=== PATIENT | female | born 1965 | race African-American/Black ===

== ENCOUNTER 2018-05-29 01:41 | Inpatient (IN) | payer MEDICARE ==
[2018-05-29] VITALS (77 sets, daily range): BP systolic 89–191; BP diastolic 50–151
[~2018-05-29] VITALS: Ht 172.7 cm; Wt 137.9 kg
[2018-05-29] MEDS ORDERED: SODIUM CHLORIDE 0.9% 1000ML 1,000 ML IV STA (01:56)
[2018-05-29] MEDS ORDERED: ACETAMINOPHEN 1000 MG/100 ML IV STA (01:56)
[2018-05-29 02:40] LABS: BASOPHILS % 0.2 % (0.0-1.0); HEMATOCRIT 35.4 % (34.2-44.1); HEMOGLOBIN 11.8 g/dL (12.0-16.0); LYMPHOCYTES # (AUTO) 0.6 (1.0-3.2); LYMPHOCYTES % 5.8 % (18.0-39.1); MEAN CORPUSCULAR HEMOGLOBIN 29.4 pg (28-32); MEAN CORPUSCULAR HGB CONC 33.3 g/dL (31-35); MEAN CORPUSCULAR VOLUME 88.1 fL (81-99); MONOCYTES # (AUTO) 0.7 (0.2-0.8); MONOCYTES % 6.6 % (4.4-11.3); NEUTROPHILS # (AUTO) 9.6 (2.1-6.9); NEUTROPHILS % 86.9 % (38.7-80.0); PLATELET COUNT 83 x10e3/uL (140-360); RED BLOOD COUNT 4.02 x10e6/uL (3.6-5.1); RED CELL DISTRIBUTION WIDTH 15.9 % (11.7-14.4)
[2018-05-29 02:45] LABS: INR 1.12; PROTHROMBIN TIME 15.4 seconds (11.9-14.5)
[2018-05-29 02:55] LABS: ALBUMIN 3.9 g/dL (3.5-5.0); ALBUMIN/GLOBULIN RATIO 0.8 (0.8-2.0); CALCIUM 10.7 mg/dL (8.4-10.2); CREATININE, SERUM 2.42 mg/dL (0.57-1.11); MAGNESIUM 1.7 MG/DL (1.3-2.1)
[2018-05-29 03:14] LABS: CREATINE KINASE MB 1.7 ng/mL (0-5.0); THYROID STIMULATING HORMONE 0.374 uIU/mL (0.350-4.940)
[2018-05-29] MEDS ORDERED: CEFEPIME HCL 2 GM VIAL IV STA (03:30)
[2018-05-29] MEDS ORDERED: VANCOMYCIN 1GM/NS 250 ML 250 ML IV STA (03:30)
[2018-05-29 04:18] LABS: CLARITY,URINE CLEAR (CLEAR); COLOR,URINE YELLOW (YELLOW)
[2018-05-29 04:19] LABS: BACTERIA,URINE RARE /HPF; BILIRUBIN,URINE NEGATIVE (NEGATIVE); EPITHELIAL CELLS,URINE RARE /LPF; KETONES,URINE NEGATIVE (NEGATIVE); LEUKOCYTE ESTERASE ,URINE NEGATIVE (NEGATIVE); NITRITE,URINE NEGATIVE (NEGATIVE); PREGNANCY TEST, URINE NEGATIVE (NEGATIVE); PROTEIN,URINE DIPSTICK NEGATIVE (NEGATIVE); RBC,URINE 0-5 /HPF (0-5); URINE UROBILINOGEN 0.2 mg/dL (0.2 - 1); WBC,URINE (MAN) 0-5 /HPF (0-5)
[2018-05-29 04:23] LABS: INFLUENZAE A&B ANTIGEN (RAPID) NEGATIVE (NEGATIVE); STREPTOCOCCUS GRP A ANTIGEN NEGATIVE (NEGATIVE)
--- NOTE | 2018-05-29 05:00 | Diagnostic Imaging Report ---
EXAMINATION: Head CT without contrast. HISTORY:Altered mental status and fever. COMPARISON:None. TECHNIQUE: Multidetector axial images were obtained from the foramen magnum to the vertex without contrast. The images were reconstructed using brain and bone algorithms. Thin section brain images were reformatted into coronal and sagittal planes. Dose modulation, iterative reconstruction, and/or weight based adjustment of the mA/kV was utilized to reduce the radiation dose to as low as reasonably achievable. Intravenous contrast: None IMAGE QUALITY: Suboptimal evaluation due to motion-related artifacts and metallic streak artifact secondary to an overlying external material in the frontal scalp. FINDINGS: Skull/scalp: No lytic or blastic. lesions. No surgical changes. Parenchyma: Suboptimal evaluation due to motion and metallic streak artifacts, despite the limitation no gross acute intracranial hemorrhage, mass or acute major vascular territorial infarct. Nonspecific bilateral frontoparietal patchy white matter hypodensity are likely related to small vessel ischemic changes. Focal hypodensity in left lentiform nucleus represents old lacunar infarct or prominent perivascular space. Arteries: No density suggestive of thrombosis. Dural sinuses: No abnormal density suggestive of thrombosis. Ventricles: No hydrocephalus or displacement. Extra-axial spaces: No abnormal density. Brain volume: Mild generalized cerebral volume loss. Craniocervical junction: No mass, Chiari malformation, or basilar invagination. Sella: No mass. Paranasal/mastoid sinuses: Imaged portions unremarkable. IMPRESSION: 1. Suboptimal evaluation due to motion and metallic streak artifacts, despite the limitation no gross acute intracranial abnormality. 2. Mild supratentorial white matter microvascular ischemic changes. 3. Mild generalized cerebral volume loss. Signed by: Dr. Kathy Mcdonough M.D. on 05/29/2018 4:57 AM
--- NOTE | 2018-05-29 05:08 | Diagnostic Imaging Report ---
EXAM: CHEST SINGLE (PORTABLE), AP 1 view INDICATION: Altered mental status, fever COMPARISON: None FINDINGS: LINES/TUBES: None LUNGS: No consolidations or edema. PLEURA: No effusions or pneumothorax. HEART AND MEDIASTINUM: Normal for technique BONES AND SOFT TISSUES: No acute findings. IMPRESSION: No acute thoracic abnormality. Signed by: Dr. Ymaila Prieto M.D. on 05/29/2018 5:05 AM
[2018-05-29 05:39] LABS: AMPHETAMINES SCREEN,URINE NEGATIVE (NEGATIVE); BENZODIAZEPINES SCREEN,URINE NEGATIVE (NEGATIVE); PHENCYCLIDINE SCREEN,URINE NEGATIVE (NEGATIVE)
[2018-05-29] MEDS ORDERED: ONDANSETRON HCL INJ 2 MG/ML VIAL IV PRN ×2 (05:45→12:00)
[2018-05-29] MEDS ORDERED: DEXTROSE 50% SYRINGE 50 ML IV PRN (05:45)
[2018-05-29] MEDS ORDERED: ACETAMINOPHEN 1000 MG/100 ML IV PRN (05:45)
[2018-05-29 05:50] LABS: ACETAMINOPHEN < 3 ug/mL (10-30); SALICYLATE < 5.0 mg/dL (0-30)
--- NOTE | 2018-05-29 06:08 | Diagnostic Imaging Report ---
EXAM: CT ABDOMEN AND PELVIS without IV CONTRAST INDICATION: History of cirrhosis, altered mental status and fever COMPARISON: None TECHNIQUE: The abdomen and pelvis were scanned using a multidetector helical scanner. Coronal and sagittal reformations were obtained. Dose modulation, iterative reconstruction, and/or weight based adjustment of the mA/kV was utilized to reduce the radiation dose to as low as reasonably achievable. Routine protocol performed. IV Contrast: None Oral Contrast: None CTDIvol has been reviewed. It is below the limits set by the Radiation Protocol Committee (RPC). FINDINGS: LOWER THORAX: Bibasilar atelectasis. LIVER: Cirrhotic liver morphology. BILIARY: Cholecystectomy without ductal dilation. SPLEEN: Splenomegaly. PANCREAS: No masses ADRENALS: No nodules RIGHT KIDNEY: No nephroureterolithiasis or hydronephrosis. LEFT KIDNEY: No nephroureterolithiasis or hydronephrosis. GI TRACT: No wall thickening or obstruction. Normal appendix. VESSELS: Recanalization of the periumbilical vein. PERITONEUM/RETROPERITONEUM: No free air or fluid LYMPH NODES: Mildly prominent inguinal lymph nodes. REPRODUCTIVE ORGANS: Small uterine fibroid. BLADDER: Decompressed by John catheter. SOFT TISSUES: Incidental atrophy of the left psoas muscle. Bilateral flank edema. BONES: No suspicious bone lesions. Chronic compression fracture with a cemented L2 vertebral body. IMPRESSION: No CT findings to explain patient's fever. Cirrhosis with portal hypertension. No ascites. Signed by: Dr. Yamila Prieto M.D. on 05/29/2018 6:04 AM
[2018-05-29] MEDS ORDERED: SODIUM CHLORIDE 0.9% 1000ML 1,000 ML ONE ×2 (07:07→09:51)
[2018-05-29] MEDS ORDERED: SODIUM CHLORIDE 0.9% 1000ML 1,000 ML IV SCH (07:15)
[2018-05-29] MEDS: INSULIN REGULAR, HUMAN 100 UNIT/1 ML 3ML VIAL SQ SCH ×3 (07:30→16:30)
[2018-05-29] MEDS: PANTOPRAZOLE 40 MG 10ML VIAL IV SCH (09:01)
[2018-05-29] MEDS ORDERED: SODIUM CHLORIDE 0.9% 1000ML 1,000 ML IV ONE (10:15)
[2018-05-29] MEDS: SODIUM CHLORIDE 0.9% 1000ML 1,000 ML IV SCH (13:25)
[2018-05-29] MEDS ORDERED: VANCOMYCIN HCL 1 GM in SODIUM CHLORIDE 0.9% 250ML 250 ML IV SCH (14:00)
[2018-05-29] MEDS ORDERED: CEFTRIAXONE SOD 1 GM VIAL IV SCH (14:00)
[2018-05-29] MEDS ORDERED: AMPICILLIN SOD 2 GM/NS 100ML 100 ML IV SCH ×3 (14:00→20:00)
--- NOTE | 2018-05-29 14:14 | History and Physical ---
CHIEF COMPLAINT: Fever, altered mental status, transfer from [facility]. HPI: This is a 52-year-old female. Currently, she is altered and confused. I am unable to obtain full information except from the ER note, nursing staff, and the information from [facility], who comes in from [facility] due to underlying fever of 104 and metabolic encephalopathy. Currently, the patient according to the records was there for further rehabilitation. 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 She also has a history of liver cirrhosis of unknown etiology. She takes methadone for chronic pain as well as clonazepam. According to the records, patient had a recent fall at [facility], but imaging studies seem to find just an acute fracture of the proximal medial aspect of the first distal phalanx. Her ankle actually was found to be negative. She had a hip x-ray, was found to be negative. Knee x-ray was found to be negative as well. There is also some note that states that when she was in the Medical Center, the record show she has underlying CKD stage 3 with chronic back pain, who presented there due to worsening lower extremity swelling. She was found to have chronic bilateral lower extremity swelling with no resolve. She also has a history of MDR UTI in the past. Patient was then transferred to [facility] for further rehabilitation. Patient was seen and evaluated at bedside in the ICU, currently able to arouse, but she is not able to tell us any information. She is very lethargic and sleeping on examination but arousable. REVIEW OF SYSTEMS: Unable to obtain. Patient has altered mental status. ALLERGIES: NO KNOWN DRUG ALLERGIES. HOME MEDICATIONS 1. Methadone 10 mg daily. 2. Melatonin 3 mg at bedtime for sleep. 3. Tizanidine 4 mg q.6 hours. 4. Lactulose, she takes 20 g daily. 5. Topiramate 25 mg three tabs by mouth at bedtime. 6. Gabapentin 300 mg t.i.d. 7. Hydroxyzine 50 mg q.24 hours as needed for itching. 8. Folic acid 1 mg daily. 9. Dieterich 10/325 mg every 6 hours as needed for pain. PAST MEDICAL HISTORY: Recorded is major depression disorder. She has Guillain-[place], has polyneuropathy, asthma, chronic urinary tract infection, chronic pain syndrome, and alcoholic cirrhosis, unknown etiology. PAST SURGICAL HISTORY: Unknown. FAMILY HISTORY: Unknown. SOCIAL HISTORY: Unknown. VITAL SIGNS: Temperature is 101.1 last recorded, but she came in with a temp of 104.1 as a T-max, pulse rate is 133, respiratory rate is 22, her last blood pressure was 21/67 on the monitor, 100% on 3 liters nasal cannula. LAB FINDINGS: Show white count is 11, hemoglobin is 11.8, hematocrit is 35, and platelets of 83. Coagulation; PT 15.4, INR 1.1, and PTT 33. Chemistry; sodium 141, potassium is 4, chloride is 103, bicarb 22, anion gap of 20, BUN is 41, creatinine is 2.4, calcium is 10.7, magnesium 1.7, total bilirubin is 2, AST 72, ALT 24, mono level 64, CK 1343, troponin is 0.024, BNP 487, albumin is 3.9, TSH 0.3. Urinalysis was negative. Toxicology screen; urine drug screen just positive for opiates, influenza negative, and group B Strep negative. MICROBIOLOGY: Blood and urine cultures including throat cultures are pending. Chest x-ray was negative. CT brain shows no acute findings according to the reports. CT abdomen and pelvis just show cirrhosis with portal hypertension. No ascites. PHYSICAL EXAM GENERAL: She is arousable on exam, but does not make sense with word. HEENT: Head is normocephalic and atraumatic. Eyes: Pupils are equal, round, and reactive to light bilaterally. Extraocular movements are intact bilaterally. No evidence of any meningismus or any evidence of any meningeal signs. NECK: Supple. Good range of motion. THROAT: No evidence of any erythema or exudates in the posterior pharynx. Has poor dentition. PULMONARY: Clear to auscultation bilaterally. No wheezing, rales, or rhonchi. No crackles appreciated. CARDIOVASCULAR: Positive S1 and S2. No murmurs, rubs, or gallops appreciated. ABDOMEN: Soft, nondistended, and nontender to palpation. Bowel sounds present. MUSCULOSKELETAL: Unable to assess. She is altered. NEUROLOGIC: Unable to assess. She is altered. SKIN: Intact. Warm to touch. Good cap refill. PSYCHIATRIC: Currently unable to assess. EXTREMITIES: No edema. Good range of motion throughout. IMPRESSION 1. Sepsis with underlying fever of unknown etiology with leukocytosis. 2. Metabolic encephalopathy, likely multifactorial from polysubstance abuse as well as sedating medications and also underlying infection from sepsis. 3. Acute kidney injury, on chronic kidney disease stage 3. 4. Rhabdomyolysis. 5. Liver cirrhosis of unknown etiology. 6. Prophylaxis. 7. Fluids, electrolytes, nutrients. 8. Physical therapy and occupational therapy evaluation. 9. Right distal phalanx fracture due to recent fall. PLAN: At this time, patient's CT brain was found to be negative. I am concerned that the patient may have another source of infection and may need an LP, but I will actually have ID consulted and further evaluate to see if an LP is needed. Her encephalopathy could be multifactorial. She is currently in acute kidney injury and she was taking gabapentin, methadone, Dieterich, tizanidine, as well as hydroxyzine which are all sedating medications, which could be the cause in her case, but the fevers unexplanatory. Her chest x-ray was negative. Her UA was negative. Her CBC; her white count was slightly elevated. She will be on continuous IV antibiotics with vancomycin and cefepime. I am going to get a.m. labs, BMP, CBC, as well as a lactic acid. Like I said she may need an LP, but I will have ID evaluate further if indicated. In relation to her acute kidney injury, she will continue on IV fluids. She was also found to be in rhabdo, which she will be on continuous IV fluids. Continue with lactulose for her ammonia level. I will hold Lovenox for now in the event she needs an LP and put her on SCDs. She was also found to have right distal phalanx fracture on imaging at [facility], but those fractures usually heal on their own and would just put like a splint. In relation to her diet, she is not alert enough to eat at this moment. When she wakes up, we will consider her to do a speech therapy eval and consider diet. We will hold off of NG tube for now. Otherwise, we will continue with same plan of care. I discussed the case with the nursing staff. I spent more than 45 minutes of critical care time on this case reviewing the entire chart, discussing overall plan of care with the patient and nursing staff. Job#: [id number] ALEK
[2018-05-29] MEDS ORDERED: ACYCLOVIR SODIUM INJ 500 MG in SODIUM CHLORIDE 0.9% 100 ML 100 ML IV SCH ×2 (14:30→18:30)
[2018-05-29] MEDS ORDERED: LIDOCAINE HCL 2% LOCAL 20 ML VIAL ONE (15:05)
[2018-05-29] MEDS ORDERED: CEFEPIME HCL 2 GM VIAL IV SCH (16:00)
[2018-05-29] MEDS ORDERED: VANCOMYCIN 1GM/NS 250 ML 250 ML IV SCH (17:00)
--- NOTE | 2018-05-29 17:09 | Consultation ---
DATE OF CONSULTATION: May 29, 2018 REASON FOR CONSULTATION: Concern about infection. HISTORY OF PRESENT ILLNESS: This is a patient who is currently in [facility] Emergency Room. She comes to us from the [facility] skilled care facility. 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 The patient apparently has history of recurrent cellulitis of her legs, morbidly obese patient who has history of alcoholism, neuropathy, chronic diastolic congestive heart failure, liver cirrhosis, chronic kidney disease, closed compression fracture of L2, Guillain-[place] syndrome before, and obesity. She has been getting progressively worse recently neurologically in the last few days, transferred here. According to nurse, she was able to talk to her earlier today and she was complaining of pain all over. Currently, the patient is sleeping and I tried to arouse her. PAST MEDICAL HISTORY: The patient has history of alcoholism, neuropathy, congestive heart failure, liver cirrhosis, chronic kidney disease, obesity, Guillain-[place], obstructive sleep apnea, peptic ulcer disease, and seizure disorder. PAST SURGICAL HISTORY: Cholecystectomy, endometrial ablation, hand ligament reconstructive surgery, kyphoplasty, nerve block lumbar sympathetic procedure before by pain management, nerve block, endoscopic biopsy before. ALLERGIES: NKA. SOCIAL HISTORY: There is no smoking, drug abuse, or alcohol abuse. FAMILY HISTORY: Noncontributory. REVIEW OF SYSTEMS: Cannot not be obtained. Patient apparently has for some time, but more so recently, so she was transferred here. PHYSICAL EXAMINATION VITAL SIGNS: She is currently afebrile, temperature 100.8, T-max 101.6, heart rate of 134. HEENT: She is normocephalic. NECK: Supple. CHEST: Few crackles. HEART: S1, S2. No S3, S4, or murmur. ABDOMEN: Soft. Bowel sounds present. No tenderness. EXTREMITIES: No edema. LABS: Her white count is 11, hemoglobin 11.8, and her platelet of 83. Sodium 141, potassium 4.0, creatinine of 2.42, lactic acid of 13.7. AST 72 and AL 24. Chest x-ray showed no acute finding. CT of the brain showed substandard study because of artifact, suboptimal evaluation. CT abdomen and pelvis, no acute abnormality. MEDICATIONS: She is currently on Protonix, , insulin, rifaximin, vancomycin, and cefepime. PHYSICAL EXAMINATION GENERAL: She is lethargic. VITAL SIGNS: Stable. Afebrile. HEENT: She does not appear icteric. NECK: Supple. CHEST: Clear bilateral. HEART: S1, S2. No murmur. ABDOMEN: Soft. Bowel sounds present. No tenderness. EXTREMITIES: No edema. SKIN: No rash. IMPRESSION 1. Sepsis, source is unclear, concern about meningitis/encephalitis. 2. Liver disease and cirrhosis. 3. Chronic kidney disease. 4. Obesity. PLAN: I would recommend to put her on Rocephin 2 gram q.12, vancomycin, acyclovir, and ampicillin. Obtain spinal fluid. Await blood cultures. Await urine cultures. Supportive care. Further recommendations to follow. Job#: [id number] AAMIR
[2018-05-29 17:10] LABS: APPEARANCE,CSF CLEAR (CLEAR); COLOR,CSF COLORLESS (COLORLESS); TUBE NUMBER 1
[2018-05-29 17:11] LABS: WHITE BLOOD CELL,CSF 4 cells/uL (0-5)
[2018-05-29 17:33] LABS: TOTAL PROTEIN,CSF 41.9 mg/dL (15-40)
--- NOTE | 2018-05-29 18:24 | Diagnostic Imaging Report ---
EXAMINATION: CHEST SINGLE (PORTABLE) INDICATION: \S\VERIFY PLACEMENT OF RIGHT CENTRAL VENOUS CATHETER COMPARISON: None FINDINGS: AP view TUBES and LINES: Right IJ central line with tip likely in the low SVC. LUNGS: Lungs are well inflated. There are bibasilar atelectasis. There is mild prominence of the central pulmonary vasculature, consistent with pulmonary venous congestion. PLEURA: No pleural effusion or pneumothorax. HEART AND MEDIASTINUM: Cardiac size is mildly enlarged. BONES AND SOFT TISSUES: No acute osseous lesion. Soft tissues are unremarkable. UPPER ABDOMEN: No free air under the diaphragm. IMPRESSION: 1. Right IJ line with tip likely in the low SVC. 2. However, patient is mildly rotated exam. Signed by: Dr. Zuhair Heaton M.D. on 05/29/2018 6:21 PM
[2018-05-29 18:36] LABS: BASOPHILS % 0.2 % (0.0-1.0); EOSINOPHILS % 0.1 % (0.0-6.0); HEMATOCRIT 32.7 % (34.2-44.1); HEMOGLOBIN 10.7 g/dL (12.0-16.0); LYMPHOCYTES % 11.1 % (18.0-39.1); MEAN CORPUSCULAR HEMOGLOBIN 29.6 pg (28-32); MEAN CORPUSCULAR HGB CONC 32.7 g/dL (31-35); MEAN CORPUSCULAR VOLUME 90.3 fL (81-99); MONOCYTES # (AUTO) 0.7 (0.2-0.8); MONOCYTES % 7.9 % (4.4-11.3); NEUTROPHILS # (AUTO) 7.5 (2.1-6.9); NEUTROPHILS % 80.1 % (38.7-80.0); PLATELET COUNT 72 x10e3/uL (140-360); RED BLOOD COUNT 3.62 x10e6/uL (3.6-5.1); RED CELL DISTRIBUTION WIDTH 16.1 % (11.7-14.4)
[2018-05-29 18:47] LABS: ANION GAP 15.6 mmol/L (8-16); CALCIUM 9.6 mg/dL (8.4-10.2); CREATININE, SERUM 1.82 mg/dL (0.57-1.11); POTASSIUM 3.6 mmol/L (3.5-5.1)
[2018-05-29] MEDS: CEFTRIAXONE SOD 1 GM VIAL IV SCH (18:48)
[2018-05-29] MEDS: RIFAXIMIN 550 MG TABLET PO SCH (18:48)
[2018-05-29] MEDS: LACTULOSE SYRUP 20 GM/30 ML UDC PO SCH (18:48)
[2018-05-29 19:19] LABS: CREATINE KINASE MB 2.7 ng/mL (0-5.0)
[2018-05-29] MEDS ORDERED: SODIUM CHLORIDE 0.9% IV SCH ×3 (21:00)
[2018-05-29] MEDS ORDERED: VANCOMYCIN HCL IV SCH ×3 (21:00)
[2018-05-29] MEDS: VANCOMYCIN 1GM/NS 250 ML 250 ML IV SCH (21:02)
[2018-05-30] VITALS (57 sets, daily range): BP systolic 126–204; BP diastolic 65–161
[2018-05-30] MEDS: SODIUM CHLORIDE 0.9% 1000ML 1,000 ML IV SCH ×4 (01:30→20:47)
[2018-05-30 04:44] LABS: BASOPHILS % 0.2 % (0.0-1.0); EOSINOPHILS % 0.5 % (0.0-6.0); HEMATOCRIT 30.3 % (34.2-44.1); HEMOGLOBIN 9.9 g/dL (12.0-16.0); LYMPHOCYTES % 12.1 % (18.0-39.1); MEAN CORPUSCULAR HEMOGLOBIN 29.4 pg (28-32); MEAN CORPUSCULAR HGB CONC 32.7 g/dL (31-35); MEAN CORPUSCULAR VOLUME 89.9 fL (81-99); MONOCYTES % 11.6 % (4.4-11.3); NEUTROPHILS # (AUTO) 6.4 (2.1-6.9); NEUTROPHILS % 75.1 % (38.7-80.0); PLATELET COUNT 71 x10e3/uL (140-360); RED BLOOD COUNT 3.37 x10e6/uL (3.6-5.1); RED CELL DISTRIBUTION WIDTH 16.2 % (11.7-14.4)
[2018-05-30 05:07] LABS: ALBUMIN 2.9 g/dL (3.5-5.0); ALBUMIN/GLOBULIN RATIO 0.7 (0.8-2.0); ANION GAP 15.5 mmol/L (8-16); CALCIUM 9.5 mg/dL (8.4-10.2); CHOL/HDL RATIO 3.4 (3.0-3.6); CREATININE, SERUM 1.71 mg/dL (0.57-1.11); POTASSIUM 3.5 mmol/L (3.5-5.1)
[2018-05-30] MEDS: INSULIN REGULAR, HUMAN 100 UNIT/1 ML 3ML VIAL SQ SCH ×4 (05:47→17:25)
[2018-05-30] MEDS: CEFTRIAXONE SOD 1 GM VIAL IV SCH ×2 (05:56→17:23)
[2018-05-30] MEDS: RIFAXIMIN 550 MG TABLET PO SCH ×2 (09:45→17:12)
[2018-05-30] MEDS: LACTULOSE SYRUP 20 GM/30 ML UDC PO SCH ×2 (09:45→17:12)
[2018-05-30] MEDS: PANTOPRAZOLE 40 MG 10ML VIAL IV SCH (09:45)
[2018-05-30] MEDS: METOPROLOL TARTRATE 50 MG TAB PO SCH ×2 (10:29→17:12)
[2018-05-30] MEDS: FUROSEMIDE INJ 10 MG/ML 4 ML VIAL IV SCH ×2 (10:30→17:12)
--- NOTE | 2018-05-30 10:47 | Progress Note ---
DATE: May 30, 2018 INTERNAL MEDICINE PROGRESS NOTE SUBJECTIVE: The patient is much more alert today on exam. She had an LP yesterday, which was found to be unremarkable. She is afebrile and normotensive. She is much more alert compared to yesterday. She was able to tell me the year and where she is located but unable to tell me who the President is. Discussed the case with the nursing staff. VITAL SIGNS: Temperature is 100. Her pulse is 126. Respiratory rate is 20. Blood pressure is 160/103. Her pulse ox is 98% on room air. LAB FINDINGS: White count 8.2, hemoglobin 9.9, hematocrit 30.3, platelets 71. Chemistry: Sodium 144, potassium 3.5, chloride 111, bicarb 21, anion gap 15, BUN 27, creatinine 1.7, glucose 110, calcium 9.5. Total bilirubin is 1.4, AST 42, ALT 17. CK is 387. LDL is 62. TSH was normal. CSF showed 4 WBCs, 195 RBCs, seems to be very clear, total protein 42, glucose 80. Influenza negative. Group-B strep negative. Several serologies have been ordered, still pending. Blood cultures no growth to date. Throat culture is negative. Urine culture is negative. CSF cultures are pending. Fungal CSF cultures are pending. PHYSICAL EXAMINATION GENERAL: Not in acute distress. Alert and oriented times 2. Cooperative on examination. HEENT: Head is normocephalic and atraumatic. Eyes: Pupils are equal, round, and reactive to light bilaterally. Extraocular movements are intact bilaterally. NECK: Supple. Good range of motion. THROAT: No evidence of any erythema or exudates in the posterior pharynx. Has poor dentition. PULMONARY: Clear to auscultation bilaterally. No wheezing, no rales, no rhonchi. No crackles appreciated. CARDIOVASCULAR: Positive S1 and S2. No murmurs, rubs, or gallops appreciated. ABDOMEN: Soft, nondistended, and nontender to palpation. Bowel sounds present. MUSCULOSKELETAL: Strength is 5/5 throughout. No evidence of any muscle deficit on examination. No weakness is appreciated. NEUROLOGIC: Cranial nerves II through XII grossly intact. No evidence of any neurologic deficit on exam. SKIN: Intact. Warm to touch. Good cap refill. PSYCHIATRIC: Currently cooperative on exam. EXTREMITIES: Positive for edema. Good range of motion throughout. IMPRESSION 1. Sepsis with underlying fever of unknown etiology with leukocytosis. 2. Metabolic encephalopathy, likely multifactorial from polysubstance abuse as well as sedating medications, status post lumbar puncture performed. 3. Acute kidney injury on chronic kidney disease, stage 3. 4. Rhabdomyolysis, improving. 5. Liver cirrhosis of unknown etiology. 6. Prophylaxis. 7. Fluids, electrolytes, nutrients. 8. Physical therapy and occupational therapy. 9. Right distal phalanx fracture due to recent fall. PLAN: At this time, the patient is alert and oriented times 2, much improved compared to yesterday. Will need to discuss with the family and see what the patient's true baseline is. If she does not improve, will have to consider getting a neurology consultation and get an MRI of her brain. I discussed this with the nurse. She did have an LP yesterday, which was found to be normal. She is still on broad-spectrum IV antibiotics, which ID is following. So far, her blood cultures and urine cultures are found to be negative. We are going to continue to monitor closely. ID is following that. Her creatinine improved. We will continue with IV fluids and encourage oral hydration and feeds. Her CK improved as well. We are going to continue to work with PT and OT. The patient is tolerating diet well with no issues. Her heart rate is elevated, and I will add her on some metoprolol. Get a.m. labs and chest x-ray and start her on some Lasix due to lower extremity edema. Otherwise, I have discussed her overall plan of care with the nursing staff. She is currently still in the ICU. I spent more than 35 minutes of critical care time on this case. Job#: [id number]
[2018-05-30] MEDS ORDERED: CLONAZEPAM1 MG PO (11:03)
[2018-05-30] MEDS ORDERED: lidoderm patch 5% TOP (11:03)
[2018-05-30] MEDS ORDERED: METHADONE HCL10 MG PO (11:06)
[2018-05-30] MEDS ORDERED: MELATONIN3 MG PO (11:08)
[2018-05-30] MEDS ORDERED: MENTHOL 4% TOP (11:08)
[2018-05-30] MEDS ORDERED: VITAMIN B-121000 MCG PO (11:18)
[2018-05-30] MEDS ORDERED: FOLIC ACID1 MG PO (11:18)
[2018-05-30] MEDS ORDERED: HYDROXYZINE HCL25 MG PO (11:18)
[2018-05-30] MEDS ORDERED: LACTULOSE20 GM/30 M PO (11:18)
[2018-05-30] MEDS ORDERED: GABAPENTIN400 MG PO (11:18)
[2018-05-30] MEDS ORDERED: TIZANIDINE HCL4 MG PO (11:18)
[2018-05-30] MEDS ORDERED: TOPIRAMATE25 MG PO (11:18)
[2018-05-30] MEDS ORDERED: PEPCID20 MG PO (11:18)
[2018-05-30] MEDS ORDERED: FUROSEMIDE40 MG PO (11:18)
[2018-05-30] MEDS ORDERED: POTASSIUM CHLO10 ME1 PO (11:18)
[2018-05-30] MEDS ORDERED: PROAIR HFA INH8.5 GM INH (11:20)
[2018-05-30] MEDS ORDERED: NORCO 10-325 T1 EACH PO (11:20)
[2018-05-30] MEDS ORDERED: HYDROMORPHONE 1MG/1ML INJ IV PRN (17:45)
[2018-05-30] MEDS: HYDROMORPHONE 2MG/ML 2 MG/ML ML IV PRN ×2 (18:05→23:20)
[2018-05-30] MEDS: METHADONE HCL 10 MG TAB PO SCH ×2 (18:44→21:00)
[2018-05-30] MEDS: VANCOMYCIN 1GM/NS 250 ML 250 ML IV SCH (20:47)
[2018-05-31] VITALS (59 sets, daily range): BP systolic 73–176; BP diastolic 41–121
[2018-05-31] MEDS: FUROSEMIDE INJ 10 MG/ML 4 ML VIAL IV SCH (02:36)
[2018-05-31] MEDS: HYDROMORPHONE 2MG/ML 2 MG/ML ML IV PRN (03:27)
[2018-05-31 04:36] LABS: BASOPHILS % 0.3 % (0.0-1.0); EOSINOPHILS # (AUTO) 0.4 (0.0-0.4); EOSINOPHILS % 4.6 % (0.0-6.0); HEMATOCRIT 34.2 % (34.2-44.1); LYMPHOCYTES # (AUTO) 1.3 (1.0-3.2); LYMPHOCYTES % 14.2 % (18.0-39.1); MEAN CORPUSCULAR HEMOGLOBIN 28.9 pg (28-32); MEAN CORPUSCULAR HGB CONC 32.2 g/dL (31-35); MONOCYTES # (AUTO) 1.1 (0.2-0.8); MONOCYTES % 11.1 % (4.4-11.3); NEUTROPHILS # (AUTO) 6.6 (2.1-6.9); NEUTROPHILS % 69.4 % (38.7-80.0); PLATELET COUNT 88 x10e3/uL (140-360); RED CELL DISTRIBUTION WIDTH 16.1 % (11.7-14.4)
[2018-05-31 05:06] LABS: ANION GAP 16.3 mmol/L (8-16); CALCIUM 10.1 mg/dL (8.4-10.2); CREATININE, SERUM 1.58 mg/dL (0.57-1.11); POTASSIUM 3.3 mmol/L (3.5-5.1)
[2018-05-31] MEDS: INSULIN REGULAR, HUMAN 100 UNIT/1 ML 3ML VIAL SQ SCH ×5 (06:00→21:50)
[2018-05-31] MEDS: CEFTRIAXONE SOD 1 GM VIAL IV SCH ×2 (06:01→17:47)
--- NOTE | 2018-05-31 06:43 | Diagnostic Imaging Report ---
EXAMINATION: CHEST SINGLE (PORTABLE) INDICATION: Shortness of breath COMPARISON: None FINDINGS: TUBES and LINES: Right IJ central line catheter is visualized with tip overlying the SVC. LUNGS: Lungs are not well inflated. Lungs are clear. There is mild prominence of the central pulmonary vasculature, consistent with pulmonary venous congestion. PLEURA: No pleural effusion or pneumothorax. HEART AND MEDIASTINUM: The cardiomediastinal silhouette is unremarkable. BONES AND SOFT TISSUES: No acute osseous lesion. Soft tissues are unremarkable. UPPER ABDOMEN: No free air under the diaphragm. IMPRESSION: No acute thoracic abnormality. Signed by: Dr. Joshua Rodrigez M.D. on 05/31/2018 6:39 AM
[2018-05-31] MEDS: METHADONE HCL 10 MG TAB PO SCH (08:30)
[2018-05-31] MEDS ORDERED: TIZANIDINE HCL 4 MG TAB PO PRN (08:45)
[2018-05-31] MEDS: LACTULOSE SYRUP 20 GM/30 ML UDC PO SCH ×2 (09:02→16:25)
[2018-05-31] MEDS: PANTOPRAZOLE 40 MG 10ML VIAL IV SCH (09:02)
[2018-05-31] MEDS: RIFAXIMIN 550 MG TABLET PO SCH ×2 (09:05→17:47)
[2018-05-31] MEDS: METOPROLOL TARTRATE 50 MG TAB PO SCH ×2 (09:05→16:25)
[2018-05-31] MEDS ORDERED: POTASSIUM CHLORIDE 20 MEQ TAB CR PO NR (10:00)
[2018-05-31] MEDS ORDERED: POTASSIUM CHLORIDE 20 MEQ TAB CR PO STA (10:34)
--- NOTE | 2018-05-31 11:51 | Progress Note ---
DATE: May 31, 2018 INTERNAL MEDICINE PROGRESS NOTE SUBJECTIVE: The patient is much more alert on examination today. She is improving daily, but there is some confusion occasionally, according to the nurse. Still, we have been waiting on family, and no family has called for us to verify her baseline. Case management was consulted, and methadone was discontinued. OBJECTIVE VITAL SIGNS: Temperature is 99.3, pulse 89, respiratory rate 18, blood pressure 166/91. She is 100% on 2 L nasal cannula. LAB FINDINGS: White count 9.4, hemoglobin 11, hematocrit 34, platelets 88. Coagulation: PT 15.4, INR 1.1, PTT 33. Chemistry: Sodium 143, potassium 3.3, chloride 106, bicarb 23, anion gap 16, BUN 21, creatinine 1.58, glucose 149. Urinalysis is negative. CSF fluid was negative. There are several serologies pending. MICROBIOLOGY: Blood culture is negative. Throat culture is negative. Urine culture is negative. CSF preliminary is no growth to date. IMAGING STUDIES: Chest x-ray shows no acute thoracic abnormality. Venous Doppler has been ordered to rule out DVT. PHYSICAL EXAMINATION GENERAL: Not in acute distress. Alert and oriented times 2. Cooperative on examination. HEENT: Head is normocephalic and atraumatic. Eyes: Pupils are equal, round, and reactive to light bilaterally. Extraocular movements are intact bilaterally. NECK: Supple. Good range of motion. THROAT: No evidence of any erythema or exudates in the posterior pharynx. Has poor dentition. PULMONARY: Clear to auscultation bilaterally. No wheezing, no rales, no rhonchi. No crackles appreciated. CARDIOVASCULAR: Positive S1 and S2. No murmurs, rubs, or gallops appreciated. ABDOMEN: Soft, nondistended, and nontender to palpation. Bowel sounds present. MUSCULOSKELETAL: Strength is 5/5 throughout. No evidence of any musculoskeletal deficit on examination. No weakness is appreciated. NEUROLOGIC: Cranial nerves II through XII grossly intact. No evidence of any neurologic deficit on exam. SKIN: Intact. Warm to touch. Good cap refill. PSYCHIATRIC: She is alert and awake. She is oriented times 2. EXTREMITIES: No edema. Good range of motion throughout. IMPRESSION 1. Sepsis with underlying fever of unknown etiology with leukocytosis. 2. Metabolic encephalopathy, likely multifactorial from polysubstance abuse as well as sedating medications, status post lumbar puncture performed which was negative. 3. Acute kidney injury on chronic kidney disease, stage 3. 4. Rhabdomyolysis, improving. 5. Liver cirrhosis of unknown etiology. 6. Prophylaxis. 7. Fluids, electrolytes, nutrients. 8. Medically debilitated requiring physical therapy and occupational therapy. 9. Right distal phalanx fracture due to recent fall. PLAN: At this time, all of her cultures have been found to be negative. She is still on IV antibiotics, and ID is following. Several viral panels are pending, which are sent out, and we are waiting on those results. She has been afebrile, and the white count has improved. In terms of her encephalopathy, she is more alert today. The nurses state she is episodically confused. If she continues to be more confused, I am going to get an MRI of her brain to rule out any other etiology. May need neurology consultation if no improvement. It is likely felt to be multifactorial from polysubstance abuse and pain medications. Acute kidney injury is resolving. In relation to her thrombocytopenia, hematology is consulted. In relation to her chronic pain, pain management was consulted, and methadone was discontinued. Currently, she is pain-free. We are going to allow pain management to manage her pain situation. She is going to continue working with PT and OT. She is very weak and will need a halfway facility consult for further rehabilitation. She is still in the ICU. Otherwise, her vital signs are stable. I spent more than 35 minutes of critical care time on this case. Job#: [id number]
--- NOTE | 2018-05-31 16:36 | Diagnostic Imaging Report ---
Radiographs of the right foot - 3 views HISTORY: Pain COMPARISON: None available. FINDINGS: Bones: Healing fracture deformity of the distal first toe. Osseous alignment is within normal limits. Joints: Scattered degenerative changes. Small inferior calcaneal bone spur. Soft tissues: Soft tissue swelling IMPRESSION: Scattered degenerative change. Soft tissue swelling. Healing fracture deformity of the distal first toe. Signed by: Dr. Alexx Jacques M.D. on 05/31/2018 4:32 PM
[2018-05-31] MEDS: TIZANIDINE HCL 4 MG TAB PO PRN (22:18)
[2018-05-31] MEDS: HYDROCODONE/APAP 10MG-325MG TAB PO PRN (22:18)
[2018-06-01 04:24] VITALS: BP 119/69
[2018-06-01 05:02] LABS: BASOPHILS % 0.3 % (0.0-1.0); EOSINOPHILS # (AUTO) 0.5 (0.0-0.4); EOSINOPHILS % 5.2 % (0.0-6.0); HEMATOCRIT 31.1 % (34.2-44.1); HEMOGLOBIN 10.1 g/dL (12.0-16.0); LYMPHOCYTES % 22.5 % (18.0-39.1); MEAN CORPUSCULAR HEMOGLOBIN 28.9 pg (28-32); MEAN CORPUSCULAR HGB CONC 32.5 g/dL (31-35); MEAN CORPUSCULAR VOLUME 89.1 fL (81-99); MONOCYTES # (AUTO) 1.1 (0.2-0.8); MONOCYTES % 12.2 % (4.4-11.3); NEUTROPHILS # (AUTO) 5.2 (2.1-6.9); PLATELET COUNT 89 x10e3/uL (140-360); RED BLOOD COUNT 3.49 x10e6/uL (3.6-5.1); RED CELL DISTRIBUTION WIDTH 15.7 % (11.7-14.4)
[2018-06-01 05:23] LABS: ANION GAP 12.7 mmol/L (8-16); CALCIUM 7.9 mg/dL (8.4-10.2); CREATININE, SERUM 1.33 mg/dL (0.57-1.11)
[2018-06-01 05:34] LABS: POTASSIUM 2.7 mmol/L (3.5-5.1)
[2018-06-01] MEDS: CEFTRIAXONE SOD 1 GM VIAL IV SCH ×2 (05:56→17:50)
[2018-06-01] MEDS: HYDROCODONE/APAP 10MG-325MG TAB PO PRN ×3 (05:56→21:38)
[2018-06-01] MEDS: INSULIN REGULAR, HUMAN 100 UNIT/1 ML 3ML VIAL SQ SCH ×4 (06:00→21:37)
[2018-06-01] MEDS ORDERED: POTASSIUM CHLORIDE 20 MEQ TAB CR PO STA (06:06)
[2018-06-01] MEDS: POTASSIUM CHLORIDE 20 MEQ TAB CR PO SCH ×2 (06:29→11:36)
--- NOTE | 2018-06-01 07:31 | Diagnostic Imaging Report ---
Examination: CT guided left L4-L5 lumbar puncture [employer] Sheep Farmer: Elizabeth Brennan MD Anesthesia: Local Medications: 1% lidocaine and bicarbonate. Exposure/ DAP: Total exam dose length product: 4076 mGy-cm; Multiple CT sequences were required secondary to patient movement and body habitus Procedure: Due to inability to use fluoroscopy room on the day of the procedure for technical issues, CT was used to perform the procedure. Informed consent was obtained from the healthcare proxy following delineation of the risks, benefits, and alternatives to the procedure. Patient was then taken to the CT suite and placed prone on the table. Preliminary imaging of the lumbosacral spine was performed. The patient's back was marked, prepped and draped in the usual sterile fashion. After administration of local anesthesia, a 22 gauge x 20 cm Chiba spinal needle was advanced via a left of midline approach into the L4-L5 subarachnoid utilizing CT guidance. Given difficulty with patient mobility, she was not repositioned into the lateral decubitus position. The pressure measurement could not be obtained, presumably secondary to the length of the Chiba needle and lack of lateral decubitus positioning. Approximately 10 cc of clear, colorless cerebrospinal fluid was removed and sent for analysis. The needle was removed and sterile bandage was applied. The patient tolerated the procedure well. Impression: CT guided L4-L5 lumbar puncture with successful removal of cerebrospinal fluid as above. Signed by: Dr. Elizabeth Brennan MD on 06/01/2018 7:28 AM
[2018-06-01 07:38] VITALS: BP 131/66
[2018-06-01 08:00] VITALS: BP 119/69
[2018-06-01] MEDS: LACTULOSE SYRUP 20 GM/30 ML UDC PO SCH ×2 (08:48→16:13)
[2018-06-01] MEDS: RIFAXIMIN 550 MG TABLET PO SCH ×2 (08:48→16:13)
[2018-06-01] MEDS: PANTOPRAZOLE 40 MG 10ML VIAL IV SCH (08:48)
[2018-06-01] MEDS: TIZANIDINE HCL 4 MG TAB PO PRN ×2 (09:00→21:51)
[2018-06-01] MEDS: METOPROLOL TARTRATE 50 MG TAB PO SCH ×2 (09:10→16:13)
[2018-06-01 11:06] VITALS: BP 115/55
[2018-06-01] MEDS: FUROSEMIDE INJ 10 MG/ML 4 ML VIAL IV SCH ×2 (11:36→21:37)
--- NOTE | 2018-06-01 12:46 | Progress Note ---
DATE: June 01, 2018 INTERNAL MEDICINE PROGRESS NOTE SUBJECTIVE: Patient is much more alert and oriented on examination. They are working on [facility] [place]. She is otherwise tolerating diet well. She is working with physical therapy as well. OBJECTIVE VITAL SIGNS: She is afebrile, temperature is 97.9, pulse is 87, respiratory rate is 20, blood pressure 131/66. Pulse ox 97% on 2 L nasal cannula. LAB FINDINGS: Show white count 8.8, hemoglobin 10.1, hematocrit is 31, platelets of 89. Coagulation: PT 15, INR 1.1, PTT 33. Chemistry: Sodium 141, potassium is 2.7, chloride is 111, bicarb is 20, anion gap is 12, BUN is 21, creatinine is 1.3, glucose is 96, calcium is 7.9. Ammonia level is 41. Urinalysis is negative. Her vanc trough is 14.6. Her serologies are all pending for multiple viral panels. MICROBIOLOGY: Blood cultures were negative. Throat cultures showed gram-negative bacilli, seems to be normal cuca. Urine culture is negative. CSF cultures were negative. Fungal CSF was pending. IMAGING STUDIES: I got a chest x-ray on 05/31/2018, it shows no acute thoracic abnormality. Foot x-ray shows scattered degenerative change, soft tissue swelling, healing fracture deformity of the distal first toe. PHYSICAL EXAMINATION GENERAL: Not in acute distress. Alert and oriented times 3 today. Cooperative on exam. HEENT: Head is normocephalic and atraumatic. Eyes: Pupils are equal, round, and reactive to light bilaterally. Extraocular movements are intact bilaterally. NECK: Supple. Good range of motion. THROAT: No evidence of any erythema or exudates in the posterior pharynx. Has poor dentition. PULMONARY: Clear to auscultation bilaterally. No wheezing, no rales, no rhonchi. No crackles appreciated. CARDIOVASCULAR: Positive S1 and S2. No murmurs, rubs, or gallops appreciated. ABDOMEN: Soft, nondistended, and nontender to palpation. Bowel sounds present. MUSCULOSKELETAL: Strength is 5/5 throughout. No evidence of any musculoskeletal deficit on examination. No weakness is appreciated. NEUROLOGIC: Cranial nerves II through XII grossly intact. No evidence of any neurologic deficit on exam. SKIN: Intact. Warm to touch. Good cap refill. PSYCHIATRIC: Normal affect and mood. EXTREMITIES: No edema. Good range of motion throughout. IMPRESSION 1. Sepsis due to underlying fever with unknown etiology with leukocytosis-resolved, pending viral panel. 2. Metabolic encephalopathy, likely multifactorial from polysubstance abuse as well as sedating medications, status post lumbar puncture which was negative. 3. Acute kidney injury on chronic kidney disease stage 3. 4. Rhabdomyolysis, resolved. 5. Liver cirrhosis of unknown etiology. 6. Prophylaxis. 7. Fluids, electrolytes, nutrients. 8. Medically debilitated requiring physical therapy and occupational therapy. 9. Right big toe distal phalanx fracture. PLAN: At this time, she is afebrile, white count normal. She is still on IV antibiotics. ID is following. We are still pending viral panels on this patient. In terms of her encephalopathy, it has improved tremendously. She is doing much better. For acute kidney injury, she is at baseline creatinine. No further workup needed. Her ammonia levels have been normal range. At this time, I am going to defer on an MRI of the brain because she is much more alert, awake, and talking on examination with no issues. There is no concern as well. She is going to continue work with PT and OT. Her labs have been stable. We are now working on [facility] to [place]. Otherwise, in relation to her thrombocytopenia, hematology is following. Pain management was also consulted for underlying pain issues. Job#: [id number]
[2018-06-01 15:31] VITALS: BP 127/91
[2018-06-01 20:00] VITALS: BP 126/72
[2018-06-02] VITALS (7 sets, daily range): BP systolic 103–152; BP diastolic 56–80
[2018-06-02] MEDS: HYDROCODONE/APAP 10MG-325MG TAB PO PRN ×3 (05:00→22:51)
[2018-06-02] MEDS: INSULIN REGULAR, HUMAN 100 UNIT/1 ML 3ML VIAL SQ SCH ×3 (06:00→16:31)
[2018-06-02 06:11] LABS: BASOPHILS # (AUTO) 0.1 (0.0-0.1); BASOPHILS % 0.5 % (0.0-1.0); EOSINOPHILS # (AUTO) 0.4 (0.0-0.4); EOSINOPHILS % 3.4 % (0.0-6.0); HEMATOCRIT 32.6 % (34.2-44.1); HEMOGLOBIN 10.9 g/dL (12.0-16.0); LYMPHOCYTES # (AUTO) 2.4 (1.0-3.2); LYMPHOCYTES % 22.6 % (18.0-39.1); MEAN CORPUSCULAR HEMOGLOBIN 29.3 pg (28-32); MEAN CORPUSCULAR HGB CONC 33.4 g/dL (31-35); MEAN CORPUSCULAR VOLUME 87.6 fL (81-99); MONOCYTES # (AUTO) 1.1 (0.2-0.8); NEUTROPHILS # (AUTO) 6.7 (2.1-6.9); NEUTROPHILS % 61.9 % (38.7-80.0); PLATELET COUNT 121 x10e3/uL (140-360); RED BLOOD COUNT 3.72 x10e6/uL (3.6-5.1); RED CELL DISTRIBUTION WIDTH 15.5 % (11.7-14.4)
[2018-06-02 06:19] LABS: ANION GAP 16.5 mmol/L (8-16); CALCIUM 10.1 mg/dL (8.4-10.2); CREATININE, SERUM 1.68 mg/dL (0.57-1.11); POTASSIUM 3.5 mmol/L (3.5-5.1)
[2018-06-02] MEDS: CEFTRIAXONE SOD 1 GM VIAL IV SCH (06:21)
[2018-06-02] MEDS: TIZANIDINE HCL 4 MG TAB PO PRN ×3 (06:22→22:52)
[2018-06-02] MEDS: LACTULOSE SYRUP 20 GM/30 ML UDC PO SCH ×2 (09:00→17:00)
[2018-06-02] MEDS: PANTOPRAZOLE 40 MG 10ML VIAL IV SCH (09:15)
[2018-06-02] MEDS: FUROSEMIDE INJ 10 MG/ML 4 ML VIAL IV SCH ×2 (09:15→20:21)
[2018-06-02] MEDS: METOPROLOL TARTRATE 50 MG TAB PO SCH ×2 (09:15→18:06)
[2018-06-02] MEDS: RIFAXIMIN 550 MG TABLET PO SCH ×2 (09:20→18:06)
--- NOTE | 2018-06-02 13:02 | Diagnostic Imaging Report ---
Procedure: Right internal jugular central venous catheter placement with ultrasound guidance chief operator reformer: Dr. Elizabeth Brennan Pre-operative diagnosis: Requiring central venous access Post-operative diagnosis: Status post central venous access Conscious Sedation: None The patient's heart rate and pulse oximetry were continuously monitored by the ICU nurse. Additional Medications: Lidocaine 1% for local anesthesia Fluoroscopy time: 0 Dose-area Product: 0 mGycm2. Frontal Air Kerma: 0 Contrast used: 0 Estimated blood loss: Minimal Specimens: None Implants: 7 Moroccan 16 cm triple-lumen central venous catheter DISCUSSION: Informed consent was obtained from the patient's healthcare proxy and documented in the medical record. The patient was placed in the supine position. Preliminary sonographic evaluation of the right neck confirmed a patent and compressible right internal jugular vein. The neck was then prepped and draped in a standard sterile fashion. Subsequently, 1% lidocaine was infiltrated into the skin and subcutaneous tissues for local anesthesia. Then under continuous sonographic guidance a micropuncture needle was advanced into the right internal jugular vein. A permanent sonographic image was stored in the medical record. An .018'' wire was placed and upsized to an .035'' Amplatz wire using micropuncture sheath. The .035'' wire was advanced centrally with continuous cardiac rhythm monitoring. The micropuncture sheath was removed. The tract was dilated. Then, a 7 Moroccan, 16 cm triple-lumen central venous catheter was advanced over the wire. The wire was then removed. Each lumen was tested and showed adequate bidirectional flow. The catheter was secured to the skin with Monocryl, flushed with sterile saline, and covered by a sterile dressing. The patient tolerated the procedure well without immediate duplication. FINDINGS: Patent right internal jugular vein. IMPRESSION: Placement of a 7 Moroccan 16 cm triple-lumen central venous catheter by a right internal jugular approach under sonographic guidance. A postprocedure chest radiograph will be obtained to confirm line positioning prior to use. Signed by: Dr. Elizabeth Brennan MD on 06/01/2018 7:28 AM
--- NOTE | 2018-06-02 16:41 | Progress Note ---
DATE: June 02, 2018 SUBJECTIVE: Patient is doing well, alert and oriented x3 on examination. She is working with physical therapy. She has finally agreed to senior care facility to [facility]. VITAL SIGNS: Temperature is 97.4, pulse 67, respiratory rate 18, blood pressure 103/56, pulse ox 97%. She is on room air. LAB FINDINGS: White count 10.7, hemoglobin 10.9, hematocrit 33, platelets 121. Coagulation: None. Chemistry: Sodium 138, potassium 3.5, chloride 102, bicarb 23, anion gap 16, BUN 26, creatinine 1.68, glucose 105, calcium 10.1. Urinalysis: None. Serology: The West Nile Virus was negative. Flu was negative. Group B strep was negative. There are still several other tests that are pending. MICROBIOLOGY: ESBL proteus in the throat culture. Blood cultures were negative. Urine culture was negative. CSF Gram stain was preliminary negative. IMAGING STUDIES: None. PHYSICAL EXAMINATION GENERAL: Not in acute distress. Alert and oriented times 3. Cooperative on examination. HEENT: Head is normocephalic and atraumatic. Eyes: Pupils are equal and reactive to light bilaterally. Extraocular movements are intact bilaterally. NECK: Supple. Good range of motion. THROAT: No evidence of any erythema or exudates in the posterior pharynx. Has poor dentition. PULMONARY: Clear to auscultation bilaterally. No wheezing, no rales, no rhonchi. No crackles appreciated. CARDIOVASCULAR: Positive S1 and S2. No murmurs, rubs, or gallops appreciated. ABDOMEN: Soft, nondistended, and nontender to palpation. Bowel sounds present. MUSCULOSKELETAL: Strength is 5/5 throughout. No evidence of any musculoskeletal deficit on examination. No weakness is appreciated. NEUROLOGIC: Cranial nerves II through XII are grossly intact. No evidence of any neurologic deficit on exam. SKIN: Intact. Warm to touch. Good cap refill. PSYCHIATRIC: Normal affect and mood. EXTREMITIES: No edema. Good range of motion throughout. IMPRESSION 1. Sepsis with underlying fever with unknown etiology with leukocytosis--resolved. 2. Metabolic encephalopathy, likely multifactorial from polysubstance abuse as well as sedating medications, status post lumbar puncture which was negative--resolved. 3. Acute kidney injury on chronic kidney disease, stage 3, at baseline. 4. Rhabdomyolysis, resolved. 5. Liver cirrhosis of unknown etiology. 6. Prophylaxis. 7. Fluids, electrolytes, nutrients. 8. Medically debilitated requiring physical therapy and occupational therapy. 9. Right big toe distal phalanx fracture. PLAN: At this time, the white count is normal and afebrile. All of her cultures were negative, except for throat culture with ESBL. She is now off of antibiotics per ID recommendations. She has been cleared by ID standpoint. Acute kidney injury now is back to baseline. She is alert and oriented x3, back to normal baseline. There is no need for further workup. PT and OT are still working with her. We are now waiting for placement to senior care facility. Once accepted, she will be discharged. Job#: [id number]
[2018-06-02] MEDS ORDERED: ENOXAPARIN SOD INJ 40 MG/0.4 ML SYR SC SCH (17:00)
[2018-06-03] VITALS: BP 123/63
[2018-06-03 04:00] VITALS: BP 126/71
[2018-06-03] MEDS: HYDROCODONE/APAP 10MG-325MG TAB PO PRN ×2 (05:27→13:00)
[2018-06-03] MEDS: TIZANIDINE HCL 4 MG TAB PO PRN ×2 (05:27→13:00)
[2018-06-03 08:17] VITALS: BP 99/57
[2018-06-03] MEDS: FUROSEMIDE INJ 10 MG/ML 4 ML VIAL IV SCH (09:00)
[2018-06-03] MEDS: PANTOPRAZOLE 40 MG 10ML VIAL IV SCH (09:00)
[2018-06-03] MEDS: METOPROLOL TARTRATE 50 MG TAB PO SCH (09:00)
[2018-06-03] MEDS: LACTULOSE SYRUP 20 GM/30 ML UDC PO SCH (09:00)
[2018-06-03] MEDS: RIFAXIMIN 550 MG TABLET PO SCH (10:06)
[2018-06-03 12:09] VITALS: BP 120/69
[2018-06-03 14:19] VITALS: BP 120/69
[2018-06-03] MEDS ORDERED: TYLENOL WITH C1 EACH PO (16:06)
--- NOTE | 2018-06-03 16:50 | Discharge Summary ---
FINAL DISCHARGE DIAGNOSES 1. Sepsis with underlying fever with leukocytosis--resolved. 2. Metabolic encephalopathy, likely due to multifactorial from polysubstance abuse, from sedating medications, status post lumbar puncture found to be negative. 3. Acute kidney injury on chronic kidney disease, stage 3. 4. Rhabdomyolysis. 5. Liver cirrhosis of unknown etiology. 6. Medically debilitated. 7. Right big toe distal phalanx fracture. CONSULTANTS: Infectious disease, hematology-oncology and pain management. VITAL SIGNS: Temperature is 97.4, pulse 70, respiratory rate 18, blood pressure 120/69, O2 sat 96% on room air. LAB FINDINGS: White count 10.7, hemoglobin 10.9, hematocrit 33, platelets 121. Coagulation: PT 15.4, INR 1.1, PTT 33. Chemistry: Sodium 138, potassium 3.5, chloride 102, bicarb 23, anion gap 16, BUN 26, creatinine 1.68. Glucose 105. Lactic acid was normal. Calcium was 10.1. LFTs: Total bilirubin was 1.4. AST is 42. ALT 17. Ammonia level was 41, found to be normal. Troponins were negative. Albumin was 2.9. LDL was 62. TSH was 0.374. Lactase is 18. Urinalysis was negative. Urine drug screen positive for opioids, negative acetaminophen, negative for salicylate. CSF was found to be clear and negative. Serologies: Group B strep was negative. Influenza was negative. West Nile was negative. Blastomycosis, coccidiomycosis, histoplasmosis, and aspergillus are all pending, and she needs to follow up with ID as an outpatient in 2 weeks for final results. MICROBIOLOGY: Throat cultures showed Proteus mirabilis ESBL, but discussed with ID, and no further workup or antibiotics needed. Blood cultures were negative. Urine cultures negative. CSF cultures were found to be negative. CSF for fungal infection was found to be negative. IMAGING STUDIES: CT brain: Suboptimal evaluation due to motion and metallic artifacts. Despite this, no acute intracranial abnormality seen. CT abdomen and pelvis: No CT findings to explain the patient's fever, otherwise negative findings. There were cirrhosis and portal hypertension. No ascites seen. Chest x-ray was found to be negative. Foot x-ray showed some scattered degenerative changes, soft-tissue swelling, healing fracture deformity of the distal 1st toe. HOSPITAL COURSE: This is a 52-year-old female with multiple comorbidities, who comes in from [facility] due to underlying metabolic encephalopathy and fever of unknown etiology. Patient was admitted and was sent to the ICU for further management and care. The patient was treated initially for underlying sepsis and was found to be hypotensive initially and had a fever. She also had evidence of leukocytosis. Blood and urine cultures were all collected and found to be negative. Patient also had an LP due to some encephalopathy and was found to be negative as well. Patient was on broad spectrum IV antibiotics. ID was consulted. LP was performed and found to have a negative CSF. The patient still has a viral panel pending, which she needs to follow up with ID. At this time per ID, the patient does not need any antibiotics upon discharge. In relation to her encephalopathy, it was presumed to be from underlying multifactorial from polysubstance abuse, from methadone, gabapentin, and several other sedating medications that she was taking at the group home facility. Pain management was consulted, and a lot of medications were discontinued. The patient's encephalopathy all resolved. On discharge, she was alert and oriented x3 with no complaints. She was back to normal baseline. She was found have acute kidney injury on admission and found to improve with IV fluids. She was also found to have rhabdomyolysis as well, which improved with IV fluids. Patient also has a history of liver cirrhosis of unknown etiology with an ammonia level found to be normal. Patient was also found to have a right big toe distal phalanx fracture that was diagnosed at [facility] after having a fall at that facility. Patient is medically debilitated and really and truly needs a group home facility, but the patient and the family refuse. She will now be discharged with home health with home PT and OT. On discharge, she was back to normal baseline with no other complaints. Patient will be discharged on no antibiotics per ID recommendations. On the day of discharge, the patient's vital signs were stable. Labs were reviewed and stable. The patient was seen and evaluated and examined thoroughly on the day of discharge with no other complaints. Patient verbalized an understanding and agrees to the plan of care to follow up accordingly as an outpatient with the primary care physician in 1 week and ID in 2 weeks' time. MEDICATIONS: See med reconciliation form. DISPOSITION: Home. CONDITION: Stable. DIET: Heart healthy. In the event of any worsening symptoms, the patient was advised to come back to the ED for further evaluation. This discharge summary took greater than 35 minutes. HERMINIA AGARWAL MD Job#: [id number]
[2018-06-03 16:51] VITALS: BP 124/73
--- OUTSIDE RECORDS SUMMARY | 2018-06-14 08:44 | XMS REPORT ---
[facility] Address Unknown Phone Unavailable Care Team Providers Care Ironworker Apprentice Name Role Phone Anika AGARWAL Unavailable Unavailable MARIA L CORLEY Unavailable Unavailable MIREYA HINES Unavailable Unavailable SALIMA BAUER Unavailable Unavailable JEAN BENNETT Unavailable Unavailable JEAN MEDRANO Unavailable Unavailable MURRAY MCKEON Unavailable Unavailable AC CARRILLO Unavailable Unavailable GARRICK PUCKETT Unavailable Unavailable SHIVANI ELENA Unavailable Unavailable Evy HINTON Unavailable Unavailable Problems This patient has no known problems. Allergies, Adverse Reactions, Alerts This patient has no known allergies or adverse reactions. Medications This patient has no known medications. Results Test Description Test Time Test Comments Text Results Atomic Results Result Comments IR CONSULT 2018-06-01 07:21:00 [facility] [address] [address] Patient Name: HARITHA BARGER MR #: [id number] : 1965 Age/Sex: 52/F Req #: [id number] Adm Physician: HERMINIA AGARWAL MD Ordered by: KE SUGGS MD Report #: [id number] Location: [facility] Room/Bed: [place] [address] Procedure: [id number] DX/IR CONSULT Exam Date: Exam Time: REPORT STATUS: Signed Procedure: Right internal jugular central venous catheter placement with ultrasound guidance charger operator helper: Dr. Jesse Everett Pre- operative diagnosis: Requiring central venous access Post-operative diagnosis: Status post central venous access Conscious Sedation: None The patient's heart rate and pulse oximetry were continuously monitored by the ICU nurse. Additional Medications: Lidocaine 1% for local anesthesia Fluoroscopy time: 0 Dose-area Product: 0 mGycm2. Frontal Air Kerma: 0 Contrast used: 0 Estimated blood loss: Minimal Specimens: None Implants: 7 Sudanese 16 cm triple-lumen central venous catheter DISCUSSION: Informed consent was obtained from the patient's healthcare proxy and documented in the medical record. The patient was placed in the supine position. Preliminary sonographic evaluation of the right neck confirmed a patent and compressible right internal jugular vein. The neck was then prepped and draped in a standard sterile fashion. Subsequently, 1% lidocaine was infiltrated into the skin and subcutaneous tissues for local anesthesia. Then under continuous sonographic guidance a micropuncture needle was advanced into the right international tax manager al jugular vein. A permanent sonographic image was stored in the medical record. An .018'' wire was placed and upsized to an .035'' Amplatz wire using micropuncture sheath. The .035'' wire was advanced centrally with continuous cardiac rhythm monitoring. The micropuncture sheath was removed. The tract was dilated. Then, a 7 Sudanese, 16 cm triple-lumen central venous catheter was advanced over the wire. The wire was then removed. Each lumen was tested and showed adequate bidirectional flow. The catheter was secured to the skin with Monocryl, flushed with sterile saline, and covered by a sterile dressing. The patient tolerated the procedure well without immediate duplication. FINDINGS: Patent right internal jugular vein. IMPRESSION: Placement of a 7 Sudanese 16 cm triple-lumen central venous catheter by a right internal jugular approach under sonographic guidance. A postprocedure chest radiograph will be obtained to confirm line positioning prior to use. Signed by: Dr. Jesse Everett MD on 06/01/2018 7:28 AM Dictated By: JESSE EVERETT MD 7 Transcribed By: ALYSSA on 06/01/18727 COPY TO: KE SUGGS MD IR CONSULT 2018-06-01 07:21:00 [address] [address] Patient Name: HARITHA BARGER MR #: [id number] : 1965 Age/Sex: 52/F Re #: [id number] [facility] Physician: HERMINIA AGARWAL MD Ordered by: KE SUGGS MD Report #: [id number] Location: [facility] Room/Bed: [place] [address] Procedure: [id number] DX/IR CONSULT Exam Date: Exam Time: REPORT STATUS: Signed Examination: CT guided left L4-L5 lumbar puncture [employer] Developer: Jesse Everett MD Anesthesia: Local Medications: 1% lidocaine and bicarbonate. Exposure/ DAP: Total exam dose length product: 4076 mGy- cm; Multiple CT sequences were required secondary to patient movement and body habitus Procedure: Due to inability to use fluoroscopy room on the day of the procedure for technical issues, CT was used to perform the procedure. Informed consent was obtained from the healthcare proxy following delineation of the risks, benefits, and alternatives to the procedure. Patient was then taken to the CT suite and placed prone on the table. Preliminary imaging of the lumbosacral spine was performed. The patient's back was marked, prepped and draped in the usual sterile fashion. After administration of local anesthesia, a 22 gauge x 20 cm Chiba spinal needle was advanced via a left of midline approach into the L4-L5 subarachnoid utilizing CT guidance. Given difficulty with patient mobility, she was not repositioned into the lateral decubitus position. The pressure measurement could not be obtained, presumably secondary to the length of the Chiba needle and lack of lateral decubitus positioning. Approximately 10 cc of clear, colorless cerebrospinal fluid was removed and sent for analysis. The needle was removed and sterile bandage was applied. The patient tolerated the procedure well. Impression: CT guided L4-L5 lumbar puncture with successful removal of cerebrospinal fluid as above. Signed by: Dr. Jesse Everett MD on 06/01/2018 7:28 AM Dictated By: JESSE EVERETT MD 7 Transcribed By: ALYSSA on 06/01/18727 COPY TO: KE SUGGS MD CT GUIDED BIOPSY/ASPIR/INJ/JADE 2018-06-01 07:21:00 [address] [address] Patient Name: HARITHA BARGER MR #: [id number] : 1965 Age/Sex: 52/F Req #: [id number] Adm Physician: HERMINIA AGARWAL MD Ordered by: KE SUGGS MD Report #: [id number] Location: [facility] Room/Bed: [place] [address] Procedure: [id number] CT/CT GUIDED BIOPSY/ASPIR/INJ/JADE Exam Date: 05/29/18 Exam Time: 1530 REPORT STATUS: Signed Examination: CT guided left L4-L5 lumbar puncture [employer] Developer: Jesse Everett MD Anesthesia: Local Medications: 1% lidocaine and bicarbonate. Exposure/ DAP: Total exam dose length product: 4076 mGy-cm; Multiple CT sequences were required secondary to patient movement and body habitus Procedure: Due to inability to use fluoroscopy room on the day of the procedure for technical issues, CT was used to perform the procedure. Informed consent was obtained from the healthcare proxy following delineation of the risks, benefits, and alternatives to the procedure. Patient was then taken to the CT suite and placed prone on the table. Preliminary imaging of the lumbosacral spine was performed. The patient's back was marked, prepped and draped in the usual sterile fashion. After administration of local anesthesia, a 22 gauge x 20 cm Chiba spinal needle was advanced via a left of midline approach into the L4-L5 subarachnoid utilizing CT guidance. Given difficulty with patient mobility, she was not repositioned into the lateral decubitus position. The pressure measurement could not be obtained, presumably secondary to the length of the Chiba needle and lack of lateral decubitus positioning. Approximately 10 cc of clear, colorless cerebrospinal fluid was removed and sent for analysis. The needle was removed and sterile bandage was applied. The patient tolerated the procedure well. Impression: CT guided L4-L5 lumbar puncture with successful removal of cerebrospinal fluid as above. Signed by: Dr. Jesse Everett MD on 06/01/2018 7:28 AM Dictated By: JESSE EVERETT MD 7 Transcribed By: ALYSSA on 06/01/18727 COPY TO: KE SUGGS MD US GUIDANCE FOR VASCULAR ACCES 2018-06-01 07:21:00 [address] [place] [address] Patient Name: HARITHA BARGER MR #: [id number] : 1965 Age/Sex: 52/F Req #: [id number] Adm Physician: HERMINIA AGARWAL MD Ordered by: HERMINIA AGARWAL MD Report #: [id number] Location: [facility] Room/Bed: [place] [address] Procedure: US/US GUIDANCE FOR VASCULAR ACCES Exam Date: 05/29/18 Exam Time: 1719 REPORT STATUS: Signed Procedure: Right internal jugular central venous catheter placement with ultrasound guidance charger operator helper: Dr. Jesse Everett Pre-operative diagnosis: Requiring central venous access Post-operative diagnosis: Status post central venous access Conscious Sedation: None The patient's heart rate and pulse oximetry were continuously monitored by the ICU nurse. Additional Medications: Lidocaine 1% for local anesthesia Fluoroscopy time: 0 Dose-area Product: 0 mGycm2. Frontal Air Kerma: 0 Contrast used: 0 Estimated blood loss: Minimal Specimens: None Implants: 7 Sudanese 16 cm triple-lumen central venous catheter DISCUSSION: Informed consent was obtained from the patient's healthcare proxy and documented in the medical record. The patient was placed in the supine position. Preliminary sonographic evaluation of the right neck confirmed a patent and compressible right internal jugular vein. The neck was then prepped and draped in a standard sterile fashion. Subsequently, 1% lidocaine was infiltrated into the skin and subcutaneous tissues for local anesthesia. Then under continuous sonographic guidance a micropuncture needle was advanced into the right internal jugular vein. A permanent sonographic image was stored in the medical record. An .018'' wire was placed and upsized to an .035'' Amplatz wire using micropuncture sheath. The .035'' wire was advanced centrally with continuous cardiac rhythm monitoring. The micropuncture sheath was removed. The tract was dilated. Then, a 7 Sudanese, 16 cm triple-lumen central venous catheter was advanced over the wire. The wire was then removed. Each lumen was tested and showed adequate bidirectional flow. The catheter was secured to the skin with Monocryl, flushed with sterile saline, and covered by a sterile dressing. The patient tolerated the procedure well without immediate duplication. FINDINGS: Patent right internal jugular vein. IMPRESSION: Placement of a 7 Sudanese 16 cm triple-lumen central venous catheter by a right internal jugular approach under sonographic guidance. A postprocedure chest radiograph will be obtained to confirm line positioning prior to use. Signed by: Dr. Jesse Everett MD on 06/01/2018 7:28 AM Dictated By: JESSE EVERETT MD 7 Transcribed By: ALYSSA on 06/01/18727 COPY TO: HERMINIA AGARWAL MD RIGHT COMPLETE 2018-05-31 16:30:00 [address] [address] Patient Name: HARITHA BARGER MR #: [id number] : 1965 Age/Sex: 52/F Req #: [id number] Adm Physician: HERMINIA AGARWAL MD Ordered by: HERMINIA AGARWAL MD Report #: [id number] Location: ICU Room/Bed: ICU 196 Procedure: [id number] DX/FOOT RIGHT COMPLETE Exam Date: 05/31/18 Exam Time: 1610 REPORT STATUS: Signed Radiographs of the right foot - 3 views HISTORY: Pain COMPARISON: None available. FINDINGS: Bones: Healing fracture deformity of the distal first toe. Osseous alignment is within normal limits. Joints: Scattered degenerative changes. Small inferior calcaneal bone spur. Soft tissues: Soft tissue swelling IMPRESSION: Scattered degenerative change. Soft tissue swel ling. Healing fracture deformity of the distal first toe. Signed by: Dr. Shai Jacques M.D. on 05/31/2018 4:32 PM Dictated By: SHAI JACQUSE MD, MD 31 Transcribed By: ALYSSA on 05/31/181631 COPY TO: HERMINIA AGARWAL MD [facility] SINGLE (PORTABLE) 2018-05-31 06:39:00 [address] [address] Patient Name: HARITHA BARGER MR #: [id number] : 1965 Age/Sex: 52/F Req #: [id number] Adm Physician: HERMINIA AGARWAL MD Ordered by: HERMINIA AGARWAL MD Report #: [id number] Location: ICU Room/Bed: ICU 196 Procedure: [id number] DX/CHEST SINGLE (PORTABLE) Exam Date: 05/31/18 Exam Time: 0535 REPORT STATUS: Signed EXAMINATION: CHEST SINGLE (PORTABLE) INDICATION: Shortness of breath COMPARISON: None FINDINGS: TUBES and LINES: Right IJ central line catheter is visualized with tip overlying the SVC. LUNGS: Lungs are not well inflated. Lungs are clear. There is mild prominence of the central pulmonary vasculature, consistent with pulmonary venous congestion. PLEURA: No pleural effusion or pneumothorax. HEART AND MEDIASTINUM: The cardiomediastinal silhouette is unremarkable. BONES AND SOFT TISSUES: No acute osseous lesion. Soft tissues are unremarkable. UPPER ABDOMEN: No free air under the diaphragm. IMPRESSION: No acute thoracic abnormality. Signed by: Dr. aMrtha Rodrigez M.D. on 05/31/2018 6:39 AM Dictated By: MARTHA HARDING MD 8 Transcribed By: ALYSSA on 05/31/18638 COPY TO: HERMINIA AGARWAL MD CHEST SINGLE (PORTABLE) 2018-05-29 18:20:00 [address] [place] [address] Patient Name: HARITHA BARGER MR #: [id number] : 1965 Age/Sex: 52/F Req #: [id number] Adm Physician: HERMINIA AGARWAL MD Ordered by: JESSE EVERETT MD Report #: [id number] Location: ICU Room/Bed: ICU [facility] Procedure: DX/CHEST SINGLE (PORTABLE) Exam Date: Exam Time: REPORT STATUS: Signed EXAMINATION: CHEST SINGLE (PORTABLE) INDICATION: S VERIFY PLACEMENT OF RIGHT CENTRAL VENOUS CATHETER COMPARISON: None FINDINGS: AP view TUBES and LINES: Right IJ central line with tip likely in the low SVC. LUNGS: Lungs are well inflated. There are bibasilar atelectasis. There is mild prominence of the central pulmonary vasculature, consistent with pulmonary venous congestion. PLEURA: No pleural effusion or pneumothorax. HEART AND MEDIASTINUM: Cardiac size is mildly enlarged. BONES AND SOFT TISSUES: No acute osseous lesion. Soft tissues are unremarkable. UPPER ABDOMEN: No free air under the diaphragm. IMPRESSION: 1. Right IJ line with tip likely in the low SVC. 2. However, patient is mildly rotated exam. Signed by: Dr. Zuhair Lee M.D. on 05/29/2018 6:21 PM Dictated By: ZUHAIR LEE MD 20 Transcribed By: ALYSSA on 05/29/181820 COPY TO: JESSE EVERETT MD CT ABDOMEN/PELVIS WO 2018-05-29 05:52:00 [address] [place] [address] Patient Name: HARITHA BARGER MR #: [id number] : 1965 Age/Sex: 52/F Req #: [id number] Adm Physician: HERMINIA AGARWAL MD Ordered by: JEMAL STRAUSS MD Report #: [id number] Location: [facility] Room/Bed: [address] [address] Procedure: CT/CT ABDOMEN/PELVIS WO Exam Date: 05/29/18 Exam Time: 0540 REPORT STATUS: Signed EXAM: CT ABDOMEN AND PELVIS without IV CONTRAST INDICATION: History of cirrhosis, altered mental status and fever COMPARISON: None TECHNIQUE: The abdomen and pelvis were scanned using a multidetector helical scanner. Coronal and sagittal reformations were obtained. Dose modulation, iterative reconstruction, and/or weight based adjustment of the mA/kV was utilized to reduce the radiation dose to as low as reasonably achievable. Routine protocol performed. IV Contrast: None Oral Contrast: None CTDIvol has been reviewed. It is below the limits set by the Radiation Protocol Committee (RPC). FINDINGS: LOWER THORAX: Bibasilar atelectasis. LIVER: Cirrhotic liver morphology. BILIARY: Cholecystectomy without ductal dilation. SPLEEN: Splenomegaly. PANCREAS: No masses ADRENALS: No nodules RIGHT KIDNEY: No nephroureterolithiasis or hydronephrosis. LEFT KIDNEY: No nephroureterolithiasis or hydronephrosis. GI TRACT: No wall thickening or obstruction. Normal appendix. VESSELS: Recanalization of the periumbilical vein. PERITONEUM/RETROPERITONEUM: No free air or fluid LYMPH NODES: Mildly prominent inguinal lymph nodes. REPRODUCTIVE ORGANS: Small uterine fibroid. BLADDER: Decompressed by John catheter. SOFT TISSUES: Incidental atrophy of the left psoas muscle. Bilateral flank edema. BONES: No suspicious bone lesions. Chronic compression fracture with a cemented L2 vertebral body. IMPRESSION: No CT findings to explain patient's fever. Cirrhosis with portal hypertension. No ascites. Signed by: Dr. Sivan Prieto M.D. on 05/29/2018 6:04 AM Dictated By: SIVAN PRIETO MD 3 Transcribed By: ALYSSA on 05/29/18603 COPY TO: JEMAL STRAUSS MD CHEST SINGLE (PORTABLE) 2018-05-29 05:04:00 [address] [place] [address] Patient Name: HARITHA BARGER MR #: [id number] : 1965 Age/Sex: 52/F Req #: [id number] Adm Physician: Ordered by: JEMAL STRAUSS MD Report #: [id number] Location: ER Room/Bed: Procedure: DX/CHEST SINGLE (PORTABLE) Exam Date: 05/29/18 Exam Time: 414 REPORT STATUS: Signed EXAM: CHEST SINGLE (PORTABLE), AP 1 view INDICATION: Altered mental status, fever COMPARISON: None FINDINGS: LINES/TUBES: None LUNGS: No consolidations or edema. PLEURA: No effusions or pneumothorax. HEART AND MEDIASTINUM: Normal for technique BONES AND SOFT TISSUES: No acute findings. IMPRESSION: No acute thoracic abnormality. Signed by: Dr. Sivan Prieto M.D. on 05/29/2018 5:05 AM Dictated By: SIVAN PRIETO MD Transcribed By: ALYSSA on 05/29/18504 COPY TO: JEMAL STRAUSS MD CT BRAIN WO 2018-05-29 04:53:00 [address] [place] [address] Patient Name: HARITHA BARGER MR #: [id number] : 1965 Age/Sex: 52/F Req #: [id number] Adm Physician: Ordered by: JEMAL STRAUSS MD Report #: [id number] Location: ER Room/Bed: Procedure: CT/CT BRAIN WO Exam Date: 05/29/18 Exam Time: 0407 REPORT STATUS: Signed EXAMINATION: Head CT without contrast. HISTORY:Altered mental status and fever. COMPARISON:None. TECHNIQUE: Multidetector axial images were obtained from the foramen magnum to the vertex without contrast. The images were reconstructed using brain and bone algorithms. Thin section brain images were reformatted into coronal and sagittal planes. Dose modulation, iterative reconstruction, and/or weight based adjustment of the mA/kV was utilized to reduce the radiation dose to as low as reasonably achievable. Intravenous contrast: None IMAGE QUALITY: Suboptimal evaluation due to motion-related artifacts and metallic streak artifact secondary to an overlying external material in the frontal scalp. FINDINGS: Skull/scalp: No lytic or blastic. lesions. No surgical changes. Parenchyma: Suboptimal evaluation due to motion and metallic streak artifacts, despite the limitation no gross acute intracranial hemorrhage, mass or acute major vascular territorial infarct. Nonspecific bilateral frontoparietal patchy white matter hypodensity are likely related to small vessel ischemic changes. Focal hypodensity in left lentiform nucleus represents old lacunar infarct or prominent perivascular space. Arteries: No density suggestive of thrombosis. Dural sinuses: No abnormal density suggestive of thrombosis. Ventricles: No hydrocephalus or displacement. Extra- axial spaces: No abnormal density. Brain volume: Mild generalized cerebral volume loss. Craniocervical junction: No mass, Chiari malformation, or basilar invagination. Sella: No mass. Paranasal/mastoid sinuses: Imaged portions unremarkable. IMPRESSION: 1. Suboptimal evaluation due to motion and metallic streak artifacts, despite the limitation no gross acute intracranial abnormality. 2. Mild supratentorial white matter microvascular ischemic changes. 3. Mild generalized cerebral volume loss. Signed by: Dr. Kathy Mcdonough M.D. on 05/29/2018 4:57 AM Dictated By: KATHY MCDONOUGH MD 6 Transcribed By: ALYSSA on 05/29/18456 COPY TO: JEMAL STRAUSS MD AMMONIA 2018-05-04 08:45:00 AMMONIA (BEAKER) (test fuic=914) 41 mol/L [id number] 07:40:00* Test Item Value Reference Range Comments PHOSPHORUS (BEAKER) (test juvs=190) 3.6 mg/dL 2.3-4.7 [id number] 07:40:00* Test Item Value Reference Range Comments MAGNESIUM (BEAKER) (test csiz=349) 1.9 mg/dL 1.6-2.6 BASIC METABOLIC [id number] 07:40:00* Test Item Value Reference Range Comments SODIUM (BEAKER) (test yyqu=403) 136 meq/L 136-145 POTASSIUM (BEAKER) (test lyhu=548) 4.3 meq/L 3.5-5.1 CHLORIDE (BEAKER) (test kzvq=735) 103 meq/L 98-107 CO2 (BEAKER) (test sofp=075) 24 meq/L 22-29 BLOOD UREA NITROGEN (BEAKER) (test mchc=951) 25 mg/dL 7-21 CREATININE (BEAKER) (test leoe=435) 2.13 mg/dL 0.57-1.25 GLUCOSE RANDOM (BEAKER) (test fpsg=118) 153 mg/dL 70-105 CALCIUM (BEAKER) (test iavl=433) 10.0 mg/dL 8.4-10.2 EGFR (BEAKER) (test ylvt=6163) 30 mL/min/1.73 sq m ESTIMATED GFR IS NOT ACCURATE CREATININE CLEARANCE IN PREDICTING GLOMERULAR FILTRATION RATE. ESTIMATED GFR IS NOT APPLICABLE FOR DIALYSIS PATIENTS. HEPATIC FUNCTION [id number] 07:40:00* Test Item Value Reference Range Comments TOTAL PROTEIN (BEAKER) (test jmfl=900) 8.2 gm/dL 6.0-8.3 ALBUMIN (BEAKER) (test eqvh=9817) 4.0 g/dL 3.5-5.0 BILIRUBIN TOTAL (BEAKER) (test tgyr=876) 0.8 mg/dL 0.2-1.2 BILIRUBIN DIRECT (BEAKER) (test cjqs=232) 0.4 mg/dL 0.1-0.5 ALKALINE PHOSPHATASE (BEAKER) (test xqhj=453) 177 U/L 40-150 AST (SGOT) (BEAKER) (test ymvy=616) 21 U/L 5-34 ALT (SGPT) (BEAKER) (test aepo=818) 10 U/L 6-55 [id number] 09:41:00* Test Item Value Reference Range Comments MAGNESIUM (BEAKER) (test dlme=542) 1.8 mg/dL 1.6-2.6 Specimen slightly hemolyzed [id number] 09:41:00* Test Item Value Reference Range Comments PHOSPHORUS (BEAKER) (test ehpz=655) 3.3 mg/dL 2.3-4.7 Specimen slightly hemolyzed HEPATIC FUNCTION [id number] 09:41:00* Test Item Value Reference Range Comments TOTAL PROTEIN (BEAKER) (test yzvf=365) 7.5 gm/dL 6.0-8.3 Specimen slightly hemolyzed ALBUMIN (BEAKER) (test mmdy=4599) 3.7 g/dL 3.5-5.0 Specimen slightly hemolyzed BILIRUBIN TOTAL (BEAKER) (test jpif=100) 1.1 mg/dL 0.2-1.2 Specimen slightly hemolyzed BILIRUBIN DIRECT (BEAKER) (test aqxr=789) 0.4 mg/dL 0.1-0.5 Specimen slightly hemolyzed ALKALINE PHOSPHATASE (BEAKER) (test stpf=726) 159 U/L 40-150 AST (SGOT) (BEAKER) (test njvw=777) 20 U/L 5-34 Specimen slightly hemolyzed ALT (SGPT) (BEAKER) (test rmhz=536) 9 U/L 6-55 Specimen slightly hemolyzed BASIC METABOLIC [id number] 09:41:00* Test Item Value Reference Range Comments SODIUM (BEAKER) (test setv=070) 135 meq/L 136-145 POTASSIUM (BEAKER) (test trfx=294) 4.1 meq/L 3.5-5.1 Specimen slightly hemolyzed CHLORIDE (BEAKER) (test ssii=903) 105 meq/L 98-107 CO2 (BEAKER) (test dgvi=634) 20 meq/L 22-29 BLOOD UREA NITROGEN (BEAKER) (test hvmm=509) 24 mg/dL 7-21 CREATININE (BEAKER) (test zrlz=195) 2.20 mg/dL 0.57-1.25 Specimen slightly hemolyzed GLUCOSE RANDOM (BEAKER) (test qtnd=981) 197 mg/dL 70-105 CALCIUM (BEAKER) (test vdrm=911) 9.2 mg/dL 8.4-10.2 EGFR (BEAKER) (test ifwf=7014) 29 mL/min/1.73 sq m ESTIMATED GFR IS NOT ACCURATE CREATININE CLEARANCE IN PREDICTING GLOMERULAR FILTRATION RATE. ESTIMATED GFR IS NOT APPLICABLE FOR DIALYSIS PATIENTS. CBC W/PLT COUNT & AUTO [id number] 09:12:00* Test Item Value Reference Range Comments WHITE BLOOD CELL COUNT (BEAKER) (test lqit=651) 5.7 K/ L 3.5-10.5 RED BLOOD CELL COUNT (BEAKER) (test hmjq=263) 3.90 M/ L 3.93-5.22 HEMOGLOBIN (BEAKER) (test qwgr=063) 11.5 GM/DL 11.2-15.7 HEMATOCRIT (BEAKER) (test jmhf=517) 36.0 % 34.1-44.9 MEAN CORPUSCULAR VOLUME (BEAKER) (test pkfr=974) 92.3 fL 79.4-94.8 MEAN CORPUSCULAR HEMOGLOBIN (BEAKER) (test ksjl=228) 29.5 pg 25.6-32.2 MEAN CORPUSCULAR HEMOGLOBIN CONC (BEAKER) (test ytuc=987) 31.9 GM/DL 32.2-35.5 RED CELL DISTRIBUTION WIDTH (BEAKER) (test dqkm=675) 19.9 % 11.7-14.4 PLATELET COUNT (BEAKER) (test mbtx=049) 118 K/CU MM 150-450 MEAN PLATELET VOLUME (BEAKER) (test uwoa=414) 11.6 fL 9.4-12.3 NUCLEATED RED BLOOD CELLS (BEAKER) (test rsyl=189) 0 /100 WBC 0-0 NEUTROPHILS RELATIVE PERCENT (BEAKER) (test ulsu=066) 57 % LYMPHOCYTES RELATIVE PERCENT (BEAKER) (test xzgb=356) 31 % MONOCYTES RELATIVE PERCENT (BEAKER) (test wyil=172) 9 % EOSINOPHILS RELATIVE PERCENT (BEAKER) (test fjct=093) 2 % BASOPHILS RELATIVE PERCENT (BEAKER) (test ghoz=524) 1 % NEUTROPHILS ABSOLUTE COUNT (BEAKER) (test rpls=865) 3.23 K/ L 1.56-6.13 LYMPHOCYTES ABSOLUTE COUNT (BEAKER) (test kekd=066) 1.74 K/ L 1.18-3.74 MONOCYTES ABSOLUTE COUNT (BEAKER) (test ywys=404) 0.49 K/ L 0.24-0.36 EOSINOPHILS ABSOLUTE COUNT (BEAKER) (test iztd=781) 0.13 K/ L 0.04-0.36 BASOPHILS ABSOLUTE COUNT (BEAKER) (test uetw=986) 0.04 K/ L 0.01-0.08 IMMATURE GRANULOCYTES-RELATIVE PERCENT (BEAKER) (test pobl=8214) 1 % 0-1 POCT-GLUCOSE [id number] 13:55:00* Test Item Value Reference Range Comments POC-GLUCOSE METER (BEAKER) (test amwh=1881) 145 mg/dL 70-110 TESTED AT [facility] [address] [facility] [address] CBC W/PLT COUNT & AUTO [id number] 09:54:00* Test Item Value Reference Range Comments WHITE BLOOD CELL COUNT (BEAKER) (test rkof=787) 5.5 K/ L 3.5-10.5 RED BLOOD CELL COUNT (BEAKER) (test mufb=197) 3.98 M/ L 3.93-5.22 HEMOGLOBIN (BEAKER) (test jmxy=082) 11.8 GM/DL 11.2-15.7 HEMATOCRIT (BEAKER) (test jrcy=973) 36.4 % 34.1-44.9 MEAN CORPUSCULAR VOLUME (BEAKER) (test bmcj=470) 91.5 fL 79.4-94.8 MEAN CORPUSCULAR HEMOGLOBIN (BEAKER) (test iexz=776) 29.6 pg 25.6-32.2 MEAN CORPUSCULAR HEMOGLOBIN CONC (BEAKER) (test vfhd=933) 32.4 GM/DL 32.2-35.5 RED CELL DISTRIBUTION WIDTH (BEAKER) (test taaj=127) 19.5 % 11.7-14.4 PLATELET COUNT (BEAKER) (test akbx=513) 109 K/CU MM 150-450 MEAN PLATELET VOLUME (BEAKER) (test afae=224) 12.1 fL 9.4-12.3 NUCLEATED RED BLOOD CELLS (BEAKER) (test ldrp=977) 0 /100 WBC 0-0 NEUTROPHILS RELATIVE PERCENT (BEAKER) (test gvcj=181) 56 % LYMPHOCYTES RELATIVE PERCENT (BEAKER) (test knsb=407) 30 % MONOCYTES RELATIVE PERCENT (BEAKER) (test lqvm=983) 10 % EOSINOPHILS RELATIVE PERCENT (BEAKER) (test kbwa=631) 3 % BASOPHILS RELATIVE PERCENT (BEAKER) (test isga=440) 1 % NEUTROPHILS ABSOLUTE COUNT (BEAKER) (test geaj=125) 3.03 K/ L 1.56-6.13 LYMPHOCYTES ABSOLUTE COUNT (BEAKER) (test modd=978) 1.66 K/ L 1.18-3.74 MONOCYTES ABSOLUTE COUNT (BEAKER) (test tqwh=676) 0.52 K/ L 0.24-0.36 EOSINOPHILS ABSOLUTE COUNT (BEAKER) (test ggec=609) 0.18 K/ L 0.04-0.36 BASOPHILS ABSOLUTE COUNT (BEAKER) (test aimv=716) 0.05 K/ L 0.01-0.08 IMMATURE GRANULOCYTES-RELATIVE PERCENT (BEAKER) (test pcdu=6569) 1 % 0-1 URINALYSIS W/ REFLEX URINE [id number] 08:57:00* Test Item Value Reference Range Comments COLOR (BEAKER) (test hqps=371) Yellow CLARITY (BEAKER) (test ugov=907) Cloudy SPECIFIC GRAVITY UA (BEAKER) (test xhth=683) 1.010 1.001-1.035 PH UA (BEAKER) (test ldpd=246) 5.5 5.0-8.0 PROTEIN UA (BEAKER) (test lthe=426) 30 mg/dL Negative GLUCOSE UA (BEAKER) (test prwv=328) Negative Negative KETONES UA (BEAKER) (test xmbu=381) Negative Negative BILIRUBIN UA (BEAKER) (test yltu=161) Negative Negative BLOOD UA (BEAKER) (test dvky=922) Moderate Negative NITRITE UA (BEAKER) (test dmcd=108) Negative Negative LEUKOCYTE ESTERASE UA (BEAKER) (test twzj=528) Large Negative UROBILINOGEN UA (BEAKER) (test idzg=968) 0.2 mg/dL 0.2-1.0 RBC UA (BEAKER) (test octc=806) 34 /HPF WBC UA (BEAKER) (test guek=011) 446 /HPF SQUAMOUS EPITHELIAL (BEAKER) (test puvq=110) 3 /HPF SOURCE(BEAKER) (test gisv=6911) CBC W/PLT COUNT & AUTO [id number] 07:16:00* Test Item Value Reference Range Comments WHITE BLOOD CELL COUNT (BEAKER) (test frvx=248) 5.2 K/ L 3.5-10.5 SPECIMEN CLOTTEDThis is a corrected result. Previous result was 5.2 K/ L on 05/02/2018 at 0650 CDT RED BLOOD CELL COUNT (BEAKER) (test cmvn=040) 4.25 M/ L 3.93-5.22 CLOTTED SPECIMENThis is a corrected result. Previous result was 4.25 M/ L on 05/02/2018 at 0650 CDT HEMOGLOBIN (BEAKER) (test kftz=570) 12.6 GM/DL 11.2-15.7 CLOTTED SPECIMENThis is a corrected result. Previous result was 12.6 GM/DL on 05/02/2018 at 0650 CDT HEMATOCRIT (BEAKER) (test nyoi=043) 40.9 % 34.1-44.9 CLOTTED SPECIMENThis is a corrected result. Previous result was 40.9 % on 05/02/2018 at 0650 CDT MEAN CORPUSCULAR VOLUME (BEAKER) (test kkpp=493) 96.2 fL 79.4-94.8 CLOTTED SPECIMENThis is a corrected result. Previous result was 96.2 fL on 05/02/2018 at 0650 CDT MEAN CORPUSCULAR HEMOGLOBIN (BEAKER) (test woik=061) 29.6 pg 25.6-32.2 CLOTTED SPECIMENThis is a corrected result. Previous result was 29.6 pg on 05/02/2018 at 0650 CDT MEAN CORPUSCULAR HEMOGLOBIN CONC (BEAKER) (test bckd=343) 30.8 GM/DL 32.2-35.5 CLOTTED SPECIMENThis is a corrected result. Previous result was 30.8 GM/DL on 05/02/2018 at 0650 CDT RED CELL DISTRIBUTION WIDTH (BEAKER) (test sbbj=770) 19.9 % 11.7-14.4 CLOTTED SPECIMENThis is a corrected result. Previous result was 19.9 % on 05/02/2018 at 0650 CDT PLATELET COUNT (BEAKER) (test iyju=507) 64 K/CU MM 150-450 CLOTTED SPECIMENThis is a corrected result. Previous result was 64 K/CU MM on 05/02/2018 at 0650 CDT MEAN PLATELET VOLUME (BEAKER) (test shzu=115) 12.4 fL 9.4-12.3 CLOTTED SPECIMENThis is a corrected result. Previous result was 12.4 fL on 05/02/2018 at 0650 CDT NUCLEATED RED BLOOD CELLS (BEAKER) (test wlcy=207) 0 /100 WBC 0-0 This is a corrected result. Previous result was 0 /100 WBC on 05/02/2018 at 0650 CDT NEUTROPHILS RELATIVE PERCENT (BEAKER) (test wdkd=227) 53 % CLOTTED SPECIMENThis is a corrected result. Previous result was 53 % on 05/02/2018 at 0650 CDT LYMPHOCYTES RELATIVE PERCENT (BEAKER) (test bosr=781) 34 % CLOTTED SPECIMENThis is a corrected result. Previous result was 34 % on 05/02/2018 at 0650 CDT MONOCYTES RELATIVE PERCENT (BEAKER) (test pmfx=568) 8 % CLOTTED SPECIMENThis is a corrected result. Previous result was 8 % on 05/02/2018 at 0650 CDT EOSINOPHILS RELATIVE PERCENT (BEAKER) (test hyun=145) 3 % CLOTTED SPECIMENThis is a corrected result. Previous result was 3 % on 05/02/2018 at 0650 CDT BASOPHILS RELATIVE PERCENT (BEAKER) (test plir=369) 1 % CLOTTED SPECIMENThis is a corrected result. Previous result was 1 % on 05/02/2018 at 0650 CDT NEUTROPHILS ABSOLUTE COUNT (BEAKER) (test tcda=659) 2.78 K/ L 1.56-6.13 CLOTTED SPECIMENThis is a corrected result. Previous result was 2.78 K/ L on 05/02/2018 at 0650 CDT LYMPHOCYTES ABSOLUTE COUNT (BEAKER) (test vmxz=635) 1.79 K/ L 1.18-3.74 CLOTTED SPECIMENThis is a corrected result. Previous result was 1.79 K/ L on 05/02/2018 at 0650 CDT MONOCYTES ABSOLUTE COUNT (BEAKER) (test yllt=955) 0.42 K/ L 0.24-0.36 CLOTTED SPECIMENThis is a corrected result. Previous result was 0.42 K/ L on 05/02/2018 at 0650 CDT EOSINOPHILS ABSOLUTE COUNT (BEAKER) (test uebr=482) 0.17 K/ L 0.04-0.36 CLOTTED SPECIMENThis is a corrected result. Previous result was 0.17 K/ L on 05/02/2018 at 0650 CDT BASOPHILS ABSOLUTE COUNT (BEAKER) (test rwye=984) 0.05 K/ L 0.01-0.08 CLOTTED SPECIMENThis is a corrected result. Previous result was 0.05 K/ L on 05/02/2018 at 0650 CDT IMMATURE GRANULOCYTES-RELATIVE PERCENT (BEAKER) (test fayv=9409) 1 % 0-1 CLOTTED SPECIMENThis is a corrected result. Previous result was 1 % on 05/02/2018 at 0650 CDT [id number] 06:58:00* Test Item Value Reference Range Comments MAGNESIUM (BEAKER) (test sbdi=313) 1.8 mg/dL 1.6-2.6 Specimen slightly hemolyzed [id number] 06:58:00* Test Item Value Reference Range Comments PHOSPHORUS (BEAKER) (test pdry=126) 3.2 mg/dL 2.3-4.7 Specimen slightly hemolyzed BASIC METABOLIC [id number] 06:58:00* Test Item Value Reference Range Comments SODIUM (BEAKER) (test njcz=727) 138 meq/L 136-145 POTASSIUM (BEAKER) (test auxs=650) 4.4 meq/L 3.5-5.1 Specimen slightly hemolyzed CHLORIDE (BEAKER) (test tktd=308) 105 meq/L 98-107 CO2 (BEAKER) (test bnfx=007) 18 meq/L 22-29 BLOOD UREA NITROGEN (BEAKER) (test xvph=754) 19 mg/dL 7-21 CREATININE (BEAKER) (test dptd=394) 1.77 mg/dL 0.57-1.25 Specimen slightly hemolyzed GLUCOSE RANDOM (BEAKER) (test frtk=127) 131 mg/dL 70-105 CALCIUM (BEAKER) (test cbwt=995) 9.4 mg/dL 8.4-10.2 EGFR (BEAKER) (test bdjt=9138) 37 mL/min/1.73 sq m ESTIMATED GFR IS NOT ACCURATE CREATININE CLEARANCE IN PREDICTING GLOMERULAR FILTRATION RATE. ESTIMATED GFR IS NOT APPLICABLE FOR DIALYSIS PATIENTS. HEPATIC FUNCTION [id number] 06:58:00* Test Item Value Reference Range Comments TOTAL PROTEIN (BEAKER) (test dbhj=939) 8.3 gm/dL 6.0-8.3 Specimen slightly hemolyzed ALBUMIN (BEAKER) (test wede=6420) 4.0 g/dL 3.5-5.0 Specimen slightly hemolyzed BILIRUBIN TOTAL (BEAKER) (test jawh=688) 1.5 mg/dL 0.2-1.2 Specimen slightly hemolyzed BILIRUBIN DIRECT (BEAKER) (test owmd=810) 0.5 mg/dL 0.1-0.5 Specimen slightly hemolyzed ALKALINE PHOSPHATASE (BEAKER) (test ugmr=760) 181 U/L 40-150 AST (SGOT) (BEAKER) (test ysve=127) 22 U/L 5-34 Specimen slightly hemolyzed ALT (SGPT) (BEAKER) (test zmsk=295) 9 U/L 6-55 Specimen slightly hemolyzed PROTHROMBIN [id number] 06:30:00* Test Item Value Reference Range Comments PROTIME (BEAKER) (test cxpt=187) 15.3 seconds 11.7-14.7 INR (BEAKER) (test ebba=326) 1.2 <=5.9 RECOMMENDED COUMADIN/WARFARIN INR THERAPY RANGESSTANDARD DOSE: 2.0 - 3.0 Inclu ping: PROPHYLAXIS for venous thrombosis, systemic embolization; TREATMENT for joie ous thrombosis and/or pulmonary embolus.HIGH RISK: Target INR is 2.5-3.5 for pat ients with mechanical heart valves.URINALYSIS [id number] 14:43:00* Test Item Value Reference Range Comments RBC UA (BEAKER) (test kvkq=985) 0 /HPF WBC UA (BEAKER) (test cmhp=518) 554 /HPF SQUAMOUS EPITHELIAL (BEAKER) (test uzoj=488) 7 /HPF URINALYSIS WITH MICROSCOPIC IF [id number] 12:44:00* Test Item Value Reference Range Comments COLOR (BEAKER) (test neav=410) Yellow CLARITY (BEAKER) (test ztew=242) Hazy SPECIFIC GRAVITY UA (BEAKER) (test cuhb=879) 1.012 1.001-1.035 PH UA (BEAKER) (test mhjc=802) 6.0 5.0-8.0 PROTEIN UA (BEAKER) (test vqob=416) 20 mg/dL Negative GLUCOSE UA (BEAKER) (test lmkt=699) Negative Negative KETONES UA (BEAKER) (test wmvv=977) Negative Negative BILIRUBIN UA (BEAKER) (test tuec=908) Negative Negative BLOOD UA (BEAKER) (test dwlt=086) Trace Negative NITRITE UA (BEAKER) (test hoxj=510) Positive Negative LEUKOCYTE ESTERASE UA (BEAKER) (test ijmm=520) Large Negative UROBILINOGEN UA (BEAKER) (test ibqa=502) 2.0 mg/dL 0.2-1.0 SOURCE(BEAKER) (test kpue=4260) RAD, SPINE, LUMBAR, COMPLETE (MIN 4 VIEWS)2018-05-01 09:42:00Reason for exam:-> back painShould this be performed at the bedside?->NoFINAL REPORT LUMBAR SPINE 4 VIEWS HISTORY: Low back pain COMPARISON: Sagittal reformatted images from a CT abdomen and pelvis of 12/15/2017 FINDINGS: AP, lateral, and bilateral oblique views of the lumbar spine were obtained. There is a mild to moderate chronic L2 compression fracture which has been previously treated with kyphoplasty. This is without appreciable change. No new lumbar compression fractures are visualized. There is mild disc space narrowing at L1- L2. No other disc space narrowing is visualized. Small anterior endplate osteophytes at L3-L4. No spondylolysis or spondylolisthesis are visualized. I MPRESSION: 1. Mild to moderate chronic L2 compression fracture which has been pr eviously treated with kyphoplasty. 2. No evidence of a new lumbar compression fr acture. Signed: Anthony Hillman MDReport Verified Date/Time: 05/01/2018 09:42:37 R eading Location: [address] Reading Room Electronically sig sylvia by: ANTHONY HILLMAN MD on 05/01/2018 09:42 AM BASIC METABOLIC [id number] 09:26:00* Test Item Value Reference Range Comments SODIUM (BEAKER) (test agsb=297) 135 meq/L 136-145 POTASSIUM (BEAKER) (test nypx=604) 4.2 meq/L 3.5-5.1 CHLORIDE (BEAKER) (test aeio=569) 106 meq/L 98-107 CO2 (BEAKER) (test vslp=154) 21 meq/L 22-29 BLOOD UREA NITROGEN (BEAKER) (test hguf=003) 13 mg/dL 7-21 CREATININE (BEAKER) (test uoox=538) 1.71 mg/dL 0.57-1.25 GLUCOSE RANDOM (BEAKER) (test vvmp=211) 190 mg/dL 70-105 CALCIUM (BEAKER) (test weng=799) 8.9 mg/dL 8.4-10.2 EGFR (BEAKER) (test ikvi=8439) 38 mL/min/1.73 sq m ESTIMATED GFR IS NOT ACCURATE CREATININE CLEARANCE IN PREDICTING GLOMERULAR FILTRATION RATE. ESTIMATED GFR IS NOT APPLICABLE FOR DIALYSIS PATIENTS. [id number] 09:07:00* Test Item Value Reference Range Comments PROTIME (BEAKER) (test eass=757) 15.5 seconds 11.7-14.7 INR (BEAKER) (test oeyc=046) 1.2 <=5.9 PARTIAL THROMBOPLASTIN TIME (BEAKER) (test rrnv=045) 26.5 seconds 22.5-36.0 RECOMMENDED COUMADIN/WARFARIN INR THERAPY RANGESSTANDARD DOSE: 2.0 - 3.0 Inclu ping: PROPHYLAXIS for venous thrombosis, systemic embolization; TREATMENT for joie ous thrombosis and/or pulmonary embolus.HIGH RISK: Target INR is 2.5-3.5 for pat ients with mechanical heart valves.CBC W/PLT COUNT & AUTO [id number] 08:59:00* Test Item Value Reference Range Comments WHITE BLOOD CELL COUNT (BEAKER) (test eogv=530) 6.4 K/ L 3.5-10.5 RED BLOOD CELL COUNT (BEAKER) (test xxun=136) 4.06 M/ L 3.93-5.22 HEMOGLOBIN (BEAKER) (test upgq=920) 11.9 GM/DL 11.2-15.7 HEMATOCRIT (BEAKER) (test abwo=325) 38.0 % 34.1-44.9 MEAN CORPUSCULAR VOLUME (BEAKER) (test mxzw=986) 93.6 fL 79.4-94.8 MEAN CORPUSCULAR HEMOGLOBIN (BEAKER) (test cmxg=370) 29.3 pg 25.6-32.2 MEAN CORPUSCULAR HEMOGLOBIN CONC (BEAKER) (test qnrm=130) 31.3 GM/DL 32.2-35.5 RED CELL DISTRIBUTION WIDTH (BEAKER) (test qwsk=145) 19.5 % 11.7-14.4 PLATELET COUNT (BEAKER) (test ptnl=041) 109 K/CU MM 150-450 MEAN PLATELET VOLUME (BEAKER) (test dcsa=876) 11.5 fL 9.4-12.3 NUCLEATED RED BLOOD CELLS (BEAKER) (test moxe=113) 0 /100 WBC 0-0 NEUTROPHILS RELATIVE PERCENT (BEAKER) (test mpyi=916) 51 % LYMPHOCYTES RELATIVE PERCENT (BEAKER) (test gqti=406) 35 % MONOCYTES RELATIVE PERCENT (BEAKER) (test bmvs=763) 10 % EOSINOPHILS RELATIVE PERCENT (BEAKER) (test mvss=158) 2 % BASOPHILS RELATIVE PERCENT (BEAKER) (test hodg=905) 1 % NEUTROPHILS ABSOLUTE COUNT (BEAKER) (test mcpt=811) 3.30 K/ L 1.56-6.13 LYMPHOCYTES ABSOLUTE COUNT (BEAKER) (test eelp=094) 2.22 K/ L 1.18-3.74 MONOCYTES ABSOLUTE COUNT (BEAKER) (test yxcv=871) 0.67 K/ L 0.24-0.36 EOSINOPHILS ABSOLUTE COUNT (BEAKER) (test dyug=626) 0.15 K/ L 0.04-0.36 BASOPHILS ABSOLUTE COUNT (BEAKER) (test zllh=949) 0.06 K/ L 0.01-0.08 IMMATURE GRANULOCYTES-RELATIVE PERCENT (BEAKER) (test sdxn=7554) 1 % 0-1 BLOOD [id number] 12:00:00* Test Item Value Reference Range Comments CULTURE (BEAKER) (test slfg=0947) No growth in 5 days BLOOD [id number] 12:00:00* Test Item Value Reference Range Comments CULTURE (BEAKER) (test akfx=3427) No growth in 5 days CALCIUM, [id number] 06:56:00* Test Item Value Reference Range Comments CALCIUM IONIZED (BEAKER) (test txet=175) 0.94 mmol/L 1.12-1.27 PH, BLOOD (BEAKER) (test mnej=9467) 7.32 CBC W/PLT COUNT & AUTO [id number] 06:52:00* Test Item Value Reference Range Comments WHITE BLOOD CELL COUNT (BEAKER) (test kdkr=937) 4.5 K/ L 3.5-10.5 RED BLOOD CELL COUNT (BEAKER) (test avlw=357) 3.75 M/ L 3.93-5.22 HEMOGLOBIN (BEAKER) (test lkrz=250) 10.0 GM/DL 11.2-15.7 HEMATOCRIT (BEAKER) (test krbf=563) 34.9 % 34.1-44.9 MEAN CORPUSCULAR VOLUME (BEAKER) (test sqos=164) 93.1 fL 79.4-94.8 DISCORDANT HGB RESULT COMPARED TO PREVIOUS RESULT; CLINICAL CORRELATION REQUIRED. MEAN CORPUSCULAR HEMOGLOBIN (BEAKER) (test czlx=844) 26.7 pg 25.6-32.2 MEAN CORPUSCULAR HEMOGLOBIN CONC (BEAKER) (test mgxb=655) 28.7 GM/DL 32.2-35.5 RED CELL DISTRIBUTION WIDTH (BEAKER) (test rach=284) 18.2 % 11.7-14.4 PLATELET COUNT (BEAKER) (test evsl=076) 123 K/CU MM 150-450 MEAN PLATELET VOLUME (BEAKER) (test cjws=372) 13.0 fL 9.4-12.3 NUCLEATED RED BLOOD CELLS (BEAKER) (test mfyt=937) 0 /100 WBC 0-0 NEUTROPHILS RELATIVE PERCENT (BEAKER) (test ueun=469) 37 % LYMPHOCYTES RELATIVE PERCENT (BEAKER) (test vcil=198) 46 % MONOCYTES RELATIVE PERCENT (BEAKER) (test znke=832) 7 % EOSINOPHILS RELATIVE PERCENT (BEAKER) (test syvu=082) 3 % BASOPHILS RELATIVE PERCENT (BEAKER) (test gknz=474) 1 % NEUTROPHILS ABSOLUTE COUNT (BEAKER) (test pkyn=129) 1.68 K/ L 1.56-6.13 LYMPHOCYTES ABSOLUTE COUNT (BEAKER) (test xrdb=587) 2.07 K/ L 1.18-3.74 MONOCYTES ABSOLUTE COUNT (BEAKER) (test gxex=738) 0.33 K/ L 0.24-0.36 EOSINOPHILS ABSOLUTE COUNT (BEAKER) (test jepc=508) 0.15 K/ L 0.04-0.36 BASOPHILS ABSOLUTE COUNT (BEAKER) (test aiox=850) 0.06 K/ L 0.01-0.08 IMMATURE GRANULOCYTES-RELATIVE PERCENT (BEAKER) (test bnfu=6530) 5 % 0-1 [id number] 06:40:00* Test Item Value Reference Range Comments PHOSPHORUS (BEAKER) (test gpyq=723) 3.9 mg/dL 2.3-4.7 [id number] 06:40:00* Test Item Value Reference Range Comments MAGNESIUM (BEAKER) (test wuop=152) 2.2 mg/dL 1.6-2.6 BASIC METABOLIC [id number] 06:40:00* Test Item Value Reference Range Comments SODIUM (BEAKER) (test imfd=036) 136 meq/L 136-145 POTASSIUM (BEAKER) (test zvtp=009) 4.9 meq/L 3.5-5.1 CHLORIDE (BEAKER) (test ixlm=342) 110 meq/L 98-107 CO2 (BEAKER) (test ydqr=528) 16 meq/L 22-29 BLOOD UREA NITROGEN (BEAKER) (test vhfl=082) 33 mg/dL 7-21 CREATININE (BEAKER) (test lvwq=967) 1.97 mg/dL 0.57-1.25 GLUCOSE RANDOM (BEAKER) (test rskg=928) 107 mg/dL 70-105 CALCIUM (BEAKER) (test tlgy=359) 9.5 mg/dL 8.4-10.2 EGFR (BEAKER) (test ukmg=2498) 33 mL/min/1.73 sq m ESTIMATED GFR IS NOT ACCURATE CREATININE CLEARANCE IN PREDICTING GLOMERULAR FILTRATION RATE. ESTIMATED GFR IS NOT APPLICABLE FOR DIALYSIS PATIENTS. HEPATIC FUNCTION [id number] 06:40:00* Test Item Value Reference Range Comments TOTAL PROTEIN (BEAKER) (test oxfu=730) 7.5 gm/dL 6.0-8.3 ALBUMIN (BEAKER) (test xzes=8344) 3.8 g/dL 3.5-5.0 BILIRUBIN TOTAL (BEAKER) (test yqik=364) 0.4 mg/dL 0.2-1.2 BILIRUBIN DIRECT (BEAKER) (test mhsi=092) 0.2 mg/dL 0.1-0.5 ALKALINE PHOSPHATASE (BEAKER) (test ertu=285) 94 U/L 40-150 AST (SGOT) (BEAKER) (test cmcj=566) 19 U/L 5-34 ALT (SGPT) (BEAKER) (test zhrh=222) 10 U/L 6-55 VANCOMYCIN LEVEL, [id number] 07:07:00* Test Item Value Reference Range Comments VANCOMYCIN RANDOM (BEAKER) (test uuvh=763) 23.0 ug/mL Reference Range: No NormalsVANCOMYCIN LEVEL, [id number] 07:07:00* Test Item Value Reference Range Comments VANCOMYCIN TROUGH (BEAKER) (test cytl=975) 23.4 ug/mL 10.0-20.0 BASIC METABOLIC [id number] 06:56:00* Test Item Value Reference Range Comments SODIUM (BEAKER) (test xfhy=764) 137 meq/L 136-145 POTASSIUM (BEAKER) (test faic=578) 5.0 meq/L 3.5-5.1 CHLORIDE (BEAKER) (test kozx=996) 108 meq/L 98-107 CO2 (BEAKER) (test xynj=314) 19 meq/L 22-29 BLOOD UREA NITROGEN (BEAKER) (test avya=917) 29 mg/dL 7-21 CREATININE (BEAKER) (test usmi=900) 2.37 mg/dL 0.57-1.25 GLUCOSE RANDOM (BEAKER) (test vvpl=966) 118 mg/dL 70-105 CALCIUM (BEAKER) (test fqmu=619) 9.8 mg/dL 8.4-10.2 EGFR (BEAKER) (test cyze=0815) 26 mL/min/1.73 sq m ESTIMATED GFR IS NOT ACCURATE CREATININE CLEARANCE IN PREDICTING GLOMERULAR FILTRATION RATE. ESTIMATED GFR IS NOT APPLICABLE FOR DIALYSIS PATIENTS. [id number] 06:54:00* Test Item Value Reference Range Comments MAGNESIUM (BEAKER) (test bypw=112) 2.2 mg/dL 1.6-2.6 HEPATIC FUNCTION [id number] 06:54:00* Test Item Value Reference Range Comments TOTAL PROTEIN (BEAKER) (test hbld=395) 7.9 gm/dL 6.0-8.3 ALBUMIN (BEAKER) (test byml=6585) 3.9 g/dL 3.5-5.0 BILIRUBIN TOTAL (BEAKER) (test jsis=558) 0.5 mg/dL 0.2-1.2 BILIRUBIN DIRECT (BEAKER) (test dadc=393) 0.2 mg/dL 0.1-0.5 ALKALINE PHOSPHATASE (BEAKER) (test jklx=224) 103 U/L 40-150 AST (SGOT) (BEAKER) (test aazi=226) 20 U/L 5-34 ALT (SGPT) (BEAKER) (test lsbb=115) 11 U/L 6-55 PROTHROMBIN [id number] 06:20:00* Test Item Value Reference Range Comments PROTIME (BEAKER) (test yixi=893) 15.6 seconds 11.7-14.7 INR (BEAKER) (test hfnu=597) 1.2 <=5.9 RECOMMENDED COUMADIN/WARFARIN INR THERAPY RANGESSTANDARD DOSE: 2.0 - 3.0 Inclu ping: PROPHYLAXIS for venous thrombosis, systemic embolization; TREATMENT for joie ous thrombosis and/or pulmonary embolus.HIGH RISK: Target INR is 2.5-3.5 for pat ients with mechanical heart valves.CBC W/PLT COUNT & AUTO [id number] 06:08:00* Test Item Value Reference Range Comments WHITE BLOOD CELL COUNT (BEAKER) (test igbr=227) 6.3 K/ L 3.5-10.5 RED BLOOD CELL COUNT (BEAKER) (test dggx=297) 4.23 M/ L 3.93-5.22 HEMOGLOBIN (BEAKER) (test wofo=528) 11.2 GM/DL 11.2-15.7 HEMATOCRIT (BEAKER) (test qcpz=405) 36.5 % 34.1-44.9 MEAN CORPUSCULAR VOLUME (BEAKER) (test okko=896) 86.3 fL 79.4-94.8 MEAN CORPUSCULAR HEMOGLOBIN (BEAKER) (test lnsn=252) 26.5 pg 25.6-32.2 MEAN CORPUSCULAR HEMOGLOBIN CONC (BEAKER) (test gxpw=306) 30.7 GM/DL 32.2-35.5 RED CELL DISTRIBUTION WIDTH (BEAKER) (test dpsp=902) 17.9 % 11.7-14.4 PLATELET COUNT (BEAKER) (test dyfc=440) 153 K/CU MM 150-450 MEAN PLATELET VOLUME (BEAKER) (test mtqg=144) 12.4 fL 9.4-12.3 NUCLEATED RED BLOOD CELLS (BEAKER) (test oerf=671) 0 /100 WBC 0-0 NEUTROPHILS RELATIVE PERCENT (BEAKER) (test wuuk=669) 48 % LYMPHOCYTES RELATIVE PERCENT (BEAKER) (test socf=672) 35 % MONOCYTES RELATIVE PERCENT (BEAKER) (test cilm=274) 7 % EOSINOPHILS RELATIVE PERCENT (BEAKER) (test qmlg=518) 4 % BASOPHILS RELATIVE PERCENT (BEAKER) (test nztz=210) 1 % NEUTROPHILS ABSOLUTE COUNT (BEAKER) (test zpaq=127) 3.05 K/ L 1.56-6.13 LYMPHOCYTES ABSOLUTE COUNT (BEAKER) (test bogq=334) 2.24 K/ L 1.18-3.74 MONOCYTES ABSOLUTE COUNT (BEAKER) (test ivni=062) 0.44 K/ L 0.24-0.36 EOSINOPHILS ABSOLUTE COUNT (BEAKER) (test kawk=093) 0.26 K/ L 0.04-0.36 BASOPHILS ABSOLUTE COUNT (BEAKER) (test nmso=413) 0.05 K/ L 0.01-0.08 IMMATURE GRANULOCYTES-RELATIVE PERCENT (BEAKER) (test pdou=0078) 4 % 0-1 CREATINE KINASE (CK)2018-01-20 23:07:00* Test Item Value Reference Range Comments CREATINE KINASE TOTAL (BEAKER) (test qbue=629) 40 U/L 29-200 SODIUM, RANDOM [id number] 16:31:00* Test Item Value Reference Range Comments SODIUM URINE (BEAKER) (test doyn=516) < meq/L Reference Range: No NormalsCREATININE, RANDOM [id number] 16:27:00* Test Item Value Reference Range Comments CREATININE URINE (BEAKER) (test yndc=892) 168.0 mg/dL Reference Range: No NormalsUREA NITROGEN, RANDOM [id number] 16:27:00* Test Item Value Reference Range Comments UREA NITROGEN URINE (BEAKER) (test ojas=779) 516 mg/dL Reference Range: No NormalsVITAMIN [id number] 05:57:00* Test Item Value Reference Range Comments VITAMIN B12 (BEAKER) (test wtqs=161) 230 pg/mL 213-816 FOLATE, [id number] 05:57:00* Test Item Value Reference Range Comments FOLATE (BEAKER) (test xojn=905) 6.6 ng/mL >=7.0 BASIC METABOLIC [id number] 05:24:00* Test Item Value Reference Range Comments SODIUM (BEAKER) (test fdla=234) 136 meq/L 136-145 POTASSIUM (BEAKER) (test awgq=223) 4.1 meq/L 3.5-5.1 CHLORIDE (BEAKER) (test vgfb=755) 105 meq/L 98-107 CO2 (BEAKER) (test wnrn=155) 23 meq/L 22-29 BLOOD UREA NITROGEN (BEAKER) (test ivzt=839) 26 mg/dL 7-21 CREATININE (BEAKER) (test vwyg=514) 2.44 mg/dL 0.57-1.25 GLUCOSE RANDOM (BEAKER) (test bsdv=731) 120 mg/dL 70-105 CALCIUM (BEAKER) (test wpba=180) 9.5 mg/dL 8.4-10.2 EGFR (BEAKER) (test xpgy=4893) 25 mL/min/1.73 sq m ESTIMATED GFR IS NOT ACCURATE CREATININE CLEARANCE IN PREDICTING GLOMERULAR FILTRATION RATE. ESTIMATED GFR IS NOT APPLICABLE FOR DIALYSIS PATIENTS. [id number] 05:22:00* Test Item Value Reference Range Comments MAGNESIUM (BEAKER) (test ktpw=284) 1.9 mg/dL 1.6-2.6 HEPATIC FUNCTION [id number] 05:22:00* Test Item Value Reference Range Comments TOTAL PROTEIN (BEAKER) (test jfsf=408) 7.3 gm/dL 6.0-8.3 ALBUMIN (BEAKER) (test eykp=7616) 3.7 g/dL 3.5-5.0 BILIRUBIN TOTAL (BEAKER) (test uflu=794) 0.6 mg/dL 0.2-1.2 BILIRUBIN DIRECT (BEAKER) (test cidq=388) 0.3 mg/dL 0.1-0.5 ALKALINE PHOSPHATASE (BEAKER) (test qthq=588) 79 U/L 40-150 AST (SGOT) (BEAKER) (test siqe=104) 19 U/L 5-34 ALT (SGPT) (BEAKER) (test zoeu=486) 9 U/L 6-55 PROTHROMBIN [id number] 05:03:00* Test Item Value Reference Range Comments PROTIME (BEAKER) (test qalz=638) 15.1 seconds 11.7-14.7 INR (BEAKER) (test qdjz=937) 1.2 <=5.9 RECOMMENDED COUMADIN/WARFARIN INR THERAPY RANGESSTANDARD DOSE: 2.0 - 3.0 Inclu ping: PROPHYLAXIS for venous thrombosis, systemic embolization; TREATMENT for joie ous thrombosis and/or pulmonary embolus.HIGH RISK: Target INR is 2.5-3.5 for pat ients with mechanical heart valves.CBC W/PLT COUNT & AUTO [id number] 04:52:00* Test Item Value Reference Range Comments WHITE BLOOD CELL COUNT (BEAKER) (test ulqs=911) 8.0 K/ L 3.5-10.5 RED BLOOD CELL COUNT (BEAKER) (test jsew=219) 3.90 M/ L 3.93-5.22 HEMOGLOBIN (BEAKER) (test rrtn=539) 10.2 GM/DL 11.2-15.7 HEMATOCRIT (BEAKER) (test etmg=438) 32.7 % 34.1-44.9 MEAN CORPUSCULAR VOLUME (BEAKER) (test migi=937) 83.8 fL 79.4-94.8 MEAN CORPUSCULAR HEMOGLOBIN (BEAKER) (test hjff=947) 26.2 pg 25.6-32.2 MEAN CORPUSCULAR HEMOGLOBIN CONC (BEAKER) (test yimd=092) 31.2 GM/DL 32.2-35.5 RED CELL DISTRIBUTION WIDTH (BEAKER) (test dbxr=141) 18.0 % 11.7-14.4 PLATELET COUNT (BEAKER) (test ezvf=303) 150 K/CU MM 150-450 MEAN PLATELET VOLUME (BEAKER) (test fcko=800) 13.6 fL 9.4-12.3 NUCLEATED RED BLOOD CELLS (BEAKER) (test cqup=550) 0 /100 WBC 0-0 NEUTROPHILS RELATIVE PERCENT (BEAKER) (test yayj=542) 52 % LYMPHOCYTES RELATIVE PERCENT (BEAKER) (test xsne=811) 36 % MONOCYTES RELATIVE PERCENT (BEAKER) (test njyn=101) 7 % EOSINOPHILS RELATIVE PERCENT (BEAKER) (test pzci=137) 3 % BASOPHILS RELATIVE PERCENT (BEAKER) (test vhzx=364) 1 % NEUTROPHILS ABSOLUTE COUNT (BEAKER) (test izkr=107) 4.15 K/ L 1.56-6.13 LYMPHOCYTES ABSOLUTE COUNT (BEAKER) (test bszl=776) 2.86 K/ L 1.18-3.74 MONOCYTES ABSOLUTE COUNT (BEAKER) (test iliu=022) 0.53 K/ L 0.24-0.36 EOSINOPHILS ABSOLUTE COUNT (BEAKER) (test dqtn=204) 0.24 K/ L 0.04-0.36 BASOPHILS ABSOLUTE COUNT (BEAKER) (test qhjy=368) 0.05 K/ L 0.01-0.08 IMMATURE GRANULOCYTES-RELATIVE PERCENT (BEAKER) (test auey=2410) 2 % 0-1 URINALYSIS W/ [id number] 02:12:00* Test Item Value Reference Range Comments COLOR (BEAKER) (test vcus=545) Yellow CLARITY (BEAKER) (test nowj=698) Hazy SPECIFIC GRAVITY UA (BEAKER) (test fzsw=799) 1.018 1.001-1.035 PH UA (BEAKER) (test ahbh=114) 5.5 5.0-8.0 PROTEIN UA (BEAKER) (test kmqw=161) 50 mg/dL Negative GLUCOSE UA (BEAKER) (test ezim=882) Negative Negative KETONES UA (BEAKER) (test hlol=631) 10 mg/dL Negative BILIRUBIN UA (BEAKER) (test txyg=071) Negative Negative BLOOD UA (BEAKER) (test etem=182) Negative Negative NITRITE UA (BEAKER) (test xvog=930) Negative Negative LEUKOCYTE ESTERASE UA (BEAKER) (test jvvw=019) Large Negative UROBILINOGEN UA (BEAKER) (test valh=782) 0.2 mg/dL 0.2-1.0 RBC UA (BEAKER) (test hrxk=588) 2 /HPF WBC UA (BEAKER) (test pugu=426) 14 /HPF MUCUS (BEAKER) (test kfjc=0159) Rare SQUAMOUS EPITHELIAL (BEAKER) (test fksg=155) 11 /HPF HYALINE CASTS (BEAKER) (test gwmd=494) 19 /LPF AMORPHOUS CRYSTALS (BEAKER) (test ozdd=0316) Rare SOURCE(BEAKER) (test wehk=2910) Urine, Voided B-TYPE NATRIURETIC FACTOR (BNP)2018-01-19 07:58:00* Test Item Value Reference Range Comments B-TYPE NATRIURETIC PEPTIDE (BEAKER) (test goar=064) 30 pg/mL 0-100 POCT-LACTIC ACID, [id number] 07:54:00* Test Item Value Reference Range Comments POC-LACTIC ACID, VENOUS (BEAKER) (test uugm=9503) 1.8 mmol/L 0.9-1.7 TESTED AT [facility] [address] [facility] [address] BASIC METABOLIC [id number] 07:50:00* Test Item Value Reference Range Comments SODIUM (BEAKER) (test gxfp=725) 138 meq/L 136-145 POTASSIUM (BEAKER) (test rxxy=247) 3.9 meq/L 3.5-5.1 CHLORIDE (BEAKER) (test ksfj=531) 108 meq/L 98-107 CO2 (BEAKER) (test vtsw=519) 19 meq/L 22-29 BLOOD UREA NITROGEN (BEAKER) (test nmhn=187) 20 mg/dL 7-21 CREATININE (BEAKER) (test axhw=615) 1.78 mg/dL 0.57-1.25 GLUCOSE RANDOM (BEAKER) (test tebp=414) 138 mg/dL 70-105 CALCIUM (BEAKER) (test hdtj=168) 10.3 mg/dL 8.4-10.2 EGFR (BEAKER) (test xkhc=1268) 37 mL/min/1.73 sq m ESTIMATED GFR IS NOT ACCURATE CREATININE CLEARANCE IN PREDICTING GLOMERULAR FILTRATION RATE. ESTIMATED GFR IS NOT APPLICABLE FOR DIALYSIS PATIENTS. CBC W/PLT COUNT & AUTO [id number] 07:49:00* Test Item Value Reference Range Comments WHITE BLOOD CELL COUNT (BEAKER) (test vyhw=186) 10.7 K/ L 3.5-10.5 RED BLOOD CELL COUNT (BEAKER) (test pyfq=921) 4.43 M/ L 3.93-5.22 HEMOGLOBIN (BEAKER) (test psmr=838) 11.7 GM/DL 11.2-15.7 HEMATOCRIT (BEAKER) (test ifxf=965) 36.3 % 34.1-44.9 MEAN CORPUSCULAR VOLUME (BEAKER) (test qliy=286) 81.9 fL 79.4-94.8 MEAN CORPUSCULAR HEMOGLOBIN (BEAKER) (test blnv=663) 26.4 pg 25.6-32.2 MEAN CORPUSCULAR HEMOGLOBIN CONC (BEAKER) (test sdqt=618) 32.2 GM/DL 32.2-35.5 RED CELL DISTRIBUTION WIDTH (BEAKER) (test oxqp=746) 17.8 % 11.7-14.4 PLATELET COUNT (BEAKER) (test doxa=076) 128 K/CU MM 150-450 MEAN PLATELET VOLUME (BEAKER) (test zeuf=707) fL 9.4-12.3 Unable to report due to abnormal Platelet population distribution. NUCLEATED RED BLOOD CELLS (BEAKER) (test rzvj=957) 0 /100 WBC 0-0 NEUTROPHILS RELATIVE PERCENT (BEAKER) (test qwqt=193) 63 % LYMPHOCYTES RELATIVE PERCENT (BEAKER) (test gtkt=383) 27 % MONOCYTES RELATIVE PERCENT (BEAKER) (test knzv=372) 7 % EOSINOPHILS RELATIVE PERCENT (BEAKER) (test pufi=286) 2 % BASOPHILS RELATIVE PERCENT (BEAKER) (test vsgu=688) 1 % NEUTROPHILS ABSOLUTE COUNT (BEAKER) (test ydfi=626) 6.70 K/ L 1.56-6.13 LYMPHOCYTES ABSOLUTE COUNT (BEAKER) (test naxc=547) 2.89 K/ L 1.18-3.74 MONOCYTES ABSOLUTE COUNT (BEAKER) (test yqhz=010) 0.70 K/ L 0.24-0.36 EOSINOPHILS ABSOLUTE COUNT (BEAKER) (test fzbh=992) 0.24 K/ L 0.04-0.36 BASOPHILS ABSOLUTE COUNT (BEAKER) (test qjfi=496) 0.05 K/ L 0.01-0.08 IMMATURE GRANULOCYTES-RELATIVE PERCENT (BEAKER) (test sfgg=3194) 1 % 0-1 CBC (HEMOGRAM ONLY)2017-12-20 08:14:00* Test Item Value Reference Range Comments WHITE BLOOD CELL COUNT (BEAKER) (test sfby=515) 5.0 K/ L 3.5-10.5 RED BLOOD CELL COUNT (BEAKER) (test vqpa=194) 3.57 M/ L 3.93-5.22 HEMOGLOBIN (BEAKER) (test yjio=054) 9.8 GM/DL 11.2-15.7 HEMATOCRIT (BEAKER) (test thot=960) 30.2 % 34.1-44.9 MEAN CORPUSCULAR VOLUME (BEAKER) (test gzgt=502) 84.6 fL 79.4-94.8 MEAN CORPUSCULAR HEMOGLOBIN (BEAKER) (test crmo=158) 27.5 pg 25.6-32.2 MEAN CORPUSCULAR HEMOGLOBIN CONC (BEAKER) (test dohq=852) 32.5 GM/DL 32.2-35.5 RED CELL DISTRIBUTION WIDTH (BEAKER) (test ufkn=545) 18.6 % 11.7-14.4 PLATELET COUNT (BEAKER) (test xpbp=822) 104 K/CU MM 150-450 MEAN PLATELET VOLUME (BEAKER) (test zdmm=937) 11.6 fL 9.4-12.3 NUCLEATED RED BLOOD CELLS (BEAKER) (test zeqy=149) 0 /100 WBC 0-0 [id number] 07:38:00* Test Item Value Reference Range Comments MAGNESIUM (BEAKER) (test duah=860) 1.4 mg/dL 1.6-2.6 BASIC METABOLIC [id number] 07:38:00* Test Item Value Reference Range Comments SODIUM (BEAKER) (test dlpw=865) 137 meq/L 136-145 POTASSIUM (BEAKER) (test rale=240) 3.3 meq/L 3.5-5.1 CHLORIDE (BEAKER) (test ixqw=594) 108 meq/L 98-107 CO2 (BEAKER) (test radt=205) 20 meq/L 22-29 BLOOD UREA NITROGEN (BEAKER) (test znep=925) 15 mg/dL 7-21 CREATININE (BEAKER) (test ihcb=267) 1.64 mg/dL 0.57-1.25 GLUCOSE RANDOM (BEAKER) (test hkih=163) 118 mg/dL 70-105 CALCIUM (BEAKER) (test hgzf=710) 9.2 mg/dL 8.4-10.2 EGFR (BEAKER) (test iroo=2846) 40 mL/min/1.73 sq m ESTIMATED GFR IS NOT ACCURATE CREATININE CLEARANCE IN PREDICTING GLOMERULAR FILTRATION RATE. ESTIMATED GFR IS NOT APPLICABLE FOR DIALYSIS PATIENTS. HEPATIC FUNCTION [id number] 07:38:00* Test Item Value Reference Range Comments TOTAL PROTEIN (BEAKER) (test fjmq=823) 6.8 gm/dL 6.0-8.3 ALBUMIN (BEAKER) (test alyo=3213) 3.9 g/dL 3.5-5.0 BILIRUBIN TOTAL (BEAKER) (test ohdb=612) 1.1 mg/dL 0.2-1.2 BILIRUBIN DIRECT (BEAKER) (test riww=950) 0.5 mg/dL 0.1-0.5 ALKALINE PHOSPHATASE (BEAKER) (test dzoz=174) 64 U/L 40-150 AST (SGOT) (BEAKER) (test zjjd=038) 11 U/L 5-34 ALT (SGPT) (BEAKER) (test ofso=416) 7 U/L 6-55 PROTHROMBIN [id number] 06:59:00* Test Item Value Reference Range Comments PROTIME (BEAKER) (test rtwn=830) 16.0 seconds 11.7-14.7 INR (BEAKER) (test bgee=578) 1.3 <=5.9 RECOMMENDED COUMADIN/WARFARIN INR THERAPY RANGESSTANDARD DOSE: 2.0 - 3.0 Inclu ping: PROPHYLAXIS for venous thrombosis, systemic embolization; TREATMENT for joie ous thrombosis and/or pulmonary embolus.HIGH RISK: Target INR is 2.5-3.5 for pat ients with mechanical heart valves.PROTHROMBIN TIME/[id number] 13:21:00* Test Item Value Reference Range Comments PROTIME (BEAKER) (test iucx=827) 16.4 seconds 11.7-14.7 INR (BEAKER) (test dcrp=381) 1.3 <=5.9 RECOMMENDED COUMADIN/WARFARIN INR THERAPY RANGESSTANDARD DOSE: 2.0 - 3.0 Inclu ping: PROPHYLAXIS for venous thrombosis, systemic embolization; TREATMENT for joie ous thrombosis and/or pulmonary embolus.HIGH RISK: Target INR is 2.5-3.5 for pat ients with mechanical heart valves.BASIC METABOLIC [id number] 08:48:00* Test Item Value Reference Range Comments SODIUM (BEAKER) (test mlxt=277) 139 meq/L 136-145 POTASSIUM (BEAKER) (test bope=604) 3.4 meq/L 3.5-5.1 CHLORIDE (BEAKER) (test mhui=343) 108 meq/L 98-107 CO2 (BEAKER) (test mosy=034) 17 meq/L 22-29 BLOOD UREA NITROGEN (BEAKER) (test tzkd=534) 11 mg/dL 7-21 CREATININE (BEAKER) (test hzsa=329) 1.36 mg/dL 0.57-1.25 GLUCOSE RANDOM (BEAKER) (test yxus=928) 126 mg/dL 70-105 CALCIUM (BEAKER) (test rdmh=508) 9.5 mg/dL 8.4-10.2 EGFR (BEAKER) (test emau=0515) 50 mL/min/1.73 sq m ESTIMATED GFR IS NOT ACCURATE CREATININE CLEARANCE IN PREDICTING GLOMERULAR FILTRATION RATE. ESTIMATED GFR IS NOT APPLICABLE FOR DIALYSIS PATIENTS. CBC (HEMOGRAM ONLY)2017-12-19 08:07:00* Test Item Value Reference Range Comments WHITE BLOOD CELL COUNT (BEAKER) (test iimf=486) 6.2 K/ L 3.5-10.5 RED BLOOD CELL COUNT (BEAKER) (test qjlh=059) 3.79 M/ L 3.93-5.22 HEMOGLOBIN (BEAKER) (test qfva=557) 10.4 GM/DL 11.2-15.7 HEMATOCRIT (BEAKER) (test jcrz=602) 32.3 % 34.1-44.9 MEAN CORPUSCULAR VOLUME (BEAKER) (test rpaj=342) 85.2 fL 79.4-94.8 MEAN CORPUSCULAR HEMOGLOBIN (BEAKER) (test jgcs=520) 27.4 pg 25.6-32.2 MEAN CORPUSCULAR HEMOGLOBIN CONC (BEAKER) (test eqsf=643) 32.2 GM/DL 32.2-35.5 RED CELL DISTRIBUTION WIDTH (BEAKER) (test ykof=385) 18.7 % 11.7-14.4 PLATELET COUNT (BEAKER) (test exgy=934) 96 K/CU MM 150-450 MEAN PLATELET VOLUME (BEAKER) (test qcvg=246) 11.4 fL 9.4-12.3 NUCLEATED RED BLOOD CELLS (BEAKER) (test hyru=291) 0 /100 WBC 0-0 TISSUE [id number] 13:03:00Surgical Pathology Report Case: [id number] Authorizing Provider: Aura Burton MD Collected: 12/17/2017 1139 Ordering Location: [address] Received: 12/17/2017 1502 Service Pathologist: Deepa Camp MD Specimens: A) - Duodenum, BX B) - Stomach, Antrum, BX A.DUODENUM, ENDOSCOPIC BIOPSY:- DUODENAL MUCOSA WITH NO PATHOLOGIC ALTERATION- NO PEPTIC DUODENITIS SEEN- NO FEATURES OF CELIAC DISEASE PRESENT- NO GRANULOMAS, DYSPLASIA OR MALIGNANCY NOTEDB.STOMACH, ANTRUM, ENDOSCOPIC BIOPSY:- ANTRAL TYPE GASTRIC MUCOSA WITH MILD REACTIVE GASTROPATHY- NO INTESTINAL METAPLASIA SEEN- NO HELICOBACTER PYLORI-LIKE ORGANISMS SEEN ON WARTHIN-STARRY STAIN- NO DYSPLASIA OR MALIGNANCY NOTED Signing Pathologist Direct Phone Line: [phone] signed by Deepa Camp MD on 12/18/2017 at 1:03 [id number] X 2; [id number] pain A. Duodenum biopsy. B. Stomach antrum biopsy Specimen is received in two containers of formalin both labeled with the patient's information.Specimen A: Labeled "duodenum biopsy" consists of two fragments of gutierrez tissue measuring 0.1 and 0.3 cm, submitted in A1.Specimen B: Labeled "stomach antrum biopsy" consists of a 0.6 cm fragment of gutierrez tissue submitted in B1. CG/ew PERFORMEDThe following special studies were performed on this case and the interpretation is incorporated in the diagnostic report above:[id number] 07:34:00* Test Item Value Reference Range Comments PHOSPHORUS (BEAKER) (test ewaw=335) 3.4 mg/dL 2.3-4.7 [id number] 07:34:00* Test Item Value Reference Range Comments MAGNESIUM (BEAKER) (test zvkn=707) 1.5 mg/dL 1.6-2.6 BASIC METABOLIC [id number] 07:34:00* Test Item Value Reference Range Comments SODIUM (BEAKER) (test syyt=241) 141 meq/L 136-145 POTASSIUM (BEAKER) (test dsad=683) 3.6 meq/L 3.5-5.1 CHLORIDE (BEAKER) (test lfwe=793) 109 meq/L 98-107 CO2 (BEAKER) (test iffk=389) 20 meq/L 22-29 BLOOD UREA NITROGEN (BEAKER) (test koyy=751) 14 mg/dL 7-21 CREATININE (BEAKER) (test jljp=054) 1.85 mg/dL 0.57-1.25 GLUCOSE RANDOM (BEAKER) (test wljs=717) 118 mg/dL 70-105 CALCIUM (BEAKER) (test qsbv=273) 9.3 mg/dL 8.4-10.2 EGFR (BEAKER) (test lzwg=2003) 35 mL/min/1.73 sq m ESTIMATED GFR IS NOT ACCURATE CREATININE CLEARANCE IN PREDICTING GLOMERULAR FILTRATION RATE. ESTIMATED GFR IS NOT APPLICABLE FOR DIALYSIS PATIENTS. HEPATIC FUNCTION [id number] 07:34:00* Test Item Value Reference Range Comments TOTAL PROTEIN (BEAKER) (test prra=219) 7.4 gm/dL 6.0-8.3 ALBUMIN (BEAKER) (test fkxf=2943) 4.1 g/dL 3.5-5.0 BILIRUBIN TOTAL (BEAKER) (test gqej=476) 1.2 mg/dL 0.2-1.2 BILIRUBIN DIRECT (BEAKER) (test wfcc=295) 0.5 mg/dL 0.1-0.5 ALKALINE PHOSPHATASE (BEAKER) (test tluo=811) 75 U/L 40-150 AST (SGOT) (BEAKER) (test avey=736) 16 U/L 5-34 ALT (SGPT) (BEAKER) (test fuzf=872) 8 U/L 6-55 PROTHROMBIN TIME/[id number] 06:10:00* Test Item Value Reference Range Comments PROTIME (BEAKER) (test pfmd=967) 15.8 seconds 11.7-14.7 INR (BEAKER) (test mpvx=113) 1.3 <=5.9 RECOMMENDED COUMADIN/WARFARIN INR THERAPY RANGESSTANDARD DOSE: 2.0 - 3.0 Inclu ping: PROPHYLAXIS for venous thrombosis, systemic embolization; TREATMENT for joie ous thrombosis and/or pulmonary embolus.HIGH RISK: Target INR is 2.5-3.5 for pat ients with mechanical heart valves.CBC (HEMOGRAM ONLY)2017-12-18 05:46:00* Test Item Value Reference Range Comments WHITE BLOOD CELL COUNT (BEAKER) (test jlhf=202) 7.2 K/ L 3.5-10.5 RED BLOOD CELL COUNT (BEAKER) (test acmq=079) 3.85 M/ L 3.93-5.22 HEMOGLOBIN (BEAKER) (test amfk=585) 10.6 GM/DL 11.2-15.7 HEMATOCRIT (BEAKER) (test maly=379) 32.8 % 34.1-44.9 MEAN CORPUSCULAR VOLUME (BEAKER) (test ltrj=780) 85.2 fL 79.4-94.8 MEAN CORPUSCULAR HEMOGLOBIN (BEAKER) (test qseq=855) 27.5 pg 25.6-32.2 MEAN CORPUSCULAR HEMOGLOBIN CONC (BEAKER) (test tarx=273) 32.3 GM/DL 32.2-35.5 RED CELL DISTRIBUTION WIDTH (BEAKER) (test pwle=828) 19.1 % 11.7-14.4 PLATELET COUNT (BEAKER) (test chpl=832) 120 K/CU MM 150-450 MEAN PLATELET VOLUME (BEAKER) (test gdpo=716) 11.9 fL 9.4-12.3 NUCLEATED RED BLOOD CELLS (BEAKER) (test uftn=620) 0 /100 WBC 0-0 URINALYSIS W/ [id number] 03:01:00* Test Item Value Reference Range Comments COLOR (BEAKER) (test dscg=540) Yellow CLARITY (BEAKER) (test lmrh=297) Slightly Hazy SPECIFIC GRAVITY UA (BEAKER) (test watt=312) 1.011 1.001-1.035 PH UA (BEAKER) (test ovfj=827) 5.5 5.0-8.0 PROTEIN UA (BEAKER) (test hqpf=762) 10 mg/dL Negative GLUCOSE UA (BEAKER) (test ixvx=696) Negative Negative KETONES UA (BEAKER) (test kweu=464) Negative Negative BILIRUBIN UA (BEAKER) (test srjr=188) Negative Negative BLOOD UA (BEAKER) (test xahh=906) Negative Negative NITRITE UA (BEAKER) (test lspe=918) Negative Negative LEUKOCYTE ESTERASE UA (BEAKER) (test namt=107) Negative Negative UROBILINOGEN UA (BEAKER) (test cwvq=601) 0.2 mg/dL 0.2-1.0 RBC UA (BEAKER) (test aeav=970) 2 /HPF WBC UA (BEAKER) (test ksdu=617) 2 /HPF BACTERIA (BEAKER) (test qjya=109) Rare SQUAMOUS EPITHELIAL (BEAKER) (test prwg=265) 7 /HPF AMORPHOUS CRYSTALS (BEAKER) (test zyfg=6416) Rare YEAST (BEAKER) (test zcjm=6789) Moderate Budding yeast seen SOURCE(BEAKER) (test ikou=5833) Urine, Voided CREATININE, RANDOM [id number] 02:14:00* Test Item Value Reference Range Comments CREATININE URINE (BEAKER) (test uxfi=806) 119.8 mg/dL Reference Range: No NormalsSODIUM, RANDOM [id number] 02:14:00* Test Item Value Reference Range Comments SODIUM URINE (BEAKER) (test fcuv=670) 74 meq/L Reference Range: No NormalsUREA NITROGEN, RANDOM [id number] 02:14:00* Test Item Value Reference Range Comments UREA NITROGEN URINE (BEAKER) (test fpyo=314) 282 mg/dL Reference Range: No NormalsALPHA FETOPROTEIN (AFP), TUMOR [id number] 07:25:00* Test Item Value Reference Range Comments ALPHA-FETOPROTEIN (BEAKER) (test jqui=3548) 3.2 ng/mL <10.0 [id number] 06:53:00* Test Item Value Reference Range Comments PHOSPHORUS (BEAKER) (test eiku=019) 2.7 mg/dL 2.3-4.7 [id number] 06:53:00* Test Item Value Reference Range Comments MAGNESIUM (BEAKER) (test arzh=938) 1.5 mg/dL 1.6-2.6 BASIC METABOLIC [id number] 06:53:00* Test Item Value Reference Range Comments SODIUM (BEAKER) (test grvw=459) 138 meq/L 136-145 POTASSIUM (BEAKER) (test ttiq=393) 3.6 meq/L 3.5-5.1 CHLORIDE (BEAKER) (test vntf=078) 110 meq/L 98-107 CO2 (BEAKER) (test sttt=214) 16 meq/L 22-29 BLOOD UREA NITROGEN (BEAKER) (test vjll=321) 11 mg/dL 7-21 CREATININE (BEAKER) (test ohug=270) 1.72 mg/dL 0.57-1.25 GLUCOSE RANDOM (BEAKER) (test srns=287) 131 mg/dL 70-105 CALCIUM (BEAKER) (test znoj=058) 8.9 mg/dL 8.4-10.2 EGFR (BEAKER) (test zqru=9642) 38 mL/min/1.73 sq m ESTIMATED GFR IS NOT ACCURATE CREATININE CLEARANCE IN PREDICTING GLOMERULAR FILTRATION RATE. ESTIMATED GFR IS NOT APPLICABLE FOR DIALYSIS PATIENTS. HEPATIC FUNCTION [id number] 06:53:00* Test Item Value Reference Range Comments TOTAL PROTEIN (BEAKER) (test isjx=503) 6.9 gm/dL 6.0-8.3 ALBUMIN (BEAKER) (test rbxf=8003) 3.5 g/dL 3.5-5.0 BILIRUBIN TOTAL (BEAKER) (test vcou=558) 1.4 mg/dL 0.2-1.2 BILIRUBIN DIRECT (BEAKER) (test nbbd=985) 0.6 mg/dL 0.1-0.5 ALKALINE PHOSPHATASE (BEAKER) (test pfhs=540) 80 U/L 40-150 AST (SGOT) (BEAKER) (test wvyb=923) 13 U/L 5-34 ALT (SGPT) (BEAKER) (test vjez=981) 8 U/L 6-55 CBC (HEMOGRAM ONLY)2017-12-17 06:32:00* Test Item Value Reference Range Comments WHITE BLOOD CELL COUNT (BEAKER) (test vwuy=756) 6.5 K/ L 3.5-10.5 RED BLOOD CELL COUNT (BEAKER) (test pdoh=848) 3.84 M/ L 3.93-5.22 HEMOGLOBIN (BEAKER) (test exla=692) 10.4 GM/DL 11.2-15.7 HEMATOCRIT (BEAKER) (test urao=818) 33.2 % 34.1-44.9 MEAN CORPUSCULAR VOLUME (BEAKER) (test vemn=082) 86.5 fL 79.4-94.8 MEAN CORPUSCULAR HEMOGLOBIN (BEAKER) (test iygw=906) 27.1 pg 25.6-32.2 MEAN CORPUSCULAR HEMOGLOBIN CONC (BEAKER) (test cnrj=603) 31.3 GM/DL 32.2-35.5 RED CELL DISTRIBUTION WIDTH (BEAKER) (test qofq=065) 18.9 % 11.7-14.4 PLATELET COUNT (BEAKER) (test uqiu=816) 83 K/CU MM 150-450 MEAN PLATELET VOLUME (BEAKER) (test hyux=649) 13.3 fL 9.4-12.3 NUCLEATED RED BLOOD CELLS (BEAKER) (test naaq=401) 0 /100 WBC 0-0 HEPATIC FUNCTION [id number] 07:31:00* Test Item Value Reference Range Comments TOTAL PROTEIN (BEAKER) (test ucbe=342) 8.5 gm/dL 6.0-8.3 ALBUMIN (BEAKER) (test qbbm=7319) 4.4 g/dL 3.5-5.0 BILIRUBIN TOTAL (BEAKER) (test eemn=040) 1.5 mg/dL 0.2-1.2 BILIRUBIN DIRECT (BEAKER) (test sqke=618) 0.7 mg/dL 0.1-0.5 ALKALINE PHOSPHATASE (BEAKER) (test pxxk=238) 104 U/L 40-150 AST (SGOT) (BEAKER) (test uspy=343) 19 U/L 5-34 ALT (SGPT) (BEAKER) (test qavr=186) 8 U/L 6-55 [id number] 07:25:00* Test Item Value Reference Range Comments PHOSPHORUS (BEAKER) (test gvge=868) 2.6 mg/dL 2.3-4.7 [id number] 07:25:00* Test Item Value Reference Range Comments MAGNESIUM (BEAKER) (test jvxq=376) 1.5 mg/dL 1.6-2.6 BASIC METABOLIC [id number] 07:25:00* Test Item Value Reference Range Comments SODIUM (BEAKER) (test ajgl=547) 138 meq/L 136-145 POTASSIUM (BEAKER) (test zmix=217) 3.4 meq/L 3.5-5.1 CHLORIDE (BEAKER) (test ypxn=781) 107 meq/L 98-107 CO2 (BEAKER) (test muze=501) 18 meq/L 22-29 BLOOD UREA NITROGEN (BEAKER) (test nxhc=713) 11 mg/dL 7-21 CREATININE (BEAKER) (test cmvp=620) 1.43 mg/dL 0.57-1.25 GLUCOSE RANDOM (BEAKER) (test ylnz=532) 151 mg/dL 70-105 CALCIUM (BEAKER) (test dpyr=728) 9.3 mg/dL 8.4-10.2 EGFR (BEAKER) (test jwdy=6000) 47 mL/min/1.73 sq m ESTIMATED GFR IS NOT ACCURATE CREATININE CLEARANCE IN PREDICTING GLOMERULAR FILTRATION RATE. ESTIMATED GFR IS NOT APPLICABLE FOR DIALYSIS PATIENTS. [id number] 07:25:00* Test Item Value Reference Range Comments AMYLASE (SERJIO) (test eekx=592) 53 U/L 25-125 [id number] 07:25:00* Test Item Value Reference Range Comments LIPASE (SERJIO) (test lqxg=624) 19 U/L 8-78 TROPONIN [id number] 07:10:00* Test Item Value Reference Range Comments TROPONIN I (SERJIO) (test ekaa=883) 0.03 ng/mL 0.00-0.03 Troponin I (TnI) levels must be interpreted in the context of the presenting sym ptoms and the clinical findings. Elevated TnI levels indicate myocardial damage, but are not specific for ischemic heart disease. Elevated TnI levels are seen in patients with other cardiac conditions (including myocarditis and congestive h eart failure), and slight TnI elevations occur in patients with other conditions , including sepsis, renal failure, acidosis, acute neurological disease, and per sistent tachyarrhythmia.CT, [id number] 22:46:00Reason for exam:-> ABDOMINAL PAINIs the patient ?->UnknownWhat is the patient's sedation requirement?->No SedationFINAL REPORT EXAM: CT of the abdomen and pelvis, without contrast CLINICAL HISTORY: Abdominal pain. TECHNIQUE: CT of the abdomen and pelvis was performed without the intravenous administration of contrast. This exam was performed according to our departmental dose optimization program which includes automated exposure control, adjustment of the mA and/or kV according to patient's size and/or use of iterative reconstructive technique. COMPARISON: None FINDINGS: Please note study is limited due to lack of intravenous contrast. LOWER CHEST: Small bilateral pleural effusions, left greater than right. Mild left lower lobe compressive subsegmental atelectasis.LIVER: Cirrhotic morphology of the liver.BILE DUCTS: Within normal limits.GALL BLADDER: Status post cholecystecto my.PANCREAS: Within normal limits.SPLEEN: Mild splenomegaly.ADRENALS: Within nor mal limits.KIDNEYS/URETERS: Within normal limits. URINARY BLADDER: Nearly collap sed which limits its evaluation.REPRODUCTIVE ORGANS: Within normal limits. BOWEL /MESENTERY: No bowel obstruction or abnormal wall thickening. Normal appendix.PE RITONEUM/RETROPERITONEUM: No free air, free fluid or fluid collection. VESSELS: Recannulization of the paraumbilical vein in keeping with portal venous hyperten elvin. LYMPH NODES: No abdominal or pelvic lymphadenopathy.SOFT TISSUES: Mild sof t tissue edema. Collateral vessels in the anterior abdominal wall.BONES: Again n oted is a mild compression fracture deformity of the L2 vertebral body status po st vertebroplasty. IMPRESSION: Cirrhosis and evidence of portal venous hyperten elvin. No bowel obstruction or abnormal wall thickening. Small bilateral pleural effusions. Signed: Lashell Black MDReport Verified Date/Time: 12/15/2017 22:46 :26 Reading Location: [address] Transitional Reading Room Electronically s igned by: LASHELL BLACK MD on 12/15/2017 10:46 PM CREATINE KINASE (CK), TOTAL AND [id number] 21:12:00* Test Item Value Reference Range Comments CREATINE KINASE TOTAL (BEAKER) (test cjnx=281) 75 U/L 29-200 CREATINE KINASE-MB (BEAKER) (test ixof=179) 2.0 ng/mL 0.0-6.6 CREATINE KINASE-MB INDEX (BEAKER) (test peuh=946) 2.7 % CK-MB Reference Range:<6.7 Normal6.7-10.0 Borderline>10.0 Abnormal TROPONIN [id number] 21:12:00* Test Item Value Reference Range Comments TROPONIN I (BEAKER) (test wazq=143) 0.02 ng/mL 0.00-0.03 Troponin I (TnI) levels must be interpreted in the context of the presenting sym ptoms and the clinical findings. Elevated TnI levels indicate myocardial damage, but are not specific for ischemic heart disease. Elevated TnI levels are seen in patients with other cardiac conditions (including myocarditis and congestive h eart failure), and slight TnI elevations occur in patients with other conditions , including sepsis, renal failure, acidosis, acute neurological disease, and per sistent tachyarrhythmia.URINALYSIS W/ [id number] 20:56:00* Test Item Value Reference Range Comments COLOR (BEAKER) (test kdtj=525) Yellow CLARITY (BEAKER) (test phbd=446) Hazy SPECIFIC GRAVITY UA (BEAKER) (test ynte=489) 1.011 1.001-1.035 PH UA (BEAKER) (test ecqi=055) 6.0 5.0-8.0 PROTEIN UA (BEAKER) (test wxkn=816) 20 mg/dL Negative GLUCOSE UA (BEAKER) (test kiaw=765) Negative Negative KETONES UA (BEAKER) (test kzzj=314) Negative Negative BILIRUBIN UA (BEAKER) (test oslw=058) Negative Negative BLOOD UA (BEAKER) (test xlyq=572) Negative Negative NITRITE UA (BEAKER) (test ddcs=894) Negative Negative LEUKOCYTE ESTERASE UA (BEAKER) (test xsmv=147) Trace Negative UROBILINOGEN UA (BEAKER) (test nraq=274) 0.2 mg/dL 0.2-1.0 RBC UA (BEAKER) (test dhld=791) < /HPF WBC UA (BEAKER) (test xbym=796) 2 /HPF BACTERIA (BEAKER) (test vapz=980) Occasional SQUAMOUS EPITHELIAL (BEAKER) (test rhyz=885) 10 /HPF SOURCE(BEAKER) (test nbib=8368) Urine, Clean Catch CBC W/PLT COUNT & AUTO [id number] 19:28:00* Test Item Value Reference Range Comments WHITE BLOOD CELL COUNT (BEAKER) (test zovo=669) 7.3 K/ L 3.5-10.5 RED BLOOD CELL COUNT (BEAKER) (test pzlh=133) 4.33 M/ L 3.93-5.22 HEMOGLOBIN (BEAKER) (test xocr=520) 11.7 GM/DL 11.2-15.7 HEMATOCRIT (BEAKER) (test agyu=533) 37.2 % 34.1-44.9 MEAN CORPUSCULAR VOLUME (BEAKER) (test maks=158) 85.9 fL 79.4-94.8 MEAN CORPUSCULAR HEMOGLOBIN (BEAKER) (test brxh=925) 27.0 pg 25.6-32.2 MEAN CORPUSCULAR HEMOGLOBIN CONC (BEAKER) (test aice=566) 31.5 GM/DL 32.2-35.5 RED CELL DISTRIBUTION WIDTH (BEAKER) (test unzh=971) 17.9 % 11.7-14.4 PLATELET COUNT (BEAKER) (test nhqe=909) 94 K/CU MM 150-450 MEAN PLATELET VOLUME (BEAKER) (test mzsr=844) fL 9.4-12.3 Unable to report due to abnormal Platelet population distribution. NUCLEATED RED BLOOD CELLS (BEAKER) (test funy=924) 0 /100 WBC 0-0 NEUTROPHILS RELATIVE PERCENT (BEAKER) (test wkjk=049) 64 % LYMPHOCYTES RELATIVE PERCENT (BEAKER) (test fsro=695) 25 % MONOCYTES RELATIVE PERCENT (BEAKER) (test zrny=372) 7 % EOSINOPHILS RELATIVE PERCENT (BEAKER) (test izsd=807) 3 % BASOPHILS RELATIVE PERCENT (BEAKER) (test ubak=699) 1 % NEUTROPHILS ABSOLUTE COUNT (BEAKER) (test mhtq=144) 4.68 K/ L 1.56-6.13 LYMPHOCYTES ABSOLUTE COUNT (BEAKER) (test racs=784) 1.83 K/ L 1.18-3.74 MONOCYTES ABSOLUTE COUNT (BEAKER) (test lsnc=030) 0.50 K/ L 0.24-0.36 EOSINOPHILS ABSOLUTE COUNT (BEAKER) (test pmky=337) 0.19 K/ L 0.04-0.36 BASOPHILS ABSOLUTE COUNT (BEAKER) (test mdbg=826) 0.04 K/ L 0.01-0.08 IMMATURE GRANULOCYTES-RELATIVE PERCENT (BEAKER) (test plnj=8628) 1 % 0-1 BASIC METABOLIC [id number] 19:25:00* Test Item Value Reference Range Comments SODIUM (BEAKER) (test jevl=906) 141 meq/L 136-145 POTASSIUM (BEAKER) (test wgry=177) 3.5 meq/L 3.5-5.1 CHLORIDE (BEAKER) (test zelx=541) 109 meq/L 98-107 CO2 (BEAKER) (test azzw=542) 20 meq/L 22-29 BLOOD UREA NITROGEN (BEAKER) (test vjnw=305) 9 mg/dL 7-21 CREATININE (BEAKER) (test rkyk=704) 1.41 mg/dL 0.57-1.25 GLUCOSE RANDOM (BEAKER) (test vyuw=471) 125 mg/dL 70-105 CALCIUM (BEAKER) (test dnzd=258) 9.3 mg/dL 8.4-10.2 EGFR (BEAKER) (test fnii=8430) 48 mL/min/1.73 sq m ESTIMATED GFR IS NOT ACCURATE CREATININE CLEARANCE IN PREDICTING GLOMERULAR FILTRATION RATE. ESTIMATED GFR IS NOT APPLICABLE FOR DIALYSIS PATIENTS. [id number] 19:24:00* Test Item Value Reference Range Comments LIPASE (BEAKER) (test wvwe=228) 14 U/L 8-78 HEPATIC FUNCTION [id number] 19:24:00* Test Item Value Reference Range Comments TOTAL PROTEIN (BEAKER) (test kneu=641) 8.0 gm/dL 6.0-8.3 ALBUMIN (BEAKER) (test hauz=9817) 4.1 g/dL 3.5-5.0 BILIRUBIN TOTAL (BEAKER) (test hizg=256) 1.5 mg/dL 0.2-1.2 BILIRUBIN DIRECT (BEAKER) (test ckxd=856) 0.6 mg/dL 0.1-0.5 ALKALINE PHOSPHATASE (BEAKER) (test mtfy=957) 98 U/L 40-150 AST (SGOT) (BEAKER) (test vyrn=483) 22 U/L 5-34 ALT (SGPT) (BEAKER) (test wrch=673) 10 U/L 6-55 B-TYPE NATRIURETIC FACTOR (BNP)2017-12-01 15:25:00* Test Item Value Reference Range Comments B-TYPE NATRIURETIC PEPTIDE (BEAKER) (test kscz=410) 1813 pg/mL 0-100 CREATINE KINASE (CK), TOTAL AND [id number] 15:25:00* Test Item Value Reference Range Comments CREATINE KINASE TOTAL (BEAKER) (test zpqp=358) 65 U/L 29-200 CREATINE KINASE-MB (BEAKER) (test gqbd=074) 2.2 ng/mL 0.0-6.6 CREATINE KINASE-MB INDEX (BEAKER) (test uqpc=949) 3.4 % CK-MB Reference Range:<6.7 Normal6.7-10.0 Borderline>10.0 Abnormal HEPATIC FUNCTION [id number] 15:18:00* Test Item Value Reference Range Comments TOTAL PROTEIN (BEAKER) (test nfyv=490) 7.8 gm/dL 6.0-8.3 ALBUMIN (BEAKER) (test hqto=3503) 3.9 g/dL 3.5-5.0 BILIRUBIN TOTAL (BEAKER) (test bdtf=996) 1.8 mg/dL 0.2-1.2 BILIRUBIN DIRECT (BEAKER) (test uxet=533) 0.6 mg/dL 0.1-0.5 ALKALINE PHOSPHATASE (BEAKER) (test fnly=854) 108 U/L 40-150 AST (SGOT) (BEAKER) (test khaq=001) 20 U/L 5-34 ALT (SGPT) (BEAKER) (test lutf=918) 10 U/L 6-55 BASIC METABOLIC [id number] 15:18:00* Test Item Value Reference Range Comments SODIUM (BEAKER) (test rift=817) 141 meq/L 136-145 POTASSIUM (BEAKER) (test goul=428) 3.8 meq/L 3.5-5.1 CHLORIDE (BEAKER) (test ppdr=401) 108 meq/L 98-107 CO2 (BEAKER) (test rcat=343) 22 meq/L 22-29 BLOOD UREA NITROGEN (BEAKER) (test vdjd=255) 19 mg/dL 7-21 CREATININE (BEAKER) (test tmjg=809) 1.45 mg/dL 0.57-1.25 GLUCOSE RANDOM (BEAKER) (test ball=566) 130 mg/dL 70-105 CALCIUM (BEAKER) (test jddz=455) 9.8 mg/dL 8.4-10.2 EGFR (BEAKER) (test qubt=1924) 46 mL/min/1.73 sq m ESTIMATED GFR IS NOT ACCURATE CREATININE CLEARANCE IN PREDICTING GLOMERULAR FILTRATION RATE. ESTIMATED GFR IS NOT APPLICABLE FOR DIALYSIS PATIENTS. CBC W/PLT COUNT & AUTO [id number] 15:04:00* Test Item Value Reference Range Comments WHITE BLOOD CELL COUNT (BEAKER) (test spjp=244) 5.5 K/ L 3.5-10.5 RED BLOOD CELL COUNT (BEAKER) (test bumz=319) 3.78 M/ L 3.93-5.22 HEMOGLOBIN (BEAKER) (test uqji=955) 10.1 GM/DL 11.2-15.7 HEMATOCRIT (BEAKER) (test jrsq=627) 31.5 % 34.1-44.9 MEAN CORPUSCULAR VOLUME (BEAKER) (test rvqq=115) 83.3 fL 79.4-94.8 MEAN CORPUSCULAR HEMOGLOBIN (BEAKER) (test clux=638) 26.7 pg 25.6-32.2 MEAN CORPUSCULAR HEMOGLOBIN CONC (BEAKER) (test wiib=575) 32.1 GM/DL 32.2-35.5 RED CELL DISTRIBUTION WIDTH (BEAKER) (test xakk=497) 14.6 % 11.7-14.4 PLATELET COUNT (BEAKER) (test gamr=976) 69 K/CU MM 150-450 MEAN PLATELET VOLUME (BEAKER) (test cckf=746) 13.2 fL 9.4-12.3 NUCLEATED RED BLOOD CELLS (BEAKER) (test dlus=489) 0 /100 WBC 0-0 NEUTROPHILS RELATIVE PERCENT (BEAKER) (test ygsm=686) 73 % LYMPHOCYTES RELATIVE PERCENT (BEAKER) (test kyep=513) 20 % MONOCYTES RELATIVE PERCENT (BEAKER) (test iuda=956) 5 % EOSINOPHILS RELATIVE PERCENT (BEAKER) (test eaqo=486) 1 % BASOPHILS RELATIVE PERCENT (BEAKER) (test mqpo=729) 0 % NEUTROPHILS ABSOLUTE COUNT (BEAKER) (test umle=337) 4.01 K/ L 1.56-6.13 LYMPHOCYTES ABSOLUTE COUNT (BEAKER) (test oqab=413) 1.10 K/ L 1.18-3.74 MONOCYTES ABSOLUTE COUNT (BEAKER) (test nsco=459) 0.30 K/ L 0.24-0.36 EOSINOPHILS ABSOLUTE COUNT (BEAKER) (test pxrc=136) 0.05 K/ L 0.04-0.36 BASOPHILS ABSOLUTE COUNT (BEAKER) (test kmla=982) 0.02 K/ L 0.01-0.08 IMMATURE GRANULOCYTES-RELATIVE PERCENT (BEAKER) (test wzys=5952) 1 % 0-1 RAD, CHEST, 1 VIEW, NON [id number] 14:46:00Reason for exam:->CHEST PAINShould this be performed at the bedside?->YesFINAL REPORT INDICATION: CHEST PAIN COMPARISON: November 15, 2017 TECHNIQUE: Chest radiograph, single view, portable technique. FINDINGS / IMPRESSION: There is mild central pulmonary venous congestion without overt edema. Heart shadow mildly enlarged which may be related to portable technique. No consolidation or pneumothorax. Osseous structures unremarkable. Signed: Jass Garcia MDReport Verified Date/Time: 12/01/2017 14:46:52 Reading Location: [facility] Reading Room C METABOLIC [id number] 15:37:00* Test Item Value Reference Range Comments SODIUM (BEAKER) (test posm=527) 141 meq/L 136-145 This is a corrected result. Previous result was 134 meq/L on 11/17/2017 at 0758 CDT POTASSIUM (BEAKER) (test hpsd=129) 3.7 meq/L 3.5-5.1 Specimen slightly hemolyzed CHLORIDE (BEAKER) (test xskz=777) 101 meq/L 98-107 CO2 (BEAKER) (test uxnx=629) 22 meq/L 22-29 BLOOD UREA NITROGEN (BEAKER) (test eecu=596) 40 mg/dL 7-21 CREATININE (BEAKER) (test evmk=384) 1.93 mg/dL 0.57-1.25 Specimen slightly hemolyzed GLUCOSE RANDOM (BEAKER) (test nyvg=371) 126 mg/dL 70-105 CALCIUM (BEAKER) (test pneb=866) 10.5 mg/dL 8.4-10.2 EGFR (BEAKER) (test cedi=4057) 33 mL/min/1.73 sq m ESTIMATED GFR IS NOT ACCURATE CREATININE CLEARANCE IN PREDICTING GLOMERULAR FILTRATION RATE. ESTIMATED GFR IS NOT APPLICABLE FOR DIALYSIS PATIENTS. [id number] 07:58:00* Test Item Value Reference Range Comments MAGNESIUM (BEAKER) (test frwu=039) 2.0 mg/dL 1.6-2.6 Specimen slightly hemolyzed [id number] 07:58:00* Test Item Value Reference Range Comments PHOSPHORUS (BEAKER) (test hmxx=012) 4.0 mg/dL 2.3-4.7 Specimen slightly hemolyzed CALCIUM, [id number] 07:57:00* Test Item Value Reference Range Comments CALCIUM IONIZED (BEAKER) (test daik=594) 1.11 mmol/L 1.12-1.27 PH, BLOOD (BEAKER) (test isch=7478) 7.29 CBC W/PLT COUNT & AUTO [id number] 06:39:00* Test Item Value Reference Range Comments WHITE BLOOD CELL COUNT (BEAKER) (test qbqy=550) 4.4 K/ L 3.5-10.5 RED BLOOD CELL COUNT (BEAKER) (test ivaj=999) 3.78 M/ L 3.93-5.22 HEMOGLOBIN (BEAKER) (test zyol=025) 10.1 GM/DL 11.2-15.7 HEMATOCRIT (BEAKER) (test sima=291) 32.4 % 34.1-44.9 MEAN CORPUSCULAR VOLUME (BEAKER) (test qsna=185) 85.7 fL 79.4-94.8 MEAN CORPUSCULAR HEMOGLOBIN (BEAKER) (test glwt=673) 26.7 pg 25.6-32.2 MEAN CORPUSCULAR HEMOGLOBIN CONC (BEAKER) (test hmkn=540) 31.2 GM/DL 32.2-35.5 RED CELL DISTRIBUTION WIDTH (BEAKER) (test pnhf=329) 15.2 % 11.7-14.4 PLATELET COUNT (BEAKER) (test fidv=840) 77 K/CU MM 150-450 MEAN PLATELET VOLUME (BEAKER) (test rcob=984) 11.8 fL 9.4-12.3 NUCLEATED RED BLOOD CELLS (BEAKER) (test gqrw=723) 0 /100 WBC 0-0 NEUTROPHILS RELATIVE PERCENT (BEAKER) (test ckqa=309) 51 % LYMPHOCYTES RELATIVE PERCENT (BEAKER) (test hbxz=135) 39 % MONOCYTES RELATIVE PERCENT (BEAKER) (test hjol=294) 6 % EOSINOPHILS RELATIVE PERCENT (BEAKER) (test djsq=454) 3 % BASOPHILS RELATIVE PERCENT (BEAKER) (test muqq=055) 1 % NEUTROPHILS ABSOLUTE COUNT (BEAKER) (test rctz=612) 2.22 K/ L 1.56-6.13 LYMPHOCYTES ABSOLUTE COUNT (BEAKER) (test zqdn=155) 1.72 K/ L 1.18-3.74 MONOCYTES ABSOLUTE COUNT (BEAKER) (test mlpw=074) 0.26 K/ L 0.24-0.36 EOSINOPHILS ABSOLUTE COUNT (BEAKER) (test biwk=173) 0.13 K/ L 0.04-0.36 BASOPHILS ABSOLUTE COUNT (BEAKER) (test urwd=360) 0.02 K/ L 0.01-0.08 IMMATURE GRANULOCYTES-RELATIVE PERCENT (BEAKER) (test mcry=5652) 1 % 0-1 COMPREHENSIVE METABOLIC [id number] 12:31:00* Test Item Value Reference Range Comments TOTAL PROTEIN (BEAKER) (test xonj=428) 8.0 gm/dL 6.0-8.3 ALBUMIN (BEAKER) (test qvtz=0502) 4.1 g/dL 3.5-5.0 ALKALINE PHOSPHATASE (BEAKER) (test zwek=959) 81 U/L 40-150 BILIRUBIN TOTAL (BEAKER) (test wdqp=917) 0.7 mg/dL 0.2-1.2 SODIUM (BEAKER) (test ihxl=412) 140 meq/L 136-145 POTASSIUM (BEAKER) (test kkjd=866) 3.2 meq/L 3.5-5.1 CHLORIDE (BEAKER) (test wrur=571) 104 meq/L 98-107 CO2 (BEAKER) (test oxlq=034) 20 meq/L 22-29 BLOOD UREA NITROGEN (BEAKER) (test xlvx=619) 43 mg/dL 7-21 CREATININE (BEAKER) (test nlnl=794) 2.17 mg/dL 0.57-1.25 GLUCOSE RANDOM (BEAKER) (test icwx=467) 106 mg/dL 70-105 CALCIUM (BEAKER) (test zbhm=352) 9.3 mg/dL 8.4-10.2 AST (SGOT) (BEAKER) (test ubld=816) 20 U/L 5-34 ALT (SGPT) (BEAKER) (test tevf=029) 8 U/L 6-55 EGFR (BEAKER) (test vdwm=8725) 29 mL/min/1.73 sq m ESTIMATED GFR IS NOT ACCURATE CREATININE CLEARANCE IN PREDICTING GLOMERULAR FILTRATION RATE. ESTIMATED GFR IS NOT APPLICABLE FOR DIALYSIS PATIENTS. [id number] 12:28:00* Test Item Value Reference Range Comments PHOSPHORUS (BEAKER) (test fiqu=117) 4.5 mg/dL 2.3-4.7 [id number] 12:28:00* Test Item Value Reference Range Comments MAGNESIUM (BEAKER) (test qqsb=204) 1.6 mg/dL 1.6-2.6 CREATINE KINASE (CK)2017-11-16 12:28:00* Test Item Value Reference Range Comments CREATINE KINASE TOTAL (BEAKER) (test msbd=046) 288 U/L 29-200 CALCIUM, [id number] 08:09:00* Test Item Value Reference Range Comments CALCIUM IONIZED (BEAKER) (test cqmo=536) 0.84 mmol/L 1.12-1.27 PH, BLOOD (BEAKER) (test mnnu=2737) 7.28 CBC W/PLT COUNT & AUTO [id number] 07:07:00* Test Item Value Reference Range Comments WHITE BLOOD CELL COUNT (BEAKER) (test moet=327) 4.4 K/ L 3.5-10.5 RED BLOOD CELL COUNT (BEAKER) (test irit=606) 3.83 M/ L 3.93-5.22 HEMOGLOBIN (BEAKER) (test tlgc=791) 10.3 GM/DL 11.2-15.7 HEMATOCRIT (BEAKER) (test bupf=123) 33.0 % 34.1-44.9 MEAN CORPUSCULAR VOLUME (BEAKER) (test pqhq=895) 86.2 fL 79.4-94.8 MEAN CORPUSCULAR HEMOGLOBIN (BEAKER) (test mlwg=203) 26.9 pg 25.6-32.2 MEAN CORPUSCULAR HEMOGLOBIN CONC (BEAKER) (test tqsd=699) 31.2 GM/DL 32.2-35.5 RED CELL DISTRIBUTION WIDTH (BEAKER) (test sdky=039) 15.2 % 11.7-14.4 PLATELET COUNT (BEAKER) (test wuvy=602) 89 K/CU MM 150-450 MEAN PLATELET VOLUME (BEAKER) (test swdq=119) 12.9 fL 9.4-12.3 NUCLEATED RED BLOOD CELLS (BEAKER) (test ioyd=684) 0 /100 WBC 0-0 NEUTROPHILS RELATIVE PERCENT (BEAKER) (test qnsh=055) 44 % LYMPHOCYTES RELATIVE PERCENT (BEAKER) (test yxdk=314) 41 % MONOCYTES RELATIVE PERCENT (BEAKER) (test rxsp=202) 10 % EOSINOPHILS RELATIVE PERCENT (BEAKER) (test reud=078) 3 % BASOPHILS RELATIVE PERCENT (BEAKER) (test nyzh=009) 1 % NEUTROPHILS ABSOLUTE COUNT (BEAKER) (test zmca=946) 1.95 K/ L 1.56-6.13 LYMPHOCYTES ABSOLUTE COUNT (BEAKER) (test jisj=149) 1.79 K/ L 1.18-3.74 MONOCYTES ABSOLUTE COUNT (BEAKER) (test khgc=519) 0.42 K/ L 0.24-0.36 EOSINOPHILS ABSOLUTE COUNT (BEAKER) (test lxcy=917) 0.15 K/ L 0.04-0.36 BASOPHILS ABSOLUTE COUNT (BEAKER) (test gnwn=652) 0.05 K/ L 0.01-0.08 IMMATURE GRANULOCYTES-RELATIVE PERCENT (BEAKER) (test cgat=2245) 1 % 0-1 B-TYPE NATRIURETIC FACTOR (BNP)2017-11-16 06:57:00* Test Item Value Reference Range Comments B-TYPE NATRIURETIC PEPTIDE (BEAKER) (test fmnw=779) 20 pg/mL 0-100 EOSINOPHIL SMEAR, [id number] 22:58:00* Test Item Value Reference Range Comments EOSINOPHIL SMEAR, URINE (BEAKER) (test hwpg=1209) No EOS seen No EOS seen Many bacteria and budding yeast seen on stained smear.CREATININE, RANDOM URINE 2017-11-15 22:15:00* Test Item Value Reference Range Comments CREATININE URINE (BEAKER) (test gkzy=664) 134.6 mg/dL Reference Range: No NormalsPROTEIN, RANDOM [id number] 22:15:00* Test Item Value Reference Range Comments PROTEIN, URINE (BEAKER) (test skkk=1836) 12 mg/dL 0-14 SODIUM, RANDOM [id number] 22:15:00* Test Item Value Reference Range Comments SODIUM URINE (BEAKER) (test czib=731) 38 meq/L Reference Range: No NormalsURINALYSIS W/ [id number] 21:57:00* Test Item Value Reference Range Comments COLOR (BEAKER) (test huyf=496) Yellow CLARITY (BEAKER) (test hoad=423) Hazy SPECIFIC GRAVITY UA (BEAKER) (test uxxa=265) 1.012 1.001-1.035 PH UA (BEAKER) (test ggvm=869) 5.5 5.0-8.0 PROTEIN UA (BEAKER) (test cpxn=675) 10 mg/dL Negative GLUCOSE UA (BEAKER) (test wkfb=296) Negative Negative KETONES UA (BEAKER) (test xvze=479) Trace Negative BILIRUBIN UA (BEAKER) (test xqlj=490) Negative Negative BLOOD UA (BEAKER) (test vghz=013) Negative Negative NITRITE UA (BEAKER) (test rlet=607) Negative Negative LEUKOCYTE ESTERASE UA (BEAKER) (test gljy=223) Moderate Negative UROBILINOGEN UA (BEAKER) (test pxqo=143) 0.2 mg/dL 0.2-1.0 RBC UA (BEAKER) (test tohw=835) 3 /HPF WBC UA (BEAKER) (test mfwi=670) 10 /HPF BACTERIA (BEAKER) (test hgnu=575) Rare SQUAMOUS EPITHELIAL (BEAKER) (test lkii=939) 11 /HPF SOURCE(BEAKER) (test neyk=6635) Urine, Clean Catch RAD, CHEST, 1 VIEW, NON [id number] 21:44:00Reason for exam:->edemaShould this be performed at the bedside?->YesIs the patient ?->NoFINAL REPORT AP view of the chest dated 11/15/2017 CLINICAL INFORMATION: edema Comment: Heart is in upper limits of normal in size. Pulm onary vasculature is unremarkable. Lungs are clear. No pulmonary infiltrate or p leural effusion is present. Impression: No active cardiopulmonary disease. Sig sylvia: Ac More MDReport Verified Date/Time: 11/15/2017 21:44:18 Reading Locat ion: [facility] B1 [id number] Consult Reading Room C METABOLIC [id number] 11:47:00* Test Item Value Reference Range Comments SODIUM (BEAKER) (test pstx=755) 139 meq/L 136-145 POTASSIUM (BEAKER) (test dndn=692) 4.0 meq/L 3.5-5.1 Specimen slightly hemolyzed CHLORIDE (BEAKER) (test udol=097) 103 meq/L 98-107 CO2 (BEAKER) (test fmsl=749) 22 meq/L 22-29 BLOOD UREA NITROGEN (BEAKER) (test dyct=838) 40 mg/dL 7-21 CREATININE (BEAKER) (test zxpu=867) 2.10 mg/dL 0.57-1.25 Specimen slightly hemolyzed GLUCOSE RANDOM (BEAKER) (test ghny=647) 124 mg/dL 70-105 CALCIUM (BEAKER) (test kwrt=042) 9.6 mg/dL 8.4-10.2 EGFR (BEAKER) (test ovna=1984) 30 mL/min/1.73 sq m ESTIMATED GFR IS NOT ACCURATE CREATININE CLEARANCE IN PREDICTING GLOMERULAR FILTRATION RATE. ESTIMATED GFR IS NOT APPLICABLE FOR DIALYSIS PATIENTS. CBC W/PLT COUNT & AUTO [id number] 08:36:00* Test Item Value Reference Range Comments WHITE BLOOD CELL COUNT (BEAKER) (test aeae=506) 5.3 K/ L 3.5-10.5 RED BLOOD CELL COUNT (BEAKER) (test rzpm=551) 3.67 M/ L 3.93-5.22 HEMOGLOBIN (BEAKER) (test ayib=824) 10.0 GM/DL 11.2-15.7 HEMATOCRIT (BEAKER) (test msan=542) 31.2 % 34.1-44.9 MEAN CORPUSCULAR VOLUME (BEAKER) (test xoqe=314) 85.0 fL 79.4-94.8 MEAN CORPUSCULAR HEMOGLOBIN (BEAKER) (test nagq=457) 27.2 pg 25.6-32.2 MEAN CORPUSCULAR HEMOGLOBIN CONC (BEAKER) (test ppzg=718) 32.1 GM/DL 32.2-35.5 RED CELL DISTRIBUTION WIDTH (BEAKER) (test kjaa=622) 15.3 % 11.7-14.4 PLATELET COUNT (BEAKER) (test nkwv=512) 91 K/CU MM 150-450 MEAN PLATELET VOLUME (BEAKER) (test atqp=738) 11.7 fL 9.4-12.3 NUCLEATED RED BLOOD CELLS (BEAKER) (test uhez=940) 0 /100 WBC 0-0 NEUTROPHILS RELATIVE PERCENT (BEAKER) (test lkfp=693) 54 % LYMPHOCYTES RELATIVE PERCENT (BEAKER) (test cezs=998) 35 % MONOCYTES RELATIVE PERCENT (BEAKER) (test uenu=539) 8 % EOSINOPHILS RELATIVE PERCENT (BEAKER) (test bvld=594) 2 % BASOPHILS RELATIVE PERCENT (BEAKER) (test sleq=676) 0 % NEUTROPHILS ABSOLUTE COUNT (BEAKER) (test chqi=796) 2.85 K/ L 1.56-6.13 LYMPHOCYTES ABSOLUTE COUNT (BEAKER) (test zeye=158) 1.84 K/ L 1.18-3.74 MONOCYTES ABSOLUTE COUNT (BEAKER) (test laox=389) 0.44 K/ L 0.24-0.36 EOSINOPHILS ABSOLUTE COUNT (BEAKER) (test aptm=325) 0.13 K/ L 0.04-0.36 BASOPHILS ABSOLUTE COUNT (BEAKER) (test oucu=559) 0.02 K/ L 0.01-0.08 IMMATURE GRANULOCYTES-RELATIVE PERCENT (BEAKER) (test qxku=3744) 1 % 0-1 HEPATIC FUNCTION [id number] 06:41:00* Test Item Value Reference Range Comments TOTAL PROTEIN (BEAKER) (test gjwt=692) 7.3 gm/dL 6.0-8.3 ALBUMIN (BEAKER) (test buyf=5541) 3.8 g/dL 3.5-5.0 BILIRUBIN TOTAL (BEAKER) (test wnye=352) 0.5 mg/dL 0.2-1.2 BILIRUBIN DIRECT (BEAKER) (test wtnn=686) 0.2 mg/dL 0.1-0.5 ALKALINE PHOSPHATASE (BEAKER) (test dyzg=675) 89 U/L 40-150 AST (SGOT) (BEAKER) (test dmoq=962) 14 U/L 5-34 ALT (SGPT) (BEAKER) (test eizv=076) 7 U/L 6-55 BASIC METABOLIC [id number] 06:41:00* Test Item Value Reference Range Comments SODIUM (BEAKER) (test lthy=238) 140 meq/L 136-145 POTASSIUM (BEAKER) (test huwi=470) 3.7 meq/L 3.5-5.1 CHLORIDE (BEAKER) (test kvhc=414) 103 meq/L 98-107 CO2 (BEAKER) (test psjd=062) 25 meq/L 22-29 BLOOD UREA NITROGEN (BEAKER) (test yvlw=039) 36 mg/dL 7-21 CREATININE (BEAKER) (test dazo=427) 2.22 mg/dL 0.57-1.25 GLUCOSE RANDOM (BEAKER) (test hasz=695) 124 mg/dL 70-105 CALCIUM (BEAKER) (test jech=845) 9.5 mg/dL 8.4-10.2 EGFR (BEAKER) (test ovza=5339) 28 mL/min/1.73 sq m ESTIMATED GFR IS NOT ACCURATE CREATININE CLEARANCE IN PREDICTING GLOMERULAR FILTRATION RATE. ESTIMATED GFR IS NOT APPLICABLE FOR DIALYSIS PATIENTS. VANCOMYCIN LEVEL, [id number] 06:24:00* Test Item Value Reference Range Comments VANCOMYCIN RANDOM (BEAKER) (test hdhe=552) 10.9 ug/mL Reference Range: No NormalsCBC W/PLT COUNT & AUTO [id number] 06:00:00* Test Item Value Reference Range Comments WHITE BLOOD CELL COUNT (BEAKER) (test ffvt=366) 4.6 K/ L 3.5-10.5 RED BLOOD CELL COUNT (BEAKER) (test dlvq=064) 3.40 M/ L 3.93-5.22 HEMOGLOBIN (BEAKER) (test iizd=047) 9.1 GM/DL 11.2-15.7 HEMATOCRIT (BEAKER) (test voyp=869) 29.3 % 34.1-44.9 MEAN CORPUSCULAR VOLUME (BEAKER) (test miaz=279) 86.2 fL 79.4-94.8 MEAN CORPUSCULAR HEMOGLOBIN (BEAKER) (test grvu=710) 26.8 pg 25.6-32.2 MEAN CORPUSCULAR HEMOGLOBIN CONC (BEAKER) (test ptfi=209) 31.1 GM/DL 32.2-35.5 RED CELL DISTRIBUTION WIDTH (BEAKER) (test hcov=410) 15.4 % 11.7-14.4 PLATELET COUNT (BEAKER) (test bqmt=504) 93 K/CU MM 150-450 MEAN PLATELET VOLUME (BEAKER) (test euog=611) 12.9 fL 9.4-12.3 NUCLEATED RED BLOOD CELLS (BEAKER) (test tvqs=687) 0 /100 WBC 0-0 NEUTROPHILS RELATIVE PERCENT (BEAKER) (test lppx=630) 48 % LYMPHOCYTES RELATIVE PERCENT (BEAKER) (test bzlz=898) 38 % MONOCYTES RELATIVE PERCENT (BEAKER) (test bzad=754) 11 % EOSINOPHILS RELATIVE PERCENT (BEAKER) (test jgtt=431) 2 % BASOPHILS RELATIVE PERCENT (BEAKER) (test imxv=466) 1 % NEUTROPHILS ABSOLUTE COUNT (BEAKER) (test rhhg=943) 2.23 K/ L 1.56-6.13 LYMPHOCYTES ABSOLUTE COUNT (BEAKER) (test pqhp=924) 1.76 K/ L 1.18-3.74 MONOCYTES ABSOLUTE COUNT (BEAKER) (test lwct=220) 0.49 K/ L 0.24-0.36 EOSINOPHILS ABSOLUTE COUNT (BEAKER) (test hhad=317) 0.10 K/ L 0.04-0.36 BASOPHILS ABSOLUTE COUNT (BEAKER) (test lqxj=702) 0.03 K/ L 0.01-0.08 IMMATURE GRANULOCYTES-RELATIVE PERCENT (BEAKER) (test dtmd=3856) 0 % 0-1 U/S, EXTREMITY (NON-VASCULAR), LEFT, [id number] 18:53:00Reason for exam:- >possible abscess on left lower leg lateralShould this be performed at the bedside?->it can beFINAL REPORT Left lower extremity soft tissue ultrasound Clinical History: Concern for abscess Discussion: Grey- scale and color Doppler evaluation of the left lower extremity is performed. There is moderate skin thickening and soft tissue edema without drainable fluid collection. Impression: No drainable abscess. Findings suggest cellulitis. Signed: Natanael Dior MDReport Verified Date/Time: 11/13/2017 18:53:29 Reading Location: [place] [id number] CT Body Reading Room TIC FUNCTION [id number] 06:35:00 * Test Item Value Reference Range Comments TOTAL PROTEIN (BEAKER) (test eadx=793) 7.4 gm/dL 6.0-8.3 ALBUMIN (BEAKER) (test xjfz=7797) 3.7 g/dL 3.5-5.0 BILIRUBIN TOTAL (BEAKER) (test qkay=437) 0.7 mg/dL 0.2-1.2 BILIRUBIN DIRECT (BEAKER) (test risn=218) 0.3 mg/dL 0.1-0.5 ALKALINE PHOSPHATASE (BEAKER) (test hakj=219) 84 U/L 40-150 AST (SGOT) (BEAKER) (test jkcj=025) 14 U/L 5-34 ALT (SGPT) (BEAKER) (test xweo=004) 7 U/L 6-55 BASIC METABOLIC [id number] 06:35:00* Test Item Value Reference Range Comments SODIUM (BEAKER) (test ksmv=952) 140 meq/L 136-145 POTASSIUM (BEAKER) (test poxk=934) 3.6 meq/L 3.5-5.1 CHLORIDE (BEAKER) (test jqwr=543) 107 meq/L 98-107 CO2 (BEAKER) (test zglt=103) 22 meq/L 22-29 BLOOD UREA NITROGEN (BEAKER) (test uqth=998) 31 mg/dL 7-21 CREATININE (BEAKER) (test rini=974) 1.87 mg/dL 0.57-1.25 GLUCOSE RANDOM (BEAKER) (test zlmq=745) 121 mg/dL 70-105 CALCIUM (BEAKER) (test amdu=849) 9.4 mg/dL 8.4-10.2 EGFR (BEAKER) (test vouc=4219) 35 mL/min/1.73 sq m ESTIMATED GFR IS NOT ACCURATE CREATININE CLEARANCE IN PREDICTING GLOMERULAR FILTRATION RATE. ESTIMATED GFR IS NOT APPLICABLE FOR DIALYSIS PATIENTS. HEPATIC FUNCTION [id number] 14:57:00* Test Item Value Reference Range Comments TOTAL PROTEIN (BEAKER) (test qtts=928) 7.4 gm/dL 6.0-8.3 ALBUMIN (BEAKER) (test ogkj=1684) 3.8 g/dL 3.5-5.0 BILIRUBIN TOTAL (BEAKER) (test mggb=951) 0.7 mg/dL 0.2-1.2 BILIRUBIN DIRECT (BEAKER) (test dmbi=867) 0.3 mg/dL 0.1-0.5 ALKALINE PHOSPHATASE (BEAKER) (test zmav=287) 91 U/L 40-150 AST (SGOT) (BEAKER) (test wmlf=567) 16 U/L 5-34 ALT (SGPT) (BEAKER) (test jzeo=803) 8 U/L 6-55 BASIC METABOLIC [id number] 14:57:00* Test Item Value Reference Range Comments SODIUM (BEAKER) (test qyyo=696) 141 meq/L 136-145 POTASSIUM (BEAKER) (test mwjx=584) 3.6 meq/L 3.5-5.1 CHLORIDE (BEAKER) (test nwjk=417) 108 meq/L 98-107 CO2 (BEAKER) (test dkht=520) 23 meq/L 22-29 BLOOD UREA NITROGEN (BEAKER) (test xixs=563) 24 mg/dL 7-21 CREATININE (BEAKER) (test psmi=112) 1.85 mg/dL 0.57-1.25 GLUCOSE RANDOM (BEAKER) (test arso=975) 101 mg/dL 70-105 CALCIUM (BEAKER) (test enqu=799) 9.6 mg/dL 8.4-10.2 EGFR (BEAKER) (test mftx=2628) 35 mL/min/1.73 sq m ESTIMATED GFR IS NOT ACCURATE CREATININE CLEARANCE IN PREDICTING GLOMERULAR FILTRATION RATE. ESTIMATED GFR IS NOT APPLICABLE FOR DIALYSIS PATIENTS. CBC W/PLT COUNT & AUTO [id number] 14:40:00* Test Item Value Reference Range Comments WHITE BLOOD CELL COUNT (BEAKER) (test purp=082) 4.3 K/ L 3.5-10.5 RED BLOOD CELL COUNT (BEAKER) (test icje=748) 3.64 M/ L 3.93-5.22 HEMOGLOBIN (BEAKER) (test jzwp=217) 9.9 GM/DL 11.2-15.7 HEMATOCRIT (BEAKER) (test groj=289) 31.3 % 34.1-44.9 MEAN CORPUSCULAR VOLUME (BEAKER) (test cgln=457) 86.0 fL 79.4-94.8 MEAN CORPUSCULAR HEMOGLOBIN (BEAKER) (test otqd=728) 27.2 pg 25.6-32.2 MEAN CORPUSCULAR HEMOGLOBIN CONC (BEAKER) (test cgje=643) 31.6 GM/DL 32.2-35.5 RED CELL DISTRIBUTION WIDTH (BEAKER) (test kjjb=766) 15.5 % 11.7-14.4 PLATELET COUNT (BEAKER) (test lzby=398) 94 K/CU MM 150-450 MEAN PLATELET VOLUME (BEAKER) (test bvqk=356) 13.1 fL 9.4-12.3 NUCLEATED RED BLOOD CELLS (BEAKER) (test ysei=843) 0 /100 WBC 0-0 NEUTROPHILS RELATIVE PERCENT (BEAKER) (test jehf=385) 51 % LYMPHOCYTES RELATIVE PERCENT (BEAKER) (test tgzg=420) 37 % MONOCYTES RELATIVE PERCENT (BEAKER) (test cvrr=550) 9 % EOSINOPHILS RELATIVE PERCENT (BEAKER) (test bcls=902) 3 % BASOPHILS RELATIVE PERCENT (BEAKER) (test scwn=776) 1 % NEUTROPHILS ABSOLUTE COUNT (BEAKER) (test cyud=597) 2.15 K/ L 1.56-6.13 LYMPHOCYTES ABSOLUTE COUNT (BEAKER) (test pjtc=478) 1.58 K/ L 1.18-3.74 MONOCYTES ABSOLUTE COUNT (BEAKER) (test qioy=198) 0.37 K/ L 0.24-0.36 EOSINOPHILS ABSOLUTE COUNT (BEAKER) (test vncp=275) 0.12 K/ L 0.04-0.36 BASOPHILS ABSOLUTE COUNT (BEAKER) (test quap=415) 0.02 K/ L 0.01-0.08 IMMATURE GRANULOCYTES-RELATIVE PERCENT (BEAKER) (test pwuz=5890) 0 % 0-1 RAD, CHEST, 1 VIEW, NON [id number] 06:19:00Reason for exam:->sobIs the patient ?->NoShould this be performed at the bedside?->YesFINAL REPORT Chest one view. Clinical history: sob Comparison: Chest radiograph 07/08/2017. Technique: A single frontal view of the chest was obtained. Findings: There is mild enlargement of the cardiac silhouette which may be due to AP technique. There are low lung volumes. There is mild elevation of the right hemidiaphragm. There is no focal pulmonary consolidation, pleural effusion or pneumothorax. Impression: Low lung volumes. Mildly elevated right hemidiaphragm. Signed: Lashell Black MDReport Verified Date/Time: 11/12/19 06:19:31 Reading Location: [address] Reading Room [facility] signed by: LASHELL BLACK MD on 11/11/2017 06:19 AM B-TYPE NATRIURETIC FACTOR (BNP)2017-11-11 03:17:00* Test Item Value Reference Range Comments B-TYPE NATRIURETIC PEPTIDE (BEAKER) (test dflq=826) 414 pg/mL 0-100 CREATINE KINASE (CK), TOTAL AND [id number] 03:16:00* Test Item Value Reference Range Comments CREATINE KINASE TOTAL (BEAKER) (test ysap=942) 74 U/L 29-200 CREATINE KINASE-MB (BEAKER) (test xavn=172) 2.2 ng/mL 0.0-6.6 CREATINE KINASE-MB INDEX (BEAKER) (test hlrz=291) 3.0 % CK-MB Reference Range:<6.7 Normal6.7-10.0 Borderline>10.0 Abnormal TROPONIN [id number] 03:16:00* Test Item Value Reference Range Comments TROPONIN I (BEAKER) (test jiqq=840) < ng/mL 0.00-0.03 Troponin I (TnI) levels must be interpreted in the context of the presenting sym ptoms and the clinical findings. Elevated TnI levels indicate myocardial damage, but are not specific for ischemic heart disease. Elevated TnI levels are seen in patients with other cardiac conditions (including myocarditis and congestive h eart failure), and slight TnI elevations occur in patients with other conditions , including sepsis, renal failure, acidosis, acute neurological disease, and per sistent tachyarrhythmia.BASIC METABOLIC [id number] 20:53:00* Test Item Value Reference Range Comments SODIUM (BEAKER) (test usir=551) 142 meq/L 136-145 POTASSIUM (BEAKER) (test vjzn=698) 3.6 meq/L 3.5-5.1 CHLORIDE (BEAKER) (test khlu=608) 114 meq/L 98-107 CO2 (BEAKER) (test odex=377) 18 meq/L 22-29 BLOOD UREA NITROGEN (BEAKER) (test uebr=213) 20 mg/dL 7-21 CREATININE (BEAKER) (test hagl=980) 1.45 mg/dL 0.57-1.25 GLUCOSE RANDOM (BEAKER) (test kecd=213) 102 mg/dL 70-105 CALCIUM (BEAKER) (test ljtt=126) 9.7 mg/dL 8.4-10.2 EGFR (BEAKER) (test blog=0141) 46 mL/min/1.73 sq m ESTIMATED GFR IS NOT ACCURATE CREATININE CLEARANCE IN PREDICTING GLOMERULAR FILTRATION RATE. ESTIMATED GFR IS NOT APPLICABLE FOR DIALYSIS PATIENTS. CBC W/PLT COUNT & AUTO [id number] 20:38:00* Test Item Value Reference Range Comments WHITE BLOOD CELL COUNT (BEAKER) (test hlac=092) 5.6 K/ L 3.5-10.5 RED BLOOD CELL COUNT (BEAKER) (test fxde=925) 3.70 M/ L 3.93-5.22 HEMOGLOBIN (BEAKER) (test myjk=498) 10.1 GM/DL 11.2-15.7 HEMATOCRIT (BEAKER) (test dlkh=617) 31.9 % 34.1-44.9 MEAN CORPUSCULAR VOLUME (BEAKER) (test vpay=013) 86.2 fL 79.4-94.8 MEAN CORPUSCULAR HEMOGLOBIN (BEAKER) (test yxrk=250) 27.3 pg 25.6-32.2 MEAN CORPUSCULAR HEMOGLOBIN CONC (BEAKER) (test hvor=506) 31.7 GM/DL 32.2-35.5 RED CELL DISTRIBUTION WIDTH (BEAKER) (test kaps=598) 15.3 % 11.7-14.4 PLATELET COUNT (BEAKER) (test skxu=687) 76 K/CU MM 150-450 MEAN PLATELET VOLUME (BEAKER) (test cxcn=329) 12.3 fL 9.4-12.3 NUCLEATED RED BLOOD CELLS (BEAKER) (test obdw=857) 0 /100 WBC 0-0 NEUTROPHILS RELATIVE PERCENT (BEAKER) (test ewdq=455) 59 % LYMPHOCYTES RELATIVE PERCENT (BEAKER) (test lats=162) 30 % MONOCYTES RELATIVE PERCENT (BEAKER) (test ayag=022) 9 % EOSINOPHILS RELATIVE PERCENT (BEAKER) (test emsh=356) 1 % BASOPHILS RELATIVE PERCENT (BEAKER) (test skfr=727) 1 % NEUTROPHILS ABSOLUTE COUNT (BEAKER) (test oonm=928) 3.27 K/ L 1.56-6.13 LYMPHOCYTES ABSOLUTE COUNT (BEAKER) (test kilg=390) 1.68 K/ L 1.18-3.74 MONOCYTES ABSOLUTE COUNT (BEAKER) (test mbbi=142) 0.51 K/ L 0.24-0.36 EOSINOPHILS ABSOLUTE COUNT (BEAKER) (test jyyb=207) 0.06 K/ L 0.04-0.36 BASOPHILS ABSOLUTE COUNT (BEAKER) (test evqr=303) 0.03 K/ L 0.01-0.08 IMMATURE GRANULOCYTES-RELATIVE PERCENT (BEAKER) (test ogur=8782) 1 % 0-1 BLOOD [id number] 17:00:00* Test Item Value Reference Range Comments CULTURE (BEAKER) (test vqpm=5005) No growth in 5 days BLOOD [id number] 17:00:00* Test Item Value Reference Range Comments CULTURE (BEAKER) (test bszv=7061) No growth in 5 days [id number] 05:56:00* Test Item Value Reference Range Comments MAGNESIUM (BEAKER) (test cche=640) 1.6 mg/dL 1.6-2.6 BASIC METABOLIC [id number] 05:56:00* Test Item Value Reference Range Comments SODIUM (BEAKER) (test qfaf=667) 139 meq/L 136-145 POTASSIUM (BEAKER) (test rqtk=243) 3.8 meq/L 3.5-5.1 CHLORIDE (BEAKER) (test uxgn=528) 114 meq/L 98-107 CO2 (BEAKER) (test kjrx=553) 17 meq/L 22-29 BLOOD UREA NITROGEN (BEAKER) (test xkch=710) 19 mg/dL 7-21 CREATININE (BEAKER) (test qmsn=676) 1.52 mg/dL 0.57-1.25 GLUCOSE RANDOM (BEAKER) (test smzm=984) 124 mg/dL 70-105 CALCIUM (BEAKER) (test czgn=250) 9.3 mg/dL 8.4-10.2 EGFR (BEAKER) (test rent=1553) 44 mL/min/1.73 sq m ESTIMATED GFR IS NOT ACCURATE CREATININE CLEARANCE IN PREDICTING GLOMERULAR FILTRATION RATE. ESTIMATED GFR IS NOT APPLICABLE FOR DIALYSIS PATIENTS. CBC W/PLT COUNT & AUTO [id number] 05:13:00* Test Item Value Reference Range Comments WHITE BLOOD CELL COUNT (BEAKER) (test gfcp=594) 7.6 K/ L 3.5-10.5 RED BLOOD CELL COUNT (BEAKER) (test gtgj=302) 3.35 M/ L 3.93-5.22 HEMOGLOBIN (BEAKER) (test nihk=768) 9.5 GM/DL 11.2-15.7 HEMATOCRIT (BEAKER) (test kvvc=194) 30.2 % 34.1-44.9 MEAN CORPUSCULAR VOLUME (BEAKER) (test tjet=138) 90.1 fL 79.4-94.8 MEAN CORPUSCULAR HEMOGLOBIN (BEAKER) (test yric=931) 28.4 pg 25.6-32.2 MEAN CORPUSCULAR HEMOGLOBIN CONC (BEAKER) (test hhqu=535) 31.5 GM/DL 32.2-35.5 RED CELL DISTRIBUTION WIDTH (BEAKER) (test czux=229) 15.8 % 11.7-14.4 PLATELET COUNT (BEAKER) (test azbk=547) 84 K/CU MM 150-450 MEAN PLATELET VOLUME (BEAKER) (test jfwf=736) 12.4 fL 9.4-12.3 NUCLEATED RED BLOOD CELLS (BEAKER) (test sctq=646) 0 /100 WBC 0-0 NEUTROPHILS RELATIVE PERCENT (BEAKER) (test ldiv=612) 56 % LYMPHOCYTES RELATIVE PERCENT (BEAKER) (test tndn=741) 32 % MONOCYTES RELATIVE PERCENT (BEAKER) (test gwxk=670) 7 % EOSINOPHILS RELATIVE PERCENT (BEAKER) (test qsor=387) 2 % BASOPHILS RELATIVE PERCENT (BEAKER) (test coxw=045) 0 % NEUTROPHILS ABSOLUTE COUNT (BEAKER) (test kfun=504) 4.29 K/ L 1.56-6.13 LYMPHOCYTES ABSOLUTE COUNT (BEAKER) (test tanu=720) 2.46 K/ L 1.18-3.74 MONOCYTES ABSOLUTE COUNT (BEAKER) (test tidw=494) 0.50 K/ L 0.24-0.36 EOSINOPHILS ABSOLUTE COUNT (BEAKER) (test kuxz=303) 0.16 K/ L 0.04-0.36 BASOPHILS ABSOLUTE COUNT (BEAKER) (test crst=302) 0.03 K/ L 0.01-0.08 IMMATURE GRANULOCYTES-RELATIVE PERCENT (BEAKER) (test yhjo=3412) 3 % 0-1 [id number] 07:42:00* Test Item Value Reference Range Comments PHOSPHORUS (BEAKER) (test vghz=931) 3.1 mg/dL 2.3-4.7 [id number] 07:42:00* Test Item Value Reference Range Comments MAGNESIUM (BEAKER) (test pawe=309) 1.7 mg/dL 1.6-2.6 BASIC METABOLIC [id number] 07:42:00* Test Item Value Reference Range Comments SODIUM (BEAKER) (test gjmn=892) 142 meq/L 136-145 POTASSIUM (BEAKER) (test sioi=991) 3.9 meq/L 3.5-5.1 CHLORIDE (BEAKER) (test jnuo=723) 115 meq/L 98-107 CO2 (BEAKER) (test pvue=732) 19 meq/L 22-29 BLOOD UREA NITROGEN (BEAKER) (test nfxh=555) 21 mg/dL 7-21 CREATININE (BEAKER) (test peis=854) 1.48 mg/dL 0.57-1.25 GLUCOSE RANDOM (BEAKER) (test gryu=999) 94 mg/dL 70-105 CALCIUM (BEAKER) (test vtvs=790) 9.6 mg/dL 8.4-10.2 EGFR (BEAKER) (test kccf=1341) 45 mL/min/1.73 sq m ESTIMATED GFR IS NOT ACCURATE CREATININE CLEARANCE IN PREDICTING GLOMERULAR FILTRATION RATE. ESTIMATED GFR IS NOT APPLICABLE FOR DIALYSIS PATIENTS. HEPATIC FUNCTION [id number] 07:42:00* Test Item Value Reference Range Comments TOTAL PROTEIN (BEAKER) (test vmxd=593) 7.3 gm/dL 6.0-8.3 ALBUMIN (BEAKER) (test mivc=9057) 3.5 g/dL 3.5-5.0 BILIRUBIN TOTAL (BEAKER) (test olqp=324) 0.8 mg/dL 0.2-1.2 BILIRUBIN DIRECT (BEAKER) (test enhz=665) 0.3 mg/dL 0.1-0.5 ALKALINE PHOSPHATASE (BEAKER) (test dmyn=329) 96 U/L 40-150 AST (SGOT) (BEAKER) (test zchu=310) 61 U/L 5-34 ALT (SGPT) (BEAKER) (test enxk=083) 36 U/L 6-55 CBC W/PLT COUNT & AUTO [id number] 06:23:00* Test Item Value Reference Range Comments WHITE BLOOD CELL COUNT (BEAKER) (test bktp=221) 8.6 K/ L 3.5-10.5 RED BLOOD CELL COUNT (BEAKER) (test hzae=764) 3.76 M/ L 3.93-5.22 HEMOGLOBIN (BEAKER) (test zgco=157) 10.9 GM/DL 11.2-15.7 HEMATOCRIT (BEAKER) (test bnuo=053) 34.3 % 34.1-44.9 MEAN CORPUSCULAR VOLUME (BEAKER) (test yilg=644) 91.2 fL 79.4-94.8 MEAN CORPUSCULAR HEMOGLOBIN (BEAKER) (test ginr=518) 29.0 pg 25.6-32.2 MEAN CORPUSCULAR HEMOGLOBIN CONC (BEAKER) (test qnaq=650) 31.8 GM/DL 32.2-35.5 RED CELL DISTRIBUTION WIDTH (BEAKER) (test fvpb=722) 15.9 % 11.7-14.4 PLATELET COUNT (BEAKER) (test gjtq=732) 84 K/CU MM 150-450 MEAN PLATELET VOLUME (BEAKER) (test ikwl=689) 13.0 fL 9.4-12.3 NUCLEATED RED BLOOD CELLS (BEAKER) (test lcfw=877) 0 /100 WBC 0-0 NEUTROPHILS RELATIVE PERCENT (BEAKER) (test ojrf=609) 58 % LYMPHOCYTES RELATIVE PERCENT (BEAKER) (test sykz=882) 31 % MONOCYTES RELATIVE PERCENT (BEAKER) (test xrvk=450) 7 % EOSINOPHILS RELATIVE PERCENT (BEAKER) (test ztwo=623) 2 % BASOPHILS RELATIVE PERCENT (BEAKER) (test ttwd=360) 1 % NEUTROPHILS ABSOLUTE COUNT (BEAKER) (test gqfd=453) 4.98 K/ L 1.56-6.13 LYMPHOCYTES ABSOLUTE COUNT (BEAKER) (test fidt=705) 2.65 K/ L 1.18-3.74 MONOCYTES ABSOLUTE COUNT (BEAKER) (test rcjq=258) 0.57 K/ L 0.24-0.36 EOSINOPHILS ABSOLUTE COUNT (BEAKER) (test pcrb=644) 0.20 K/ L 0.04-0.36 BASOPHILS ABSOLUTE COUNT (BEAKER) (test rxpg=090) 0.05 K/ L 0.01-0.08 IMMATURE GRANULOCYTES-RELATIVE PERCENT (BEAKER) (test mzrd=5523) 2 % 0-1 PROTHROMBIN [id number] 06:16:00* Test Item Value Reference Range Comments PROTIME (BEAKER) (test hlmj=115) 14.7 seconds 11.7-14.7 INR (BEAKER) (test vwts=437) 1.2 <=5.9 RECOMMENDED COUMADIN/WARFARIN INR THERAPY RANGESSTANDARD DOSE: 2.0 - 3.0 Inclu ping: PROPHYLAXIS for venous thrombosis, systemic embolization; TREATMENT for joie ous thrombosis and/or pulmonary embolus.HIGH RISK: Target INR is 2.5-3.5 for pat ients with mechanical heart valves.EOSINOPHIL SMEAR, [id number] 10:04:00* Test Item Value Reference Range Comments EOSINOPHIL SMEAR, URINE (BEAKER) (test rnrm=1982) No EOS seen No EOS seen URINALYSIS W/ [id number] 09:26:00* Test Item Value Reference Range Comments COLOR (BEAKER) (test tgyv=807) Yellow CLARITY (BEAKER) (test xhcv=431) Clear SPECIFIC GRAVITY UA (BEAKER) (test efgp=807) 1.014 1.001-1.035 PH UA (BEAKER) (test qwve=095) 5.5 5.0-8.0 PROTEIN UA (BEAKER) (test irry=850) 20 mg/dL Negative GLUCOSE UA (BEAKER) (test burx=882) Negative Negative KETONES UA (BEAKER) (test cnto=408) Negative Negative BILIRUBIN UA (BEAKER) (test xyei=976) Negative Negative BLOOD UA (BEAKER) (test ikil=144) Negative Negative NITRITE UA (BEAKER) (test ppfz=296) Negative Negative LEUKOCYTE ESTERASE UA (BEAKER) (test rrwz=026) Trace Negative UROBILINOGEN UA (BEAKER) (test rsel=756) 0.2 mg/dL 0.2-1.0 RBC UA (BEAKER) (test cjno=620) 1 /HPF WBC UA (BEAKER) (test akyk=863) 5 /HPF BACTERIA (BEAKER) (test vnrj=289) Rare MUCUS (BEAKER) (test embi=1146) Rare SQUAMOUS EPITHELIAL (BEAKER) (test ivma=882) 3 /HPF SOURCE(BEAKER) (test olim=9283) Urine, Voided CREATININE, RANDOM [id number] 09:18:00* Test Item Value Reference Range Comments CREATININE URINE (BEAKER) (test qkwn=430) 99.7 mg/dL Reference Range: No NormalsSODIUM, RANDOM [id number] 09:18:00* Test Item Value Reference Range Comments SODIUM URINE (BEAKER) (test onxc=989) 65 meq/L Reference Range: No NormalsPROTEIN, RANDOM [id number] 08:46:00* Test Item Value Reference Range Comments PROTEIN, URINE (BEAKER) (test bkbd=1567) 19 mg/dL 0-14 CALCIUM, [id number] 06:25:00* Test Item Value Reference Range Comments CALCIUM IONIZED (BEAKER) (test hkdu=283) 1.14 mmol/L 1.12-1.27 PH, BLOOD (BEAKER) (test adca=7470) 7.35 [id number] 06:23:00* Test Item Value Reference Range Comments PHOSPHORUS (BEAKER) (test igml=130) 3.5 mg/dL 2.3-4.7 [id number] 06:23:00* Test Item Value Reference Range Comments MAGNESIUM (BEAKER) (test nbjg=701) 1.8 mg/dL 1.6-2.6 BASIC METABOLIC [id number] 06:23:00* Test Item Value Reference Range Comments SODIUM (BEAKER) (test nkkc=133) 142 meq/L 136-145 POTASSIUM (BEAKER) (test zhah=674) 3.7 meq/L 3.5-5.1 CHLORIDE (BEAKER) (test mpia=759) 115 meq/L 98-107 CO2 (BEAKER) (test roxm=812) 17 meq/L 22-29 BLOOD UREA NITROGEN (BEAKER) (test hxok=363) 22 mg/dL 7-21 CREATININE (BEAKER) (test scqb=091) 1.49 mg/dL 0.57-1.25 GLUCOSE RANDOM (BEAKER) (test uzio=020) 119 mg/dL 70-105 CALCIUM (BEAKER) (test zmcr=238) 9.3 mg/dL 8.4-10.2 EGFR (BEAKER) (test cwvc=5535) 45 mL/min/1.73 sq m ESTIMATED GFR IS NOT ACCURATE CREATININE CLEARANCE IN PREDICTING GLOMERULAR FILTRATION RATE. ESTIMATED GFR IS NOT APPLICABLE FOR DIALYSIS PATIENTS. HEPATIC FUNCTION [id number] 06:23:00* Test Item Value Reference Range Comments TOTAL PROTEIN (BEAKER) (test ibyo=825) 6.7 gm/dL 6.0-8.3 ALBUMIN (BEAKER) (test kaxt=2342) 3.3 g/dL 3.5-5.0 BILIRUBIN TOTAL (BEAKER) (test prka=271) 0.8 mg/dL 0.2-1.2 BILIRUBIN DIRECT (BEAKER) (test vifr=103) 0.3 mg/dL 0.1-0.5 ALKALINE PHOSPHATASE (BEAKER) (test cwjn=626) 93 U/L 40-150 AST (SGOT) (BEAKER) (test hhni=967) 79 U/L 5-34 ALT (SGPT) (BEAKER) (test utsd=985) 39 U/L 6-55 PROTHROMBIN [id number] 06:18:00* Test Item Value Reference Range Comments PROTIME (BEAKER) (test jgrd=920) 15.9 seconds 11.7-14.7 INR (BEAKER) (test asrl=869) 1.3 <=5.9 RECOMMENDED COUMADIN/WARFARIN INR THERAPY RANGESSTANDARD DOSE: 2.0 - 3.0 Inclu ping: PROPHYLAXIS for venous thrombosis, systemic embolization; TREATMENT for joie ous thrombosis and/or pulmonary embolus.HIGH RISK: Target INR is 2.5-3.5 for pat ients with mechanical heart valves.B-TYPE NATRIURETIC FACTOR (BNP)2017-07-09 06:12:00* Test Item Value Reference Range Comments B-TYPE NATRIURETIC PEPTIDE (BEAKER) (test mwxa=757) 101 pg/mL 0-100 CBC W/PLT COUNT & AUTO [id number] 05:58:00* Test Item Value Reference Range Comments WHITE BLOOD CELL COUNT (BEAKER) (test puuw=110) 7.3 K/ L 3.5-10.5 RED BLOOD CELL COUNT (BEAKER) (test qfvr=974) 3.45 M/ L 3.93-5.22 HEMOGLOBIN (BEAKER) (test pamh=178) 9.9 GM/DL 11.2-15.7 HEMATOCRIT (BEAKER) (test oepp=047) 30.9 % 34.1-44.9 MEAN CORPUSCULAR VOLUME (BEAKER) (test qwgf=429) 89.6 fL 79.4-94.8 MEAN CORPUSCULAR HEMOGLOBIN (BEAKER) (test bdwu=206) 28.7 pg 25.6-32.2 MEAN CORPUSCULAR HEMOGLOBIN CONC (BEAKER) (test zdoa=255) 32.0 GM/DL 32.2-35.5 RED CELL DISTRIBUTION WIDTH (BEAKER) (test xqig=117) 15.9 % 11.7-14.4 PLATELET COUNT (BEAKER) (test hkwt=468) 80 K/CU MM 150-450 MEAN PLATELET VOLUME (BEAKER) (test avno=223) 13.4 fL 9.4-12.3 NUCLEATED RED BLOOD CELLS (BEAKER) (test tkvb=699) 0 /100 WBC 0-0 NEUTROPHILS RELATIVE PERCENT (BEAKER) (test gllf=947) 59 % LYMPHOCYTES RELATIVE PERCENT (BEAKER) (test duql=565) 30 % MONOCYTES RELATIVE PERCENT (BEAKER) (test iffh=933) 7 % EOSINOPHILS RELATIVE PERCENT (BEAKER) (test cffa=235) 2 % BASOPHILS RELATIVE PERCENT (BEAKER) (test ikud=601) 1 % NEUTROPHILS ABSOLUTE COUNT (BEAKER) (test kagl=694) 4.35 K/ L 1.56-6.13 LYMPHOCYTES ABSOLUTE COUNT (BEAKER) (test xgbt=664) 2.17 K/ L 1.18-3.74 MONOCYTES ABSOLUTE COUNT (BEAKER) (test tjoe=430) 0.53 K/ L 0.24-0.36 EOSINOPHILS ABSOLUTE COUNT (BEAKER) (test ujwj=139) 0.17 K/ L 0.04-0.36 BASOPHILS ABSOLUTE COUNT (BEAKER) (test vsdm=002) 0.04 K/ L 0.01-0.08 IMMATURE GRANULOCYTES-RELATIVE PERCENT (BEAKER) (test vypt=5742) 1 % 0-1 LACTIC ACID, VENOUS, WHOLE [id number] 05:57:00* Test Item Value Reference Range Comments LACTATE BLOOD VENOUS (2) (BEAKER) (test drwn=4446) 1.3 mmol/L 0.5-2.2 Effective 01/01/2016: Units/Reference Range ChangeNew: 0.5-2.2 mmol/L Previous: 5 -20 mg/dLRAD, CHEST, 1 VIEW, NON [id number] 22:08:00Reason for exam:-> akiShould this be performed at the bedside?->YesIs the patient ?->No FINAL REPORT EXAMINATION: AP PORTABLE CHEST RADIOGRAPH CLINICAL INDICATION: Acute kidney insufficiency IMPRESSION: Compared with 017. There is mild perihilar peribronchial cuffing, nonspecific but can be asso ciated with reactive airways disease, aspiration or infection, possibly viral. N ew or more conspicuous thin curvilinear opacities are also noted along the heart borders. The morphology, distribution and mild loss of lung volume favor atelec tasis. Mild edema or an underlying pneumonia are difficult to exclude. The heart is now mildly enlarged. No definite evidence of an acute osseous abnormality or pneumothorax. Dedicated upright PA and lateral chest radiographs could be perfo rmed for further evaluation if warranted. Signed: Jose Alejandro Grimm MDReport Verified Date/Time: 07/08/2017 22:08:22 Reading Location: [address] P M PROTHROMBIN TIME/[id number] 11:41:00* Test Item Value Reference Range Comments PROTIME (BEAKER) (test gpxr=244) 14.2 seconds 11.7-14.7 INR (BEAKER) (test gder=677) 1.1 <=5.9 RECOMMENDED COUMADIN/WARFARIN INR THERAPY RANGESSTANDARD DOSE: 2.0 - 3.0 Inclu ping: PROPHYLAXIS for venous thrombosis, systemic embolization; TREATMENT for joie ous thrombosis and/or pulmonary embolus.HIGH RISK: Target INR is 2.5-3.5 for pat ients with mechanical heart valves.BASIC METABOLIC [id number] 11:35:00* Test Item Value Reference Range Comments SODIUM (BEAKER) (test ioxc=904) 138 meq/L 136-145 POTASSIUM (BEAKER) (test pqzu=868) 5.3 meq/L 3.5-5.1 Specimen moderately hemolyzed CHLORIDE (BEAKER) (test lusr=483) 113 meq/L 98-107 CO2 (BEAKER) (test blei=422) 17 meq/L 22-29 BLOOD UREA NITROGEN (BEAKER) (test edmo=621) 27 mg/dL 7-21 CREATININE (BEAKER) (test ufjz=591) 1.85 mg/dL 0.57-1.25 Specimen moderately hemolyzed GLUCOSE RANDOM (BEAKER) (test bqva=332) 152 mg/dL 70-105 CALCIUM (BEAKER) (test ytco=466) 8.7 mg/dL 8.4-10.2 EGFR (BEAKER) (test radq=8808) 35 mL/min/1.73 sq m ESTIMATED GFR IS NOT ACCURATE CREATININE CLEARANCE IN PREDICTING GLOMERULAR FILTRATION RATE. ESTIMATED GFR IS NOT APPLICABLE FOR DIALYSIS PATIENTS. HEPATIC FUNCTION [id number] 11:35:00* Test Item Value Reference Range Comments TOTAL PROTEIN (BEAKER) (test dozl=842) 7.2 gm/dL 6.0-8.3 Specimen moderately hemolyzed ALBUMIN (BEAKER) (test uiri=4769) 3.3 g/dL 3.5-5.0 Specimen moderately hemolyzed BILIRUBIN TOTAL (BEAKER) (test wvtk=294) 0.7 mg/dL 0.2-1.2 Specimen moderately hemolyzed BILIRUBIN DIRECT (BEAKER) (test pnzr=619) 0.2 mg/dL 0.1-0.5 Specimen moderately hemolyzed ALKALINE PHOSPHATASE (BEAKER) (test qipn=270) 95 U/L 40-150 AST (SGOT) (BEAKER) (test avzh=982) 118 U/L 5-34 Specimen moderately hemolyzed ALT (SGPT) (BEAKER) (test lmjx=976) 41 U/L 6-55 Specimen moderately hemolyzed CBC W/PLT COUNT & AUTO [id number] 11:21:00* Test Item Value Reference Range Comments WHITE BLOOD CELL COUNT (BEAKER) (test qjis=577) 6.4 K/ L 3.5-10.5 RED BLOOD CELL COUNT (BEAKER) (test qhav=504) 3.25 M/ L 3.93-5.22 HEMOGLOBIN (BEAKER) (test swyw=189) 9.5 GM/DL 11.2-15.7 HEMATOCRIT (BEAKER) (test xhdg=488) 29.9 % 34.1-44.9 MEAN CORPUSCULAR VOLUME (BEAKER) (test vvgm=870) 92.0 fL 79.4-94.8 MEAN CORPUSCULAR HEMOGLOBIN (BEAKER) (test uwbq=993) 29.2 pg 25.6-32.2 MEAN CORPUSCULAR HEMOGLOBIN CONC (BEAKER) (test xbln=303) 31.8 GM/DL 32.2-35.5 RED CELL DISTRIBUTION WIDTH (BEAKER) (test bbtc=259) 16.3 % 11.7-14.4 PLATELET COUNT (BEAKER) (test hkwk=207) 75 K/CU MM 150-450 MEAN PLATELET VOLUME (BEAKER) (test njrh=845) 13.8 fL 9.4-12.3 NUCLEATED RED BLOOD CELLS (BEAKER) (test elfo=477) 0 /100 WBC 0-0 NEUTROPHILS RELATIVE PERCENT (BEAKER) (test okpz=964) 60 % LYMPHOCYTES RELATIVE PERCENT (BEAKER) (test ocwy=995) 29 % MONOCYTES RELATIVE PERCENT (BEAKER) (test pjjt=943) 8 % EOSINOPHILS RELATIVE PERCENT (BEAKER) (test qips=523) 2 % BASOPHILS RELATIVE PERCENT (BEAKER) (test cvsv=055) 1 % NEUTROPHILS ABSOLUTE COUNT (BEAKER) (test ekmh=064) 3.81 K/ L 1.56-6.13 LYMPHOCYTES ABSOLUTE COUNT (BEAKER) (test ixyi=447) 1.87 K/ L 1.18-3.74 MONOCYTES ABSOLUTE COUNT (BEAKER) (test rqdn=935) 0.51 K/ L 0.24-0.36 EOSINOPHILS ABSOLUTE COUNT (BEAKER) (test rpdg=027) 0.11 K/ L 0.04-0.36 BASOPHILS ABSOLUTE COUNT (BEAKER) (test hucf=960) 0.04 K/ L 0.01-0.08 IMMATURE GRANULOCYTES-RELATIVE PERCENT (BEAKER) (test wgue=6049) 1 % 0-1 CBC W/PLT COUNT & AUTO [id number] 14:05:00* Test Item Value Reference Range Comments WHITE BLOOD CELL COUNT (BEAKER) (test abfg=970) 11.6 K/ L 3.5-10.5 RED BLOOD CELL COUNT (BEAKER) (test uxar=978) 3.52 M/ L 3.93-5.22 HEMOGLOBIN (BEAKER) (test sdhp=401) 10.1 GM/DL 11.2-15.7 HEMATOCRIT (BEAKER) (test rolt=124) 31.3 % 34.1-44.9 MEAN CORPUSCULAR VOLUME (BEAKER) (test ysxv=916) 88.9 fL 79.4-94.8 MEAN CORPUSCULAR HEMOGLOBIN (BEAKER) (test oagx=717) 28.7 pg 25.6-32.2 MEAN CORPUSCULAR HEMOGLOBIN CONC (BEAKER) (test rxgq=222) 32.3 GM/DL 32.2-35.5 RED CELL DISTRIBUTION WIDTH (BEAKER) (test esja=409) 15.8 % 11.7-14.4 PLATELET COUNT (BEAKER) (test frnu=203) 85 K/CU MM 150-450 MEAN PLATELET VOLUME (BEAKER) (test gwio=826) 13.6 fL 9.4-12.3 NUCLEATED RED BLOOD CELLS (BEAKER) (test dpzx=252) 0 /100 WBC 0-0 NEUTROPHILS RELATIVE PERCENT (BEAKER) (test xhhf=512) 68 % LYMPHOCYTES RELATIVE PERCENT (BEAKER) (test twbw=038) 23 % MONOCYTES RELATIVE PERCENT (BEAKER) (test tajt=620) 7 % EOSINOPHILS RELATIVE PERCENT (BEAKER) (test cwmo=132) 1 % BASOPHILS RELATIVE PERCENT (BEAKER) (test pqbb=409) 0 % NEUTROPHILS ABSOLUTE COUNT (BEAKER) (test ckqr=992) 7.94 K/ L 1.56-6.13 LYMPHOCYTES ABSOLUTE COUNT (BEAKER) (test ufoo=998) 2.68 K/ L 1.18-3.74 MONOCYTES ABSOLUTE COUNT (BEAKER) (test smmc=368) 0.80 K/ L 0.24-0.36 EOSINOPHILS ABSOLUTE COUNT (BEAKER) (test jjfv=598) 0.12 K/ L 0.04-0.36 BASOPHILS ABSOLUTE COUNT (BEAKER) (test zsyr=053) 0.03 K/ L 0.01-0.08 IMMATURE GRANULOCYTES-RELATIVE PERCENT (BEAKER) (test cxmn=5921) 0 % 0-1 [id number] 12:49:00* Test Item Value Reference Range Comments LIPASE (BEAKER) (test wplh=064) 38 U/L 8-78 BASIC METABOLIC [id number] 12:49:00* Test Item Value Reference Range Comments SODIUM (BEAKER) (test brdg=024) 137 meq/L 136-145 POTASSIUM (BEAKER) (test sbzq=907) 4.5 meq/L 3.5-5.1 Specimen slightly hemolyzed CHLORIDE (BEAKER) (test tqkz=326) 113 meq/L 98-107 CO2 (BEAKER) (test muow=022) 15 meq/L 22-29 BLOOD UREA NITROGEN (BEAKER) (test xvuz=935) 30 mg/dL 7-21 CREATININE (BEAKER) (test ybkt=398) 1.83 mg/dL 0.57-1.25 Specimen slightly hemolyzed GLUCOSE RANDOM (BEAKER) (test rmzp=480) 105 mg/dL 70-105 CALCIUM (BEAKER) (test tjud=003) 9.6 mg/dL 8.4-10.2 EGFR (BEAKER) (test jibb=3361) 36 mL/min/1.73 sq m ESTIMATED GFR IS NOT ACCURATE CREATININE CLEARANCE IN PREDICTING GLOMERULAR FILTRATION RATE. ESTIMATED GFR IS NOT APPLICABLE FOR DIALYSIS PATIENTS. HEPATIC FUNCTION [id number] 12:49:00* Test Item Value Reference Range Comments TOTAL PROTEIN (BEAKER) (test iscd=416) 7.5 gm/dL 6.0-8.3 Specimen slightly hemolyzed ALBUMIN (BEAKER) (test kqsh=9935) 3.6 g/dL 3.5-5.0 Specimen slightly hemolyzed BILIRUBIN TOTAL (BEAKER) (test mntb=397) 0.9 mg/dL 0.2-1.2 Specimen slightly hemolyzed BILIRUBIN DIRECT (BEAKER) (test ctqg=734) 0.3 mg/dL 0.1-0.5 Specimen slightly hemolyzed ALKALINE PHOSPHATASE (BEAKER) (test aswu=414) 104 U/L 40-150 AST (SGOT) (BEAKER) (test ukyy=058) 190 U/L 5-34 Specimen slightly hemolyzed ALT (SGPT) (BEAKER) (test uybi=328) 48 U/L 6-55 Specimen slightly hemolyzed POCT-LACTIC ACID, [id number] 12:30:00* Test Item Value Reference Range Comments POC-LACTIC ACID, VENOUS (BEAKER) (test ywyt=0828) 1.3 mmol/L 0.9-1.7 TESTED AT [facility] [address] [facility] [address] BLOOD [id number] 19:00:00* Test Item Value Reference Range Comments CULTURE (BEAKER) (test vfoj=8811) No growth in 5 days [id number] 13:42:00* Test Item Value Reference Range Comments AMMONIA (BEAKER) (test drmd=409) 24 mol/L 18-72 HEPATIC FUNCTION [id number] 07:14:00* Test Item Value Reference Range Comments TOTAL PROTEIN (BEAKER) (test pyqs=577) 6.5 gm/dL 6.0-8.3 ALBUMIN (BEAKER) (test eyjo=5918) 3.4 g/dL 3.5-5.0 BILIRUBIN TOTAL (BEAKER) (test kwgg=712) 0.8 mg/dL 0.2-1.2 BILIRUBIN DIRECT (BEAKER) (test fyxm=662) 0.3 mg/dL 0.1-0.5 ALKALINE PHOSPHATASE (BEAKER) (test dpta=754) 99 U/L 40-150 AST (SGOT) (BEAKER) (test azrm=383) 41 U/L 5-34 ALT (SGPT) (BEAKER) (test ieyk=363) 23 U/L 6-55 BASIC METABOLIC [id number] 07:14:00* Test Item Value Reference Range Comments SODIUM (BEAKER) (test kgcq=288) 142 meq/L 136-145 POTASSIUM (BEAKER) (test velx=576) 3.9 meq/L 3.5-5.1 CHLORIDE (BEAKER) (test xozm=945) 110 meq/L 98-107 CO2 (BEAKER) (test nkke=651) 23 meq/L 22-29 BLOOD UREA NITROGEN (BEAKER) (test bmqq=487) 28 mg/dL 7-21 CREATININE (BEAKER) (test fzte=418) 1.55 mg/dL 0.57-1.25 GLUCOSE RANDOM (BEAKER) (test vuqn=879) 102 mg/dL 70-105 CALCIUM (BEAKER) (test yezz=173) 9.6 mg/dL 8.4-10.2 EGFR (BEAKER) (test wojp=2924) 43 mL/min/1.73 sq m ESTIMATED GFR IS NOT ACCURATE CREATININE CLEARANCE IN PREDICTING GLOMERULAR FILTRATION RATE. ESTIMATED GFR IS NOT APPLICABLE FOR DIALYSIS PATIENTS. CBC W/PLT COUNT & AUTO [id number] 06:33:00* Test Item Value Reference Range Comments WHITE BLOOD CELL COUNT (BEAKER) (test qrrx=708) 8.4 K/ L 3.5-10.5 RED BLOOD CELL COUNT (BEAKER) (test ymrq=268) 3.38 M/ L 3.93-5.22 HEMOGLOBIN (BEAKER) (test cyqb=613) 9.9 GM/DL 11.2-15.7 HEMATOCRIT (BEAKER) (test cyvo=647) 31.1 % 34.1-44.9 MEAN CORPUSCULAR VOLUME (BEAKER) (test leuv=545) 92.0 fL 79.4-94.8 MEAN CORPUSCULAR HEMOGLOBIN (BEAKER) (test hqun=930) 29.3 pg 25.6-32.2 MEAN CORPUSCULAR HEMOGLOBIN CONC (BEAKER) (test gecy=751) 31.8 GM/DL 32.2-35.5 RED CELL DISTRIBUTION WIDTH (BEAKER) (test xkfo=365) 15.5 % 11.7-14.4 PLATELET COUNT (BEAKER) (test coqf=624) 94 K/CU MM 150-450 MEAN PLATELET VOLUME (BEAKER) (test fxkw=680) 10.9 fL 9.4-12.3 NUCLEATED RED BLOOD CELLS (BEAKER) (test lvdl=595) 0 /100 WBC 0-0 NEUTROPHILS RELATIVE PERCENT (BEAKER) (test kuja=605) 48 % LYMPHOCYTES RELATIVE PERCENT (BEAKER) (test bnac=316) 38 % MONOCYTES RELATIVE PERCENT (BEAKER) (test gryh=021) 11 % EOSINOPHILS RELATIVE PERCENT (BEAKER) (test rkwj=126) 2 % BASOPHILS RELATIVE PERCENT (BEAKER) (test nadx=441) 1 % NEUTROPHILS ABSOLUTE COUNT (BEAKER) (test pyqa=305) 4.06 K/ L 1.56-6.13 LYMPHOCYTES ABSOLUTE COUNT (BEAKER) (test pkpf=125) 3.18 K/ L 1.18-3.74 MONOCYTES ABSOLUTE COUNT (BEAKER) (test whrm=404) 0.94 K/ L 0.24-0.36 EOSINOPHILS ABSOLUTE COUNT (BEAKER) (test nwpl=814) 0.13 K/ L 0.04-0.36 BASOPHILS ABSOLUTE COUNT (BEAKER) (test wzor=248) 0.04 K/ L 0.01-0.08 IMMATURE GRANULOCYTES-RELATIVE PERCENT (BEAKER) (test kghf=1968) 0 % 0-1 PROTHROMBIN [id number] 06:31:00* Test Item Value Reference Range Comments PROTIME (BEAKER) (test bmmg=582) 14.7 seconds 11.7-14.7 INR (BEAKER) (test ccse=287) 1.2 <=5.9 RECOMMENDED COUMADIN/WARFARIN INR THERAPY RANGESSTANDARD DOSE: 2.0 - 3.0 Inclu ping: PROPHYLAXIS for venous thrombosis, systemic embolization; TREATMENT for joie ous thrombosis and/or pulmonary embolus.HIGH RISK: Target INR is 2.5-3.5 for pat ients with mechanical heart valves.CBC W/PLT COUNT & AUTO [id number] 07:39:00* Test Item Value Reference Range Comments WHITE BLOOD CELL COUNT (BEAKER) (test buum=681) 7.8 K/ L 3.5-10.5 RED BLOOD CELL COUNT (BEAKER) (test inpj=416) 3.41 M/ L 3.93-5.22 HEMOGLOBIN (BEAKER) (test ogne=509) 10.1 GM/DL 11.2-15.7 HEMATOCRIT (BEAKER) (test dqmd=577) 31.6 % 34.1-44.9 MEAN CORPUSCULAR VOLUME (BEAKER) (test xaii=564) 92.7 fL 79.4-94.8 MEAN CORPUSCULAR HEMOGLOBIN (BEAKER) (test hckb=146) 29.6 pg 25.6-32.2 MEAN CORPUSCULAR HEMOGLOBIN CONC (BEAKER) (test alta=442) 32.0 GM/DL 32.2-35.5 RED CELL DISTRIBUTION WIDTH (BEAKER) (test ygnq=118) 15.6 % 11.7-14.4 PLATELET COUNT (BEAKER) (test tkot=494) 98 K/CU MM 150-450 MEAN PLATELET VOLUME (BEAKER) (test pefa=190) 11.3 fL 9.4-12.3 NUCLEATED RED BLOOD CELLS (BEAKER) (test hxrp=878) 0 /100 WBC 0-0 NEUTROPHILS RELATIVE PERCENT (BEAKER) (test teja=235) 47 % LYMPHOCYTES RELATIVE PERCENT (BEAKER) (test mmvg=026) 40 % MONOCYTES RELATIVE PERCENT (BEAKER) (test dffl=226) 10 % EOSINOPHILS RELATIVE PERCENT (BEAKER) (test mvmi=556) 2 % BASOPHILS RELATIVE PERCENT (BEAKER) (test utcn=809) 1 % NEUTROPHILS ABSOLUTE COUNT (BEAKER) (test lrfk=333) 3.67 K/ L 1.56-6.13 LYMPHOCYTES ABSOLUTE COUNT (BEAKER) (test ovyz=659) 3.09 K/ L 1.18-3.74 MONOCYTES ABSOLUTE COUNT (BEAKER) (test lhmz=516) 0.81 K/ L 0.24-0.36 EOSINOPHILS ABSOLUTE COUNT (BEAKER) (test evob=112) 0.15 K/ L 0.04-0.36 BASOPHILS ABSOLUTE COUNT (BEAKER) (test deub=528) 0.04 K/ L 0.01-0.08 IMMATURE GRANULOCYTES-RELATIVE PERCENT (BEAKER) (test hxvu=6580) 1 % 0-1 COMPREHENSIVE METABOLIC [id number] 07:39:00* Test Item Value Reference Range Comments TOTAL PROTEIN (BEAKER) (test nmcz=009) 6.6 gm/dL 6.0-8.3 ALBUMIN (BEAKER) (test miqj=9323) 3.4 g/dL 3.5-5.0 ALKALINE PHOSPHATASE (BEAKER) (test jylt=169) 105 U/L 40-150 BILIRUBIN TOTAL (BEAKER) (test lnyi=408) 0.7 mg/dL 0.2-1.2 SODIUM (BEAKER) (test fkhk=557) 140 meq/L 136-145 POTASSIUM (BEAKER) (test uewj=397) 4.1 meq/L 3.5-5.1 CHLORIDE (BEAKER) (test sonx=092) 112 meq/L 98-107 CO2 (BEAKER) (test xipa=526) 22 meq/L 22-29 BLOOD UREA NITROGEN (BEAKER) (test lcaj=649) 24 mg/dL 7-21 CREATININE (BEAKER) (test hhtu=686) 1.56 mg/dL 0.57-1.25 GLUCOSE RANDOM (BEAKER) (test dkii=093) 111 mg/dL 70-105 CALCIUM (BEAKER) (test aikv=277) 9.2 mg/dL 8.4-10.2 AST (SGOT) (BEAKER) (test yidg=301) 45 U/L 5-34 ALT (SGPT) (BEAKER) (test dufp=898) 21 U/L 6-55 EGFR (BEAKER) (test gohj=6454) 43 mL/min/1.73 sq m ESTIMATED GFR IS NOT ACCURATE CREATININE CLEARANCE IN PREDICTING GLOMERULAR FILTRATION RATE. ESTIMATED GFR IS NOT APPLICABLE FOR DIALYSIS PATIENTS. [id number] 08:14:00* Test Item Value Reference Range Comments PHOSPHORUS (BEAKER) (test ephi=147) 2.1 mg/dL 2.3-4.7 [id number] 08:14:00* Test Item Value Reference Range Comments MAGNESIUM (BEAKER) (test exms=880) 2.2 mg/dL 1.6-2.6 BASIC METABOLIC [id number] 08:14:00* Test Item Value Reference Range Comments SODIUM (BEAKER) (test qmad=389) 141 meq/L 136-145 POTASSIUM (BEAKER) (test yqvf=034) 4.3 meq/L 3.5-5.1 CHLORIDE (BEAKER) (test xwrv=730) 113 meq/L 98-107 CO2 (BEAKER) (test btqp=467) 22 meq/L 22-29 BLOOD UREA NITROGEN (BEAKER) (test jcck=654) 22 mg/dL 7-21 CREATININE (BEAKER) (test ffot=911) 1.56 mg/dL 0.57-1.25 GLUCOSE RANDOM (BEAKER) (test fyuo=221) 120 mg/dL 70-105 CALCIUM (BEAKER) (test ofif=903) 9.6 mg/dL 8.4-10.2 EGFR (BEAKER) (test jbkj=1960) 43 mL/min/1.73 sq m ESTIMATED GFR IS NOT ACCURATE CREATININE CLEARANCE IN PREDICTING GLOMERULAR FILTRATION RATE. ESTIMATED GFR IS NOT APPLICABLE FOR DIALYSIS PATIENTS. HEPATIC FUNCTION [id number] 08:14:00* Test Item Value Reference Range Comments TOTAL PROTEIN (BEAKER) (test sswa=455) 7.0 gm/dL 6.0-8.3 ALBUMIN (BEAKER) (test mohe=0067) 3.7 g/dL 3.5-5.0 BILIRUBIN TOTAL (BEAKER) (test cccb=325) 0.8 mg/dL 0.2-1.2 BILIRUBIN DIRECT (BEAKER) (test onqj=766) 0.4 mg/dL 0.1-0.5 ALKALINE PHOSPHATASE (BEAKER) (test gcym=978) 97 U/L 40-150 AST (SGOT) (BEAKER) (test ebhy=066) 36 U/L 5-34 ALT (SGPT) (BEAKER) (test rciu=945) 20 U/L 6-55 PROTHROMBIN [id number] 07:24:00* Test Item Value Reference Range Comments PROTIME (BEAKER) (test vykc=710) 15.8 seconds 11.7-14.7 INR (BEAKER) (test lqts=549) 1.3 <=5.9 RECOMMENDED COUMADIN/WARFARIN INR THERAPY RANGESSTANDARD DOSE: 2.0 - 3.0 Inclu ping: PROPHYLAXIS for venous thrombosis, systemic embolization; TREATMENT for joie ous thrombosis and/or pulmonary embolus.HIGH RISK: Target INR is 2.5-3.5 for pat ients with mechanical heart valves.CALCIUM, [id number] 07:15:00* Test Item Value Reference Range Comments CALCIUM IONIZED (BEAKER) (test ayuq=253) 1.16 mmol/L 1.12-1.27 PH, BLOOD (BEAKER) (test iwik=3176) 7.33 CBC W/PLT COUNT & AUTO [id number] 07:15:00* Test Item Value Reference Range Comments WHITE BLOOD CELL COUNT (BEAKER) (test zlrp=000) 9.4 K/ L 3.5-10.5 RED BLOOD CELL COUNT (BEAKER) (test yzlb=900) 3.81 M/ L 3.93-5.22 HEMOGLOBIN (BEAKER) (test pvfx=842) 11.1 GM/DL 11.2-15.7 HEMATOCRIT (BEAKER) (test tqxm=309) 35.0 % 34.1-44.9 MEAN CORPUSCULAR VOLUME (BEAKER) (test fwnq=827) 91.9 fL 79.4-94.8 MEAN CORPUSCULAR HEMOGLOBIN (BEAKER) (test wwmn=020) 29.1 pg 25.6-32.2 MEAN CORPUSCULAR HEMOGLOBIN CONC (BEAKER) (test tktb=450) 31.7 GM/DL 32.2-35.5 RED CELL DISTRIBUTION WIDTH (BEAKER) (test bgot=214) 15.6 % 11.7-14.4 PLATELET COUNT (BEAKER) (test xvyn=374) 116 K/CU MM 150-450 MEAN PLATELET VOLUME (BEAKER) (test pcrz=561) 10.6 fL 9.4-12.3 NUCLEATED RED BLOOD CELLS (BEAKER) (test dved=994) 0 /100 WBC 0-0 NEUTROPHILS RELATIVE PERCENT (BEAKER) (test fcjw=632) 51 % LYMPHOCYTES RELATIVE PERCENT (BEAKER) (test qszt=231) 35 % MONOCYTES RELATIVE PERCENT (BEAKER) (test pwox=542) 11 % EOSINOPHILS RELATIVE PERCENT (BEAKER) (test gscn=658) 2 % BASOPHILS RELATIVE PERCENT (BEAKER) (test gssx=112) 0 % NEUTROPHILS ABSOLUTE COUNT (BEAKER) (test cgow=253) 4.83 K/ L 1.56-6.13 LYMPHOCYTES ABSOLUTE COUNT (BEAKER) (test fmwd=677) 3.31 K/ L 1.18-3.74 MONOCYTES ABSOLUTE COUNT (BEAKER) (test wzja=135) 1.06 K/ L 0.24-0.36 EOSINOPHILS ABSOLUTE COUNT (BEAKER) (test mite=055) 0.14 K/ L 0.04-0.36 BASOPHILS ABSOLUTE COUNT (BEAKER) (test vpue=552) 0.03 K/ L 0.01-0.08 IMMATURE GRANULOCYTES-RELATIVE PERCENT (BEAKER) (test gsph=9748) 1 % 0-1 URINE [id number] 10:10:00* Test Item Value Reference Range Comments CULTURE (BEAKER) (test uebw=2663) ENTEROCOCCUS SPECIES 60-69,000 col/mL Enterococcus species Ampicillin (test code=26) Linezolid (test code=40) Nitrofurantoin (test code=23) Tetracycline (test code=2) Vancomycin (test code=13) <10,000 col/mL gram negative kathi>100,000 col/mL skin [id number] 07:11:00* Test Item Value Reference Range Comments PHOSPHORUS (BEAKER) (test sscx=444) 2.3 mg/dL 2.3-4.7 [id number] 07:11:00* Test Item Value Reference Range Comments MAGNESIUM (BEAKER) (test yojx=341) 1.7 mg/dL 1.6-2.6 BASIC METABOLIC [id number] 07:11:00* Test Item Value Reference Range Comments SODIUM (BEAKER) (test jntp=265) 141 meq/L 136-145 POTASSIUM (BEAKER) (test sslf=677) 3.7 meq/L 3.5-5.1 CHLORIDE (BEAKER) (test mejk=564) 111 meq/L 98-107 CO2 (BEAKER) (test kgio=759) 19 meq/L 22-29 BLOOD UREA NITROGEN (BEAKER) (test kuow=833) 22 mg/dL 7-21 CREATININE (BEAKER) (test pdka=776) 1.87 mg/dL 0.57-1.25 GLUCOSE RANDOM (BEAKER) (test zxss=548) 158 mg/dL 70-105 CALCIUM (BEAKER) (test rtji=877) 8.7 mg/dL 8.4-10.2 EGFR (BEAKER) (test kjfj=1760) 35 mL/min/1.73 sq m ESTIMATED GFR IS NOT ACCURATE CREATININE CLEARANCE IN PREDICTING GLOMERULAR FILTRATION RATE. ESTIMATED GFR IS NOT APPLICABLE FOR DIALYSIS PATIENTS. HEPATIC FUNCTION [id number] 07:11:00* Test Item Value Reference Range Comments TOTAL PROTEIN (BEAKER) (test okos=218) 6.6 gm/dL 6.0-8.3 ALBUMIN (BEAKER) (test nnvf=7697) 3.5 g/dL 3.5-5.0 BILIRUBIN TOTAL (BEAKER) (test eael=655) 0.6 mg/dL 0.2-1.2 BILIRUBIN DIRECT (BEAKER) (test fcql=121) 0.3 mg/dL 0.1-0.5 ALKALINE PHOSPHATASE (BEAKER) (test wsjx=578) 94 U/L 40-150 AST (SGOT) (BEAKER) (test ezme=295) 38 U/L 5-34 ALT (SGPT) (BEAKER) (test tgea=865) 19 U/L 6-55 LACTIC ACID, VENOUS, WHOLE [id number] 06:49:00* Test Item Value Reference Range Comments LACTATE BLOOD VENOUS (2) (BEAKER) (test oksg=1990) 2.1 mmol/L 0.5-2.2 Effective 01/01/2016: Units/Reference Range ChangeNew: 0.5-2.2 mmol/L Previous: 5 -20 mg/dLCBC W/PLT COUNT & AUTO [id number] 06:32:00* Test Item Value Reference Range Comments WHITE BLOOD CELL COUNT (BEAKER) (test arov=123) 8.6 K/ L 3.5-10.5 RED BLOOD CELL COUNT (BEAKER) (test xnsi=412) 3.76 M/ L 3.93-5.22 HEMOGLOBIN (BEAKER) (test fyqu=028) 11.0 GM/DL 11.2-15.7 HEMATOCRIT (BEAKER) (test uwxp=674) 34.6 % 34.1-44.9 MEAN CORPUSCULAR VOLUME (BEAKER) (test foud=347) 92.0 fL 79.4-94.8 MEAN CORPUSCULAR HEMOGLOBIN (BEAKER) (test ssle=216) 29.3 pg 25.6-32.2 MEAN CORPUSCULAR HEMOGLOBIN CONC (BEAKER) (test xdry=638) 31.8 GM/DL 32.2-35.5 RED CELL DISTRIBUTION WIDTH (BEAKER) (test biyy=509) 15.3 % 11.7-14.4 PLATELET COUNT (BEAKER) (test mjng=928) 143 K/CU MM 150-450 MEAN PLATELET VOLUME (BEAKER) (test ngfu=670) 11.2 fL 9.4-12.3 NUCLEATED RED BLOOD CELLS (BEAKER) (test xhxu=353) 0 /100 WBC 0-0 NEUTROPHILS RELATIVE PERCENT (BEAKER) (test klbf=822) 52 % LYMPHOCYTES RELATIVE PERCENT (BEAKER) (test jdfa=770) 35 % MONOCYTES RELATIVE PERCENT (BEAKER) (test mrge=780) 9 % EOSINOPHILS RELATIVE PERCENT (BEAKER) (test zckp=470) 2 % BASOPHILS RELATIVE PERCENT (BEAKER) (test wxmf=451) 1 % NEUTROPHILS ABSOLUTE COUNT (BEAKER) (test pcna=561) 4.51 K/ L 1.56-6.13 LYMPHOCYTES ABSOLUTE COUNT (BEAKER) (test vmcq=614) 3.02 K/ L 1.18-3.74 MONOCYTES ABSOLUTE COUNT (BEAKER) (test psrl=065) 0.79 K/ L 0.24-0.36 EOSINOPHILS ABSOLUTE COUNT (BEAKER) (test wpbw=611) 0.17 K/ L 0.04-0.36 BASOPHILS ABSOLUTE COUNT (BEAKER) (test tueb=087) 0.05 K/ L 0.01-0.08 IMMATURE GRANULOCYTES-RELATIVE PERCENT (BEAKER) (test ilcn=3059) 1 % 0-1 CALCIUM, [id number] 06:30:00* Test Item Value Reference Range Comments CALCIUM IONIZED (BEAKER) (test jxef=691) 1.10 mmol/L 1.12-1.27 PH, BLOOD (BEAKER) (test eavy=3178) 7.27 [id number] 19:58:00* Test Item Value Reference Range Comments SODIUM (BEAKER) (test twen=230) 141 meq/L 136-145 POTASSIUM (BEAKER) (test egbk=674) 3.2 meq/L 3.5-5.1 CHLORIDE (BEAKER) (test puzh=594) 107 meq/L 98-107 CO2 (BEAKER) (test hwtt=918) 22 meq/L 22-29 Call [id number] METABOLIC [id number] 07:47:00* Test Item Value Reference Range Comments SODIUM (BEAKER) (test xdca=572) 141 meq/L 136-145 POTASSIUM (BEAKER) (test fico=626) 2.7 meq/L 3.5-5.1 CHLORIDE (BEAKER) (test aeob=370) 107 meq/L 98-107 CO2 (BEAKER) (test nnqe=508) 23 meq/L 22-29 BLOOD UREA NITROGEN (BEAKER) (test wexv=188) 27 mg/dL 7-21 CREATININE (BEAKER) (test xkkm=395) 2.45 mg/dL 0.57-1.25 GLUCOSE RANDOM (BEAKER) (test dpua=033) 116 mg/dL 70-105 CALCIUM (BEAKER) (test tnkt=456) 9.0 mg/dL 8.4-10.2 EGFR (BEAKER) (test hqjd=5616) 25 mL/min/1.73 sq m ESTIMATED GFR IS NOT ACCURATE CREATININE CLEARANCE IN PREDICTING GLOMERULAR FILTRATION RATE. ESTIMATED GFR IS NOT APPLICABLE FOR DIALYSIS PATIENTS. [id number] 07:37:00* Test Item Value Reference Range Comments PHOSPHORUS (BEAKER) (test mlbv=154) 2.4 mg/dL 2.3-4.7 [id number] 07:37:00* Test Item Value Reference Range Comments MAGNESIUM (BEAKER) (test jyun=117) 1.2 mg/dL 1.6-2.6 HEPATIC FUNCTION [id number] 07:37:00* Test Item Value Reference Range Comments TOTAL PROTEIN (BEAKER) (test zqnq=664) 6.5 gm/dL 6.0-8.3 ALBUMIN (BEAKER) (test evqu=5372) 3.4 g/dL 3.5-5.0 BILIRUBIN TOTAL (BEAKER) (test revp=616) 0.7 mg/dL 0.2-1.2 BILIRUBIN DIRECT (BEAKER) (test drij=946) 0.3 mg/dL 0.1-0.5 ALKALINE PHOSPHATASE (BEAKER) (test qwri=543) 87 U/L 40-150 AST (SGOT) (BEAKER) (test gbje=437) 34 U/L 5-34 ALT (SGPT) (BEAKER) (test lond=253) 18 U/L 6-55 CALCIUM, [id number] 07:10:00* Test Item Value Reference Range Comments CALCIUM IONIZED (BEAKER) (test rqwq=764) 1.03 mmol/L 1.12-1.27 PH, BLOOD (BEAKER) (test oysa=1192) 7.36 CBC W/PLT COUNT & AUTO [id number] 07:03:00* Test Item Value Reference Range Comments WHITE BLOOD CELL COUNT (BEAKER) (test ebfr=270) 7.3 K/ L 3.5-10.5 RED BLOOD CELL COUNT (BEAKER) (test tvxf=338) 3.26 M/ L 3.93-5.22 HEMOGLOBIN (BEAKER) (test trvo=675) 9.6 GM/DL 11.2-15.7 HEMATOCRIT (BEAKER) (test wgpm=119) 30.2 % 34.1-44.9 MEAN CORPUSCULAR VOLUME (BEAKER) (test ubir=992) 92.6 fL 79.4-94.8 MEAN CORPUSCULAR HEMOGLOBIN (BEAKER) (test wijc=665) 29.4 pg 25.6-32.2 MEAN CORPUSCULAR HEMOGLOBIN CONC (BEAKER) (test qjwo=055) 31.8 GM/DL 32.2-35.5 RED CELL DISTRIBUTION WIDTH (BEAKER) (test hhhj=534) 15.0 % 11.7-14.4 PLATELET COUNT (BEAKER) (test vsdh=631) 102 K/CU MM 150-450 MEAN PLATELET VOLUME (BEAKER) (test tnrb=976) 10.4 fL 9.4-12.3 NUCLEATED RED BLOOD CELLS (BEAKER) (test snuu=798) 0 /100 WBC 0-0 NEUTROPHILS RELATIVE PERCENT (BEAKER) (test xvla=218) 64 % LYMPHOCYTES RELATIVE PERCENT (BEAKER) (test ysxo=385) 24 % MONOCYTES RELATIVE PERCENT (BEAKER) (test xnha=858) 9 % EOSINOPHILS RELATIVE PERCENT (BEAKER) (test gmqm=732) 2 % BASOPHILS RELATIVE PERCENT (BEAKER) (test qxgb=253) 0 % NEUTROPHILS ABSOLUTE COUNT (BEAKER) (test mzud=707) 4.71 K/ L 1.56-6.13 LYMPHOCYTES ABSOLUTE COUNT (BEAKER) (test eyxc=233) 1.79 K/ L 1.18-3.74 MONOCYTES ABSOLUTE COUNT (BEAKER) (test ywgi=130) 0.65 K/ L 0.24-0.36 EOSINOPHILS ABSOLUTE COUNT (BEAKER) (test psdl=256) 0.12 K/ L 0.04-0.36 BASOPHILS ABSOLUTE COUNT (BEAKER) (test kshe=995) 0.03 K/ L 0.01-0.08 IMMATURE GRANULOCYTES-RELATIVE PERCENT (BEAKER) (test gwov=8507) 1 % 0-1 URINE [id number] 13:25:00* Test Item Value Reference Range Comments CULTURE (BEAKER) (test trhs=6761) PROTEUS MIRABILIS 30-39,000 col/mL Proteus mirabilisESBL Positive Amikacin (test code=1) Ampicillin + Sulbactam (test code=6) Aztreonam (test code=32) Cefepime (test code=51) Cefoxitin (test code=68) Ceftazidime (test code=27) Ceftriaxone (test code=52) Ertapenem (test code=38) Gentamicin (test code=18) Levofloxacin (test code=22) Meropenem (test code=34) Nitrofurantoin (test code=23) Piperacillin + Tazobactam (test code=29) Tetracycline (test code=2) Tobramycin (test code=25) Trimethoprim + Sulfamethoxazole (test code=47) >100,000 col/mL skin floraCBC W/PLT COUNT & AUTO [id number] 09:40:00 * Test Item Value Reference Range Comments WHITE BLOOD CELL COUNT (BEAKER) (test gpuc=094) 9.3 K/ L 3.5-10.5 RED BLOOD CELL COUNT (BEAKER) (test jrgj=712) 4.02 M/ L 3.93-5.22 HEMOGLOBIN (BEAKER) (test wurr=301) 11.8 GM/DL 11.2-15.7 HEMATOCRIT (BEAKER) (test dwot=886) 36.6 % 34.1-44.9 MEAN CORPUSCULAR VOLUME (BEAKER) (test jzlf=587) 91.0 fL 79.4-94.8 MEAN CORPUSCULAR HEMOGLOBIN (BEAKER) (test cklu=765) 29.4 pg 25.6-32.2 MEAN CORPUSCULAR HEMOGLOBIN CONC (BEAKER) (test suxi=576) 32.2 GM/DL 32.2-35.5 RED CELL DISTRIBUTION WIDTH (BEAKER) (test hukt=453) 15.3 % 11.7-14.4 PLATELET COUNT (BEAKER) (test hual=113) 126 K/CU MM 150-450 MEAN PLATELET VOLUME (BEAKER) (test vzae=955) 11.8 fL 9.4-12.3 NUCLEATED RED BLOOD CELLS (BEAKER) (test ppec=248) 0 /100 WBC 0-0 NEUTROPHILS RELATIVE PERCENT (BEAKER) (test ijzu=724) 49 % LYMPHOCYTES RELATIVE PERCENT (BEAKER) (test xmnd=820) 42 % MONOCYTES RELATIVE PERCENT (BEAKER) (test fris=162) 7 % EOSINOPHILS RELATIVE PERCENT (BEAKER) (test aczw=481) 1 % BASOPHILS RELATIVE PERCENT (BEAKER) (test mmvx=086) 0 % NEUTROPHILS ABSOLUTE COUNT (BEAKER) (test marn=239) 4.54 K/ L 1.56-6.13 LYMPHOCYTES ABSOLUTE COUNT (BEAKER) (test hepl=684) 3.92 K/ L 1.18-3.74 MONOCYTES ABSOLUTE COUNT (BEAKER) (test lhik=882) 0.68 K/ L 0.24-0.36 EOSINOPHILS ABSOLUTE COUNT (BEAKER) (test uwih=857) 0.08 K/ L 0.04-0.36 BASOPHILS ABSOLUTE COUNT (BEAKER) (test lgjs=675) 0.04 K/ L 0.01-0.08 IMMATURE GRANULOCYTES-RELATIVE PERCENT (BEAKER) (test ucvj=0203) 1 % 0-1 (MANUAL DIFFERENTIAL)2017-05-08 09:40:00* Test Item Value Reference Range Comments TOTAL COUNTED (BEAKER) (test onrn=4731) WBC MORPHOLOGY (BEAKER) (test tjuk=550) Normal PLT MORPHOLOGY (BEAKER) (test wccn=703) Normal RBC MORPHOLOGY (BEAKER) (test yuut=992) Normal TSH/FREE T4 IF [id number] 07:11:00* Test Item Value Reference Range Comments THYROID STIMULATING HORMONE (BEAKER) (test njzs=179) 0.38 uIU/mL 0.35-4.94 BASIC METABOLIC [id number] 06:58:00* Test Item Value Reference Range Comments SODIUM (BEAKER) (test bbvg=466) 145 meq/L 136-145 POTASSIUM (BEAKER) (test umvz=259) 3.3 meq/L 3.5-5.1 CHLORIDE (BEAKER) (test rpwg=718) 111 meq/L 98-107 CO2 (BEAKER) (test dhfr=387) 18 meq/L 22-29 BLOOD UREA NITROGEN (BEAKER) (test nlsx=918) 27 mg/dL 7-21 CREATININE (BEAKER) (test apom=864) 2.49 mg/dL 0.57-1.25 GLUCOSE RANDOM (BEAKER) (test kebo=821) 108 mg/dL 70-105 CALCIUM (BEAKER) (test paqu=858) 9.4 mg/dL 8.4-10.2 EGFR (BEAKER) (test djdv=2200) 25 mL/min/1.73 sq m ESTIMATED GFR IS NOT ACCURATE CREATININE CLEARANCE IN PREDICTING GLOMERULAR FILTRATION RATE. ESTIMATED GFR IS NOT APPLICABLE FOR DIALYSIS PATIENTS. [id number] 06:57:00* Test Item Value Reference Range Comments PHOSPHORUS (BEAKER) (test aqbw=083) 3.0 mg/dL 2.3-4.7 [id number] 06:57:00* Test Item Value Reference Range Comments MAGNESIUM (BEAKER) (test rxmx=241) 1.6 mg/dL 1.6-2.6 CREATINE KINASE (CK)2017-05-08 06:57:00* Test Item Value Reference Range Comments CREATINE KINASE TOTAL (BEAKER) (test owhn=393) 73 U/L 29-200 U/S, RENAL, [id number] 06:21:00Reason for exam:->HEADACHEReason for exam:->NAUSEAFINAL REPORT Exam: Renal ultrasound Clinical History: Acute kidney insufficiency Discussion: Compared with 11/11/2016. Sonographic evaluation of the kidneys was performed. The right kidney measures 9 x 5 x 5 cm. The left kidney measures 11 x 5 x 5 cm. No evidence of renal obstruction or nephrolithiasis. The right renal cortex measures 14 mm. The left renal cortex measures 14 mm. The renal cortical echogenicity is normal. Survey images of the bladder were grossly unremarkable. Impression: Unremarkable renal ultrasound. Signed: Jose Alejandro Grimm MDReport Verified Date/Time: 05/08/2017 06:21:54 Reading Location: [address] Reading Room IUM, [id number] 06:15:00* Test Item Value Reference Range Comments CALCIUM IONIZED (BEAKER) (test uycb=286) 1.07 mmol/L 1.12-1.27 PH, BLOOD (BEAKER) (test udvj=4587) 7.24 CREATININE, RANDOM [id number] 02:20:00* Test Item Value Reference Range Comments CREATININE URINE (BEAKER) (test bttj=101) 289.5 mg/dL Reference Range: No NormalsPROTEIN, RANDOM [id number] 02:18:00* Test Item Value Reference Range Comments PROTEIN, URINE (BEAKER) (test thdh=8217) 29 mg/dL 0-14 SODIUM, RANDOM [id number] 02:16:00* Test Item Value Reference Range Comments SODIUM URINE (BEAKER) (test iggs=598) 33 meq/L Reference Range: No NormalsLACTIC ACID, VENOUS, WHOLE [id number] 00:36:00* Test Item Value Reference Range Comments LACTATE BLOOD VENOUS (2) (BEAKER) (test pifa=7450) 3.6 mmol/L 0.5-2.2 result on markedly hemolyzed specimen auto released by [employer] is a corrected result. Previous result was 3.6 mmol/L on 05/07/2017 at 2306 CDT Effective 01/01/2016: Units/Reference Range ChangeNew: 0.5-2.2 mmol/L Previous: 5 -20 mg/dLSpecimen slightly lipemicBASIC METABOLIC [id number] 23:12:00* Test Item Value Reference Range Comments SODIUM (BEAKER) (test qtoh=704) 143 meq/L 136-145 POTASSIUM (BEAKER) (test bctq=016) 3.6 meq/L 3.5-5.1 CHLORIDE (BEAKER) (test sqxl=437) 110 meq/L 98-107 CO2 (BEAKER) (test psou=044) 19 meq/L 22-29 BLOOD UREA NITROGEN (BEAKER) (test avbr=135) 27 mg/dL 7-21 CREATININE (BEAKER) (test kuhi=210) 2.17 mg/dL 0.57-1.25 GLUCOSE RANDOM (BEAKER) (test ouiu=552) 160 mg/dL 70-105 CALCIUM (BEAKER) (test figu=742) 9.4 mg/dL 8.4-10.2 EGFR (BEAKER) (test mrpq=7581) 29 mL/min/1.73 sq m ESTIMATED GFR IS NOT ACCURATE CREATININE CLEARANCE IN PREDICTING GLOMERULAR FILTRATION RATE. ESTIMATED GFR IS NOT APPLICABLE FOR DIALYSIS PATIENTS. [id number] 23:10:00* Test Item Value Reference Range Comments MAGNESIUM (BEAKER) (test hjqf=609) 1.6 mg/dL 1.6-2.6 CALCIUM, [id number] 23:04:00* Test Item Value Reference Range Comments CALCIUM IONIZED (BEAKER) (test xqvr=508) 0.91 mmol/L 1.12-1.27 PH, BLOOD (BEAKER) (test vwao=3905) 7.46 CBC W/PLT COUNT & AUTO [id number] 13:53:00* Test Item Value Reference Range Comments WHITE BLOOD CELL COUNT (BEAKER) (test fkdh=904) 14.2 K/ L 3.5-10.5 RED BLOOD CELL COUNT (BEAKER) (test wfsg=899) 4.75 M/ L 3.93-5.22 HEMOGLOBIN (BEAKER) (test kbao=103) 13.9 GM/DL 11.2-15.7 HEMATOCRIT (BEAKER) (test eoyh=905) 43.1 % 34.1-44.9 MEAN CORPUSCULAR VOLUME (BEAKER) (test bvry=033) 90.7 fL 79.4-94.8 MEAN CORPUSCULAR HEMOGLOBIN (BEAKER) (test mtwz=768) 29.3 pg 25.6-32.2 MEAN CORPUSCULAR HEMOGLOBIN CONC (BEAKER) (test lzza=630) 32.3 GM/DL 32.2-35.5 RED CELL DISTRIBUTION WIDTH (BEAKER) (test ktwz=528) 14.9 % 11.7-14.4 PLATELET COUNT (BEAKER) (test qtxp=084) 205 K/CU MM 150-450 MEAN PLATELET VOLUME (BEAKER) (test selg=700) 11.1 fL 9.4-12.3 NUCLEATED RED BLOOD CELLS (BEAKER) (test otze=044) 0 /100 WBC 0-0 NEUTROPHILS RELATIVE PERCENT (BEAKER) (test thdz=709) 67 % LYMPHOCYTES RELATIVE PERCENT (BEAKER) (test rhvg=566) 25 % MONOCYTES RELATIVE PERCENT (BEAKER) (test elsq=713) 6 % EOSINOPHILS RELATIVE PERCENT (BEAKER) (test txly=146) 0 % BASOPHILS RELATIVE PERCENT (BEAKER) (test zufe=333) 1 % NEUTROPHILS ABSOLUTE COUNT (BEAKER) (test occz=362) 9.55 K/ L 1.56-6.13 LYMPHOCYTES ABSOLUTE COUNT (BEAKER) (test owbr=070) 3.53 K/ L 1.18-3.74 MONOCYTES ABSOLUTE COUNT (BEAKER) (test kogk=235) 0.90 K/ L 0.24-0.36 EOSINOPHILS ABSOLUTE COUNT (BEAKER) (test sbrf=608) 0.01 K/ L 0.04-0.36 BASOPHILS ABSOLUTE COUNT (BEAKER) (test wqud=549) 0.09 K/ L 0.01-0.08 IMMATURE GRANULOCYTES-RELATIVE PERCENT (BEAKER) (test jaqa=6132) 1 % 0-1 CT, BRAIN, WITHOUT [id number] 13:50:00Reason for exam:->HEADACHEReason for exam:->NAUSEAWhat is the patient's sedation requirement?->No SedationIs the patient ?->NoFINAL REPORT CT head without contrast 05/07/2017 1:45 PM CLINICAL HISTORY: HEADACHENAUSEAHA TECHNIQUE: Axial noncontrast CT images through the head were obtained. This examination was performed according to our departmental dose optimization program, which includes automated exposure control, adjustment of the mA and/or kV according to patient size, and/or use of iterated reconstruction technique. COMPARISON: None available FINDINGS: There is no hemorrhage, extra-axial collection, mass, hydrocephalus, or midline shift. There are rare chronic-appearing microvascular changes in the supratentorial white matter. There is generalized parenchymal volume loss. The visualized paranasal sinuses and mastoid air cells are well aerated. The skull is intact. IMPRESSION: No intracranial hemorrhage or mass effect. If concern for acute pathology persists, further evaluation with MRI is recommended. Signed: Jayden Hernandez Verified Date/Time: 05/07/2017 13:50:47 Reading Location: [facility] Radiology Reading Room C METABOLIC [id number] 13:46:00* Test Item Value Reference Range Comments SODIUM (BEAKER) (test zmiw=170) 144 meq/L 136-145 POTASSIUM (BEAKER) (test qcqu=055) 4.1 meq/L 3.5-5.1 Specimen slightly hemolyzed CHLORIDE (BEAKER) (test odlf=472) 111 meq/L 98-107 CO2 (BEAKER) (test qybz=828) 12 meq/L 22-29 BLOOD UREA NITROGEN (BEAKER) (test dtkm=792) 27 mg/dL 7-21 CREATININE (BEAKER) (test qnrp=133) 2.37 mg/dL 0.57-1.25 Specimen slightly hemolyzed GLUCOSE RANDOM (BEAKER) (test qhby=485) 150 mg/dL 70-105 CALCIUM (BEAKER) (test kzfl=985) 10.9 mg/dL 8.4-10.2 EGFR (BEAKER) (test tjvp=6431) 26 mL/min/1.73 sq m ESTIMATED GFR IS NOT ACCURATE CREATININE CLEARANCE IN PREDICTING GLOMERULAR FILTRATION RATE. ESTIMATED GFR IS NOT APPLICABLE FOR DIALYSIS PATIENTS. Specimen slightly [id number] 13:42:00* Test Item Value Reference Range Comments AMYLASE (BEAKER) (test vfrp=047) 142 U/L 25-125 Specimen slightly hemolyzed Specimen slightly ictericHEPATIC FUNCTION [id number] 13:42:00* Test Item Value Reference Range Comments TOTAL PROTEIN (BEAKER) (test imft=368) 8.6 gm/dL 6.0-8.3 Specimen slightly hemolyzed ALBUMIN (BEAKER) (test slbx=6441) 4.3 g/dL 3.5-5.0 Specimen slightly hemolyzed BILIRUBIN TOTAL (BEAKER) (test muve=264) 2.6 mg/dL 0.2-1.2 Specimen slightly hemolyzed BILIRUBIN DIRECT (BEAKER) (test oqsk=239) 0.9 mg/dL 0.1-0.5 Specimen slightly hemolyzed ALKALINE PHOSPHATASE (BEAKER) (test zmeq=473) 115 U/L 40-150 AST (SGOT) (BEAKER) (test lkke=325) 29 U/L 5-34 Specimen slightly hemolyzed ALT (SGPT) (BEAKER) (test lmmu=114) 20 U/L 6-55 Specimen slightly hemolyzed Specimen slightly [id number] 13:42:00* Test Item Value Reference Range Comments LIPASE (BEAKER) (test iibg=130) 18 U/L 8-78 Specimen slightly ictericURINALYSIS W/ [id number] 17:38:00* Test Item Value Reference Range Comments COLOR (BEAKER) (test gqgh=525) Yellow CLARITY (BEAKER) (test zntt=077) Hazy SPECIFIC GRAVITY UA (BEAKER) (test tmlg=356) 1.011 1.001-1.035 PH UA (BEAKER) (test flng=522) 5.5 5.0-8.0 PROTEIN UA (BEAKER) (test rlkh=795) 10 mg/dL Negative GLUCOSE UA (BEAKER) (test nsno=538) Negative Negative KETONES UA (BEAKER) (test zria=915) Negative Negative BILIRUBIN UA (BEAKER) (test mrtt=661) Negative Negative BLOOD UA (BEAKER) (test nnto=441) Negative Negative NITRITE UA (BEAKER) (test hkce=254) Negative Negative LEUKOCYTE ESTERASE UA (BEAKER) (test acph=362) Large Negative UROBILINOGEN UA (BEAKER) (test mxby=202) 0.2 mg/dL 0.2-1.0 RBC UA (BEAKER) (test pjjv=998) 0 /HPF WBC UA (BEAKER) (test saqd=611) 28 /HPF SQUAMOUS EPITHELIAL (BEAKER) (test ujyw=112) 18 /HPF SOURCE(BEAKER) (test koth=1104) Urine, Voided B-TYPE NATRIURETIC FACTOR (BNP)2017-05-06 16:53:00* Test Item Value Reference Range Comments B-TYPE NATRIURETIC PEPTIDE (BEAKER) (test jpfw=949) 447 pg/mL 0-100 BASIC METABOLIC [id number] 16:51:00* Test Item Value Reference Range Comments SODIUM (BEAKER) (test bedd=278) 142 meq/L 136-145 POTASSIUM (BEAKER) (test irkb=054) 3.7 meq/L 3.5-5.1 CHLORIDE (BEAKER) (test nscl=317) 106 meq/L 98-107 CO2 (BEAKER) (test ttxk=546) 21 meq/L 22-29 BLOOD UREA NITROGEN (BEAKER) (test ohmk=950) 23 mg/dL 7-21 CREATININE (BEAKER) (test dhnw=638) 2.23 mg/dL 0.57-1.25 GLUCOSE RANDOM (BEAKER) (test tqyj=347) 113 mg/dL 70-105 CALCIUM (BEAKER) (test kmsy=533) 10.9 mg/dL 8.4-10.2 EGFR (BEAKER) (test vghy=1092) 28 mL/min/1.73 sq m ESTIMATED GFR IS NOT ACCURATE CREATININE CLEARANCE IN PREDICTING GLOMERULAR FILTRATION RATE. ESTIMATED GFR IS NOT APPLICABLE FOR DIALYSIS PATIENTS. [id number] 16:47:00* Test Item Value Reference Range Comments MAGNESIUM (BEAKER) (test hvtw=512) 1.5 mg/dL 1.6-2.6 BLOOD [id number] 00:00:00* Test Item Value Reference Range Comments CULTURE (BEAKER) (test wdam=7006) No growth in 5 days [id number] 06:56:00* Test Item Value Reference Range Comments PROCALCITONIN (BEAKER) (test ibut=8431) 2.40 ng/mL <0.05 SEPSIS RISK (ng/mL)Low: 0.05-0.50Intermediate: 0.51-2.00High: > =[id number] 06:37:00* Test Item Value Reference Range Comments PHOSPHORUS (BEAKER) (test oasv=716) 3.2 mg/dL 2.3-4.7 [id number] 06:37:00* Test Item Value Reference Range Comments MAGNESIUM (BEAKER) (test axtr=525) 1.9 mg/dL 1.6-2.6 BASIC METABOLIC [id number] 06:37:00* Test Item Value Reference Range Comments SODIUM (BEAKER) (test oyhs=689) 142 meq/L 136-145 POTASSIUM (BEAKER) (test gakv=080) 4.1 meq/L 3.5-5.1 CHLORIDE (BEAKER) (test vxhe=196) 110 meq/L 98-107 CO2 (BEAKER) (test mvhb=681) 21 meq/L 22-29 BLOOD UREA NITROGEN (BEAKER) (test kkkg=266) 17 mg/dL 7-21 CREATININE (BEAKER) (test aqjm=439) 1.70 mg/dL 0.57-1.25 GLUCOSE RANDOM (BEAKER) (test dtqa=903) 135 mg/dL 70-105 CALCIUM (BEAKER) (test hgpu=888) 9.7 mg/dL 8.4-10.2 EGFR (BEAKER) (test fxac=3821) 39 mL/min/1.73 sq m ESTIMATED GFR IS NOT ACCURATE CREATININE CLEARANCE IN PREDICTING GLOMERULAR FILTRATION RATE. ESTIMATED GFR IS NOT APPLICABLE FOR DIALYSIS PATIENTS. HEPATIC FUNCTION [id number] 06:37:00* Test Item Value Reference Range Comments TOTAL PROTEIN (BEAKER) (test dpqq=833) 7.5 gm/dL 6.0-8.3 ALBUMIN (BEAKER) (test kesx=3154) 4.0 g/dL 3.5-5.0 BILIRUBIN TOTAL (BEAKER) (test ezqr=233) 0.7 mg/dL 0.2-1.2 BILIRUBIN DIRECT (BEAKER) (test mkgg=937) 0.3 mg/dL 0.1-0.5 ALKALINE PHOSPHATASE (BEAKER) (test qgat=850) 102 U/L 40-150 AST (SGOT) (BEAKER) (test hwbi=176) 27 U/L 5-34 ALT (SGPT) (BEAKER) (test prgx=338) 20 U/L 6-55 CREATINE KINASE (CK)2017-04-20 06:37:00* Test Item Value Reference Range Comments CREATINE KINASE TOTAL (BEAKER) (test mjyd=945) 24 U/L 29-200 ALPHA FETOPROTEIN (AFP), TUMOR [id number] 06:29:00* Test Item Value Reference Range Comments ALPHA-FETOPROTEIN (BEAKER) (test cjib=4160) 3.3 ng/mL <10.0 Effective 07/17/2014: Reference Range ChangeNew: <10.0 Previous: 0.0-8.0CBC W/PLT COUNT & AUTO [id number] 06:01:00* Test Item Value Reference Range Comments WHITE BLOOD CELL COUNT (BEAKER) (test fwal=808) 8.2 K/ L 3.5-10.5 RED BLOOD CELL COUNT (BEAKER) (test ypte=552) 4.09 M/ L 3.93-5.22 HEMOGLOBIN (BEAKER) (test fdko=339) 12.1 GM/DL 11.2-15.7 HEMATOCRIT (BEAKER) (test bkae=362) 36.7 % 34.1-44.9 MEAN CORPUSCULAR VOLUME (BEAKER) (test ekcj=959) 89.7 fL 79.4-94.8 MEAN CORPUSCULAR HEMOGLOBIN (BEAKER) (test ftej=443) 29.6 pg 25.6-32.2 MEAN CORPUSCULAR HEMOGLOBIN CONC (BEAKER) (test pjzw=881) 33.0 GM/DL 32.2-35.5 RED CELL DISTRIBUTION WIDTH (BEAKER) (test fliz=471) 14.7 % 11.7-14.4 PLATELET COUNT (BEAKER) (test foin=500) 108 K/CU MM 150-450 MEAN PLATELET VOLUME (BEAKER) (test cgyi=775) 11.3 fL 9.4-12.3 NUCLEATED RED BLOOD CELLS (BEAKER) (test svlp=851) 0 /100 WBC 0-0 NEUTROPHILS RELATIVE PERCENT (BEAKER) (test xhtv=365) 68 % LYMPHOCYTES RELATIVE PERCENT (BEAKER) (test psov=473) 24 % MONOCYTES RELATIVE PERCENT (BEAKER) (test oitf=872) 5 % EOSINOPHILS RELATIVE PERCENT (BEAKER) (test ibff=784) 2 % BASOPHILS RELATIVE PERCENT (BEAKER) (test faoe=849) 1 % NEUTROPHILS ABSOLUTE COUNT (BEAKER) (test sonq=729) 5.60 K/ L 1.56-6.13 LYMPHOCYTES ABSOLUTE COUNT (BEAKER) (test iorq=634) 1.96 K/ L 1.18-3.74 MONOCYTES ABSOLUTE COUNT (BEAKER) (test erta=146) 0.40 K/ L 0.24-0.36 EOSINOPHILS ABSOLUTE COUNT (BEAKER) (test ugee=635) 0.17 K/ L 0.04-0.36 BASOPHILS ABSOLUTE COUNT (BEAKER) (test tsds=957) 0.04 K/ L 0.01-0.08 IMMATURE GRANULOCYTES-RELATIVE PERCENT (BEAKER) (test xvwk=9767) 1 % 0-1 PROTHROMBIN [id number] 05:57:00* Test Item Value Reference Range Comments PROTIME (BEAKER) (test ywcw=109) 14.4 seconds 11.7-14.7 INR (BEAKER) (test kfvz=277) 1.1 <=5.9 RECOMMENDED COUMADIN/WARFARIN INR THERAPY RANGESSTANDARD DOSE: 2.0 - 3.0 Inclu ping: PROPHYLAXIS for venous thrombosis, systemic embolization; TREATMENT for joie ous thrombosis and/or pulmonary embolus.HIGH RISK: Target INR is 2.5-3.5 for pat ients with mechanical heart valves.BLOOD GAS, [id number] 18:31:00* Test Item Value Reference Range Comments PH ARTERIAL (BEAKER) (test gbdg=251) 7.35 7.35-7.45 PCO2 ARTERIAL (BEAKER) (test peja=271) 41 mmHg 35-45 PO2 ARTERIAL (BEAKER) (test erwe=945) 87 mmHg 80-90 O2 SATURATION ARTERIAL (BEAKER) (test qonn=457) 96.4 % 96.0-97.0 HCO3 ARTERIAL (BEAKER) (test kzsk=381) 22 mmol/L 21-29 BASE EXCESS ARTERIAL (BEAKER) (test xqtj=821) -3.7 mmol/L -2.0-3.0 PATIENT TEMPERATURE (BEAKER) (test uqsr=3505) 36.5 C FIO2 (BEAKER) (test oqib=0492) 21.0 % [id number] 13:51:00* Test Item Value Reference Range Comments AMMONIA (BEAKER) (test rmau=063) 33 mol/L 18-72 HEPATIC FUNCTION [id number] 07:01:00* Test Item Value Reference Range Comments TOTAL PROTEIN (BEAKER) (test vwnn=697) 6.6 gm/dL 6.0-8.3 ALBUMIN (BEAKER) (test zyap=4280) 3.4 g/dL 3.5-5.0 BILIRUBIN TOTAL (BEAKER) (test bhmb=054) 0.8 mg/dL 0.2-1.2 BILIRUBIN DIRECT (BEAKER) (test hstz=614) 0.3 mg/dL 0.1-0.5 ALKALINE PHOSPHATASE (BEAKER) (test pqbe=078) 82 U/L 40-150 AST (SGOT) (BEAKER) (test eozl=887) 19 U/L 5-34 ALT (SGPT) (BEAKER) (test csir=269) 15 U/L 6-55 BASIC METABOLIC [id number] 07:01:00* Test Item Value Reference Range Comments SODIUM (BEAKER) (test ppvg=666) 136 meq/L 136-145 POTASSIUM (BEAKER) (test hnox=062) 4.1 meq/L 3.5-5.1 CHLORIDE (BEAKER) (test cybz=049) 109 meq/L 98-107 CO2 (BEAKER) (test wqrn=783) 19 meq/L 22-29 BLOOD UREA NITROGEN (BEAKER) (test eiwi=314) 16 mg/dL 7-21 CREATININE (BEAKER) (test sytx=450) 1.91 mg/dL 0.57-1.25 GLUCOSE RANDOM (BEAKER) (test mfvb=661) 131 mg/dL 70-105 CALCIUM (BEAKER) (test cwjs=364) 8.9 mg/dL 8.4-10.2 EGFR (BEAKER) (test rpgu=7599) 34 mL/min/1.73 sq m ESTIMATED GFR IS NOT ACCURATE CREATININE CLEARANCE IN PREDICTING GLOMERULAR FILTRATION RATE. ESTIMATED GFR IS NOT APPLICABLE FOR DIALYSIS PATIENTS. PROTHROMBIN TIME/[id number] 06:58:00* Test Item Value Reference Range Comments PROTIME (BEAKER) (test toxh=922) 15.1 seconds 11.7-14.7 INR (BEAKER) (test qatx=068) 1.2 <=5.9 RECOMMENDED COUMADIN/WARFARIN INR THERAPY RANGESSTANDARD DOSE: 2.0 - 3.0 Inclu ping: PROPHYLAXIS for venous thrombosis, systemic embolization; TREATMENT for joie ous thrombosis and/or pulmonary embolus.HIGH RISK: Target INR is 2.5-3.5 for pat ients with mechanical heart valves.CBC W/PLT COUNT & AUTO [id number] 06:41:00* Test Item Value Reference Range Comments WHITE BLOOD CELL COUNT (BEAKER) (test fqfr=727) 8.6 K/ L 3.5-10.5 RED BLOOD CELL COUNT (BEAKER) (test cjzv=242) 3.58 M/ L 3.93-5.22 HEMOGLOBIN (BEAKER) (test vcxc=776) 10.4 GM/DL 11.2-15.7 HEMATOCRIT (BEAKER) (test nazv=704) 32.2 % 34.1-44.9 MEAN CORPUSCULAR VOLUME (BEAKER) (test tvov=984) 89.9 fL 79.4-94.8 MEAN CORPUSCULAR HEMOGLOBIN (BEAKER) (test gkds=784) 29.1 pg 25.6-32.2 MEAN CORPUSCULAR HEMOGLOBIN CONC (BEAKER) (test nyuu=460) 32.3 GM/DL 32.2-35.5 RED CELL DISTRIBUTION WIDTH (BEAKER) (test mrhb=185) 14.6 % 11.7-14.4 PLATELET COUNT (BEAKER) (test nidv=266) 98 K/CU MM 150-450 MEAN PLATELET VOLUME (BEAKER) (test fufv=254) 11.4 fL 9.4-12.3 NUCLEATED RED BLOOD CELLS (BEAKER) (test pwww=436) 0 /100 WBC 0-0 NEUTROPHILS RELATIVE PERCENT (BEAKER) (test vwqe=287) 58 % LYMPHOCYTES RELATIVE PERCENT (BEAKER) (test fuew=978) 31 % MONOCYTES RELATIVE PERCENT (BEAKER) (test gved=733) 8 % EOSINOPHILS RELATIVE PERCENT (BEAKER) (test jggf=667) 2 % BASOPHILS RELATIVE PERCENT (BEAKER) (test glnj=816) 1 % NEUTROPHILS ABSOLUTE COUNT (BEAKER) (test vblt=226) 5.03 K/ L 1.56-6.13 LYMPHOCYTES ABSOLUTE COUNT (BEAKER) (test hgql=798) 2.69 K/ L 1.18-3.74 MONOCYTES ABSOLUTE COUNT (BEAKER) (test yrbr=816) 0.68 K/ L 0.24-0.36 EOSINOPHILS ABSOLUTE COUNT (BEAKER) (test gwes=733) 0.13 K/ L 0.04-0.36 BASOPHILS ABSOLUTE COUNT (BEAKER) (test rhnl=920) 0.04 K/ L 0.01-0.08 IMMATURE GRANULOCYTES-RELATIVE PERCENT (BEAKER) (test jjjm=0123) 1 % 0-1 BASIC METABOLIC [id number] 19:51:00* Test Item Value Reference Range Comments SODIUM (BEAKER) (test glnb=527) 138 meq/L 136-145 POTASSIUM (BEAKER) (test tfyz=071) 4.2 meq/L 3.5-5.1 CHLORIDE (BEAKER) (test fmnh=997) 108 meq/L 98-107 CO2 (BEAKER) (test pklb=145) 19 meq/L 22-29 BLOOD UREA NITROGEN (BEAKER) (test vfht=340) 14 mg/dL 7-21 CREATININE (BEAKER) (test qedq=667) 1.61 mg/dL 0.57-1.25 GLUCOSE RANDOM (BEAKER) (test pgfl=843) 123 mg/dL 70-105 CALCIUM (BEAKER) (test nfie=792) 9.7 mg/dL 8.4-10.2 EGFR (BEAKER) (test yzvp=7115) 41 mL/min/1.73 sq m ESTIMATED GFR IS NOT ACCURATE CREATININE CLEARANCE IN PREDICTING GLOMERULAR FILTRATION RATE. ESTIMATED GFR IS NOT APPLICABLE FOR DIALYSIS PATIENTS. CBC W/PLT COUNT & AUTO [id number] 19:33:00* Test Item Value Reference Range Comments WHITE BLOOD CELL COUNT (BEAKER) (test znse=786) 8.7 K/ L 3.5-10.5 RED BLOOD CELL COUNT (BEAKER) (test pytr=043) 3.94 M/ L 3.93-5.22 HEMOGLOBIN (BEAKER) (test nqct=257) 11.6 GM/DL 11.2-15.7 HEMATOCRIT (BEAKER) (test iypt=269) 35.0 % 34.1-44.9 MEAN CORPUSCULAR VOLUME (BEAKER) (test vdmm=870) 88.8 fL 79.4-94.8 MEAN CORPUSCULAR HEMOGLOBIN (BEAKER) (test xmee=003) 29.4 pg 25.6-32.2 MEAN CORPUSCULAR HEMOGLOBIN CONC (BEAKER) (test iejo=426) 33.1 GM/DL 32.2-35.5 RED CELL DISTRIBUTION WIDTH (BEAKER) (test bwhy=411) 14.5 % 11.7-14.4 PLATELET COUNT (BEAKER) (test nnbw=679) 112 K/CU MM 150-450 MEAN PLATELET VOLUME (BEAKER) (test uivp=349) 11.0 fL 9.4-12.3 NUCLEATED RED BLOOD CELLS (BEAKER) (test niyv=143) 0 /100 WBC 0-0 NEUTROPHILS RELATIVE PERCENT (BEAKER) (test wbdw=276) 61 % LYMPHOCYTES RELATIVE PERCENT (BEAKER) (test bxmh=269) 31 % MONOCYTES RELATIVE PERCENT (BEAKER) (test krbz=378) 5 % EOSINOPHILS RELATIVE PERCENT (BEAKER) (test hksi=318) 2 % BASOPHILS RELATIVE PERCENT (BEAKER) (test keof=620) 0 % NEUTROPHILS ABSOLUTE COUNT (BEAKER) (test vttg=379) 5.29 K/ L 1.56-6.13 LYMPHOCYTES ABSOLUTE COUNT (BEAKER) (test sqzf=753) 2.66 K/ L 1.18-3.74 MONOCYTES ABSOLUTE COUNT (BEAKER) (test ujox=028) 0.45 K/ L 0.24-0.36 EOSINOPHILS ABSOLUTE COUNT (BEAKER) (test iybd=828) 0.19 K/ L 0.04-0.36 BASOPHILS ABSOLUTE COUNT (BEAKER) (test xjja=889) 0.03 K/ L 0.01-0.08 IMMATURE GRANULOCYTES-RELATIVE PERCENT (BEAKER) (test suzm=0101) 0 % 0-1 URINE [id number] 09:27:00* Test Item Value Reference Range Comments CULTURE (BEAKER) (test clvb=6638) PROTEUS MIRABILIS >100,000 col/mL Proteus mirabilisESBL Positive Amikacin (test code=1) Ampicillin + Sulbactam (test code=6) Aztreonam (test code=32) Cefepime (test code=51) Cefoxitin (test code=68) Ceftazidime (test code=27) Ceftriaxone (test code=52) Ertapenem (test code=38) Gentamicin (test code=18) Levofloxacin (test code=22) Meropenem (test code=34) Nitrofurantoin (test code=23) Piperacillin + Tazobactam (test code=29) Tetracycline (test code=2) Tobramycin (test code=25) Trimethoprim + Sulfamethoxazole (test code=47) URINALYSIS W/ [id number] 16:10:00* Test Item Value Reference Range Comments COLOR (BEAKER) (test vsgb=435) Yellow CLARITY (BEAKER) (test alry=924) Hazy SPECIFIC GRAVITY UA (BEAKER) (test akqq=341) 1.010 1.001-1.035 PH UA (BEAKER) (test ndol=532) 7.5 5.0-8.0 PROTEIN UA (BEAKER) (test emlu=356) 10 mg/dL Negative GLUCOSE UA (BEAKER) (test hong=329) Negative Negative KETONES UA (BEAKER) (test bfdp=402) Negative Negative BILIRUBIN UA (BEAKER) (test xkwt=059) Negative Negative BLOOD UA (BEAKER) (test zuyw=705) Negative Negative NITRITE UA (BEAKER) (test cdki=595) Positive Negative LEUKOCYTE ESTERASE UA (BEAKER) (test ziav=135) Large Negative UROBILINOGEN UA (BEAKER) (test zvwx=259) 0.2 mg/dL 0.2-1.0 RBC UA (BEAKER) (test qrit=031) 0 /HPF WBC UA (BEAKER) (test smam=866) 30 /HPF BACTERIA (BEAKER) (test yxnp=783) Moderate SQUAMOUS EPITHELIAL (BEAKER) (test vlrg=768) 5 /HPF SOURCE(BEAKER) (test hikr=5162) Urine, Voided CREATINE KINASE (CK), TOTAL AND [id number] 16:10:00* Test Item Value Reference Range Comments CREATINE KINASE TOTAL (BEAKER) (test qpny=647) 22 U/L 29-200 CREATINE KINASE-MB (BEAKER) (test yyox=157) 0.8 ng/mL 0.0-6.6 CREATINE KINASE-MB INDEX (BEAKER) (test umye=135) 3.6 % Effective 07/17/2014: CK-MB Reference Range ChangeNew: 0.0-6.6 Previous: 0.0- 4.9CK-MB Reference Range:<6.7 Normal6.7-10.0 Borderline>10.0 Abnormal TROPONIN [id number] 16:10:00* Test Item Value Reference Range Comments TROPONIN I (BEAKER) (test ifay=434) < ng/mL 0.00-0.03 Effective 07/17/2014: Reference Range ChangeNew: 0.00-0.03 Previous 0.00-0.15T roponin I (TnI) levels must be interpreted in the context of the presenting symp toms and the clinical findings. Elevated TnI levels indicate myocardial damage, but are not specific for ischemic heart disease. Elevated TnI levels are seen in patients with other cardiac conditions (including myocarditis and congestive he art failure), and slight TnI elevations occur in patients with other conditions, including sepsis, renal failure, acidosis, acute neurological disease, and pers istent tachyarrhythmia.BASIC METABOLIC [id number] 16:00:00* Test Item Value Reference Range Comments SODIUM (BEAKER) (test infm=998) 141 meq/L 136-145 POTASSIUM (BEAKER) (test gpvb=571) 4.3 meq/L 3.5-5.1 Specimen slightly hemolyzed CHLORIDE (BEAKER) (test kusl=829) 110 meq/L 98-107 CO2 (BEAKER) (test dpub=988) 16 meq/L 22-29 BLOOD UREA NITROGEN (BEAKER) (test rldj=304) 16 mg/dL 7-21 CREATININE (BEAKER) (test kdbz=084) 1.72 mg/dL 0.57-1.25 Specimen slightly hemolyzed GLUCOSE RANDOM (BEAKER) (test vmcm=557) 122 mg/dL 70-105 CALCIUM (BEAKER) (test spjd=869) 10.1 mg/dL 8.4-10.2 EGFR (BEAKER) (test rakh=0811) 38 mL/min/1.73 sq m ESTIMATED GFR IS NOT ACCURATE CREATININE CLEARANCE IN PREDICTING GLOMERULAR FILTRATION RATE. ESTIMATED GFR IS NOT APPLICABLE FOR DIALYSIS PATIENTS. Specimen slightly vciagloP-[id number] 15:36:00* Test Item Value Reference Range Comments D-DIMER QUANTITATIVE (BEAKER) (test zdsp=850) 0.34 MG/L FEU <0.50 Intended Use: The D-Dimer Assay can be used to aid in the diagnosis of Deep Vein Thrombosis (DVT) and Pulmonary Embolism Disease (PED).In patients with low pre- test probability, various studies concerning STA Liatest D-dimer test have repor darell that with a cutoff value of 0.50 MG/L FEU, the Negative Predictive Value (FOOD AND DRUG RESEARCH SCIENTIST V) regarding the exclusion of thrombosis is within 95-100% range.CBC W/PLT COUNT & AUTO [id number] 15:23:00* Test Item Value Reference Range Comments WHITE BLOOD CELL COUNT (BEAKER) (test dbng=688) 12.3 K/ L 3.5-10.5 RED BLOOD CELL COUNT (BEAKER) (test uhlr=389) 4.43 M/ L 3.93-5.22 HEMOGLOBIN (BEAKER) (test ayqu=165) 13.1 GM/DL 11.2-15.7 HEMATOCRIT (BEAKER) (test fvyh=095) 40.0 % 34.1-44.9 MEAN CORPUSCULAR VOLUME (BEAKER) (test xazk=194) 90.3 fL 79.4-94.8 MEAN CORPUSCULAR HEMOGLOBIN (BEAKER) (test dtpr=900) 29.6 pg 25.6-32.2 MEAN CORPUSCULAR HEMOGLOBIN CONC (BEAKER) (test kfin=355) 32.8 GM/DL 32.2-35.5 RED CELL DISTRIBUTION WIDTH (BEAKER) (test dmtc=962) 14.6 % 11.7-14.4 PLATELET COUNT (BEAKER) (test zhhx=274) 115 K/CU MM 150-450 MEAN PLATELET VOLUME (BEAKER) (test anvr=410) 11.8 fL 9.4-12.3 NUCLEATED RED BLOOD CELLS (BEAKER) (test olqw=799) 0 /100 WBC 0-0 NEUTROPHILS RELATIVE PERCENT (BEAKER) (test qbkg=863) 64 % LYMPHOCYTES RELATIVE PERCENT (BEAKER) (test kwhv=933) 28 % MONOCYTES RELATIVE PERCENT (BEAKER) (test ushk=575) 7 % EOSINOPHILS RELATIVE PERCENT (BEAKER) (test acqn=613) 0 % BASOPHILS RELATIVE PERCENT (BEAKER) (test fzua=596) 0 % NEUTROPHILS ABSOLUTE COUNT (BEAKER) (test gufa=329) 7.88 K/ L 1.56-6.13 LYMPHOCYTES ABSOLUTE COUNT (BEAKER) (test dqhk=140) 3.46 K/ L 1.18-3.74 MONOCYTES ABSOLUTE COUNT (BEAKER) (test eemb=138) 0.82 K/ L 0.24-0.36 EOSINOPHILS ABSOLUTE COUNT (BEAKER) (test dsvb=784) 0.04 K/ L 0.04-0.36 BASOPHILS ABSOLUTE COUNT (BEAKER) (test ddjn=972) 0.05 K/ L 0.01-0.08 IMMATURE GRANULOCYTES-RELATIVE PERCENT (BEAKER) (test ieoc=3768) 1 % 0-1 URINE [id number] 09:33:00* Test Item Value Reference Range Comments CULTURE (BEAKER) (test uvxq=5359) >100,000 col/mL [facility] RESPIRATORY PANEL [id number] 11:43:00* Test Item Value Reference Range Comments HUMAN METAPNEUMOVIRUS (BEAKER) (test wqgl=8071) Not detected Not detected, Inconclusive RHINOVIRUS (BEAKER) (test ygai=6491) Not detected Not detected, Inconclusive INFLUENZA A (BEAKER) (test kygc=6262) Not detected Not detected, Inconclusive INFLUENZA A SUBTYPE H1 (BEAKER) (test ufza=9439) Not detected Not detected, Inconclusive INFLUENZA A SUBTYPE H3 (BEAKER) (test lpfb=9303) Not detected Not detected, Inconclusive INFLUENZA A SUBTYPE H1-2009 (BEAKER) (test cbjm=9019) Not detected Not detected, Inconclusive INFLUENZA B (BEAKER) (test hpcr=4164) Not detected Not detected, Inconclusive RESPIRATORY SYNCYTIAL VIRUS (BEAKER) (test epwz=5608) Not detected Not detected, Inconclusive PARAINFLUENZA VIRUS 1 (BEAKER) (test xzyr=4501) Not detected Not detected, Inconclusive PARAINFLUENZA VIRUS 2 (BEAKER) (test upzl=0808) Not detected Not detected, Inconclusive PARAINFLUENZA VIRUS 3 (BEAKER) (test xpnl=9426) Not detected Not detected, Inconclusive PARAINFLUENZA VIRUS 4 (BEAKER) (test uost=1912) Not detected Not detected, Inconclusive ADENOVIRUS (BEAKER) (test ivdf=8270) Not detected Not detected, Inconclusive CORONAVIRUS 229E (BEAKER) (test rnox=9010) Not detected Not detected, Inconclusive CORONAVIRUS HKU1 (BEAKER) (test tmwt=9908) Not detected Not detected, Inconclusive CORONAVIRUS NL63 (BEAKER) (test mqcf=7077) Not detected Not detected, Inconclusive CORONAVIRUS OC43 (BEAKER) (test hbxb=4389) Not detected Not detected, Inconclusive BORDETELLA PERTUSSIS (BEAKER) (test ijvc=0561) Not detected Not detected, Inconclusive CHLAMYDOPHILA PNEUMONIAE (BEAKER) (test fpip=1330) Not detected Not detected, Inconclusive MYCOPLASMA PNEUMONIAE (BEAKER) (test rsza=3294) Not detected Not detected, Inconclusive CALCIUM, [id number] 06:39:00* Test Item Value Reference Range Comments CALCIUM IONIZED (BEAKER) (test gcew=032) 1.16 mmol/L 1.12-1.27 PH, BLOOD (BEAKER) (test mgkv=0268) 7.35 [id number] 06:17:00* Test Item Value Reference Range Comments PHOSPHORUS (BEAKER) (test frlu=893) 3.9 mg/dL 2.3-4.7 [id number] 06:17:00* Test Item Value Reference Range Comments MAGNESIUM (BEAKER) (test syds=117) 2.0 mg/dL 1.6-2.6 BASIC METABOLIC [id number] 06:17:00* Test Item Value Reference Range Comments SODIUM (BEAKER) (test zxic=820) 139 meq/L 136-145 POTASSIUM (BEAKER) (test acia=580) 4.0 meq/L 3.5-5.1 CHLORIDE (BEAKER) (test ukfl=056) 108 meq/L 98-107 CO2 (BEAKER) (test qrxe=729) 22 meq/L 22-29 BLOOD UREA NITROGEN (BEAKER) (test yvdt=908) 52 mg/dL 7-21 CREATININE (BEAKER) (test oimk=068) 1.86 mg/dL 0.57-1.25 GLUCOSE RANDOM (BEAKER) (test vvew=512) 149 mg/dL 70-105 CALCIUM (BEAKER) (test wbhf=199) 9.3 mg/dL 8.4-10.2 EGFR (BEAKER) (test wmyg=4738) 35 mL/min/1.73 sq m ESTIMATED GFR IS NOT ACCURATE CREATININE CLEARANCE IN PREDICTING GLOMERULAR FILTRATION RATE. ESTIMATED GFR IS NOT APPLICABLE FOR DIALYSIS PATIENTS. HEMOGLOBIN [id number] 15:26:00* Test Item Value Reference Range Comments HEMOGLOBIN A1C (BEAKER) (test qhpd=943) 6.5 % 4.3-6.1 CRYPTOCOCCAL [id number] 14:06:00* Test Item Value Reference Range Comments CRYPTOCOCCAL ANTIGEN, SERUM (BEAKER) (test zxqk=3093) Negative Negative, Interference [id number] 13:19:00* Test Item Value Reference Range Comments PHOSPHORUS (BEAKER) (test zjnf=394) 3.5 mg/dL 2.3-4.7 [id number] 13:19:00* Test Item Value Reference Range Comments MAGNESIUM (BEAKER) (test lvrc=641) 1.7 mg/dL 1.6-2.6 COMPREHENSIVE METABOLIC [id number] 13:19:00* Test Item Value Reference Range Comments TOTAL PROTEIN (BEAKER) (test qyzg=729) 7.0 gm/dL 6.0-8.3 ALBUMIN (BEAKER) (test bjer=2168) 3.5 g/dL 3.5-5.0 ALKALINE PHOSPHATASE (BEAKER) (test ybou=290) 154 U/L 40-150 BILIRUBIN TOTAL (BEAKER) (test kcdu=646) 0.9 mg/dL 0.2-1.2 SODIUM (BEAKER) (test xnud=311) 138 meq/L 136-145 POTASSIUM (BEAKER) (test wvso=763) 3.8 meq/L 3.5-5.1 CHLORIDE (BEAKER) (test uvuf=408) 108 meq/L 98-107 CO2 (BEAKER) (test cnfe=463) 22 meq/L 22-29 BLOOD UREA NITROGEN (BEAKER) (test yrqw=266) 52 mg/dL 7-21 CREATININE (BEAKER) (test ljjn=263) 1.91 mg/dL 0.57-1.25 GLUCOSE RANDOM (BEAKER) (test nitn=422) 161 mg/dL 70-105 CALCIUM (BEAKER) (test zaep=594) 8.6 mg/dL 8.4-10.2 AST (SGOT) (BEAKER) (test ippd=123) 68 U/L 5-34 ALT (SGPT) (BEAKER) (test nvqc=323) 44 U/L 6-55 EGFR (BEAKER) (test xqoh=9214) 34 mL/min/1.73 sq m ESTIMATED GFR IS NOT ACCURATE CREATININE CLEARANCE IN PREDICTING GLOMERULAR FILTRATION RATE. ESTIMATED GFR IS NOT APPLICABLE FOR DIALYSIS PATIENTS. CBC W/PLT COUNT & AUTO [id number] 13:14:00* Test Item Value Reference Range Comments WHITE BLOOD CELL COUNT (BEAKER) (test myzr=604) 11.3 K/ L 4.0-10.0 RED BLOOD CELL COUNT (BEAKER) (test nozo=127) 4.16 M/ L 4.00-5.00 HEMOGLOBIN (BEAKER) (test cend=700) 12.2 GM/DL 12.0-15.0 HEMATOCRIT (BEAKER) (test rkbb=309) 38.2 % 36.0-45.0 MEAN CORPUSCULAR VOLUME (BEAKER) (test oczz=081) 92.0 fL 82.0-99.0 MEAN CORPUSCULAR HEMOGLOBIN (BEAKER) (test azia=329) 29.2 pg 27.0-33.0 MEAN CORPUSCULAR HEMOGLOBIN CONC (BEAKER) (test eynx=051) 31.8 GM/DL 32.0-36.0 RED CELL DISTRIBUTION WIDTH (BEAKER) (test okok=621) 19.1 % 10.3-14.2 PLATELET COUNT (BEAKER) (test qgry=493) 104 K/CU MM 150-430 MEAN PLATELET VOLUME (BEAKER) (test hrnt=081) 9.6 fL 6.5-10.5 NUCLEATED RED BLOOD CELLS (BEAKER) (test wwbn=046) 0 /100 WBC 0-0 NEUTROPHILS RELATIVE PERCENT (BEAKER) (test ajvd=329) 72 % LYMPHOCYTES RELATIVE PERCENT (BEAKER) (test bems=237) 19 % MONOCYTES RELATIVE PERCENT (BEAKER) (test mgdo=859) 8 % EOSINOPHILS RELATIVE PERCENT (BEAKER) (test zvjk=692) 1 % BASOPHILS RELATIVE PERCENT (BEAKER) (test tqli=940) 0 % NEUTROPHILS ABSOLUTE COUNT (BEAKER) (test wxhl=738) 8.11 K/ L 1.80-8.00 LYMPHOCYTES ABSOLUTE COUNT (BEAKER) (test katt=121) 2.18 K/ L 1.48-4.50 MONOCYTES ABSOLUTE COUNT (BEAKER) (test mxnn=788) 0.93 K/ L 0.00-1.30 EOSINOPHILS ABSOLUTE COUNT (BEAKER) (test kolb=730) 0.06 K/ L 0.00-0.50 BASOPHILS ABSOLUTE COUNT (BEAKER) (test vrgb=409) 0.01 K/ L 0.00-0.20 0.00CALCIUM, [id number] 12:56:00* Test Item Value Reference Range Comments CALCIUM IONIZED (BEAKER) (test eycg=053) 1.08 mmol/L 1.12-1.27 PH, BLOOD (BEAKER) (test zaoj=2070) 7.38 URINALYSIS W/ [id number] 08:32:00* Test Item Value Reference Range Comments COLOR (BEAKER) (test kfww=339) Yellow CLARITY (BEAKER) (test vpoy=888) Clear SPECIFIC GRAVITY UA (BEAKER) (test lqvi=732) 1.012 1.001-1.035 PH UA (BEAKER) (test kszs=265) 6.0 5.0-8.0 PROTEIN UA (BEAKER) (test vtpd=766) Negative Negative GLUCOSE UA (BEAKER) (test iwmb=404) Negative Negative KETONES UA (BEAKER) (test ohws=519) Negative Negative BILIRUBIN UA (BEAKER) (test sohe=231) Negative Negative BLOOD UA (BEAKER) (test pthu=507) Negative Negative NITRITE UA (BEAKER) (test gdzh=070) Negative Negative LEUKOCYTE ESTERASE UA (BEAKER) (test gmmk=941) Negative Negative UROBILINOGEN UA (BEAKER) (test svgv=700) 0.2 mg/dL 0.2-1.0 RBC UA (BEAKER) (test hacz=497) < /HPF WBC UA (BEAKER) (test xlyr=585) 1 /HPF BACTERIA (BEAKER) (test vqqg=194) Rare SQUAMOUS EPITHELIAL (BEAKER) (test nqhq=765) 6 /HPF YEAST (BEAKER) (test kreg=5405) Rare SOURCE(BEAKER) (test nrly=5006) Urine, Voided [id number] 16:23:00* Test Item Value Reference Range Comments PROCALCITONIN (BEAKER) (test nqft=9291) 0.31 ng/mL <0.05 SEPSIS RISK (ng/mL)Low: 0.05-0.50Intermediate: 0.51-2.00High: > =2.01COMPREHENSIVE METABOLIC [id number] 04:33:00* Test Item Value Reference Range Comments TOTAL PROTEIN (BEAKER) (test zagc=777) 8.0 gm/dL 6.0-8.3 Specimen moderately hemolyzed ALBUMIN (BEAKER) (test pawb=7212) 3.8 g/dL 3.5-5.0 Specimen moderately hemolyzed ALKALINE PHOSPHATASE (BEAKER) (test xjsz=830) 176 U/L 40-150 BILIRUBIN TOTAL (BEAKER) (test bpqf=149) 0.9 mg/dL 0.2-1.2 Specimen moderately hemolyzed SODIUM (BEAKER) (test jhoa=896) 138 meq/L 136-145 POTASSIUM (BEAKER) (test jejx=731) 4.8 meq/L 3.5-5.1 Specimen moderately hemolyzed CHLORIDE (BEAKER) (test suyn=283) 106 meq/L 98-107 CO2 (BEAKER) (test vlgq=369) 20 meq/L 22-29 BLOOD UREA NITROGEN (BEAKER) (test bdrw=630) 60 mg/dL 7-21 CREATININE (BEAKER) (test lmnc=184) 2.21 mg/dL 0.57-1.25 Specimen moderately hemolyzed GLUCOSE RANDOM (BEAKER) (test cnwk=480) 151 mg/dL 70-105 CALCIUM (BEAKER) (test eqnv=439) 9.1 mg/dL 8.4-10.2 AST (SGOT) (BEAKER) (test srtm=896) 68 U/L 5-34 Specimen moderately hemolyzed ALT (SGPT) (BEAKER) (test rbyv=091) 38 U/L 6-55 Specimen moderately hemolyzed EGFR (BEAKER) (test obhk=6982) 29 mL/min/1.73 sq m ESTIMATED GFR IS NOT ACCURATE CREATININE CLEARANCE IN PREDICTING GLOMERULAR FILTRATION RATE. ESTIMATED GFR IS NOT APPLICABLE FOR DIALYSIS PATIENTS. [id number] 04:24:00* Test Item Value Reference Range Comments MAGNESIUM (BEAKER) (test dxps=421) 2.1 mg/dL 1.6-2.6 Specimen moderately hemolyzed [id number] 04:24:00* Test Item Value Reference Range Comments PHOSPHORUS (BEAKER) (test sliv=926) 4.3 mg/dL 2.3-4.7 Specimen moderately hemolyzed CBC (HEMOGRAM ONLY)2017-02-14 03:53:00* Test Item Value Reference Range Comments WHITE BLOOD CELL COUNT (BEAKER) (test pzib=314) 15.9 K/ L 4.0-10.0 RED BLOOD CELL COUNT (BEAKER) (test jojv=796) 4.52 M/ L 4.00-5.00 HEMOGLOBIN (BEAKER) (test yaew=128) 13.2 GM/DL 12.0-15.0 HEMATOCRIT (BEAKER) (test omcb=378) 41.4 % 36.0-45.0 MEAN CORPUSCULAR VOLUME (BEAKER) (test mied=666) 91.5 fL 82.0-99.0 MEAN CORPUSCULAR HEMOGLOBIN (BEAKER) (test fwdl=501) 29.3 pg 27.0-33.0 MEAN CORPUSCULAR HEMOGLOBIN CONC (BEAKER) (test yxsx=740) 32.0 GM/DL 32.0-36.0 RED CELL DISTRIBUTION WIDTH (BEAKER) (test kfvo=075) 19.7 % 10.3-14.2 PLATELET COUNT (BEAKER) (test fygm=165) 150 K/CU MM 150-430 MEAN PLATELET VOLUME (BEAKER) (test dvcc=355) 10.2 fL 6.5-10.5 NUCLEATED RED BLOOD CELLS (BEAKER) (test echs=827) 0 /100 WBC 0-0 0.00CALCIUM, [id number] 03:40:00* Test Item Value Reference Range Comments CALCIUM IONIZED (BEAKER) (test moyc=729) 1.01 mmol/L 1.12-1.27 PH, BLOOD (BEAKER) (test pieo=2833) 7.35 [id number] 19:13:00* Test Item Value Reference Range Comments MAGNESIUM (BEAKER) (test vlxt=622) 1.8 mg/dL 1.6-2.6 Specimen slightly hemolyzed [id number] 19:13:00* Test Item Value Reference Range Comments PHOSPHORUS (BEAKER) (test vdxf=511) 3.7 mg/dL 2.3-4.7 Specimen slightly hemolyzed BASIC METABOLIC [id number] 19:13:00* Test Item Value Reference Range Comments SODIUM (BEAKER) (test orla=946) 140 meq/L 136-145 POTASSIUM (BEAKER) (test yqfj=183) 4.2 meq/L 3.5-5.1 Specimen slightly hemolyzed CHLORIDE (BEAKER) (test donq=054) 104 meq/L 98-107 CO2 (BEAKER) (test comh=616) 23 meq/L 22-29 BLOOD UREA NITROGEN (BEAKER) (test wonm=878) 57 mg/dL 7-21 CREATININE (BEAKER) (test azlz=136) 2.08 mg/dL 0.57-1.25 Specimen slightly hemolyzed GLUCOSE RANDOM (BEAKER) (test xjcn=953) 124 mg/dL 70-105 CALCIUM (BEAKER) (test grmj=423) 9.0 mg/dL 8.4-10.2 EGFR (BEAKER) (test doqd=3756) 31 mL/min/1.73 sq m ESTIMATED GFR IS NOT ACCURATE CREATININE CLEARANCE IN PREDICTING GLOMERULAR FILTRATION RATE. ESTIMATED GFR IS NOT APPLICABLE FOR DIALYSIS PATIENTS. LIPID [id number] 19:13:00* Test Item Value Reference Range Comments TRIGLYCERIDES (BEAKER) (test dshg=301) 140 mg/dL Specimen slightly hemolyzed CHOLESTEROL (BEAKER) (test vfvd=355) 174 mg/dL Specimen slightly hemolyzed HDL CHOLESTEROL (BEAKER) (test rqhb=832) 75 mg/dL LDL CHOLESTEROL CALCULATED (BEAKER) (test mwvj=000) 71 mg/dL Triglyceride Reference Range: Low Risk <150 Borderline 150-199 High Risk 200-499 Very High Risk >=500Cholesterol Reference Range: Low Risk <200 Borderline 200-239 High Risk >240HDL Cholesterol Reference Range: Low Risk >=60 High Risk <40LDL Cholesterol Reference Range: Optimal <100 Near Optimal 100-129 Borderline 130-159 High 160-189 Very High >=190 HEPATIC FUNCTION [id number] 19:13:00* Test Item Value Reference Range Comments TOTAL PROTEIN (BEAKER) (test zxdx=794) 8.2 gm/dL 6.0-8.3 Specimen slightly hemolyzed ALBUMIN (BEAKER) (test vjsd=3114) 4.0 g/dL 3.5-5.0 Specimen slightly hemolyzed BILIRUBIN TOTAL (BEAKER) (test imuv=622) 1.2 mg/dL 0.2-1.2 Specimen slightly hemolyzed BILIRUBIN DIRECT (BEAKER) (test hjsr=964) 0.4 mg/dL 0.1-0.5 Specimen slightly hemolyzed ALKALINE PHOSPHATASE (BEAKER) (test ucjs=853) 172 U/L 40-150 AST (SGOT) (BEAKER) (test slyr=413) 60 U/L 5-34 Specimen slightly hemolyzed ALT (SGPT) (BEAKER) (test rsjn=840) 40 U/L 6-55 Specimen slightly hemolyzed PROTHROMBIN [id number] 18:58:00* Test Item Value Reference Range Comments PROTIME (BEAKER) (test npwr=113) 14.9 seconds 11.7-14.7 INR (BEAKER) (test qyma=178) 1.2 <=5.9 RECOMMENDED COUMADIN/WARFARIN INR THERAPY RANGESSTANDARD DOSE: 2.0 - 3.0 Inclu ping: PROPHYLAXIS for venous thrombosis, systemic embolization; TREATMENT for joie ous thrombosis and/or pulmonary embolus.HIGH RISK: Target INR is 2.5-3.5 for pat ients with mechanical heart valves.CALCIUM, [id number] 18:57:00* Test Item Value Reference Range Comments CALCIUM IONIZED (BEAKER) (test yigh=398) 0.95 mmol/L 1.12-1.27 PH, BLOOD (BEAKER) (test cqwq=8363) 7.33 CBC W/PLT COUNT & AUTO [id number] 18:57:00* Test Item Value Reference Range Comments WHITE BLOOD CELL COUNT (BEAKER) (test nbip=786) 14.8 K/ L 4.0-10.0 RED BLOOD CELL COUNT (BEAKER) (test owwg=171) 4.99 M/ L 4.00-5.00 HEMOGLOBIN (BEAKER) (test bhup=181) 14.2 GM/DL 12.0-15.0 HEMATOCRIT (BEAKER) (test xecm=308) 47.3 % 36.0-45.0 MEAN CORPUSCULAR VOLUME (BEAKER) (test dlom=621) 94.8 fL 82.0-99.0 MEAN CORPUSCULAR HEMOGLOBIN (BEAKER) (test intx=033) 28.4 pg 27.0-33.0 MEAN CORPUSCULAR HEMOGLOBIN CONC (BEAKER) (test abrq=649) 30.0 GM/DL 32.0-36.0 RED CELL DISTRIBUTION WIDTH (BEAKER) (test kqrf=030) 20.0 % 10.3-14.2 PLATELET COUNT (BEAKER) (test dguu=839) 133 K/CU MM 150-430 MEAN PLATELET VOLUME (BEAKER) (test mfpr=460) 9.1 fL 6.5-10.5 NUCLEATED RED BLOOD CELLS (BEAKER) (test tyue=779) 0 /100 WBC 0-0 NEUTROPHILS RELATIVE PERCENT (BEAKER) (test rbvy=824) 72 % LYMPHOCYTES RELATIVE PERCENT (BEAKER) (test cikb=216) 20 % MONOCYTES RELATIVE PERCENT (BEAKER) (test vunh=570) 7 % EOSINOPHILS RELATIVE PERCENT (BEAKER) (test kgkn=985) 0 % BASOPHILS RELATIVE PERCENT (BEAKER) (test kgcy=510) 0 % NEUTROPHILS ABSOLUTE COUNT (BEAKER) (test sqht=998) 10.70 K/ L 1.80-8.00 LYMPHOCYTES ABSOLUTE COUNT (BEAKER) (test uupq=643) 3.01 K/ L 1.48-4.50 MONOCYTES ABSOLUTE COUNT (BEAKER) (test swod=120) 0.98 K/ L 0.00-1.30 EOSINOPHILS ABSOLUTE COUNT (BEAKER) (test ktng=406) 0.06 K/ L 0.00-0.50 BASOPHILS ABSOLUTE COUNT (BEAKER) (test gyvs=154) 0.06 K/ L 0.00-0.20 0.00CBC W/PLT COUNT & AUTO [id number] 15:34:00* Test Item Value Reference Range Comments WHITE BLOOD CELL COUNT (BEAKER) (test ihah=507) 15.7 K/ L 4.0-10.0 RED BLOOD CELL COUNT (BEAKER) (test nyka=412) 5.00 M/ L 4.00-5.00 HEMOGLOBIN (BEAKER) (test wiia=988) 14.3 GM/DL 12.0-15.0 HEMATOCRIT (BEAKER) (test ctjm=850) 45.7 % 36.0-45.0 MEAN CORPUSCULAR VOLUME (BEAKER) (test bqgy=687) 91.4 fL 82.0-99.0 MEAN CORPUSCULAR HEMOGLOBIN (BEAKER) (test lcfk=454) 28.7 pg 27.0-33.0 MEAN CORPUSCULAR HEMOGLOBIN CONC (BEAKER) (test yiwy=505) 31.4 GM/DL 32.0-36.0 RED CELL DISTRIBUTION WIDTH (BEAKER) (test emzv=766) 20.0 % 10.3-14.2 PLATELET COUNT (BEAKER) (test yplb=710) 155 K/CU MM 150-430 MEAN PLATELET VOLUME (BEAKER) (test zkwt=609) 9.0 fL 6.5-10.5 NUCLEATED RED BLOOD CELLS (BEAKER) (test wich=596) 0 /100 WBC 0-0 NEUTROPHILS RELATIVE PERCENT (BEAKER) (test coiy=453) 71 % LYMPHOCYTES RELATIVE PERCENT (BEAKER) (test nxni=170) 21 % MONOCYTES RELATIVE PERCENT (BEAKER) (test nebc=621) 8 % EOSINOPHILS RELATIVE PERCENT (BEAKER) (test rmkx=135) 0 % BASOPHILS RELATIVE PERCENT (BEAKER) (test nprw=580) 0 % NEUTROPHILS ABSOLUTE COUNT (BEAKER) (test bvix=225) 11.10 K/ L 1.80-8.00 LYMPHOCYTES ABSOLUTE COUNT (BEAKER) (test fgwu=423) 3.27 K/ L 1.48-4.50 MONOCYTES ABSOLUTE COUNT (BEAKER) (test wmky=443) 1.22 K/ L 0.00-1.30 EOSINOPHILS ABSOLUTE COUNT (BEAKER) (test zqgp=782) 0.03 K/ L 0.00-0.50 BASOPHILS ABSOLUTE COUNT (BEAKER) (test xfjf=308) 0.04 K/ L 0.00-0.20 0.000.500.000.000.000.000.00(MANUAL DIFFERENTIAL)2017-02-12 15:34:00* Test Item Value Reference Range Comments TOTAL COUNTED (BEAKER) (test tljh=8178) WBC MORPHOLOGY (BEAKER) (test izsk=876) Normal PLT MORPHOLOGY (BEAKER) (test wuet=044) Normal RBC MORPHOLOGY (BEAKER) (test bfvb=954) Normal BASIC METABOLIC [id number] 15:13:00* Test Item Value Reference Range Comments SODIUM (BEAKER) (test lxjx=980) 136 meq/L 136-145 POTASSIUM (BEAKER) (test dtqb=287) 4.0 meq/L 3.5-5.1 CHLORIDE (BEAKER) (test sbon=421) 101 meq/L 98-107 CO2 (BEAKER) (test ifli=846) 24 meq/L 22-29 BLOOD UREA NITROGEN (BEAKER) (test malk=381) 52 mg/dL 7-21 CREATININE (BEAKER) (test peit=637) 2.25 mg/dL 0.57-1.25 GLUCOSE RANDOM (BEAKER) (test lnkj=134) 141 mg/dL 70-105 CALCIUM (BEAKER) (test uxyc=952) 9.4 mg/dL 8.4-10.2 EGFR (BEAKER) (test xnxr=2601) 28 mL/min/1.73 sq m ESTIMATED GFR IS NOT ACCURATE CREATININE CLEARANCE IN PREDICTING GLOMERULAR FILTRATION RATE. ESTIMATED GFR IS NOT APPLICABLE FOR DIALYSIS PATIENTS. [id number] 15:12:00* Test Item Value Reference Range Comments PHOSPHORUS (BEAKER) (test szxa=227) 3.3 mg/dL 2.3-4.7 [id number] 15:12:00* Test Item Value Reference Range Comments MAGNESIUM (BEAKER) (test typv=595) 1.6 mg/dL 1.6-2.6 LIPID [id number] 15:12:00* Test Item Value Reference Range Comments TRIGLYCERIDES (BEAKER) (test mhzx=163) 110 mg/dL CHOLESTEROL (BEAKER) (test ipua=203) 188 mg/dL HDL CHOLESTEROL (BEAKER) (test tzwn=955) 88 mg/dL LDL CHOLESTEROL CALCULATED (BEAKER) (test intv=584) 78 mg/dL Triglyceride Reference Range: Low Risk <150 Borderline 150-199 High Risk 200-499 Very High Risk >=500Cholesterol Reference Range: Low Risk <200 Borderline 200-239 High Risk >240HDL Cholesterol Reference Range: Low Risk >=60 High Risk <40LDL Cholesterol Reference Range: Optimal <100 Near Optimal 100-129 Borderline 130-159 High 160-189 Very High >=190 HEPATIC FUNCTION [id number] 15:12:00* Test Item Value Reference Range Comments TOTAL PROTEIN (BEAKER) (test tprn=644) 8.5 gm/dL 6.0-8.3 ALBUMIN (BEAKER) (test cpur=3302) 4.2 g/dL 3.5-5.0 BILIRUBIN TOTAL (BEAKER) (test oavc=584) 1.5 mg/dL 0.2-1.2 BILIRUBIN DIRECT (BEAKER) (test ngux=993) 0.6 mg/dL 0.1-0.5 ALKALINE PHOSPHATASE (BEAKER) (test ihmk=051) 165 U/L 40-150 AST (SGOT) (BEAKER) (test yhby=195) 39 U/L 5-34 ALT (SGPT) (BEAKER) (test ytil=563) 28 U/L 6-55 PROTHROMBIN [id number] 15:02:00* Test Item Value Reference Range Comments PROTIME (BEAKER) (test rcmq=075) 15.2 seconds 11.7-14.7 INR (BEAKER) (test zsbt=205) 1.2 <=5.9 RECOMMENDED COUMADIN/WARFARIN INR THERAPY RANGESSTANDARD DOSE: 2.0 - 3.0 Inclu ping: PROPHYLAXIS for venous thrombosis, systemic embolization; TREATMENT for joie ous thrombosis and/or pulmonary embolus.HIGH RISK: Target INR is 2.5-3.5 for pat ients with mechanical heart valves.CALCIUM, [id number] 06:00:00* Test Item Value Reference Range Comments CALCIUM IONIZED (BEAKER) (test fmpu=072) 0.81 mmol/L 1.12-1.27 PH, BLOOD (BEAKER) (test bdsn=9730) 7.44 BASIC METABOLIC [id number] 11:27:00* Test Item Value Reference Range Comments SODIUM (BEAKER) (test flbr=797) 136 meq/L 136-145 POTASSIUM (BEAKER) (test vrlg=408) 4.2 meq/L 3.5-5.1 Specimen slightly hemolyzed CHLORIDE (BEAKER) (test rjnk=070) 102 meq/L 98-107 CO2 (BEAKER) (test nsiv=379) 25 meq/L 22-29 BLOOD UREA NITROGEN (BEAKER) (test equx=132) 43 mg/dL 7-21 CREATININE (BEAKER) (test rmfs=504) 2.12 mg/dL 0.57-1.25 Specimen slightly hemolyzed GLUCOSE RANDOM (BEAKER) (test bijl=636) 221 mg/dL 70-105 CALCIUM (BEAKER) (test cgdu=581) 8.6 mg/dL 8.4-10.2 EGFR (BEAKER) (test jfwq=1425) 30 mL/min/1.73 sq m ESTIMATED GFR IS NOT ACCURATE CREATININE CLEARANCE IN PREDICTING GLOMERULAR FILTRATION RATE. ESTIMATED GFR IS NOT APPLICABLE FOR DIALYSIS PATIENTS. CBC W/PLT COUNT & AUTO [id number] 11:18:00* Test Item Value Reference Range Comments WHITE BLOOD CELL COUNT (BEAKER) (test dinf=791) 10.4 K/ L 4.0-10.0 RED BLOOD CELL COUNT (BEAKER) (test sfbo=504) 4.38 M/ L 4.00-5.00 HEMOGLOBIN (BEAKER) (test pywn=556) 12.8 GM/DL 12.0-15.0 HEMATOCRIT (BEAKER) (test mhht=964) 39.7 % 36.0-45.0 MEAN CORPUSCULAR VOLUME (BEAKER) (test llef=937) 90.6 fL 82.0-99.0 MEAN CORPUSCULAR HEMOGLOBIN (BEAKER) (test xfci=879) 29.2 pg 27.0-33.0 MEAN CORPUSCULAR HEMOGLOBIN CONC (BEAKER) (test vkuc=745) 32.2 GM/DL 32.0-36.0 RED CELL DISTRIBUTION WIDTH (BEAKER) (test rkhp=780) 20.1 % 10.3-14.2 PLATELET COUNT (BEAKER) (test wqiz=092) 96 K/CU MM 150-430 MEAN PLATELET VOLUME (BEAKER) (test yiez=340) 8.7 fL 6.5-10.5 NUCLEATED RED BLOOD CELLS (BEAKER) (test gutr=516) 0 /100 WBC 0-0 NEUTROPHILS RELATIVE PERCENT (BEAKER) (test rhig=675) 76 % LYMPHOCYTES RELATIVE PERCENT (BEAKER) (test esil=911) 17 % MONOCYTES RELATIVE PERCENT (BEAKER) (test sztm=248) 7 % EOSINOPHILS RELATIVE PERCENT (BEAKER) (test jfcr=715) 0 % BASOPHILS RELATIVE PERCENT (BEAKER) (test rczy=844) 0 % NEUTROPHILS ABSOLUTE COUNT (BEAKER) (test xqyv=112) 7.84 K/ L 1.80-8.00 LYMPHOCYTES ABSOLUTE COUNT (BEAKER) (test begc=243) 1.78 K/ L 1.48-4.50 MONOCYTES ABSOLUTE COUNT (BEAKER) (test pjts=747) 0.68 K/ L 0.00-1.30 EOSINOPHILS ABSOLUTE COUNT (BEAKER) (test ochs=860) 0.02 K/ L 0.00-0.50 BASOPHILS ABSOLUTE COUNT (BEAKER) (test bqph=541) 0.04 K/ L 0.00-0.20 [id number] 08:11:00* Test Item Value Reference Range Comments MAGNESIUM (BEAKER) (test pibt=707) 2.3 mg/dL 1.6-2.6 Specimen moderately hemolyzed [id number] 08:11:00* Test Item Value Reference Range Comments PHOSPHORUS (BEAKER) (test fkgm=988) 3.7 mg/dL 2.3-4.7 Specimen moderately hemolyzed BASIC METABOLIC [id number] 08:11:00* Test Item Value Reference Range Comments SODIUM (BEAKER) (test mxnu=956) 136 meq/L 136-145 POTASSIUM (BEAKER) (test ouuv=910) 5.2 meq/L 3.5-5.1 Specimen moderately hemolyzed CHLORIDE (BEAKER) (test ofbk=064) 102 meq/L 98-107 CO2 (BEAKER) (test qoiz=637) 21 meq/L 22-29 BLOOD UREA NITROGEN (BEAKER) (test nraw=771) 39 mg/dL 7-21 CREATININE (BEAKER) (test ksky=204) 2.06 mg/dL 0.57-1.25 Specimen moderately hemolyzed GLUCOSE RANDOM (BEAKER) (test loes=108) 120 mg/dL 70-105 CALCIUM (BEAKER) (test cdqw=447) 9.1 mg/dL 8.4-10.2 EGFR (BEAKER) (test smzp=3684) 31 mL/min/1.73 sq m ESTIMATED GFR IS NOT ACCURATE CREATININE CLEARANCE IN PREDICTING GLOMERULAR FILTRATION RATE. ESTIMATED GFR IS NOT APPLICABLE FOR DIALYSIS PATIENTS. LIPID [id number] 08:11:00* Test Item Value Reference Range Comments TRIGLYCERIDES (BEAKER) (test xfsb=442) 125 mg/dL Specimen moderately hemolyzed CHOLESTEROL (BEAKER) (test ngsg=714) 204 mg/dL Specimen moderately hemolyzed HDL CHOLESTEROL (BEAKER) (test gkbb=017) 92 mg/dL LDL CHOLESTEROL CALCULATED (BEAKER) (test titz=658) 87 mg/dL Triglyceride Reference Range: Low Risk <150 Borderline 150-199 High Risk 200-499 Very High Risk >=500Cholesterol Reference Range: Low Risk <200 Borderline 200-239 High Risk >240HDL Cholesterol Reference Range: Low Risk >=60 High Risk <40LDL Cholesterol Reference Range: Optimal <100 Near Optimal 100-129 Borderline 130-159 High 160-189 Very High >=190 HEPATIC FUNCTION [id number] 08:11:00* Test Item Value Reference Range Comments TOTAL PROTEIN (BEAKER) (test cibl=177) 9.1 gm/dL 6.0-8.3 Specimen moderately hemolyzed ALBUMIN (BEAKER) (test smrl=8572) 4.1 g/dL 3.5-5.0 Specimen moderately hemolyzed BILIRUBIN TOTAL (BEAKER) (test jtsb=669) 1.3 mg/dL 0.2-1.2 Specimen moderately hemolyzed BILIRUBIN DIRECT (BEAKER) (test llif=549) 0.3 mg/dL 0.1-0.5 Specimen moderately hemolyzed ALKALINE PHOSPHATASE (BEAKER) (test qmjo=371) 155 U/L 40-150 AST (SGOT) (BEAKER) (test keco=432) 47 U/L 5-34 Specimen moderately hemolyzed ALT (SGPT) (BEAKER) (test hmzm=220) 23 U/L 6-55 Specimen moderately hemolyzed CALCIUM, [id number] 06:47:00* Test Item Value Reference Range Comments CALCIUM IONIZED (BEAKER) (test bktk=890) 0.83 mmol/L 1.12-1.27 PH, BLOOD (BEAKER) (test ecfb=4578) 7.45 PROTHROMBIN TIME/[id number] 06:34:00* Test Item Value Reference Range Comments PROTIME (BEAKER) (test niog=249) 14.0 seconds 11.7-14.7 INR (BEAKER) (test wpkq=489) 1.1 <=5.9 RECOMMENDED COUMADIN/WARFARIN INR THERAPY RANGESSTANDARD DOSE: 2.0 - 3.0 Inclu ping: PROPHYLAXIS for venous thrombosis, systemic embolization; TREATMENT for joie ous thrombosis and/or pulmonary embolus.HIGH RISK: Target INR is 2.5-3.5 for pat ients with mechanical heart valves.TROPONIN [id number] 00:57:00* Test Item Value Reference Range Comments TROPONIN I (BEAKER) (test iqup=818) 0.02 ng/mL 0.00-0.03 Effective 07/17/2014: Reference Range ChangeNew: 0.00-0.03 Previous 0.00-0.15T roponin I (TnI) levels must be interpreted in the context of the presenting symp toms and the clinical findings. Elevated TnI levels indicate myocardial damage, but are not specific for ischemic heart disease. Elevated TnI levels are seen in patients with other cardiac conditions (including myocarditis and congestive he art failure), and slight TnI elevations occur in patients with other conditions, including sepsis, renal failure, acidosis, acute neurological disease, and pers istent tachyarrhythmia.TROPONIN [id number] 18:56:00* Test Item Value Reference Range Comments TROPONIN I (BEAKER) (test hszy=080) 0.02 ng/mL 0.00-0.03 Effective 07/17/2014: Reference Range ChangeNew: 0.00-0.03 Previous 0.00-0.15T roponin I (TnI) levels must be interpreted in the context of the presenting symp toms and the clinical findings. Elevated TnI levels indicate myocardial damage, but are not specific for ischemic heart disease. Elevated TnI levels are seen in patients with other cardiac conditions (including myocarditis and congestive he art failure), and slight TnI elevations occur in patients with other conditions, including sepsis, renal failure, acidosis, acute neurological disease, and pers istent tachyarrhythmia.TROPONIN [id number] 14:05:00* Test Item Value Reference Range Comments TROPONIN I (BEAKER) (test rgqf=002) 0.04 ng/mL 0.00-0.03 Effective 07/17/2014: Reference Range ChangeNew: 0.00-0.03 Previous 0.00-0.15T roponin I (TnI) levels must be interpreted in the context of the presenting symp toms and the clinical findings. Elevated TnI levels indicate myocardial damage, but are not specific for ischemic heart disease. Elevated TnI levels are seen in patients with other cardiac conditions (including myocarditis and congestive he art failure), and slight TnI elevations occur in patients with other conditions, including sepsis, renal failure, acidosis, acute neurological disease, and pers istent tachyarrhythmia.URINALYSIS W/ REFLEX URINE [id number] 12:49:00* Test Item Value Reference Range Comments COLOR (BEAKER) (test keux=577) Light Yellow CLARITY (BEAKER) (test plut=321) Clear SPECIFIC GRAVITY UA (BEAKER) (test gftr=388) 1.008 1.001-1.035 PH UA (BEAKER) (test wibd=338) 7.0 5.0-8.0 PROTEIN UA (BEAKER) (test ecie=370) 10 mg/dL Negative GLUCOSE UA (BEAKER) (test rykl=062) Negative Negative KETONES UA (BEAKER) (test jrer=841) Negative Negative BILIRUBIN UA (BEAKER) (test ygbz=008) Negative Negative BLOOD UA (BEAKER) (test hjbb=492) Negative Negative NITRITE UA (BEAKER) (test jvxe=340) Negative Negative LEUKOCYTE ESTERASE UA (BEAKER) (test ninn=242) Negative Negative UROBILINOGEN UA (BEAKER) (test zmqu=569) 0.2 mg/dL 0.2-1.0 RBC UA (BEAKER) (test gsph=041) < /HPF WBC UA (BEAKER) (test caki=763) 8 /HPF BACTERIA (BEAKER) (test kzsr=520) Rare SQUAMOUS EPITHELIAL (BEAKER) (test tphj=503) 5 /HPF SOURCE(BEAKER) (test cjjw=7968) CREATINE KINASE (CK), TOTAL AND [id number] 12:14:00* Test Item Value Reference Range Comments CREATINE KINASE TOTAL (BEAKER) (test tlzj=577) 66 U/L 29-200 CREATINE KINASE-MB (BEAKER) (test nqsm=658) 2.3 ng/mL 0.0-6.6 CREATINE KINASE-MB INDEX (BEAKER) (test vtvq=743) 3.5 % Effective 07/17/2014: CK-MB Reference Range ChangeNew: 0.0-6.6 Previous: 0.0- 4.9CK-MB Reference Range:<6.7 Normal6.7-10.0 Borderline>10.0 Abnormal B-TYPE NATRIURETIC FACTOR (BNP)2017-02-10 12:13:00* Test Item Value Reference Range Comments B-TYPE NATRIURETIC PEPTIDE (BEAKER) (test wmte=260) 1701 pg/mL 0-100 [id number] 12:07:00* Test Item Value Reference Range Comments LIPASE (BEAKER) (test bcgg=074) 6 U/L 8-78 BASIC METABOLIC [id number] 12:07:00* Test Item Value Reference Range Comments SODIUM (BEAKER) (test uctw=804) 135 meq/L 136-145 POTASSIUM (BEAKER) (test sbgq=406) 4.9 meq/L 3.5-5.1 CHLORIDE (BEAKER) (test mcma=976) 104 meq/L 98-107 CO2 (BEAKER) (test zgcs=479) 19 meq/L 22-29 BLOOD UREA NITROGEN (BEAKER) (test gbyv=125) 28 mg/dL 7-21 CREATININE (BEAKER) (test zomg=881) 1.68 mg/dL 0.57-1.25 GLUCOSE RANDOM (BEAKER) (test fdbd=772) 132 mg/dL 70-105 CALCIUM (BEAKER) (test caqn=806) 9.3 mg/dL 8.4-10.2 EGFR (BEAKER) (test lxzd=3398) 39 mL/min/1.73 sq m ESTIMATED GFR IS NOT ACCURATE CREATININE CLEARANCE IN PREDICTING GLOMERULAR FILTRATION RATE. ESTIMATED GFR IS NOT APPLICABLE FOR DIALYSIS PATIENTS. HEPATIC FUNCTION [id number] 12:07:00* Test Item Value Reference Range Comments TOTAL PROTEIN (BEAKER) (test ilpx=440) 8.2 gm/dL 6.0-8.3 ALBUMIN (BEAKER) (test jspe=4403) 3.9 g/dL 3.5-5.0 BILIRUBIN TOTAL (BEAKER) (test ikdv=342) 1.4 mg/dL 0.2-1.2 BILIRUBIN DIRECT (BEAKER) (test gtgy=118) 0.6 mg/dL 0.1-0.5 ALKALINE PHOSPHATASE (BEAKER) (test pulx=679) 150 U/L 40-150 AST (SGOT) (BEAKER) (test nhye=402) 31 U/L 5-34 ALT (SGPT) (BEAKER) (test slkc=096) 22 U/L 6-55 CBC W/PLT COUNT & AUTO [id number] 11:50:00* Test Item Value Reference Range Comments WHITE BLOOD CELL COUNT (BEAKER) (test pmfx=729) 10.7 K/ L 4.0-10.0 RED BLOOD CELL COUNT (BEAKER) (test wnbz=004) 4.47 M/ L 4.00-5.00 HEMOGLOBIN (BEAKER) (test vdqc=541) 13.0 GM/DL 12.0-15.0 HEMATOCRIT (BEAKER) (test jzra=034) 40.4 % 36.0-45.0 MEAN CORPUSCULAR VOLUME (BEAKER) (test qfuf=485) 90.3 fL 82.0-99.0 MEAN CORPUSCULAR HEMOGLOBIN (BEAKER) (test nvqp=248) 29.2 pg 27.0-33.0 MEAN CORPUSCULAR HEMOGLOBIN CONC (BEAKER) (test kuzf=379) 32.3 GM/DL 32.0-36.0 RED CELL DISTRIBUTION WIDTH (BEAKER) (test ebpz=868) 18.0 % 10.3-14.2 PLATELET COUNT (BEAKER) (test wwys=556) 74 K/CU MM 150-430 MEAN PLATELET VOLUME (BEAKER) (test xoct=609) 8.8 fL 6.5-10.5 NUCLEATED RED BLOOD CELLS (BEAKER) (test bgcd=583) 0 /100 WBC 0-0 NEUTROPHILS RELATIVE PERCENT (BEAKER) (test ryaa=856) 84 % LYMPHOCYTES RELATIVE PERCENT (BEAKER) (test lmep=734) 11 % MONOCYTES RELATIVE PERCENT (BEAKER) (test rccb=157) 4 % EOSINOPHILS RELATIVE PERCENT (BEAKER) (test pwmh=957) 0 % BASOPHILS RELATIVE PERCENT (BEAKER) (test ubfx=772) 0 % NEUTROPHILS ABSOLUTE COUNT (BEAKER) (test wvlg=930) 8.96 K/ L 1.80-8.00 LYMPHOCYTES ABSOLUTE COUNT (BEAKER) (test talh=073) 1.22 K/ L 1.48-4.50 MONOCYTES ABSOLUTE COUNT (BEAKER) (test zyxn=315) 0.47 K/ L 0.00-1.30 EOSINOPHILS ABSOLUTE COUNT (BEAKER) (test yqmo=298) 0.00 K/ L 0.00-0.50 BASOPHILS ABSOLUTE COUNT (BEAKER) (test vdfn=994) 0.03 K/ L 0.00-0.20 0.00CREATINE KINASE (CK), TOTAL AND [id number] 00:47:00* Test Item Value Reference Range Comments CREATINE KINASE TOTAL (BEAKER) (test myon=306) 68 U/L 29-200 CREATINE KINASE-MB (BEAKER) (test hghi=946) 1.4 ng/mL 0.0-6.6 CREATINE KINASE-MB INDEX (BEAKER) (test buhv=664) 2.1 % Effective 07/17/2014: CK-MB Reference Range ChangeNew: 0.0-6.6 Previous: 0.0- 4.9CK-MB Reference Range:<6.7 Normal6.7-10.0 Borderline>10.0 Abnormal TROPONIN [id number] 00:47:00* Test Item Value Reference Range Comments TROPONIN I (SERJIO) (test iduf=367) < ng/mL 0.00-0.03 Effective 07/17/2014: Reference Range ChangeNew: 0.00-0.03 Previous 0.00-0.15T roponin I (TnI) levels must be interpreted in the context of the presenting symp toms and the clinical findings. Elevated TnI levels indicate myocardial damage, but are not specific for ischemic heart disease. Elevated TnI levels are seen in patients with other cardiac conditions (including myocarditis and congestive he art failure), and slight TnI elevations occur in patients with other conditions, including sepsis, renal failure, acidosis, acute neurological disease, and pers istent tachyarrhythmia.CREATINE KINASE (CK), TOTAL AND [id number] 19:05:00* Test Item Value Reference Range Comments CREATINE KINASE TOTAL (SERJIO) (test cijw=840) 69 U/L 29-200 CREATINE KINASE-MB (ANAAKER) (test qrjt=157) 1.5 ng/mL 0.0-6.6 CREATINE KINASE-MB INDEX (SERJIO) (test xpyu=176) 2.2 % Effective 07/17/2014: CK-MB Reference Range ChangeNew: 0.0-6.6 Previous: 0.0- 4.9CK-MB Reference Range:<6.7 Normal6.7-10.0 Borderline>10.0 Abnormal TROPONIN [id number] 19:05:00* Test Item Value Reference Range Comments TROPONIN I (SERJIO) (test lnms=537) < ng/mL 0.00-0.03 Effective 07/17/2014: Reference Range ChangeNew: 0.00-0.03 Previous 0.00-0.15T roponin I (TnI) levels must be interpreted in the context of the presenting symp toms and the clinical findings. Elevated TnI levels indicate myocardial damage, but are not specific for ischemic heart disease. Elevated TnI levels are seen in patients with other cardiac conditions (including myocarditis and congestive he art failure), and slight TnI elevations occur in patients with other conditions, including sepsis, renal failure, acidosis, acute neurological disease, and pers istent tachyarrhythmia.B-TYPE NATRIURETIC FACTOR (BNP)2016-12-10 19:04:00* Test Item Value Reference Range Comments B-TYPE NATRIURETIC PEPTIDE (BEAKER) (test ampz=935) 335 pg/mL 0-100 [id number] 18:59:00* Test Item Value Reference Range Comments MAGNESIUM (BEAKER) (test dvux=469) 1.5 mg/dL 1.6-2.6 BASIC METABOLIC [id number] 18:59:00* Test Item Value Reference Range Comments SODIUM (BEAKER) (test zndv=556) 139 meq/L 136-145 POTASSIUM (BEAKER) (test kowy=362) 4.0 meq/L 3.5-5.1 CHLORIDE (BEAKER) (test vgdr=518) 106 meq/L 98-107 CO2 (BEAKER) (test hvvn=541) 22 meq/L 22-29 BLOOD UREA NITROGEN (BEAKER) (test pfgy=852) 13 mg/dL 7-21 CREATININE (BEAKER) (test hhik=654) 1.47 mg/dL 0.57-1.25 GLUCOSE RANDOM (BEAKER) (test dsek=774) 107 mg/dL 70-105 CALCIUM (BEAKER) (test rgsd=885) 9.6 mg/dL 8.4-10.2 EGFR (BEAKER) (test joch=3775) 46 mL/min/1.73 sq m ESTIMATED GFR IS NOT ACCURATE CREATININE CLEARANCE IN PREDICTING GLOMERULAR FILTRATION RATE. ESTIMATED GFR IS NOT APPLICABLE FOR DIALYSIS PATIENTS. Specimen slightly ictericPT/[id number] 18:49:00* Test Item Value Reference Range Comments PROTIME (BEAKER) (test vbpq=926) 15.5 seconds 11.7-14.7 INR (BEAKER) (test axao=656) 1.2 <=5.9 PARTIAL THROMBOPLASTIN TIME (BEAKER) (test dqwi=032) 31.6 seconds 22.5-36.0 RECOMMENDED COUMADIN/WARFARIN INR THERAPY RANGESSTANDARD DOSE: 2.0 - 3.0 Inclu ping: PROPHYLAXIS for venous thrombosis, systemic embolization; TREATMENT for joie ous thrombosis and/or pulmonary embolus.HIGH RISK: Target INR is 2.5-3.5 for pat ients with mechanical heart valves.CBC W/PLT COUNT & AUTO [id number] 18:46:00* Test Item Value Reference Range Comments WHITE BLOOD CELL COUNT (BEAKER) (test mzpg=297) 6.5 K/ L 4.0-10.0 RED BLOOD CELL COUNT (BEAKER) (test teqg=551) 3.75 M/ L 4.00-5.00 HEMOGLOBIN (BEAKER) (test xagp=196) 11.1 GM/DL 12.0-15.0 HEMATOCRIT (BEAKER) (test poff=040) 33.6 % 36.0-45.0 MEAN CORPUSCULAR VOLUME (BEAKER) (test jxzb=485) 89.5 fL 82.0-99.0 MEAN CORPUSCULAR HEMOGLOBIN (BEAKER) (test pyvh=269) 29.5 pg 27.0-33.0 MEAN CORPUSCULAR HEMOGLOBIN CONC (BEAKER) (test fjlh=813) 33.0 GM/DL 32.0-36.0 RED CELL DISTRIBUTION WIDTH (BEAKER) (test qsqy=815) 16.0 % 10.3-14.2 PLATELET COUNT (BEAKER) (test cfrk=514) 61 K/CU MM 150-430 MEAN PLATELET VOLUME (BEAKER) (test zgbk=097) 8.8 fL 6.5-10.5 NUCLEATED RED BLOOD CELLS (BEAKER) (test vvbz=568) 0 /100 WBC 0-0 NEUTROPHILS RELATIVE PERCENT (BEAKER) (test ferm=362) 63 % LYMPHOCYTES RELATIVE PERCENT (BEAKER) (test yvfe=580) 27 % MONOCYTES RELATIVE PERCENT (BEAKER) (test muft=941) 7 % EOSINOPHILS RELATIVE PERCENT (BEAKER) (test afnn=034) 2 % BASOPHILS RELATIVE PERCENT (BEAKER) (test nrju=787) 1 % NEUTROPHILS ABSOLUTE COUNT (BEAKER) (test sczm=740) 4.11 K/ L 1.80-8.00 LYMPHOCYTES ABSOLUTE COUNT (BEAKER) (test bxay=593) 1.73 K/ L 1.48-4.50 MONOCYTES ABSOLUTE COUNT (BEAKER) (test zrmb=864) 0.47 K/ L 0.00-1.30 EOSINOPHILS ABSOLUTE COUNT (BEAKER) (test wqcx=450) 0.12 K/ L 0.00-0.50 BASOPHILS ABSOLUTE COUNT (BEAKER) (test jtpv=241) 0.06 K/ L 0.00-0.20 [id number] 00:32:00* Test Item Value Reference Range Comments AMYLASE (BEAKER) (test vyjz=645) 63 U/L 25-125 Specimen slightly ictericBASIC METABOLIC [id number] 00:32:00* Test Item Value Reference Range Comments SODIUM (BEAKER) (test yzoy=442) 141 meq/L 136-145 POTASSIUM (BEAKER) (test lntk=170) 3.9 meq/L 3.5-5.1 CHLORIDE (BEAKER) (test xxpy=939) 108 meq/L 98-107 CO2 (BEAKER) (test qppo=125) 18 meq/L 22-29 BLOOD UREA NITROGEN (BEAKER) (test kygo=052) 14 mg/dL 7-21 CREATININE (BEAKER) (test guad=848) 1.36 mg/dL 0.57-1.25 GLUCOSE RANDOM (BEAKER) (test jflf=162) 100 mg/dL 70-105 CALCIUM (BEAKER) (test yzyb=167) 9.9 mg/dL 8.4-10.2 EGFR (BEAKER) (test amrr=8491) 50 mL/min/1.73 sq m ESTIMATED GFR IS NOT ACCURATE CREATININE CLEARANCE IN PREDICTING GLOMERULAR FILTRATION RATE. ESTIMATED GFR IS NOT APPLICABLE FOR DIALYSIS PATIENTS. Specimen slightly ictericHEPATIC FUNCTION [id number] 00:32:00* Test Item Value Reference Range Comments TOTAL PROTEIN (BEAKER) (test mjgt=070) 8.6 gm/dL 6.0-8.3 ALBUMIN (BEAKER) (test rgph=1573) 4.4 g/dL 3.5-5.0 BILIRUBIN TOTAL (BEAKER) (test wmmh=931) 2.4 mg/dL 0.2-1.2 BILIRUBIN DIRECT (BEAKER) (test nbja=859) 0.8 mg/dL 0.1-0.5 ALKALINE PHOSPHATASE (BEAKER) (test touf=330) 145 U/L 40-150 AST (SGOT) (BEAKER) (test bubv=667) 24 U/L 5-34 ALT (SGPT) (BEAKER) (test eumm=507) 14 U/L 6-55 Specimen slightly [id number] 00:32:00* Test Item Value Reference Range Comments LIPASE (BEAKER) (test hjrm=300) 17 U/L 8-78 Specimen slightly ictericCBC W/PLT COUNT & AUTO [id number] 20:01:00 * Test Item Value Reference Range Comments WHITE BLOOD CELL COUNT (BEAKER) (test gsgt=423) 7.6 K/ L 4.0-10.0 RED BLOOD CELL COUNT (BEAKER) (test afkz=519) 3.98 M/ L 4.00-5.00 HEMOGLOBIN (BEAKER) (test ldwm=468) 12.2 GM/DL 12.0-15.0 HEMATOCRIT (BEAKER) (test clqo=518) 34.7 % 36.0-45.0 MEAN CORPUSCULAR VOLUME (BEAKER) (test hhra=694) 87.0 fL 82.0-99.0 MEAN CORPUSCULAR HEMOGLOBIN (BEAKER) (test qzfv=504) 30.6 pg 27.0-33.0 MEAN CORPUSCULAR HEMOGLOBIN CONC (BEAKER) (test jtwl=237) 35.1 GM/DL 32.0-36.0 RED CELL DISTRIBUTION WIDTH (BEAKER) (test nwvu=905) 14.9 % 10.3-14.2 PLATELET COUNT (BEAKER) (test tjrc=343) 57 K/CU MM 150-430 MEAN PLATELET VOLUME (BEAKER) (test qttq=272) 9.7 fL 6.5-10.5 NUCLEATED RED BLOOD CELLS (BEAKER) (test ttlh=496) 0 /100 WBC 0-0 NEUTROPHILS RELATIVE PERCENT (BEAKER) (test qvic=540) 67 % LYMPHOCYTES RELATIVE PERCENT (BEAKER) (test wohi=429) 25 % MONOCYTES RELATIVE PERCENT (BEAKER) (test lqzb=961) 6 % EOSINOPHILS RELATIVE PERCENT (BEAKER) (test fpct=292) 2 % BASOPHILS RELATIVE PERCENT (BEAKER) (test sxwc=357) 1 % NEUTROPHILS ABSOLUTE COUNT (BEAKER) (test bmij=713) 5.07 K/ L 1.80-8.00 LYMPHOCYTES ABSOLUTE COUNT (BEAKER) (test qhnt=280) 1.90 K/ L 1.48-4.50 MONOCYTES ABSOLUTE COUNT (BEAKER) (test aynk=164) 0.45 K/ L 0.00-1.30 EOSINOPHILS ABSOLUTE COUNT (BEAKER) (test eqkp=164) 0.13 K/ L 0.00-0.50 BASOPHILS ABSOLUTE COUNT (BEAKER) (test lusj=575) 0.06 K/ L 0.00-0.20 0.00BLOOD [id number] 00:00:00* Test Item Value Reference Range Comments CULTURE (BEAKER) (test kjeu=0769) No growth in 5 days BLOOD [id number] 00:00:00* Test Item Value Reference Range Comments CULTURE (BEAKER) (test xizf=4862) No growth in 5 days CBC W/PLT COUNT & AUTO [id number] 06:57:00* Test Item Value Reference Range Comments WHITE BLOOD CELL COUNT (BEAKER) (test muva=597) 7.4 K/ L 4.0-10.0 RED BLOOD CELL COUNT (BEAKER) (test ahir=591) 3.68 M/ L 4.00-5.00 HEMOGLOBIN (BEAKER) (test aavc=302) 10.9 GM/DL 12.0-15.0 HEMATOCRIT (BEAKER) (test mddk=777) 33.7 % 36.0-45.0 MEAN CORPUSCULAR VOLUME (BEAKER) (test nrov=625) 91.7 fL 82.0-99.0 MEAN CORPUSCULAR HEMOGLOBIN (BEAKER) (test cumw=968) 29.7 pg 27.0-33.0 MEAN CORPUSCULAR HEMOGLOBIN CONC (BEAKER) (test dwuo=801) 32.4 GM/DL 32.0-36.0 RED CELL DISTRIBUTION WIDTH (BEAKER) (test nkgj=386) 15.3 % 10.3-14.2 PLATELET COUNT (BEAKER) (test lalm=421) 89 K/CU MM 150-430 MEAN PLATELET VOLUME (BEAKER) (test pjjn=529) 10.0 fL 6.5-10.5 NUCLEATED RED BLOOD CELLS (BEAKER) (test ifgl=919) 0 /100 WBC 0-0 NEUTROPHILS RELATIVE PERCENT (BEAKER) (test cjzt=036) 54 % LYMPHOCYTES RELATIVE PERCENT (BEAKER) (test wohf=751) 33 % MONOCYTES RELATIVE PERCENT (BEAKER) (test bvnt=015) 9 % EOSINOPHILS RELATIVE PERCENT (BEAKER) (test ogts=478) 4 % BASOPHILS RELATIVE PERCENT (BEAKER) (test sntx=630) 0 % NEUTROPHILS ABSOLUTE COUNT (BEAKER) (test nuen=657) 3.97 K/ L 1.80-8.00 LYMPHOCYTES ABSOLUTE COUNT (BEAKER) (test csfy=524) 2.44 K/ L 1.48-4.50 MONOCYTES ABSOLUTE COUNT (BEAKER) (test lhmu=090) 0.66 K/ L 0.00-1.30 EOSINOPHILS ABSOLUTE COUNT (BEAKER) (test fwxx=101) 0.27 K/ L 0.00-0.50 BASOPHILS ABSOLUTE COUNT (BEAKER) (test nvxx=159) 0.03 K/ L 0.00-0.20 [id number] 06:47:00* Test Item Value Reference Range Comments PHOSPHORUS (BEAKER) (test bsde=581) 4.2 mg/dL 2.3-4.7 [id number] 06:47:00* Test Item Value Reference Range Comments MAGNESIUM (BEAKER) (test dtwm=227) 1.7 mg/dL 1.6-2.6 BASIC METABOLIC [id number] 06:47:00* Test Item Value Reference Range Comments SODIUM (BEAKER) (test mzza=946) 142 meq/L 136-145 POTASSIUM (BEAKER) (test wtcz=726) 3.4 meq/L 3.5-5.1 CHLORIDE (BEAKER) (test titp=491) 105 meq/L 98-107 CO2 (BEAKER) (test ezxn=404) 21 meq/L 22-29 BLOOD UREA NITROGEN (BEAKER) (test stdz=917) 23 mg/dL 7-21 CREATININE (BEAKER) (test lluj=964) 1.66 mg/dL 0.57-1.25 GLUCOSE RANDOM (BEAKER) (test dnfc=957) 136 mg/dL 70-105 CALCIUM (BEAKER) (test sgeh=901) 9.9 mg/dL 8.4-10.2 EGFR (BEAKER) (test oozq=5563) 40 mL/min/1.73 sq m ESTIMATED GFR IS NOT ACCURATE CREATININE CLEARANCE IN PREDICTING GLOMERULAR FILTRATION RATE. ESTIMATED GFR IS NOT APPLICABLE FOR DIALYSIS PATIENTS. HEPATIC FUNCTION [id number] 06:47:00* Test Item Value Reference Range Comments TOTAL PROTEIN (BEAKER) (test almn=523) 8.3 gm/dL 6.0-8.3 ALBUMIN (BEAKER) (test vnop=1219) 4.5 g/dL 3.5-5.0 BILIRUBIN TOTAL (BEAKER) (test jjyc=909) 0.9 mg/dL 0.2-1.2 BILIRUBIN DIRECT (BEAKER) (test lfvv=910) 0.3 mg/dL 0.1-0.5 ALKALINE PHOSPHATASE (BEAKER) (test sfkj=199) 116 U/L 40-150 AST (SGOT) (BEAKER) (test wtis=546) 25 U/L 5-34 ALT (SGPT) (BEAKER) (test elwo=736) 13 U/L 6-55 CBC W/PLT COUNT & AUTO [id number] 06:23:00* Test Item Value Reference Range Comments WHITE BLOOD CELL COUNT (BEAKER) (test jgeh=118) 8.7 K/ L 4.0-10.0 RED BLOOD CELL COUNT (BEAKER) (test ywbn=897) 3.79 M/ L 4.00-5.00 HEMOGLOBIN (BEAKER) (test cess=511) 11.4 GM/DL 12.0-15.0 HEMATOCRIT (BEAKER) (test mecn=702) 34.6 % 36.0-45.0 MEAN CORPUSCULAR VOLUME (BEAKER) (test gdxa=408) 91.3 fL 82.0-99.0 MEAN CORPUSCULAR HEMOGLOBIN (BEAKER) (test ccdz=880) 30.2 pg 27.0-33.0 MEAN CORPUSCULAR HEMOGLOBIN CONC (BEAKER) (test agky=114) 33.0 GM/DL 32.0-36.0 RED CELL DISTRIBUTION WIDTH (BEAKER) (test ogra=686) 15.6 % 10.3-14.2 PLATELET COUNT (BEAKER) (test zkpq=106) 99 K/CU MM 150-430 MEAN PLATELET VOLUME (BEAKER) (test vuhs=089) 9.8 fL 6.5-10.5 NUCLEATED RED BLOOD CELLS (BEAKER) (test ydtx=040) 0 /100 WBC 0-0 NEUTROPHILS RELATIVE PERCENT (BEAKER) (test ijvs=650) 56 % LYMPHOCYTES RELATIVE PERCENT (BEAKER) (test bmnw=942) 31 % MONOCYTES RELATIVE PERCENT (BEAKER) (test klzr=672) 8 % EOSINOPHILS RELATIVE PERCENT (BEAKER) (test ammk=154) 4 % BASOPHILS RELATIVE PERCENT (BEAKER) (test bwaq=100) 0 % NEUTROPHILS ABSOLUTE COUNT (BEAKER) (test orwv=086) 4.90 K/ L 1.80-8.00 LYMPHOCYTES ABSOLUTE COUNT (BEAKER) (test dome=615) 2.70 K/ L 1.48-4.50 MONOCYTES ABSOLUTE COUNT (BEAKER) (test qvzf=044) 0.71 K/ L 0.00-1.30 EOSINOPHILS ABSOLUTE COUNT (BEAKER) (test pksw=006) 0.37 K/ L 0.00-0.50 BASOPHILS ABSOLUTE COUNT (BEAKER) (test gahv=050) 0.04 K/ L 0.00-0.20 [id number] 05:56:00* Test Item Value Reference Range Comments PHOSPHORUS (BEAKER) (test orpr=875) 3.5 mg/dL 2.3-4.7 [id number] 05:56:00* Test Item Value Reference Range Comments MAGNESIUM (BEAKER) (test wzdg=364) 2.1 mg/dL 1.6-2.6 HEPATIC FUNCTION [id number] 05:56:00* Test Item Value Reference Range Comments TOTAL PROTEIN (BEAKER) (test yrli=119) 9.0 gm/dL 6.0-8.3 ALBUMIN (BEAKER) (test jrvm=9311) 5.0 g/dL 3.5-5.0 BILIRUBIN TOTAL (BEAKER) (test krwv=452) 1.4 mg/dL 0.2-1.2 BILIRUBIN DIRECT (BEAKER) (test zokp=609) 0.5 mg/dL 0.1-0.5 ALKALINE PHOSPHATASE (BEAKER) (test lqyt=009) 119 U/L 40-150 AST (SGOT) (BEAKER) (test peuh=231) 22 U/L 5-34 ALT (SGPT) (BEAKER) (test olyn=666) 12 U/L 6-55 COMPREHENSIVE METABOLIC [id number] 05:56:00* Test Item Value Reference Range Comments TOTAL PROTEIN (BEAKER) (test hmeh=828) 9.0 gm/dL 6.0-8.3 ALBUMIN (BEAKER) (test ugri=2704) 5.0 g/dL 3.5-5.0 ALKALINE PHOSPHATASE (BEAKER) (test nyae=130) 119 U/L 40-150 BILIRUBIN TOTAL (BEAKER) (test onha=074) 1.4 mg/dL 0.2-1.2 SODIUM (BEAKER) (test tioz=077) 141 meq/L 136-145 POTASSIUM (BEAKER) (test qcjw=744) 3.7 meq/L 3.5-5.1 CHLORIDE (BEAKER) (test tdwl=826) 103 meq/L 98-107 CO2 (BEAKER) (test hcat=500) 21 meq/L 22-29 BLOOD UREA NITROGEN (BEAKER) (test byrb=176) 22 mg/dL 7-21 CREATININE (BEAKER) (test amij=659) 1.75 mg/dL 0.57-1.25 GLUCOSE RANDOM (BEAKER) (test bwro=978) 125 mg/dL 70-105 CALCIUM (BEAKER) (test mcwa=845) 10.5 mg/dL 8.4-10.2 AST (SGOT) (BEAKER) (test jawp=862) 22 U/L 5-34 ALT (SGPT) (BEAKER) (test oqfk=441) 12 U/L 6-55 EGFR (BEAKER) (test vnpl=9095) 37 mL/min/1.73 sq m ESTIMATED GFR IS NOT ACCURATE CREATININE CLEARANCE IN PREDICTING GLOMERULAR FILTRATION RATE. ESTIMATED GFR IS NOT APPLICABLE FOR DIALYSIS PATIENTS. URINE [id number] 10:38:00* Test Item Value Reference Range Comments CULTURE (BEAKER) (test gkah=5384) ESCHERICHIA COLI >100,000 col/mL Escherichia coli Amikacin (test code=1) Ampicillin + Sulbactam (test code=6) Aztreonam (test code=32) Cefepime (test code=51) Cefoxitin (test code=68) Ceftazidime (test code=27) Ceftriaxone (test code=52) Ertapenem (test code=38) Gentamicin (test code=18) Levofloxacin (test code=22) Meropenem (test code=34) Nitrofurantoin (test code=23) Piperacillin + Tazobactam (test code=29) Tetracycline (test code=2) Tobramycin (test code=25) Trimethoprim + Sulfamethoxazole (test code=47) HEPATIC FUNCTION [id number] 06:20:00* Test Item Value Reference Range Comments TOTAL PROTEIN (BEAKER) (test ggtq=335) 7.8 gm/dL 6.0-8.3 ALBUMIN (BEAKER) (test gvvs=1297) 4.5 g/dL 3.5-5.0 BILIRUBIN TOTAL (BEAKER) (test mydi=175) 1.1 mg/dL 0.2-1.2 BILIRUBIN DIRECT (BEAKER) (test vpvo=627) 0.5 mg/dL 0.1-0.5 ALKALINE PHOSPHATASE (BEAKER) (test olnz=122) 115 U/L 40-150 AST (SGOT) (BEAKER) (test ecjt=779) 22 U/L 5-34 ALT (SGPT) (BEAKER) (test swyy=215) 9 U/L 6-55 BASIC METABOLIC [id number] 06:20:00* Test Item Value Reference Range Comments SODIUM (BEAKER) (test wppr=137) 144 meq/L 136-145 POTASSIUM (BEAKER) (test jukz=360) 3.9 meq/L 3.5-5.1 CHLORIDE (BEAKER) (test hmfq=560) 107 meq/L 98-107 CO2 (BEAKER) (test zkyn=700) 27 meq/L 22-29 BLOOD UREA NITROGEN (BEAKER) (test rcbs=546) 21 mg/dL 7-21 CREATININE (BEAKER) (test wwrq=335) 1.82 mg/dL 0.57-1.25 GLUCOSE RANDOM (BEAKER) (test yrws=513) 127 mg/dL 70-105 CALCIUM (BEAKER) (test fokt=740) 9.6 mg/dL 8.4-10.2 EGFR (BEAKER) (test xiui=8555) 36 mL/min/1.73 sq m ESTIMATED GFR IS NOT ACCURATE CREATININE CLEARANCE IN PREDICTING GLOMERULAR FILTRATION RATE. ESTIMATED GFR IS NOT APPLICABLE FOR DIALYSIS PATIENTS. CBC W/PLT COUNT & AUTO [id number] 05:24:00* Test Item Value Reference Range Comments WHITE BLOOD CELL COUNT (BEAKER) (test vckq=437) 7.2 K/ L 4.0-10.0 RED BLOOD CELL COUNT (BEAKER) (test ajjf=078) 3.33 M/ L 4.00-5.00 HEMOGLOBIN (BEAKER) (test hgjv=307) 10.1 GM/DL 12.0-15.0 HEMATOCRIT (BEAKER) (test snnp=608) 30.6 % 36.0-45.0 MEAN CORPUSCULAR VOLUME (BEAKER) (test vfus=270) 91.9 fL 82.0-99.0 MEAN CORPUSCULAR HEMOGLOBIN (BEAKER) (test cmsk=443) 30.3 pg 27.0-33.0 MEAN CORPUSCULAR HEMOGLOBIN CONC (BEAKER) (test mqgy=624) 32.9 GM/DL 32.0-36.0 RED CELL DISTRIBUTION WIDTH (BEAKER) (test ioij=038) 15.4 % 10.3-14.2 PLATELET COUNT (BEAKER) (test hnqv=155) 74 K/CU MM 150-430 MEAN PLATELET VOLUME (BEAKER) (test njhx=712) 9.7 fL 6.5-10.5 NUCLEATED RED BLOOD CELLS (BEAKER) (test wzdj=919) 0 /100 WBC 0-0 NEUTROPHILS RELATIVE PERCENT (BEAKER) (test cvkg=250) 64 % LYMPHOCYTES RELATIVE PERCENT (BEAKER) (test wian=461) 24 % MONOCYTES RELATIVE PERCENT (BEAKER) (test aiyz=261) 8 % EOSINOPHILS RELATIVE PERCENT (BEAKER) (test ftcx=596) 4 % BASOPHILS RELATIVE PERCENT (BEAKER) (test wnuc=723) 1 % NEUTROPHILS ABSOLUTE COUNT (BEAKER) (test eswc=222) 4.61 K/ L 1.80-8.00 LYMPHOCYTES ABSOLUTE COUNT (BEAKER) (test ilhr=375) 1.69 K/ L 1.48-4.50 MONOCYTES ABSOLUTE COUNT (BEAKER) (test rcqg=194) 0.59 K/ L 0.00-1.30 EOSINOPHILS ABSOLUTE COUNT (BEAKER) (test ncis=624) 0.25 K/ L 0.00-0.50 BASOPHILS ABSOLUTE COUNT (BEAKER) (test ttns=153) 0.04 K/ L 0.00-0.20 [id number] 10:57:00* Test Item Value Reference Range Comments MAGNESIUM (BEAKER) (test fctc=944) 2.7 mg/dL 1.6-2.6 CREATINE KINASE (CK), TOTAL AND [id number] 10:57:00* Test Item Value Reference Range Comments CREATINE KINASE TOTAL (BEAKER) (test zktp=763) 32 U/L 29-200 CREATINE KINASE-MB (BEAKER) (test pabt=046) 0.4 ng/mL 0.0-6.6 CREATINE KINASE-MB INDEX (BEAKER) (test vlvo=321) 1.3 % Effective 07/17/2014: CK-MB Reference Range ChangeNew: 0.0-6.6 Previous: 0.0- 4.9CK-MB Reference Range:<6.7 Normal6.7-10.0 Borderline>10.0 Abnormal [id number] 06:16:00* Test Item Value Reference Range Comments MAGNESIUM (BEAKER) (test uwah=701) 1.8 mg/dL 1.6-2.6 [id number] 06:16:00* Test Item Value Reference Range Comments PHOSPHORUS (BEAKER) (test vbki=373) 3.2 mg/dL 2.3-4.7 BASIC METABOLIC [id number] 06:15:00* Test Item Value Reference Range Comments SODIUM (BEAKER) (test ipsn=715) 143 meq/L 136-145 POTASSIUM (BEAKER) (test ghwd=528) 4.2 meq/L 3.5-5.1 CHLORIDE (BEAKER) (test nzcl=311) 107 meq/L 98-107 CO2 (BEAKER) (test ufxe=745) 23 meq/L 22-29 BLOOD UREA NITROGEN (BEAKER) (test ekro=632) 20 mg/dL 7-21 CREATININE (BEAKER) (test ijbg=004) 2.16 mg/dL 0.57-1.25 GLUCOSE RANDOM (BEAKER) (test dwae=565) 128 mg/dL 70-105 CALCIUM (BEAKER) (test fynz=227) 9.1 mg/dL 8.4-10.2 EGFR (BEAKER) (test ibje=0011) 29 mL/min/1.73 sq m ESTIMATED GFR IS NOT ACCURATE CREATININE CLEARANCE IN PREDICTING GLOMERULAR FILTRATION RATE. ESTIMATED GFR IS NOT APPLICABLE FOR DIALYSIS PATIENTS. CREATINE KINASE (CK), TOTAL AND [id number] 06:12:00* Test Item Value Reference Range Comments CREATINE KINASE TOTAL (BEAKER) (test wlte=830) 34 U/L 29-200 CREATINE KINASE-MB (SERJIO) (test fukz=207) 0.4 ng/mL 0.0-6.6 CREATINE KINASE-MB INDEX (SERJIO) (test zpiz=530) 1.2 % Effective 07/17/2014: CK-MB Reference Range ChangeNew: 0.0-6.6 Previous: 0.0- 4.9CK-MB Reference Range:<6.7 Normal6.7-10.0 Borderline>10.0 Abnormal TROPONIN [id number] 06:00:00* Test Item Value Reference Range Comments TROPONIN I (SERJIO) (test mmgf=075) < ng/mL 0.00-0.03 Effective 07/17/2014: Reference Range ChangeNew: 0.00-0.03 Previous 0.00-0.15T roponin I (TnI) levels must be interpreted in the context of the presenting symp toms and the clinical findings. Elevated TnI levels indicate myocardial damage, but are not specific for ischemic heart disease. Elevated TnI levels are seen in patients with other cardiac conditions (including myocarditis and congestive he art failure), and slight TnI elevations occur in patients with other conditions, including sepsis, renal failure, acidosis, acute neurological disease, and pers istent tachyarrhythmia.[id number] 04:30:00* Test Item Value Reference Range Comments PHOSPHORUS (SERJIO) (test znry=968) 3.0 mg/dL 2.3-4.7 PROTHROMBIN [id number] 04:20:00* Test Item Value Reference Range Comments PROTIME (SERJIO) (test qgfb=638) 16.3 seconds 11.7-14.7 INR (SERJIO) (test iskx=933) 1.3 <=5.9 RECOMMENDED COUMADIN/WARFARIN INR THERAPY RANGESSTANDARD DOSE: 2.0 - 3.0 Inclu ping: PROPHYLAXIS for venous thrombosis, systemic embolization; TREATMENT for joie ous thrombosis and/or pulmonary embolus.HIGH RISK: Target INR is 2.5-3.5 for pat ients with mechanical heart valves.CBC W/PLT COUNT & AUTO [id number] 04:16:00* Test Item Value Reference Range Comments WHITE BLOOD CELL COUNT (SERJIO) (test trzh=278) 7.5 K/ L 4.0-10.0 RED BLOOD CELL COUNT (BEAKER) (test stqb=735) 3.28 M/ L 4.00-5.00 HEMOGLOBIN (BEAKER) (test kafm=105) 9.6 GM/DL 12.0-15.0 HEMATOCRIT (BEAKER) (test ldzu=034) 29.9 % 36.0-45.0 MEAN CORPUSCULAR VOLUME (BEAKER) (test yjxq=769) 91.2 fL 82.0-99.0 MEAN CORPUSCULAR HEMOGLOBIN (BEAKER) (test ziwc=392) 29.2 pg 27.0-33.0 MEAN CORPUSCULAR HEMOGLOBIN CONC (BEAKER) (test ddeo=702) 32.0 GM/DL 32.0-36.0 RED CELL DISTRIBUTION WIDTH (BEAKER) (test idyc=485) 15.3 % 10.3-14.2 PLATELET COUNT (BEAKER) (test xnoq=962) 74 K/CU MM 150-430 MEAN PLATELET VOLUME (BEAKER) (test onyy=804) 9.0 fL 6.5-10.5 NUCLEATED RED BLOOD CELLS (BEAKER) (test uwbp=115) 0 /100 WBC 0-0 NEUTROPHILS RELATIVE PERCENT (BEAKER) (test xruv=755) 65 % LYMPHOCYTES RELATIVE PERCENT (BEAKER) (test gctq=563) 23 % MONOCYTES RELATIVE PERCENT (BEAKER) (test rcoa=518) 8 % EOSINOPHILS RELATIVE PERCENT (BEAKER) (test tuuf=015) 3 % BASOPHILS RELATIVE PERCENT (BEAKER) (test qphz=556) 0 % NEUTROPHILS ABSOLUTE COUNT (BEAKER) (test snci=477) 4.91 K/ L 1.80-8.00 LYMPHOCYTES ABSOLUTE COUNT (BEAKER) (test oqtu=453) 1.75 K/ L 1.48-4.50 MONOCYTES ABSOLUTE COUNT (BEAKER) (test uiby=253) 0.63 K/ L 0.00-1.30 EOSINOPHILS ABSOLUTE COUNT (BEAKER) (test gssz=397) 0.23 K/ L 0.00-0.50 BASOPHILS ABSOLUTE COUNT (BEAKER) (test camt=063) 0.01 K/ L 0.00-0.20 0.00BASI METABOLIC [id number] 01:04:00* Test Item Value Reference Range Comments SODIUM (BEAKER) (test iotf=147) 141 meq/L 136-145 POTASSIUM (BEAKER) (test dbxb=538) 4.1 meq/L 3.5-5.1 CHLORIDE (BEAKER) (test kvud=461) 107 meq/L 98-107 CO2 (BEAKER) (test codf=148) 20 meq/L 22-29 BLOOD UREA NITROGEN (BEAKER) (test bjfn=927) 20 mg/dL 7-21 CREATININE (BEAKER) (test omhm=789) 2.27 mg/dL 0.57-1.25 GLUCOSE RANDOM (BEAKER) (test jorq=263) 167 mg/dL 70-105 CALCIUM (BEAKER) (test sizv=938) 9.1 mg/dL 8.4-10.2 EGFR (BEAKER) (test qpza=3891) 28 mL/min/1.73 sq m ESTIMATED GFR IS NOT ACCURATE CREATININE CLEARANCE IN PREDICTING GLOMERULAR FILTRATION RATE. ESTIMATED GFR IS NOT APPLICABLE FOR DIALYSIS PATIENTS. [id number] 01:02:00* Test Item Value Reference Range Comments MAGNESIUM (BEAKER) (test oupw=902) 2.1 mg/dL 1.6-2.6 CREATINE KINASE (CK), TOTAL AND [id number] 00:36:00* Test Item Value Reference Range Comments CREATINE KINASE TOTAL (BEAKER) (test lqpq=506) 41 U/L 29-200 CREATINE KINASE-MB (BEAKER) (test flxl=550) 0.7 ng/mL 0.0-6.6 CREATINE KINASE-MB INDEX (BEAKER) (test uadr=825) 1.7 % Effective 07/17/2014: CK-MB Reference Range ChangeNew: 0.0-6.6 Previous: 0.0- 4.9CK-MB Reference Range:<6.7 Normal6.7-10.0 Borderline>10.0 Abnormal BASIC METABOLIC [id number] 18:56:00* Test Item Value Reference Range Comments SODIUM (BEAKER) (test jpzd=631) 142 meq/L 136-145 POTASSIUM (BEAKER) (test nhgm=656) 3.8 meq/L 3.5-5.1 CHLORIDE (BEAKER) (test prpg=583) 105 meq/L 98-107 CO2 (BEAKER) (test fbhs=453) 23 meq/L 22-29 BLOOD UREA NITROGEN (BEAKER) (test gqhk=274) 20 mg/dL 7-21 CREATININE (BEAKER) (test vjhn=225) 2.33 mg/dL 0.57-1.25 GLUCOSE RANDOM (BEAKER) (test hofk=786) 97 mg/dL 70-105 CALCIUM (BEAKER) (test whcs=853) 9.3 mg/dL 8.4-10.2 EGFR (BEAKER) (test yjet=2969) 27 mL/min/1.73 sq m ESTIMATED GFR IS NOT ACCURATE CREATININE CLEARANCE IN PREDICTING GLOMERULAR FILTRATION RATE. ESTIMATED GFR IS NOT APPLICABLE FOR DIALYSIS PATIENTS. [id number] 18:55:00* Test Item Value Reference Range Comments MAGNESIUM (BEAKER) (test rnki=771) 1.7 mg/dL 1.6-2.6 BLOOD GAS, [id number] 18:46:00* Test Item Value Reference Range Comments PH ARTERIAL (BEAKER) (test bqwj=997) 7.45 7.35-7.45 PCO2 ARTERIAL (BEAKER) (test nmeh=085) 37 mmHg 35-45 PO2 ARTERIAL (BEAKER) (test nsug=193) 67 mmHg 80-90 O2 SATURATION ARTERIAL (BEAKER) (test ogem=145) 94.7 % 96.0-97.0 HCO3 ARTERIAL (BEAKER) (test qmzi=783) 25 mmol/L 21-29 BASE EXCESS ARTERIAL (BEAKER) (test wloe=970) 1.2 mmol/L -2.0-3.0 PATIENT TEMPERATURE (BEAKER) (test dvct=1851) 36.4 C FIO2 (BEAKER) (test rnkq=9904) 28.0 % CREATINE KINASE (CK), TOTAL AND [id number] 17:15:00* Test Item Value Reference Range Comments CREATINE KINASE TOTAL (BEAKER) (test yhbp=707) 36 U/L 29-200 CREATINE KINASE-MB (BEAKER) (test cwxo=814) 0.9 ng/mL 0.0-6.6 CREATINE KINASE-MB INDEX (BEAKER) (test ethi=107) 2.5 % Effective 07/17/2014: CK-MB Reference Range ChangeNew: 0.0-6.6 Previous: 0.0- 4.9CK-MB Reference Range:<6.7 Normal6.7-10.0 Borderline>10.0 Abnormal URINALYSIS W/ [id number] 16:00:00* Test Item Value Reference Range Comments COLOR (BEAKER) (test ulsb=318) Yellow CLARITY (BEAKER) (test elnu=020) Hazy SPECIFIC GRAVITY UA (BEAKER) (test lrpn=872) 1.013 1.001-1.035 PH UA (BEAKER) (test vojp=605) 5.0 5.0-8.0 PROTEIN UA (BEAKER) (test yiyd=130) 20 mg/dL Negative GLUCOSE UA (BEAKER) (test qhzs=707) Negative Negative KETONES UA (BEAKER) (test vsri=367) Negative Negative BILIRUBIN UA (BEAKER) (test pbhe=882) Negative Negative BLOOD UA (BEAKER) (test kntx=509) Small Negative NITRITE UA (BEAKER) (test ayjd=160) Negative Negative LEUKOCYTE ESTERASE UA (BEAKER) (test xria=192) Large Negative UROBILINOGEN UA (BEAKER) (test pfwp=210) 0.2 mg/dL 0.2-1.0 RBC UA (BEAKER) (test jpds=067) 22 /HPF WBC UA (BEAKER) (test brvp=416) 101 /HPF BACTERIA (BEAKER) (test cmvw=430) Occasional MUCUS (BEAKER) (test rkqo=8950) Few SQUAMOUS EPITHELIAL (BEAKER) (test nlwn=903) 3 /HPF HYALINE CASTS (BEAKER) (test cgsd=570) 35 /LPF SOURCE(BEAKER) (test umql=3975) Urine, John LACTIC ACID, ARTERIAL, WHOLE [id number] 15:09:00* Test Item Value Reference Range Comments LACTATE BLOOD ARTERIAL (2) (BEAKER) (test zcam=1810) 1.5 mmol/L 0.5-2.2 Effective 01/01/2016: Units/Reference Range ChangeNew: 0.5-2.2 mmol/L Previous: 5 -20 mg/dLBLOOD GAS, [id number] 15:00:00* Test Item Value Reference Range Comments PH ARTERIAL (BEAKER) (test hprg=800) 7.39 7.35-7.45 PCO2 ARTERIAL (BEAKER) (test hnei=558) 43 mmHg 35-45 PO2 ARTERIAL (BEAKER) (test lazo=678) 97 mmHg 80-90 O2 SATURATION ARTERIAL (BEAKER) (test kyrq=403) 97.4 % 96.0-97.0 HCO3 ARTERIAL (BEAKER) (test enwj=521) 26 mmol/L 21-29 BASE EXCESS ARTERIAL (BEAKER) (test xnsv=295) 0.3 mmol/L -2.0-3.0 PATIENT TEMPERATURE (BEAKER) (test jwax=3773) 36.4 C FIO2 (BEAKER) (test ycxw=6778) 28.0 % COMPREHENSIVE METABOLIC [id number] 09:55:00* Test Item Value Reference Range Comments TOTAL PROTEIN (BEAKER) (test vbgj=885) 7.1 gm/dL 6.0-8.3 Specimen slightly hemolyzed ALBUMIN (BEAKER) (test uczd=6616) 3.6 g/dL 3.5-5.0 Specimen slightly hemolyzed ALKALINE PHOSPHATASE (BEAKER) (test ztof=913) 113 U/L 40-150 BILIRUBIN TOTAL (BEAKER) (test rjkf=816) 1.2 mg/dL 0.2-1.2 Specimen slightly hemolyzed SODIUM (BEAKER) (test xurg=674) 141 meq/L 136-145 POTASSIUM (BEAKER) (test urxo=341) 4.1 meq/L 3.5-5.1 Specimen slightly hemolyzed CHLORIDE (BEAKER) (test wrop=851) 106 meq/L 98-107 CO2 (BEAKER) (test gxxk=005) 25 meq/L 22-29 BLOOD UREA NITROGEN (BEAKER) (test gvgs=769) 17 mg/dL 7-21 CREATININE (BEAKER) (test wgjs=561) 2.32 mg/dL 0.57-1.25 Specimen slightly hemolyzed GLUCOSE RANDOM (BEAKER) (test iqin=078) 140 mg/dL 70-105 CALCIUM (BEAKER) (test ndff=021) 8.6 mg/dL 8.4-10.2 AST (SGOT) (BEAKER) (test tekl=135) 21 U/L 5-34 Specimen slightly hemolyzed ALT (SGPT) (BEAKER) (test arwy=333) 9 U/L 6-55 Specimen slightly hemolyzed EGFR (BEAKER) (test pece=6405) 27 mL/min/1.73 sq m ESTIMATED GFR IS NOT ACCURATE CREATININE CLEARANCE IN PREDICTING GLOMERULAR FILTRATION RATE. ESTIMATED GFR IS NOT APPLICABLE FOR DIALYSIS PATIENTS. LACTIC ACID, VENOUS, WHOLE [id number] 09:38:00* Test Item Value Reference Range Comments LACTATE BLOOD VENOUS (2) (BEAKER) (test kdef=0025) 1.0 mmol/L 0.5-2.2 Specimen slightly hemolyzed Effective 01/01/2016: Units/Reference Range ChangeNew: 0.5-2.2 mmol/L Previous: 5 -20 mg/dLTROPONIN [id number] 09:30:00* Test Item Value Reference Range Comments TROPONIN I (BEAKER) (test sohf=188) 0.02 ng/mL 0.00-0.03 Effective 07/17/2014: Reference Range ChangeNew: 0.00-0.03 Previous 0.00-0.15T roponin I (TnI) levels must be interpreted in the context of the presenting symp toms and the clinical findings. Elevated TnI levels indicate myocardial damage, but are not specific for ischemic heart disease. Elevated TnI levels are seen in patients with other cardiac conditions (including myocarditis and congestive he art failure), and slight TnI elevations occur in patients with other conditions, including sepsis, renal failure, acidosis, acute neurological disease, and pers istent tachyarrhythmia.CBC W/PLT COUNT & AUTO [id number] 09:27:00* Test Item Value Reference Range Comments WHITE BLOOD CELL COUNT (BEAKER) (test lqka=023) 7.0 K/ L 4.0-10.0 RED BLOOD CELL COUNT (BEAKER) (test awdi=780) 3.16 M/ L 4.00-5.00 HEMOGLOBIN (BEAKER) (test quzd=270) 9.6 GM/DL 12.0-15.0 HEMATOCRIT (BEAKER) (test uctt=549) 29.1 % 36.0-45.0 MEAN CORPUSCULAR VOLUME (BEAKER) (test zlwf=160) 92.0 fL 82.0-99.0 MEAN CORPUSCULAR HEMOGLOBIN (BEAKER) (test xqep=494) 30.3 pg 27.0-33.0 MEAN CORPUSCULAR HEMOGLOBIN CONC (BEAKER) (test jrqd=659) 32.9 GM/DL 32.0-36.0 RED CELL DISTRIBUTION WIDTH (BEAKER) (test ottn=246) 15.5 % 10.3-14.2 PLATELET COUNT (BEAKER) (test nvxf=293) 93 K/CU MM 150-430 MEAN PLATELET VOLUME (BEAKER) (test wzcc=883) 9.6 fL 6.5-10.5 NUCLEATED RED BLOOD CELLS (BEAKER) (test yebo=712) 0 /100 WBC 0-0 NEUTROPHILS RELATIVE PERCENT (BEAKER) (test facg=086) 57 % LYMPHOCYTES RELATIVE PERCENT (BEAKER) (test vjqp=148) 32 % MONOCYTES RELATIVE PERCENT (BEAKER) (test fbms=096) 7 % EOSINOPHILS RELATIVE PERCENT (BEAKER) (test isxp=851) 3 % BASOPHILS RELATIVE PERCENT (BEAKER) (test dtxz=013) 0 % NEUTROPHILS ABSOLUTE COUNT (BEAKER) (test sfnx=703) 3.98 K/ L 1.80-8.00 LYMPHOCYTES ABSOLUTE COUNT (BEAKER) (test jpqd=961) 2.23 K/ L 1.48-4.50 MONOCYTES ABSOLUTE COUNT (BEAKER) (test zqyn=580) 0.52 K/ L 0.00-1.30 EOSINOPHILS ABSOLUTE COUNT (BEAKER) (test nkeo=085) 0.19 K/ L 0.00-0.50 BASOPHILS ABSOLUTE COUNT (BEAKER) (test mwap=120) 0.03 K/ L 0.00-0.20 0.00POCT-GLUCOSE [id number] 09:17:00* Test Item Value Reference Range Comments POC-GLUCOSE METER (BEAKER) (test yaby=2884) 149 mg/dL 70-110 TESTED AT [address] [address] CBC W/PLT COUNT & AUTO [id number] 07:28:00* Test Item Value Reference Range Comments WHITE BLOOD CELL COUNT (BEAKER) (test ntbq=692) 8.4 K/ L 4.0-10.0 RED BLOOD CELL COUNT (BEAKER) (test dmvk=259) 3.56 M/ L 4.00-5.00 HEMOGLOBIN (BEAKER) (test ygiu=967) 10.5 GM/DL 12.0-15.0 HEMATOCRIT (BEAKER) (test egth=357) 32.6 % 36.0-45.0 MEAN CORPUSCULAR VOLUME (BEAKER) (test nwhq=256) 91.6 fL 82.0-99.0 MEAN CORPUSCULAR HEMOGLOBIN (BEAKER) (test qeil=876) 29.6 pg 27.0-33.0 MEAN CORPUSCULAR HEMOGLOBIN CONC (BEAKER) (test qiog=946) 32.3 GM/DL 32.0-36.0 RED CELL DISTRIBUTION WIDTH (BEAKER) (test ufrh=589) 15.3 % 10.3-14.2 PLATELET COUNT (BEAKER) (test evnu=009) 97 K/CU MM 150-430 MEAN PLATELET VOLUME (BEAKER) (test kzuk=596) 9.4 fL 6.5-10.5 NUCLEATED RED BLOOD CELLS (BEAKER) (test vden=906) 0 /100 WBC 0-0 NEUTROPHILS RELATIVE PERCENT (BEAKER) (test raem=278) 52 % LYMPHOCYTES RELATIVE PERCENT (BEAKER) (test wjow=903) 37 % MONOCYTES RELATIVE PERCENT (BEAKER) (test euwo=097) 8 % EOSINOPHILS RELATIVE PERCENT (BEAKER) (test swri=621) 2 % BASOPHILS RELATIVE PERCENT (BEAKER) (test hrhp=061) 1 % NEUTROPHILS ABSOLUTE COUNT (BEAKER) (test nsju=352) 4.41 K/ L 1.80-8.00 LYMPHOCYTES ABSOLUTE COUNT (BEAKER) (test bdcr=989) 3.14 K/ L 1.48-4.50 MONOCYTES ABSOLUTE COUNT (BEAKER) (test jxgc=358) 0.66 K/ L 0.00-1.30 EOSINOPHILS ABSOLUTE COUNT (BEAKER) (test kvas=087) 0.18 K/ L 0.00-0.50 BASOPHILS ABSOLUTE COUNT (BEAKER) (test indp=794) 0.05 K/ L 0.00-0.20 0.000.500.000.000.000.000.00(MANUAL DIFFERENTIAL)2016-11-12 07:28:00* Test Item Value Reference Range Comments TOTAL COUNTED (BEAKER) (test qwal=2601) PLT MORPHOLOGY (BEAKER) (test fuuj=181) Normal RBC MORPHOLOGY (BEAKER) (test obmj=938) Normal ATYPICAL LYMPHS(BEAKER) (test kyqs=6703) Present [id number] 04:36:00* Test Item Value Reference Range Comments PHOSPHORUS (BEAKER) (test cuhd=551) 3.0 mg/dL 2.3-4.7 [id number] 04:36:00* Test Item Value Reference Range Comments MAGNESIUM (BEAKER) (test fqdn=701) 1.6 mg/dL 1.6-2.6 BASIC METABOLIC [id number] 04:36:00* Test Item Value Reference Range Comments SODIUM (BEAKER) (test qdwm=619) 140 meq/L 136-145 POTASSIUM (BEAKER) (test ykjk=668) 3.6 meq/L 3.5-5.1 CHLORIDE (BEAKER) (test ndqn=917) 105 meq/L 98-107 CO2 (BEAKER) (test dldw=510) 21 meq/L 22-29 BLOOD UREA NITROGEN (BEAKER) (test zgqn=323) 16 mg/dL 7-21 CREATININE (BEAKER) (test zlvs=592) 2.00 mg/dL 0.57-1.25 GLUCOSE RANDOM (BEAKER) (test bpzt=364) 120 mg/dL 70-105 CALCIUM (BEAKER) (test hcpl=194) 9.0 mg/dL 8.4-10.2 EGFR (BEAKER) (test yszt=2537) 32 mL/min/1.73 sq m ESTIMATED GFR IS NOT ACCURATE CREATININE CLEARANCE IN PREDICTING GLOMERULAR FILTRATION RATE. ESTIMATED GFR IS NOT APPLICABLE FOR DIALYSIS PATIENTS. HEPATIC FUNCTION [id number] 04:36:00* Test Item Value Reference Range Comments TOTAL PROTEIN (BEAKER) (test zuwt=723) 7.5 gm/dL 6.0-8.3 ALBUMIN (BEAKER) (test tmnt=9453) 3.9 g/dL 3.5-5.0 BILIRUBIN TOTAL (BEAKER) (test iqov=985) 1.2 mg/dL 0.2-1.2 BILIRUBIN DIRECT (BEAKER) (test gyjy=882) 0.5 mg/dL 0.1-0.5 ALKALINE PHOSPHATASE (BEAKER) (test ject=303) 126 U/L 40-150 AST (SGOT) (BEAKER) (test fucu=370) 18 U/L 5-34 ALT (SGPT) (BEAKER) (test pccg=773) 8 U/L 6-55 CBC W/PLT COUNT & AUTO [id number] 08:27:00* Test Item Value Reference Range Comments WHITE BLOOD CELL COUNT (BEAKER) (test hxfw=214) 5.8 K/ L 4.0-10.0 RED BLOOD CELL COUNT (BEAKER) (test pzee=423) 3.59 M/ L 4.00-5.00 HEMOGLOBIN (BEAKER) (test cngd=662) 10.4 GM/DL 12.0-15.0 HEMATOCRIT (BEAKER) (test xnre=295) 33.0 % 36.0-45.0 MEAN CORPUSCULAR VOLUME (BEAKER) (test yspk=807) 91.9 fL 82.0-99.0 MEAN CORPUSCULAR HEMOGLOBIN (BEAKER) (test fimu=301) 29.1 pg 27.0-33.0 MEAN CORPUSCULAR HEMOGLOBIN CONC (BEAKER) (test umqz=841) 31.7 GM/DL 32.0-36.0 RED CELL DISTRIBUTION WIDTH (BEAKER) (test gijj=560) 15.5 % 10.3-14.2 PLATELET COUNT (BEAKER) (test nhmm=098) 74 K/CU MM 150-430 MEAN PLATELET VOLUME (BEAKER) (test wnwa=394) 9.7 fL 6.5-10.5 NUCLEATED RED BLOOD CELLS (BEAKER) (test hnxa=279) 0 /100 WBC 0-0 NEUTROPHILS RELATIVE PERCENT (BEAKER) (test nbym=739) 59 % LYMPHOCYTES RELATIVE PERCENT (BEAKER) (test gutf=423) 31 % MONOCYTES RELATIVE PERCENT (BEAKER) (test barp=666) 7 % EOSINOPHILS RELATIVE PERCENT (BEAKER) (test neuf=268) 2 % BASOPHILS RELATIVE PERCENT (BEAKER) (test kopx=768) 0 % NEUTROPHILS ABSOLUTE COUNT (BEAKER) (test jjja=257) 3.42 K/ L 1.80-8.00 LYMPHOCYTES ABSOLUTE COUNT (BEAKER) (test nybd=514) 1.82 K/ L 1.48-4.50 MONOCYTES ABSOLUTE COUNT (BEAKER) (test qyep=857) 0.43 K/ L 0.00-1.30 EOSINOPHILS ABSOLUTE COUNT (BEAKER) (test oadb=497) 0.14 K/ L 0.00-0.50 BASOPHILS ABSOLUTE COUNT (BEAKER) (test zhbu=873) 0.02 K/ L 0.00-0.20 0.00URIC [id number] 07:13:00* Test Item Value Reference Range Comments URIC ACID (BEAKER) (test lirq=188) 10.6 mg/dL 2.6-7.2 [id number] 07:13:00* Test Item Value Reference Range Comments MAGNESIUM (BEAKER) (test ysok=951) 1.4 mg/dL 1.6-2.6 [id number] 07:13:00* Test Item Value Reference Range Comments PHOSPHORUS (BEAKER) (test dsvh=035) 3.1 mg/dL 2.3-4.7 BASIC METABOLIC [id number] 07:13:00* Test Item Value Reference Range Comments SODIUM (BEAKER) (test wypg=489) 143 meq/L 136-145 POTASSIUM (BEAKER) (test ovnj=377) 3.7 meq/L 3.5-5.1 CHLORIDE (BEAKER) (test ertq=760) 107 meq/L 98-107 CO2 (BEAKER) (test amdf=394) 21 meq/L 22-29 BLOOD UREA NITROGEN (BEAKER) (test wyso=260) 11 mg/dL 7-21 CREATININE (BEAKER) (test btaz=856) 1.62 mg/dL 0.57-1.25 GLUCOSE RANDOM (BEAKER) (test wycy=558) 116 mg/dL 70-105 CALCIUM (BEAKER) (test ewhz=265) 9.4 mg/dL 8.4-10.2 EGFR (BEAKER) (test skuj=2306) 41 mL/min/1.73 sq m ESTIMATED GFR IS NOT ACCURATE CREATININE CLEARANCE IN PREDICTING GLOMERULAR FILTRATION RATE. ESTIMATED GFR IS NOT APPLICABLE FOR DIALYSIS PATIENTS. HEPATIC FUNCTION [id number] 07:13:00* Test Item Value Reference Range Comments TOTAL PROTEIN (BEAKER) (test ihug=709) 8.2 gm/dL 6.0-8.3 ALBUMIN (BEAKER) (test ppmz=5100) 4.2 g/dL 3.5-5.0 BILIRUBIN TOTAL (BEAKER) (test dwhn=986) 1.7 mg/dL 0.2-1.2 BILIRUBIN DIRECT (BEAKER) (test fjoc=713) 0.6 mg/dL 0.1-0.5 ALKALINE PHOSPHATASE (BEAKER) (test rdhh=884) 140 U/L 40-150 AST (SGOT) (BEAKER) (test pbue=615) 20 U/L 5-34 ALT (SGPT) (BEAKER) (test rkar=439) 11 U/L 6-55 TSH/FREE T4 IF [id number] 06:17:00* Test Item Value Reference Range Comments THYROID STIMULATING HORMONE (BEAKER) (test apno=567) 1.33 uIU/mL 0.35-4.94 B-TYPE NATRIURETIC FACTOR (BNP)2016-11-11 06:00:00* Test Item Value Reference Range Comments B-TYPE NATRIURETIC PEPTIDE (BEAKER) (test obmz=373) 107 pg/mL 0-100 CALCIUM, [id number] 04:37:00* Test Item Value Reference Range Comments CALCIUM IONIZED (BEAKER) (test tihi=683) 1.06 mmol/L 1.12-1.27 PH, BLOOD (BEAKER) (test hweb=5670) 7.45 CREATININE, RANDOM [id number] 17:20:00* Test Item Value Reference Range Comments CREATININE URINE (BEAKER) (test tvlf=650) 16.9 mg/dL Reference Range: No NormalsPROTEIN, RANDOM [id number] 17:20:00* Test Item Value Reference Range Comments PROTEIN, URINE (BEAKER) (test ytjq=5844) 10 mg/dL 0-14 SODIUM, RANDOM [id number] 17:20:00* Test Item Value Reference Range Comments SODIUM URINE (BEAKER) (test axcu=316) 134 meq/L Reference Range: No NormalsURINALYSIS W/ [id number] 16:50:00* Test Item Value Reference Range Comments COLOR (BEAKER) (test myub=826) Colorless CLARITY (BEAKER) (test gnon=993) Clear SPECIFIC GRAVITY UA (BEAKER) (test qjei=048) 1.004 1.001-1.035 PH UA (BEAKER) (test lepx=662) 5.5 5.0-8.0 PROTEIN UA (BEAKER) (test nint=230) Negative Negative GLUCOSE UA (BEAKER) (test ntuk=322) Negative Negative KETONES UA (BEAKER) (test xajf=407) Negative Negative BILIRUBIN UA (BEAKER) (test xxeo=836) Negative Negative BLOOD UA (BEAKER) (test zleq=781) Negative Negative NITRITE UA (BEAKER) (test dzmy=140) Negative Negative LEUKOCYTE ESTERASE UA (BEAKER) (test qcyl=314) Moderate Negative UROBILINOGEN UA (BEAKER) (test ozbp=104) 0.2 mg/dL 0.2-1.0 RBC UA (BEAKER) (test uhrr=332) 2 /HPF WBC UA (BEAKER) (test eosm=777) 5 /HPF SQUAMOUS EPITHELIAL (BEAKER) (test kabh=593) < /HPF HYALINE CASTS (BEAKER) (test pmrd=781) 2 /LPF CRYSTALS, URINE (BEAKER) (test yuap=6397) Rare SOURCE(BEAKER) (test vbck=6391) Urine, John CBC W/PLT COUNT & AUTO [id number] 06:33:00* Test Item Value Reference Range Comments WHITE BLOOD CELL COUNT (BEAKER) (test egkq=704) 5.8 K/ L 4.0-10.0 RED BLOOD CELL COUNT (BEAKER) (test eoft=107) 3.76 M/ L 4.00-5.00 HEMOGLOBIN (BEAKER) (test twco=775) 10.4 GM/DL 12.0-15.0 HEMATOCRIT (BEAKER) (test bojj=575) 34.5 % 36.0-45.0 MEAN CORPUSCULAR VOLUME (BEAKER) (test ubch=835) 91.5 fL 82.0-99.0 MEAN CORPUSCULAR HEMOGLOBIN (BEAKER) (test zmpp=488) 27.6 pg 27.0-33.0 MEAN CORPUSCULAR HEMOGLOBIN CONC (BEAKER) (test shqd=550) 30.1 GM/DL 32.0-36.0 RED CELL DISTRIBUTION WIDTH (BEAKER) (test mwwg=870) 15.4 % 10.3-14.2 PLATELET COUNT (BEAKER) (test borv=781) 73 K/CU MM 150-430 MEAN PLATELET VOLUME (BEAKER) (test zsmi=612) 9.9 fL 6.5-10.5 NUCLEATED RED BLOOD CELLS (BEAKER) (test tzjp=394) 0 /100 WBC 0-0 NEUTROPHILS RELATIVE PERCENT (BEAKER) (test hett=694) 61 % LYMPHOCYTES RELATIVE PERCENT (BEAKER) (test ewop=926) 31 % MONOCYTES RELATIVE PERCENT (BEAKER) (test rbja=820) 5 % EOSINOPHILS RELATIVE PERCENT (BEAKER) (test uibm=201) 2 % BASOPHILS RELATIVE PERCENT (BEAKER) (test ogvi=848) 1 % NEUTROPHILS ABSOLUTE COUNT (BEAKER) (test njyk=035) 3.50 K/ L 1.80-8.00 LYMPHOCYTES ABSOLUTE COUNT (BEAKER) (test anpm=077) 1.78 K/ L 1.48-4.50 MONOCYTES ABSOLUTE COUNT (BEAKER) (test uztc=845) 0.31 K/ L 0.00-1.30 EOSINOPHILS ABSOLUTE COUNT (BEAKER) (test xgvq=155) 0.11 K/ L 0.00-0.50 BASOPHILS ABSOLUTE COUNT (BEAKER) (test nmvt=636) 0.05 K/ L 0.00-0.20 0.00CREATINE KINASE (CK), TOTAL AND [id number] 06:13:00* Test Item Value Reference Range Comments CREATINE KINASE TOTAL (BEAKER) (test ytsq=328) 57 U/L 29-200 CREATINE KINASE-MB (BEAKER) (test nyoi=117) 1.4 ng/mL 0.0-6.6 CREATINE KINASE-MB INDEX (BEAKER) (test ewxy=108) 2.5 % Effective 07/17/2014: CK-MB Reference Range ChangeNew: 0.0-6.6 Previous: 0.0- 4.9CK-MB Reference Range:<6.7 Normal6.7-10.0 Borderline>10.0 Abnormal TROPONIN [id number] 06:13:00* Test Item Value Reference Range Comments TROPONIN I (BEAKER) (test wylk=637) < ng/mL 0.00-0.03 Effective 07/17/2014: Reference Range ChangeNew: 0.00-0.03 Previous 0.00-0.15T roponin I (TnI) levels must be interpreted in the context of the presenting symp toms and the clinical findings. Elevated TnI levels indicate myocardial damage, but are not specific for ischemic heart disease. Elevated TnI levels are seen in patients with other cardiac conditions (including myocarditis and congestive he art failure), and slight TnI elevations occur in patients with other conditions, including sepsis, renal failure, acidosis, acute neurological disease, and pers istent tachyarrhythmia.COMPREHENSIVE METABOLIC [id number] 06:06:00* Test Item Value Reference Range Comments TOTAL PROTEIN (BEAKER) (test oeto=009) 8.7 gm/dL 6.0-8.3 ALBUMIN (BEAKER) (test knkz=6384) 4.4 g/dL 3.5-5.0 ALKALINE PHOSPHATASE (BEAKER) (test otzo=590) 149 U/L 40-150 BILIRUBIN TOTAL (BEAKER) (test xank=562) 1.6 mg/dL 0.2-1.2 SODIUM (BEAKER) (test jouy=569) 144 meq/L 136-145 POTASSIUM (BEAKER) (test cnol=509) 3.9 meq/L 3.5-5.1 CHLORIDE (BEAKER) (test gzln=651) 111 meq/L 98-107 CO2 (BEAKER) (test aehm=409) 18 meq/L 22-29 BLOOD UREA NITROGEN (BEAKER) (test oaqy=889) 10 mg/dL 7-21 CREATININE (BEAKER) (test fymx=179) 1.53 mg/dL 0.57-1.25 GLUCOSE RANDOM (BEAKER) (test udtu=622) 122 mg/dL 70-105 CALCIUM (BEAKER) (test wpiu=323) 10.0 mg/dL 8.4-10.2 AST (SGOT) (BEAKER) (test naag=819) 25 U/L 5-34 ALT (SGPT) (BEAKER) (test ydyo=786) 12 U/L 6-55 EGFR (BEAKER) (test bahz=4367) 44 mL/min/1.73 sq m ESTIMATED GFR IS NOT ACCURATE CREATININE CLEARANCE IN PREDICTING GLOMERULAR FILTRATION RATE. ESTIMATED GFR IS NOT APPLICABLE FOR DIALYSIS PATIENTS. B-TYPE NATRIURETIC FACTOR (BNP)2016-11-09 21:01:00* Test Item Value Reference Range Comments B-TYPE NATRIURETIC PEPTIDE (BEAKER) (test nuws=168) 781 pg/mL 0-100 CREATINE KINASE (CK), TOTAL AND [id number] 20:35:00* Test Item Value Reference Range Comments CREATINE KINASE TOTAL (BEAKER) (test mehb=187) 68 U/L 29-200 CREATINE KINASE-MB (BEAKER) (test deci=595) 1.7 ng/mL 0.0-6.6 CREATINE KINASE-MB INDEX (BEAKER) (test bnba=385) 2.5 % Effective 07/17/2014: CK-MB Reference Range ChangeNew: 0.0-6.6 Previous: 0.0- 4.9CK-MB Reference Range:<6.7 Normal6.7-10.0 Borderline>10.0 Abnormal TROPONIN [id number] 20:35:00* Test Item Value Reference Range Comments TROPONIN I (BEAKER) (test iblz=798) 0.01 ng/mL 0.00-0.03 Effective 07/17/2014: Reference Range ChangeNew: 0.00-0.03 Previous 0.00-0.15T roponin I (TnI) levels must be interpreted in the context of the presenting symp toms and the clinical findings. Elevated TnI levels indicate myocardial damage, but are not specific for ischemic heart disease. Elevated TnI levels are seen in patients with other cardiac conditions (including myocarditis and congestive he art failure), and slight TnI elevations occur in patients with other conditions, including sepsis, renal failure, acidosis, acute neurological disease, and pers istent tachyarrhythmia.[id number] 20:29:00* Test Item Value Reference Range Comments MAGNESIUM (BEAKER) (test yqgl=544) 1.7 mg/dL 1.6-2.6 BASIC METABOLIC [id number] 20:29:00* Test Item Value Reference Range Comments SODIUM (BEAKER) (test jkkl=941) 144 meq/L 136-145 POTASSIUM (BEAKER) (test sukb=597) 3.9 meq/L 3.5-5.1 CHLORIDE (BEAKER) (test qtev=519) 112 meq/L 98-107 CO2 (BEAKER) (test fgcf=739) 17 meq/L 22-29 BLOOD UREA NITROGEN (BEAKER) (test pqih=985) 9 mg/dL 7-21 CREATININE (BEAKER) (test dsfi=796) 1.44 mg/dL 0.57-1.25 GLUCOSE RANDOM (BEAKER) (test erob=206) 131 mg/dL 70-105 CALCIUM (BEAKER) (test ijur=723) 9.4 mg/dL 8.4-10.2 EGFR (BEAKER) (test sjiz=4245) 47 mL/min/1.73 sq m ESTIMATED GFR IS NOT ACCURATE CREATININE CLEARANCE IN PREDICTING GLOMERULAR FILTRATION RATE. ESTIMATED GFR IS NOT APPLICABLE FOR DIALYSIS PATIENTS. HEPATIC FUNCTION [id number] 20:29:00* Test Item Value Reference Range Comments TOTAL PROTEIN (BEAKER) (test yako=948) 7.8 gm/dL 6.0-8.3 ALBUMIN (BEAKER) (test wpmk=5120) 4.0 g/dL 3.5-5.0 BILIRUBIN TOTAL (BEAKER) (test sbvr=712) 0.9 mg/dL 0.2-1.2 BILIRUBIN DIRECT (BEAKER) (test blbd=958) 0.4 mg/dL 0.1-0.5 ALKALINE PHOSPHATASE (BEAKER) (test hzfy=716) 143 U/L 40-150 AST (SGOT) (BEAKER) (test qevu=801) 21 U/L 5-34 ALT (SGPT) (BEAKER) (test ccts=873) 11 U/L 6-55 CBC W/PLT COUNT & AUTO [id number] 20:26:00* Test Item Value Reference Range Comments WHITE BLOOD CELL COUNT (BEAKER) (test jmkf=188) 4.1 K/ L 4.0-10.0 RED BLOOD CELL COUNT (BEAKER) (test vuqo=108) 3.48 M/ L 4.00-5.00 HEMOGLOBIN (BEAKER) (test mbep=277) 10.4 GM/DL 12.0-15.0 HEMATOCRIT (BEAKER) (test gpre=852) 31.1 % 36.0-45.0 MEAN CORPUSCULAR VOLUME (BEAKER) (test aqrs=079) 89.2 fL 82.0-99.0 MEAN CORPUSCULAR HEMOGLOBIN (BEAKER) (test fifg=796) 29.8 pg 27.0-33.0 MEAN CORPUSCULAR HEMOGLOBIN CONC (BEAKER) (test ufto=589) 33.4 GM/DL 32.0-36.0 RED CELL DISTRIBUTION WIDTH (BEAKER) (test urrw=768) 16.3 % 10.3-14.2 PLATELET COUNT (BEAKER) (test ssct=887) 58 K/CU MM 150-430 MEAN PLATELET VOLUME (BEAKER) (test ocpg=288) 9.4 fL 6.5-10.5 NUCLEATED RED BLOOD CELLS (BEAKER) (test qwah=674) 0 /100 WBC 0-0 NEUTROPHILS RELATIVE PERCENT (BEAKER) (test bynv=705) 59 % LYMPHOCYTES RELATIVE PERCENT (BEAKER) (test mxkm=896) 33 % MONOCYTES RELATIVE PERCENT (BEAKER) (test aeat=844) 6 % EOSINOPHILS RELATIVE PERCENT (BEAKER) (test mcuk=572) 2 % BASOPHILS RELATIVE PERCENT (BEAKER) (test dfjj=161) 0 % NEUTROPHILS ABSOLUTE COUNT (BEAKER) (test imah=881) 2.43 K/ L 1.80-8.00 LYMPHOCYTES ABSOLUTE COUNT (BEAKER) (test sgwl=141) 1.37 K/ L 1.48-4.50 MONOCYTES ABSOLUTE COUNT (BEAKER) (test ddds=425) 0.26 K/ L 0.00-1.30 EOSINOPHILS ABSOLUTE COUNT (BEAKER) (test xugw=345) 0.07 K/ L 0.00-0.50 BASOPHILS ABSOLUTE COUNT (BEAKER) (test eluk=211) 0.01 K/ L 0.00-0.20 [id number] 20:18:00* Test Item Value Reference Range Comments PROTIME (BEAKER) (test tcqx=262) 15.8 seconds 11.7-14.7 INR (BEAKER) (test ipik=708) 1.3 <=5.9 PARTIAL THROMBOPLASTIN TIME (BEAKER) (test iyhc=079) 34.6 seconds 22.5-36.0 RECOMMENDED COUMADIN/WARFARIN INR THERAPY RANGESSTANDARD DOSE: 2.0 - 3.0 Inclu ping: PROPHYLAXIS for venous thrombosis, systemic embolization; TREATMENT for joie ous thrombosis and/or pulmonary embolus.HIGH RISK: Target INR is 2.5-3.5 for pat ients with mechanical heart valves.
--- NOTE | 2018-07-26 08:50 | Consultation ---
DATE OF CONSULTATION: May 31, 2018 PAIN MANAGEMENT CONSULTATION REASON FOR CONSULTATION: Pain management. HISTORY OF PRESENT ILLNESS: Ms. Bonita Jimenes is a 52-year-old female brought to the hospital confused and with altered mental status. 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 Also, she has cirrhosis. She has been on methadone for a while by her primary care physician as an outpatient. Her pain is 10/10 as per poor communication. We stopped the methadone. She is taking methadone for chronic pain along with clonazepam. As per the record, she had a recent fall at [facility], and imaging studies showed acute fracture of the proximal and middle aspect of the 1st dorsal phalanx. Other x-rays are normal including hip, ankle and knee. She also has underlying kidney disease along with chronic back pain syndrome for a while along with lower extremity swelling also. She was found to have chronic bilateral lower extremity swelling at this moment. No history of urinary tract infection or other problem. She had been seen and evaluated at the bedside in the ICU. Able to arouse and able to answer a few questions. Very lethargic and sleepy on examination, but arousable. REVIEW OF SYSTEMS: Unable to obtain. ALLERGIES: NO KNOWN DRUG ALLERGIES. HOME MEDICATIONS: Methadone, melatonin, tizanidine, clonazepam, gabapentin and Artemus q.6 p.r.n. 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 PAST SURGICAL HISTORY: Unknown. FAMILY HISTORY: Unknown. SOCIAL HISTORY: Unknown. VITAL SIGNS: Temperature 101. Heart rate 133. Respiratory rate 22. Blood pressure 121/67 on the monitor and 100% oxygen at 3 liters. LABORATORY DATA: Noted. PHYSICAL EXAMINATION GENERAL: The patient is arousable on examination but does not make any sense at this moment. HEENT: Normocephalic. NECK: Supple. LUNGS: Air entry equal bilaterally. HEART: Regular rate and rhythm. ABDOMEN: Obese, soft. The rest of the examination is unable to assess and postponed for subsequent visit. ASSESSMENT AND PLAN: This is a patient with multiple issues: Ongoing pain with history of methadone and chronic pain. She had developed possible side effects of her long-acting effect of methadone. She has a history of cirrhosis and kidney failure. It was recommended to stop writing her methadone. This patient was brought to the hospital with altered mental status from [facility]. She has a history of alcoholic cirrhosis, neuropathy, renal failure. For the chronic pain, she is getting methadone and clonazepam along with gabapentin and tizanidine contributing to her risk associated with possible overdose underlying question. Will continue supportive care while she is an inpatient. She will follow up with her own doctor once she is discharged home. We are providing care only as an outpatient in the ICU as an emergency. Job#: [id number]
== END 2018-06-03 17:27 | disposition home health service (06) | DRG 853 ==
LOC: ER 01:41 → ERHOLD 05:51 → ICU 07:19 → IMCU 05-31 20:03 → MED/SURG2 06-02 02:12
PROVIDERS: ADMIT Internal Medicine; ATTEND Internal Medicine
PROC: 02HV33Z Insertion of Infusion Device into Superior Vena Cava, Percutaneous Approach (ICD-10-PCS; principal; 2018-05-29)
PROC: 00J Central Nervous System and Cranial Nerves, Inspection (ICD-10-PCS; 2018-06-01)
DX: A41.9 Sepsis, unspecified organism (principal); G92 Toxic encephalopathy; I13.0 Hypertensive heart and chronic kidney disease with heart failure and stage 1 through stage 4 chronic kidney disease, or unspecified chronic kidney disease; I50.32 Chronic diastolic (congestive) heart failure; Z68.42 Body mass index [BMI] 45.0-49.9, adult; M62.82 Rhabdomyolysis; N17.9 Acute kidney failure, unspecified; K72.90 Hepatic failure, unspecified without coma; R65.20 Severe sepsis without septic shock; E11.22 Type 2 diabetes mellitus with diabetic chronic kidney disease; N18.3 Chronic kidney disease, stage 3 (moderate); Z79.4 Long term (current) use of insulin; K70.30 Alcoholic cirrhosis of liver without ascites; F10.20 Alcohol dependence, uncomplicated; G62.9 Polyneuropathy, unspecified; M48.56XS Collapsed vertebra, not elsewhere classified, lumbar region, sequela of fracture; E66.01 Morbid (severe) obesity due to excess calories; R53.81 Other malaise; B96.4 Proteus (mirabilis) (morganii) as the cause of diseases classified elsewhere; Z16.12 Extended spectrum beta lactamase (ESBL) resistance; T40.3X5A Adverse effect of methadone, initial encounter; T42.6X5A Adverse effect of other antiepileptic and sedative-hypnotic drugs, initial encounter; Y92.129 Unspecified place in nursing home as the place of occurrence of the external cause; F32.9 Major depressive disorder, single episode, unspecified; G89.4 Chronic pain syndrome; J45.909 Unspecified asthma, uncomplicated; D69.6 Thrombocytopenia, unspecified; S92.421D Displaced fracture of distal phalanx of right great toe, subsequent encounter for fracture with routine healing; W19.XXXD Unspecified fall, subsequent encounter
CPT/HCPCS: 36415; 36556; 51700; 62270; 70450; 71045; 74176; 74470; 76937; 77012; 80048; 80053; 80061; 80202; 80307; 80329; 81001; 81025; 82140; 82550; 82553; 82945; 82948; 83518; 83605; 83690; 83735; 83880; 84157; 84443; 84484; 85025; 85347; 85610; 85730; 86606; 86612; 86635; 86698; 86789; 87040; 87070; 87086; 87102; 87186; 87205; 87206; 87400; 89051; 93005; 93306; 93970; 96367; 96376; 97139; 99285; J0692; J0696; J1650; J1940; J2001; J2405; J3370; J7030; J7050